=== PATIENT | male | born 1990 | race Caucasian/White ===

== ENCOUNTER 2022-04-20 00:03 | Emergency (ER) | payer OTHER, SELFPAY ==
--- NOTE | ~2022-04-20 | XR_ITS ---
EXAMINATION: XR ankle RT min 3V, XR foot RT min 3V CLINICAL INFORMATION: Reason for Exam pain, trauma COMPARISON: Right ankle radiographs the 05/07/2012 TECHNIQUE: AP and mortise views right ankle; 3 views right foot FINDINGS: Right ankle: No fracture or dislocation. Ankle mortise is congruent and intact. Right foot: No acute fracture or dislocation. Joint spaces throughout the foot are maintained. Lisfranc alignment is preserved on this nonweightbearing exam. No evidence of ankle joint effusion on the lateral view. XR/XR foot RT min 3V IMPRESSION: 1. No acute fracture or dislocation identified at the right foot or ankle.
--- NOTE | ~2022-04-20 | XR_ITS ---
EXAMINATION: XR ankle RT min 3V, XR foot RT min 3V CLINICAL INFORMATION: Reason for Exam pain, trauma COMPARISON: Right ankle radiographs the 05/07/2012 TECHNIQUE: AP and mortise views right ankle; 3 views right foot FINDINGS: Right ankle: No fracture or dislocation. Ankle mortise is congruent and intact. Right foot: No acute fracture or dislocation. Joint spaces throughout the foot are maintained. Lisfranc alignment is preserved on this nonweightbearing exam. No evidence of ankle joint effusion on the lateral view. XR/XR ankle RT min 3V IMPRESSION: 1. No acute fracture or dislocation identified at the right foot or ankle.
[2022-04-20 00:27] VITALS: BP 94/56; PULSE 71; RESP 16; TEMP 36.6; O2SAT 97; BMI 24.3
--- NOTE | 2022-04-20 01:12 | ED.LOWEXIN ---
HPI - Extremity Injury (Lower) General Chief Complaint: Extremity Injury, Lower Stated Complaint: R foot Pain Time Seen by Provider: 04/20/22 00:32 Source: patient Mode of arrival: ambulatory Limitations: no limitations History of Present Illness HPI Narrative: 31-year-old male presents for injury to his right foot and ankle. Patient states that he was running and tripped over a tree. States that he has pain and swelling to the right extremity and has a history of fracture. Does not report any other injury from this fall, did not report any prodromal events prior to the fall. Patient is ambulatory with a limp. complaint: ankle injury and foot injury Onset (ago): hour(s) (Within the hour of arrival) Type of Injury: unknown Place: street/outdoors Severity: moderate Severity scale (1-10): 6 Relieving factors: nothing Exacerbating factors: weight bearing, movement and palpation Context: direct blow Associated symptoms: swelling, able to partially bear weight and ambulatory Other symptoms: none Related Data Allergies Allergy/AdvReac Type Severity Reaction Status Date / Time No Known Allergies Allergy Verified 04/20/22 00:32 Review of Systems Review of Systems: Constitutional: No Fever, No Chills ENT/Mouth: No Ear Pain, No Hoarseness, No sore throat Eyes: No Eye Pain, No Swelling, No Redness, No Foreign Body Cardiovascular: No Chest Pain, No SOB Respiratory: No Cough, No Dyspnea Gastrointestinal: No Nausea, No Vomiting, No Diarrhea, No abdominal Pain Genitourinary: No Dysuria, No Hematuria Musculoskeletal: positive right foot and ankle pain, No Myalgias, No Joint Swelling Skin: No Skin lacerations, No rash Neuro: No Weakness, No Numbness, No Paresthesias, No Loss of Consciousness, No Dizziness, No Headache Psych: No Anxiety/Panic, No Depression Heme/Lymph: no easy bruising, no Lymphadenopathy Endocrine: No Polyuria, No Polydipsia Yes all other systems are reviewed and are negative [facility] Past Medical History Attestation statement: The following information was validated with the patient. Source: old records reviewed Social History Social History Advance Directives: No Physical Exam Vital Signs: Vital Signs: Last Vital Signs Temp 97.8 F 04/20/22 00:27 Pulse 71 04/20/22 00:27 Resp 16 04/20/22 00:27 BP 94/56 L 04/20/22 00:27 Pulse Ox 97 04/20/22 00:27 O2 Del Method 04/20/22 00:27 BMI result Body Mass Index 24.3 Appearance: Alert. Oriented X3. No acute distress. Eyes: Pupils equal, round and reactive to light. ENT: Pharynx normal. Neck: Normal inspection. Neck supple. CVS: Normal heart rate and rhythm. Pulses normal. Respiratory: No respiratory distress. Breath sounds normal. Abdomen: Soft and nontender. Skin: Skin warm and dry. Normal skin color. Normal skin turgor. Extremities: Full range of motion, flexion extension internal and external rotation to the right lower extremity. Brisk capillary refill ankle pulses. Neuro: No motor deficit. No sensory deficit. Cranial nerves 2-12 intact. Course Course Course Narrative: 31-year-old male presents with injury to the right lower extremity after running and tripping into a tree. Patient does not have any appreciable swelling or discoloration consistent with bruising. No open wounds noted. Has full range of motion to lower extremity. Is ambulatory with a limp. Will order x-rays 01:16 x-rays negative for acute findings requiring emergent intervention. Plan of care is to discharge home with supportive measures. Patient verbalized understanding of and agrees plan of care discharge home MDM - Extremity Injury (Lower) Differential Diagnosis Differential diagnosis: Likely ankle sprain and strain and ankle fracture Medical Records Attestation: I reviewed the patient's medical records. Imaging Data Right foot and ankle x-ray: Attestation: I personally reviewed and interpreted this imaging study as follows: Radiologist's impression: EXAMINATION: XR ankle RT min 3V, XR foot RT min 3V CLINICAL INFORMATION: Reason for Exam pain, trauma COMPARISON: Right ankle radiographs the 05/07/2012 TECHNIQUE: AP and mortise views right ankle; 3 views right foot FINDINGS: Right ankle: No fracture or dislocation. Ankle mortise is congruent and intact. Right foot: No acute fracture or dislocation. Joint spaces throughout the foot are maintained. Lisfranc alignment is preserved on this nonweightbearing exam. No evidence of ankle joint effusion on the lateral view. XR/XR foot RT min 3V IMPRESSION: ? 1. No acute fracture or dislocation identified at the right foot or ankle.? Discharge Plan Discharge Clinical Impression: Ankle sprain and strain Patient Disposition: Home, Self-Care Instructions: Ankle Sprain (ED) Additional Instructions: You were evaluated for right lower extremity pain. X-rays are negative for fracture and dislocation. This is most likely a sprain. Use Jun Wrap as needed. Alternate Tylenol 650 mg every 6 hours and Motrin 600 mg every 6 hours for pain management. Write down what time he take these medications to prevent accidental overdose. Follow-up with primary care provider as needed. Thank you for choosing this emergency department for evaluation. Please follow-up with primary care physician as needed. Return to the emergency department for any new, concerning, or worsening symptoms.
== END 2022-04-20 01:40 | disposition home or self-care (01) ==
PROVIDERS: Emergency Provider Emergency Medicine
DX: S93.401A Sprain of unspecified ligament of right ankle, initial encounter (principal); S96.911A Strain of unspecified muscle and tendon at ankle and foot level, right foot, initial encounter; W01.0XXA Fall on same level from slipping, tripping and stumbling without subsequent striking against object, initial encounter; Y93.02 Activity, running; Y92.410 Unspecified street and highway as the place of occurrence of the external cause; Y99.9 Unspecified external cause status
CPT/HCPCS: 73610; 73630; 99283

== ENCOUNTER 2022-05-31 20:35 | Emergency (ER) | payer OTHER, SELFPAY ==
[2022-05-31 20:40] VITALS: BP 118/75; PULSE 94; RESP 14; TEMP 36.6; O2SAT 97; BMI 24.3
--- NOTE | 2022-05-31 21:35 | PC.NURSE ---
I was flagged into the room by female visitor. he's having fits or something . Pt a and ox 4, tearful. Pt was abusive verbally abusive to staff when URVASHI education was provided regarding priority. Pt verbalized undstanding. it shouldn't be so fucking hard to check my joint and see if i'm going to be okay. you can fucking transfer me to another hospital .
--- NOTE | 2022-05-31 21:49 | ED_ITS ---
HPI - Male Genitourinary General Chief complaint: Urogenital-Male Stated complaint: genital issues Time Seen by Provider: 05/31/22 21:35 Source: patient and other ( Girlfriend) Mode of arrival: ambulatory Limitations: no limitations ( patient does give a history however he is angry, aggressive and somewhat uncooperative especially with answering questions) History of Present Illness HPI Narrative: 31-year-old male who presents emergency department for evaluation of multiple lesions on his penis. The patient states that he started out with what he thought was a pimple/ingrown hair on the left lateral ventral aspect of the penis. He then developed other pimples which he states popped. His penis then became inflamed and red. He states that the lesions are not painful. He does have a clear penile discharge. He has no testicular or scrotal pain. When I asked him if he had a history of sexually transmitted diseases he denied this however his girlfriend is dated that he had gonorrhea and chlamydia 2 weeks ago but he did not finish his medications. This made the patient angry and his girlfriend also became angry and left the room and went home which upset the patient further. The patient denied fever, chills, chest pain, shortness of breath, joint pain, fatigue, weakness, throat pain, rectal pain. the patient to be reached at the following phone number Complaint: penile discharge, possible STD exposure and other ( Penile lesions) Onset (ago): day(s) (2) Duration: constant Location: penis Radiation: penis Quality: other ( painless) Relieving factors: none Exacerbating factors: none Associated symptoms: Reports discharge and rash Related Data Sexually active: Yes Previous Rx's Medication Instructions Recorded doxycycline hyclate 100 mg tablet 100 mg PO Q12H 10 days #20 tabs 05/31/22 metronidazole 500 mg tablet 500 mg PO BID 10 days #20 tabs 05/31/22 valacyclovir 1 gram tablet 1,000 mg PO Q12H 10 days #20 tabs 05/31/22 Allergies Allergy/AdvReac Type Severity Reaction Status Date / Time No Known Allergies Allergy Verified 04/20/22 00:32 [facility] Social History Social History Advance Directives: No Advance Directives Information Provided: No Physical Exam Vital Signs: Vital Signs: Last Vital Signs Temp 97.8 F 05/31/22 20:40 Pulse 94 05/31/22 20:40 Resp 14 05/31/22 20:40 BP 118/75 05/31/22 20:40 Pulse Ox 97 05/31/22 20:40 O2 Del Method 05/31/22 20:40 BMI result Body Mass Index 24.3 Const: Other: awake, alert, male patient, agitated, somewhat uncooperative when answering questions HEENT: Head: Yes normal to inspection, Yes normocephalic and Yes atraumatic Ears: external ears normal General nose exam: Normal external nose present Face and sinus: Yes normal facial exam Mouth: Normal oral and palatal mucosa present Throat: Yes posterior oropharynx normal Eyes: General: appearance normal, both eyes and all related structures Pupils: Equal, round and reactive pupils present Neck: Neck: Yes normal visual inspection, Yes no lymphadenopathy, Yes trachea midline and Yes supple Chest: Chest palpation & inspection: normal inspection of the chest and normal palpation of entire chest wall Resp: Effort & Inspection: normal respiratory effort and able to speak in complete sentences Auscultation: clear to auscultation bilaterally Cardio: Rate: regular rate Rhythm: regular rhythm Heart sounds: S1 normal heart sound present, S2 normal heart sound present and no murmurs GI: Inspection: Yes normal to inspection Palpation (GI): Soft to palpation, nontender and no guarding Auscultation: normal bowel sounds : Other: patient has multiple lesions and an ulceration to skin of his penis, I suspect that the patient has herpes with a superinfection. The patient did agree to let me a photograph the lesions in order to follow the progression in the event that he has to return and his symptoms are worse. the patient also has a piercing on the dorsal aspect of the penis which is in the shape of a heart, it is inserted under the skin, it is nontender and not erythematous. The patient is uncircumcised, there are no lesions noted on the bulb of the penis but he does have a clear urethral discharge. He has nontender bilateral inguinal adenopathy General: Yes no CVA tenderness Back/Spine/Pelvis: Back: no CVA tenderness Skin: General skin exam: no rashes or lesions noted Neuro: Cranial nerves: Yes CN's II-XII intact bilaterally and Yes Equal, round and reactive pupils present Cognition (Neuro): normal cognition Extrem: General: Yes normal to inspection Psych: Appearance: grossly normal Speech and movement: Normal speech and movement present Attitude: Belligerent attititude/behavior present Course Course Course Narrative: 31-year-old male who presents emergency department for evaluation penile lesions x2 days as well as penile discharge. The patient's girlfriend reported that he tested positive for gonorrhea and chlamydia but did not complete his course of antibiotics. The patient is sexually active. The patient's description of his lesions are concerning for possible herpetic lesions which I believe are now superinfected. Patient also has a clear penile discharge in most likely has chlamydia but gonorrhea is also possibility. I did discuss testing and treatment for STDs with the patient and he did concur. He also give me permission to take a picture the lesions so that we can follow the lesions in the event that he has return to the emergency department for further management. The patient was tested for HIV, STD, herpes. The patient so far has refused to give us a urine sample for gonorrhea and chlamydia and we do not do urethral testing for these illnesses at this institution. Patient was treated with ceftriaxone/ lidocaine 500 mg IM, doxycycline 100 mg orally in Flagyl 500 mg orally. He was given prescriptions for doxycycline 100 mg q.12 hours for 10 days, Flagyl 500 mg q.12 hours for 10 days and valacyclovir 1000 mg q.12 hours for 10 days. The patient will need to follow-up with [facility] in [place] for re-evaluation and to follow-up on his laboratory testing. The patient did give me the following phone number that he can be reached at: Discharge Plan Discharge Clinical Impression: Concern about STD in male without diagnosis, Lesion of penis, Discharge from penis Patient Disposition: Home, Self-Care Instructions: Sexually Transmitted Diseases (ED) Additional Instructions: you have and infection of your penis. There are multiple different possible causes including sexual transmitted diseases such as HIV, syphilis, gonorrhea, chlamydia, herpes and a bacterial infection. We tested you for HIV, syphilis, gonorrhea, chlamydia, herpes, and a wound culture. You were treated with ceftriaxone 500 mg IM you also received doxycycline 100 mg orally and Flagyl (metronidazole ) 500 mg. Take doxycycline 100 mg every 12 hours for 10 days. Take Flagyl (metronidazole ) 500 mg every 12 hours for 10 days. Take valacyclovir 1000 mg every 12 hours for 10 days. Apply bacitracin twice a day to the rash on your penis for 10 days. Follow-up with [facility] in [place] for re-evaluation in 1 week Prescriptions: New metronidazole 500 mg tablet 500 mg PO BID 10 Days Qty: 20 0RF doxycycline hyclate 100 mg tablet 100 mg PO Q12H 10 Days Qty: 20 0RF valacyclovir 1 gram tablet 1,000 mg PO Q12H 10 Days Qty: 20 0RF
[2022-05-31] MEDS: metroNIDAZOLE 500 MG TABLET PO (22:18)
[2022-05-31] MEDS: cefTRIAXone sodium 500 MG, Lidocaine HCl 1 % MPF 1 ML IM (22:19)
[2022-05-31 23:31] LABS: Appearance Urine HAZY; Color Urine YELLOW; Glucose Urine UA NEG (NEG); Leukocyte Esterase Urine NEG (NEG); Nitrite Urine NEG (NEG); Specific Gravity - Urine >= 1.030 (1.005-1.025); Urine Blood NEG (NEG); Urine Ketones NEG (NEG); Urine Protein 2+ MG/DL (NEG-TRACE)
[2022-05-31 23:44] LABS: Bacteria Urine TRACE /LPF; Calcium Oxalate Crystals Urine TRACE /LPF; Mucus Urine 2+ /LPF; RBC Urine 0 /HPF (0); Squamous Epithelial Cell Urine 1+ /LPF
[2022-05-31 23:45] LABS: Sperm Urine NOTED
[2022-06-01 00:57] LABS: CT PCR NOT DETECTED (Not Detect.); NG PCR NOT DETECTED (Not Detect.)
[2022-06-02 07:14] LABS: Syphilis Screen Nonreactive (Nonreactive)
[2022-06-02 07:37] LABS: HIV AB/AG Nonreactive (Nonreactive); HIV Num 1 0.19 S/CO (0.00-0.99)
[2022-06-02 21:42] LABS: Herpes Simplex Type 1 IgG >58.00 index; Herpes Simplex Type 2 IgG <0.90 index
== END 2022-05-31 22:38 | disposition home or self-care (01) ==
PROVIDERS: Emergency Provider Emergency Medicine Emergency Medical Services
DX: Z20.2 Contact with and (suspected) exposure to infections with a predominantly sexual mode of transmission (principal); N48.9 Disorder of penis, unspecified; R36.9 Urethral discharge, unspecified; R45.1 Restlessness and agitation
CPT/HCPCS: 36415; 81001; 86695; 86696; 86780; 87071; 87077; 87147; 87186; 87205; 87255; 87389; 87491; 87591; 96372; 99282; 99284; J0696

== ENCOUNTER 2022-10-02 16:28 | Emergency (ER) | payer OTHER, SELFPAY ==
[2022-10-02 17:36] VITALS: BP 136/57; PULSE 74; RESP 16; TEMP 36.7; O2SAT 97; BMI 25.8
--- NOTE | 2022-10-02 17:39 | ED.SKABFB ---
HPI - Skin/Abscess/Foreign Bdy General Chief complaint: Extremity Problem Stated complaint: Abscess on elbow/ neck pain Time Seen by Provider: 10/02/22 17:45 Source: patient Mode of arrival: ambulatory Limitations: no limitations History of Present Illness HPI narrative: This is a 32-year-old male who presents to the ER with multiple complaints. Patient reports left elbow swelling and redness with pain for the last 2 days. Patient reports initially he had a small scratch and he believes an hours infected. Patient denies any fevers or chills. Also complaining of some right-sided neck discomfort with no injury or trauma. Patient denies any headache, weakness, numbness, tingling of the upper extremities. Patient also requesting to be treated for gonorrhea and chlamydia. He tells me his partner was positive. He is having some urinary frequency but denies any penile discharge, testicular pain. Patient denies any history of substance use. Related Data Previous Rx's Medication Instructions Recorded doxycycline hyclate 100 mg tablet 100 mg PO Q12H 10 days #20 tabs 05/31/22 metronidazole 500 mg tablet 500 mg PO BID 10 days #20 tabs 05/31/22 valacyclovir 1 gram tablet 1,000 mg PO Q12H 10 days #20 tabs 05/31/22 cyclobenzaprine 10 mg tablet 10 mg PO TID PRN muscle spasm #15 10/02/22 tabs doxycycline monohydrate 100 mg 100 mg PO BID #14 tabs 10/02/22 tablet Allergies Allergy/AdvReac Type Severity Reaction Status Date / Time No Known Allergies Allergy Verified 04/20/22 00:32 Review of Systems Review of Systems: Yes all other systems are reviewed and are negative Constitutional: Constitutional: Reports no additional constitutional complaints, Denies body ache(s), Denies chills, Denies fever(s), Denies headache(s) and Denies weakness Eyes: Eyes: Reports no additional eye complaints and Denies change in vision ENT: Reports system reviewed and no additional complaints, except as documented, Denies dizziness, Denies headache(s), Denies nasal congestion, Denies nasal discharge and Reports neck pain Cardiovascular: Cardiovascular: Reports no additional cardiovascular complaints, Denies chest pain, Denies leg edema and Denies dyspnea Respiratory: Respiratory: Reports no additional respiratory complaints, Denies cough and Denies dyspnea Gastrointestinal: Gastrointestinal: Reports no additional gastrointestinal complaints, Denies abdominal pain, Denies diarrhea, Denies nausea and Denies vomiting Genitourinary: Genitourinary: Denies penile discharge, Denies testicular pain, Reports urinary frequency, Denies urinary hesitancy, Denies urinary incontinence and Denies urinary urgency Musculoskeletal: Musculoskeletal: Reports no additional musculoskeletal complaints, Denies back pain, Reports arthralgias, Denies joint swelling, Reports neck pain, Denies numbness and Denies tingling Integumentary/Breasts: Skin/Breast: Reports system reviewed and no additional complaints, except as docu, Reports swelling, Reports erythema and Denies rash Neurologic: Reports system reviewed and no additional complaints, except as documented, Denies Abnormal speech present, Denies dizziness, Denies headache(s), Denies numbness, Denies tingling and Denies weakness PMFSH Past Medical History Attestation statement: The following information was validated with the patient. Source: old records reviewed and nursing notes reviewed Social History Social History Advance Directives: No Advance Directives Information Provided: No Physical Exam Vital Signs: Vital Signs: Last Vital Signs Temp 98.0 F 10/02/22 17:36 Pulse 74 10/02/22 17:36 Resp 16 10/02/22 17:36 BP 136/57 L 10/02/22 17:36 Pulse Ox 97 10/02/22 17:36 O2 Del Method 10/02/22 17:36 BMI result Body Mass Index 25.8 Const: General: cooperative, healthy appearing, comfortable and no acute distress Orientation/consciousness: patient oriented x3 Limitations: no limitations HEENT: Head: Yes normal to inspection Ears: hearing grossly normal bilaterally General nose exam: Normal external nose present Face and sinus: Yes normal facial exam Mouth: Normal oral and palatal mucosa present Throat: Yes posterior oropharynx normal Eyes: General: appearance normal, both eyes and all related structures Pupils: Equal, round and reactive pupils present Neck: Other: Mild tenderness the right lateral neck with no midline tenderness, step-offs deformities. No swelling, redness. Full range of motion. Neck: Yes normal visual inspection, Yes full ROM, Yes no lymphadenopathy and Yes no meningeal signs Chest: Chest palpation & inspection: normal inspection of the chest Resp: Effort & Inspection: normal respiratory effort Auscultation: clear to auscultation bilaterally Cardio: Rate: regular rate Rhythm: regular rhythm Peripheral pulses: Peripheral pulses 2+ throughout GI: Inspection: Yes normal to inspection Palpation (GI): Soft to palpation and nontender Auscultation: normal bowel sounds : Other: Deferred by patient Back/Spine/Pelvis: Thoracic/Lumbar Spine: thoracic and lumbar spine normal to inspection Skin: General skin exam: no rashes or lesions noted Neuro: General: patient oriented x3, moves all extremities, no meningeal signs, no focal motor deficits and normal sensation to monofilament Cranial nerves: Yes CN's II-XII intact bilaterally, Yes Equal, round and reactive pupils present, Yes Bilaterally intact EOM present, Yes Nystagmus not present, Yes Normal facial strength present and Yes Midline tongue present Cognition (Neuro): normal cognition Speech: No Abnormal speech present Gait exam (Neuro): Normal gait present Motor exam (neuro): 5/5 motor strength present throughout Sensory Exam: Normal double simultaneous stimulation for sensation Extrem: Other: Over the left lateral elbow there is a small abrasion with local redness and swelling. Patient having full range of motion of the elbow with no difficulty. Palpable radial and ulnar pulses distally. General: Yes normal to inspection Course Course Course Narrative: This is a wrap a medical exam. Deferred HPI, ROS, PE to primary provider. 32-year-old male here with left elbow redness/swelling for 2 days with abrasion. No fevers, chills. Also c/o right sided neck pain with no known injury or trauma since yesterday. Also worried his partner had an STI so would like to be tested. +urinary frequency. No penile discharge, testicular pain, abdominal pain, fever, vomiting. Reevaluation(s) Reevaluation #1: Patient treated prophylactically with ceftriaxone 500 mg IM will be sent home with doxycycline. Reviewed worrisome signs and symptoms of when to return to the emergency room. Comfortable plan for discharge home. Medications Administered Discontinued Medications Generic Name Dose Route Start Last Admin Trade Name Freq PRN Reason Stop Dose Admin Ceftriaxone Sodium 500 mg/ 0 mg 10/02/22 17:43 10/02/22 19:45 Lidocaine HCl 1 ml IM 10/02/22 17:44 1 kit ONCE ONE Administration Medical Decision Making Medical Decision Making [facility] Narrative: 32-year-old male here with multiple complaints. Will need testing for gonorrhea chlamydia Local cellulitis the left elbow with no evidence of septic joint. Will need oral antibiotic Also some right-sided neck discomfort with no midline tenderness, step-offs deformities of full range of motion. Likely musculoskeletal Discharge Plan Discharge Clinical Impression: Concern about STD in male without diagnosis, Acute cervical myofascial strain, Cellulitis of left elbow Patient Disposition: Home, Self-Care Instructions: Sexually Transmitted Diseases (ED), Cervical Strain (ED), Cellulitis (ED) Additional Instructions: Heat or ice Gentle stretching No heavy lifting or bending We will call you if your urine test results are positive Prescriptions: New doxycycline monohydrate 100 mg tablet 100 mg PO BID Qty: 14 0RF cyclobenzaprine 10 mg tablet 10 mg PO TID PRN (Reason: muscle spasm) Qty: 15 0RF No Action metronidazole 500 mg tablet 500 mg PO BID 10 Days Qty: 20 0RF doxycycline hyclate 100 mg tablet 100 mg PO Q12H 10 Days Qty: 20 0RF valacyclovir 1 gram tablet 1,000 mg PO Q12H 10 Days Qty: 20 0RF Referrals: Physician,Unknown J [Primary Care Provider] -
--- NOTE | 2022-10-02 19:15 | ED.GENADULT ---
HPI - General Adult General Chief complaint: Extremity Problem Stated complaint: Abscess on elbow/ neck pain Time Seen by Provider: 10/02/22 17:45 Source: patient Mode of arrival: ambulatory Limitations: no limitations History of Present Illness HPI narrative: Patient is a 32-year-old male presented today with significant other with multitude of complaints complaint 1. Is patient has neck pain on the right side worse when he turns his neck. There is no photophobia. There is no nuchal rigidity. No fever no chills. No focal weakness. Second complaint is patient has a skin lesion on his left elbow. He can move his elbow fine. Noticed some redness there. There was a dot there. Third complaint patient worried he is exposed to his significant other. He had sexual contact with significant other that potentially has STD. Patient denies any penile discharge. Related Data Previous Rx's Medication Instructions Recorded doxycycline hyclate 100 mg tablet 100 mg PO Q12H 10 days #20 tabs 05/31/22 metronidazole 500 mg tablet 500 mg PO BID 10 days #20 tabs 05/31/22 valacyclovir 1 gram tablet 1,000 mg PO Q12H 10 days #20 tabs 05/31/22 cyclobenzaprine 10 mg tablet 10 mg PO TID PRN muscle spasm #15 10/02/22 tabs doxycycline monohydrate 100 mg 100 mg PO BID #14 tabs 10/02/22 tablet Allergies Allergy/AdvReac Type Severity Reaction Status Date / Time No Known Allergies Allergy Verified 04/20/22 00:32 Review of Systems Review of Systems: Positive neck pain No photophobia No diaphoresis Positive skin lesion on the left elbow Positive exposure to STD Yes all other systems are reviewed and are negative [facility] Past Medical History Attestation statement: The following information was validated with the patient. Social History Social History Advance Directives: No Advance Directives Information Provided: No Physical Exam ED Vital Signs: Vital Signs - 24 hr 10/02/22 17:36 Temperature 98.0 F Pulse Rate 74 Respiratory Rate 16 Blood Pressure 136/57 L Pulse Oximetry 97 Oxygen Delivery Method Room Air BMI result Body Mass Index 25.8 Appearance: Alert. Oriented X3. No acute distress. Eyes: Pupils equal, round and reactive to light. ENT: Pharynx normal. Examination of the neck showed no spinal tenderness. Range of motion intact. No redness. No nuchal rigidity. Neck: Normal inspection. Neck supple. No lymph nodes noted. No crepitus CVS: Normal heart rate and rhythm. Pulses normal. Normal S1 and S2 Respiratory: No respiratory distress. Breath sounds normal. No Wheezing. No rales Abdomen: Soft and nontender. No rigidity. No distention. good BS x4 Skin: Skin warm and dry. Normal skin color. Normal skin turgor. Examination of the left elbow showed good range of motion at the elbow. There is a small area of redness. In the center there is a white dot. It is not fluctuant. Distal sensation motor intact. The area as proximally 1 cm x 1 cm in size. Extremities: No lower extremity edema. Neurovascular intact to all extremities. No Lacerations. No Rash Neuro: Oriented X 3. No motor deficit. No sensory deficit. Moving all extermities. No slurred speech Medical Decision Making Medical Decision Making MDM Narrative: Will go ahead and treat patients for his possible STD. Rocephin and doxycycline was given. The doxycycline will also help with a possible cellulitis. Will have patient take Motrin for the neck pain likely torticollis. Patient has no nuchal rigidity no neurological deficit no fever no chills. Not consistent with having meningitis. Patient has no fluctuance unlikely to have an abscess. Will discharge patient home. Stable condition. Differential Diagnoses: Differential diagnosis Consideration of admission/observation: Consideration of Admission/Observation Discussion of management with other physician/healthcare provider/other source (e.g., hospitalist, disaster recovery consultant, behavioral health): Discussion w/other physician/healthcare provider My interpretation is Lab Attestation: I reviewed the patient's lab results. Chronic conditions affecting care (e.g., diabetes, HTN): Chronic conditions affecting care (e.g., diabetes, HTN) Care significantly affected by Social Determinants of Health (e.g., housing and economic circumstances, unemployment): Care affected by Social Determinants of Health Discharge Plan Discharge Clinical Impression: Concern about STD in male without diagnosis, Acute cervical myofascial strain, Cellulitis of left elbow Patient Disposition: Home, Self-Care Additional Instructions: Heat or ice Gentle stretching No heavy lifting or bending We will call you if your urine test results are positive Prescriptions: New doxycycline monohydrate 100 mg tablet 100 mg PO BID Qty: 14 0RF cyclobenzaprine 10 mg tablet 10 mg PO TID PRN (Reason: muscle spasm) Qty: 15 0RF No Action metronidazole 500 mg tablet 500 mg PO BID 10 Days Qty: 20 0RF doxycycline hyclate 100 mg tablet 100 mg PO Q12H 10 Days Qty: 20 0RF valacyclovir 1 gram tablet 1,000 mg PO Q12H 10 Days Qty: 20 0RF Referrals: Physician,Unknown J [Primary Care Provider] -
[2022-10-02] MEDS: cefTRIAXone sodium 500 MG, Lidocaine HCl 1 % MPF 1 ML IM (19:45)
--- NOTE | 2022-10-02 20:35 | PC.NURSE ---
approached pt for discharge, requested urine sample for testing, stated that he wasnt able to go. advised that pt can follow up with [facility] for further eval and tx
== END 2022-10-02 20:36 | disposition home or self-care (01) ==
PROVIDERS: Emergency Provider Emergency Medicine Emergency Medical Services
DX: S16.1XXA Strain of muscle, fascia and tendon at neck level, initial encounter (principal); L03.114 Cellulitis of left upper limb; M54.2 Cervicalgia; R51.9 Headache, unspecified; X58.XXXA Exposure to other specified factors, initial encounter; Y93.9 Activity, unspecified; Y92.9 Unspecified place or not applicable; Y99.9 Unspecified external cause status; Z20.2 Contact with and (suspected) exposure to infections with a predominantly sexual mode of transmission; Z79.899 Other long term (current) drug therapy
CPT/HCPCS: 96372; 99283; 99284; J0696

== ENCOUNTER 2023-07-02 21:50 | Emergency (ER) | payer OTHER, SELFPAY ==
[2023-07-02 22:02] VITALS: BP 104/72; PULSE 73; O2SAT 95
[2023-07-02 22:05] VITALS: BP 119/77; PULSE 79; RESP 18; TEMP 37.2; O2SAT 97; BMI 24.3
[2023-07-02] MEDS: Ibuprofen 800 MG TABLET PO (22:16)
--- NOTE | 2023-07-02 22:17 | PC.NURSE ---
pt medicated per request and MAR for 10/10 left lower back and LUQ abdominal pain. He is visibly uncomfortable in triage, gas charger alerted regarding pt and reports of recent CA diagnosis. EDT currently in triage to obtain labs as pt reports increased pain/discomfort with walking.
[2023-07-02 22:28] LABS: MANUAL DIFF FLAG NO
[2023-07-02 22:30] LABS: Basophils Percent Auto 0.4 % (0-2); Eosinophils Absolute Auto 0.1 X10*3/uL (0.0-0.4); Eosinophils Percent Auto 1.3 % (0-4); Hematocrit 41.2 % (42.0-52.0); Hemoglobin 13.3 g/dl (14.0-18.0); Imm Gran Abs Auto 0.01 X10*3/uL (0.00-0.03); Imm Gran Pct Auto 0.1 % (0.0-0.4); Lymphocytes Absolute Auto 1.7 X10*3/uL (1.2-4.9); Lymphocytes Percent Auto 22.3 % (20-40); Mean Corpuscular HGB Conc 32.3 g/dl (31.0-36.0); Mean Corpuscular Volume 83.6 fL (80.0-98.0); Mean Platelet Volume 7.9 fL (9.4-12.4); Monocytes Absolute Auto 0.8 X10*3/uL (0.1-1.2); Monocytes Percent Auto 10.3 % (2-11); Neutrophils Percent Auto 65.6 % (45-73); Platelet Count 247 X10*3/uL (160-400); Red Blood Count 4.93 X10*6/uL (4.60-5.80); Red Cell Distribution Width 11.8 % (11.0-16.0); White Blood Count 7.7 X10*3/uL (4.8-10.8)
[2023-07-02 22:57] LABS: Alanine Aminotransferase 11 U/L (0-40); Albumin Level 3.5 g/dL (3.5-5.0); Alkaline Phosphatase 71 U/L (39-117); Anion Gap 13 (12-20); Aspartate Amino Transferase 13 U/L (5-37); Bilirubin Total 0.3 mg/dL (0.0-1.0); Blood Urea Nitrogen 12 mg/dL (9-16); Calcium 8.9 mg/dL (8.4-10.2); Carbon Dioxide 28 mmol/L (22-29); Chloride 101 mmol/L (96-108); Creatinine Clr Calc Pharmacy 112.9; Estimated Glomerular Filt Rate > 60; Glucose Random 130 mg/dL (60-115); Potassium 3.8 mmol/L (3.3-5.1); Sodium 138 mmol/L (135-145); Total Protein 7.1 g/dL (6.5-8.0)
--- NOTE | 2023-07-03 02:32 | ED.GENADULT ---
HPI - General Adult General Chief complaint: General Medical Stated complaint: back pain x3days Time Seen by Provider: 07/03/23 00:44 Source: patient Mode of arrival: ambulatory Limitations: no limitations History of Present Illness HPI narrative: Patient history of pancreatitis in the past no records in the computer , patient been having pain in the left upper abdomen and mid abdomen for last few days no nausea no vomiting no diarrhea history is not reliable patient with sleeping since she arrived in the ER denies any alcohol use was Related Data Previous Rx's Medication Instructions Recorded doxycycline hyclate 100 mg tablet 100 mg PO Q12H 10 days #20 tabs 05/31/22 metronidazole 500 mg tablet 500 mg PO BID 10 days #20 tabs 05/31/22 valacyclovir 1 gram tablet 1,000 mg PO Q12H 10 days #20 tabs 05/31/22 cyclobenzaprine 10 mg tablet 10 mg PO TID PRN muscle spasm #15 10/02/22 tabs doxycycline monohydrate 100 mg 100 mg PO BID #14 tabs 10/02/22 tablet omeprazole 40 mg capsule,delayed 40 mg PO DAILY #30 caps 07/03/23 release sucralfate 1 gram tablet 1 g PO BID #60 tabs 07/03/23 Allergies Allergy/AdvReac Type Severity Reaction Status Date / Time No Known Allergies Allergy Verified 04/20/22 00:32 Review of Systems Review of Systems: Yes all other systems are reviewed and are negative [facility] Social History Social History Advance Directives: No Advance Directives Information Provided: No Physical Exam ED Vital Signs: Vital Signs - 24 hr 07/02/23 22:05 07/03/23 02:42 Temperature 98.9 F 98.0 F Pulse Rate 79 86 Respiratory Rate 18 18 Blood Pressure 119/77 110/69 Pulse Oximetry 97 95 Oxygen Delivery Method Room Air Room Air BMI result Body Mass Index 24.3 Appearance: Alert. Oriented X3. No acute distress. Sleeping Eyes: PERRLA, No Nystagmus ENT: Pharynx normal. Oral Mucosa moist Neck: Normal inspection. Neck supple. CVS: Normal heart rate and rhythm. Pulses normal. Respiratory: No respiratory distress. Equal air entry bilateral, no wheezing/rales/rhonchi Abdomen: Soft slight discomfort left upper quadrant no guarding or rebound tenderness Bowel sounds are present, no mass palpable, no CVA tenderness Skin: Skin warm and dry. Normal skin color. Normal skin turgor. Extremities: No lower extremity edema. No calf tenderness Neuro: Oriented X 3. Medications Administered Discontinued Medications Generic Name Dose Route Start Last Admin Trade Name Orestes PRN Reason Stop Dose Admin Al Hydroxide/Mg Hydroxide 30 ml 07/03/23 02:47 07/03/23 03:05 Magnesium Hydrox/Alum Hydrox 30 Ml Oral.Susp PO 07/03/23 02:48 30 ml ONCE ONE Administration Cyclobenzaprine HCl 10 mg 07/03/23 02:38 07/03/23 02:45 Cyclobenzaprine Hcl 10 Mg Tablet PO 07/03/23 02:39 10 mg ONCE ONE Administration Ibuprofen 800 mg 07/02/23 22:08 07/02/23 22:16 Ibuprofen 800 Mg Tablet PO 07/02/23 22:09 800 mg ONCE ONE Administration Omeprazole 40 mg 07/03/23 02:46 07/03/23 03:05 Omeprazole 40 Mg Capsule. PO 07/03/23 02:47 40 mg ONCE ONE Administration Medical Decision Making Medical Decision Making MDM Narrative: Patient with doubtful history taking p.o. fluids no signs of pancreatitis discharge patient home patient has been here multiple times for different complaints in past Lab Data MDM Lab Attestation statement: I reviewed the patient's lab results. 07/02/23 22:23 07/02/23 22:23 Labs: Lab Results 07/02/23 Range/Units 22:23 WBC 7.7 (4.8-10.8) X10*3/uL RBC 4.93 (4.60-5.80) X10*6/uL Hgb 13.3 L (14.0-18.0) g/dl Hct 41.2 L (42.0-52.0) % MCV 83.6 (80.0-98.0) fL MCH 27.0 (27.0-33.0) pg MCHC 32.3 (31.0-36.0) g/dl RDW 11.8 (11.0-16.0) % Plt Count 247 (160-400) X10*3/uL MPV 7.9 L (9.4-12.4) fL Immature Gran % (Auto) 0.1 (0.0-0.4) % Neut % (Auto) 65.6 (45-73) % Lymph % (Auto) 22.3 (20-40) % [place] % (Auto) 10.3 (2-11) % Eos % (Auto) 1.3 (0-4) % Baso % (Auto) 0.4 (0-2) % Lymph # (Auto) 1.7 (1.2-4.9) X10*3/uL [place] # (Auto) 0.8 (0.1-1.2) X10*3/uL Eos # (Auto) 0.1 (0.0-0.4) X10*3/uL Baso # (Auto) 0.0 (0.0-0.2) X10*3/uL Abs Immat Gran (auto) 0.01 (0.00-0.03) X10*3/uL Absolute Neuts (auto) 5.0 (2.0-8.3) x10*3/uL Absolute Nucleated RBC 0.000 (0.0-0.012) X10*3/uL Nucleated RBC % (auto) 0.0 (0.0-0.2) /100WBC Sodium 138 (135-145) mmol/L Potassium 3.8 (3.3-5.1) mmol/L Chloride 101 (96-108) mmol/L Carbon Dioxide 28 (22-29) mmol/L Anion Gap 13 (12-20) BUN 12 (9-16) mg/dL Creatinine 0.90 (0.5-1.4) mg/dL Estim Creat Clear Calc 112.9 Estimated GFR > 60 Random Glucose 130 H (60-115) mg/dL Calcium 8.9 (8.4-10.2) mg/dL Total Bilirubin 0.3 (0.0-1.0) mg/dL AST 13 (5-37) U/L ALT 11 (0-40) U/L Alkaline Phosphatase 71 (39-117) U/L Total Protein 7.1 (6.5-8.0) g/dL Albumin 3.5 (3.5-5.0) g/dL Lipase 50 (8-78) U/L Discharge Plan Discharge Clinical Impression: Gastritis Patient Disposition: Home, Self-Care Instructions: Gastritis (ED) Additional Instructions: Take medication as prescribed Your not have pancreatitis today Avoid fried food Prescriptions: New omeprazole 40 mg capsule,delayed release(DR/EC) 40 mg PO DAILY Qty: 30 0RF sucralfate 1 gram tablet 1 g PO BID Qty: 60 0RF No Action metronidazole 500 mg tablet 500 mg PO BID 10 Days Qty: 20 0RF doxycycline hyclate 100 mg tablet 100 mg PO Q12H 10 Days Qty: 20 0RF valacyclovir 1 gram tablet 1,000 mg PO Q12H 10 Days Qty: 20 0RF doxycycline monohydrate 100 mg tablet 100 mg PO BID Qty: 14 0RF cyclobenzaprine 10 mg tablet 10 mg PO TID PRN (Reason: muscle spasm) Qty: 15 0RF Interventions: ED Discharge Assessment Last Done: 07/03/23 04:43 Discharge Date/Time: 07/03/23 04:44
[2023-07-03 02:42] VITALS: BP 110/69; PULSE 86; RESP 18; TEMP 36.7; O2SAT 95
[2023-07-03] MEDS: Cyclobenzaprine HCl 10 MG TABLET PO (02:45)
[2023-07-03 02:58] LABS: Lipase 50 U/L (8-78)
[2023-07-03] MEDS: Magnesium Hydrox/Alum Hydrox 30 ML ORAL.SUSP PO (03:05)
[2023-07-03] MEDS: Omeprazole 40 MG CAPSULE.DR PO (03:05)
== END 2023-07-03 04:44 | disposition home or self-care (01) ==
PROVIDERS: Emergency Provider Internal Medicine
DX: K29.70 Gastritis, unspecified, without bleeding (principal); R10.12 Left upper quadrant pain
CPT/HCPCS: 36415; 80053; 83690; 85025; 99283

== ENCOUNTER 2023-08-08 19:38 | Emergency (ER) | payer OTHER, SELFPAY ==
--- NOTE | ~2023-08-08 | XR_ITS ---
EXAMINATION: XR LUMBOSACRAL SPINE CLINICAL INFORMATION: Back pain COMPARISON: 05/16/2023 TECHNIQUE: Three views of the lumbosacral spine. FINDINGS: There is some possible mild sclerotic change in the iliac aspect of the SI joints. Sacroiliitis cannot be excluded. There is mild anterolisthesis of the inferior most nonrib-bearing vertebrae relative to the vertebrae superior to it. Similar to previous. The inferior most vertebrae is transitional in nature but appears sacralized bilaterally. Spina bifida occulta likely present at this level. The vertebral heights are well-maintained. XR/XR lumbar spine 2-3V IMPRESSION: No acute finding. As described findings in the lower lumbar sacral spine and some possible sclerotic change involving the iliac side of the SI joints could indicate an element of sacroiliitis.
[2023-08-08 19:46] VITALS: BP 94/61; PULSE 85; RESP 16; TEMP 37.1; O2SAT 97; BMI 22.6
--- NOTE | 2023-08-08 19:48 | ED_ITS ---
HPI - Back Pain/Injury General Chief Complaint: Back Pain/Injury Stated Complaint: Back pain traveling to legs Time Seen by Provider: 08/08/23 21:16 Source: patient Mode of arrival: ambulatory Limitations: no limitations History of Present Illness HPI Narrative: Patient is a 32 year old assigned male at with no reported medical history presenting to the emergency department today with low back pain. Patient states that he has been having low back pain for a week and now it is moving down into his legs. Patient states that he was taking tylenol and ibuprofen but has not taken either today. Patient denies any dizziness, lightheadedness, abdominal pain, nausea, vomiting, fever, chills, blurry vision, double vision, loss of vision, chest pain, difficulty breathing, shortness of breath, night sweats, pain with urination, increased urinary frequency, increased urinary urgency, blood in his urine or stool, syncope or a near syncopal episode, recent trauma or falls, bowel incontinence, bladder incontinence, bowel retention, bladder retention, or any other complaints at this time. MD elicited complaint: back pain Onset (ago): week(s) Timing: constant Severity: mild Radiation: left upper leg and right upper leg Relieving factors: none Associated symptoms: denies other symptoms Related Data Previous Rx's Medication Instructions Recorded doxycycline hyclate 100 mg tablet 100 mg PO Q12H 10 days #20 tabs 05/31/22 metronidazole 500 mg tablet 500 mg PO BID 10 days #20 tabs 05/31/22 valacyclovir 1 gram tablet 1,000 mg PO Q12H 10 days #20 tabs 05/31/22 cyclobenzaprine 10 mg tablet 10 mg PO TID PRN muscle spasm #15 10/02/22 tabs doxycycline monohydrate 100 mg 100 mg PO BID #14 tabs 10/02/22 tablet omeprazole 40 mg capsule,delayed 40 mg PO DAILY #30 caps 07/03/23 release sucralfate 1 gram tablet 1 g PO BID #60 tabs 07/03/23 cyclobenzaprine 5 mg tablet 5 mg PO TID PRN muscle spasm 7 08/08/23 days #21 tabs naproxen 500 mg tablet 500 mg PO BID 7 days #14 tabs 08/08/23 prednisone 20 mg tablet 20 mg PO DAILY 7 days #7 tabs 08/08/23 Allergies Allergy/AdvReac Type Severity Reaction Status Date / Time No Known Allergies Allergy Verified 04/20/22 00:32 Review of Systems Constitutional: Constitutional: Reports no additional constitutional complaints, Denies chills, Denies fever(s) and Denies night sweats Eyes: Eyes: Reports no additional eye complaints, Denies blurry vision, Denies change in vision, Denies diplopia, Denies eye discharge, Denies loss of vision and Denies eye pain ENT: Denies dizziness Cardiovascular: Cardiovascular: Reports no additional cardiovascular complaints, Denies chest pain, Denies lightheadedness, Denies Loss of Consciousness and Denies dyspnea Respiratory: Respiratory: Reports no additional respiratory complaints and Denies dyspnea Gastrointestinal: Gastrointestinal: Reports no additional gastrointestinal complaints, Denies abdominal pain, Denies melena, Denies hematochezia, Denies change in bowel habits and Denies change in stool character Genitourinary: Genitourinary: Reports no additional male genitourinary complaints, Denies hematuria, Denies oliguria, Denies difficulty urinating, Denies dysuria, Denies urinary frequency, Denies urinary hesitancy, Denies urinary incontinence and Denies urinary urgency Musculoskeletal: Musculoskeletal: Reports no additional musculoskeletal complaints, Reports back pain, Denies numbness and Denies tingling Neurologic: Denies dizziness, Denies loss of vision, Denies numbness and Denies tingling Psychiatric: Psychiatric: Reports no additional psychiatric complaints Endocrine: Endocrine: Reports no additional endocrine complaints Hematologic/Lymphatic: Hematologic/Lymphatic: Reports no additional hematologic/lymphatic complaints Allergic/Immunologic: Allergic/Immunologic: Reports no additional allergic/immunologic complaints PMFSH Past Medical History Attestation statement: The following information was validated with the patient. Source: old records reviewed and nursing notes reviewed Medical History (Updated 08/09/23 @ 00:02 by FLORIDALMA Oconnor) Discharge from penis Lesion of penis Concern about STD in male without diagnosis Social History Social History Advance Directives: No Advance Directives Information Provided: No Physical Exam Vital Signs: Vital Signs: Last Vital Signs Temp 98.8 F 08/08/23 19:46 Pulse 85 08/08/23 19:46 Resp 16 08/08/23 19:46 BP 94/61 08/08/23 19:46 Pulse Ox 97 08/08/23 19:46 O2 Del Method Room Air 08/08/23 19:46 BMI result Body Mass Index 22.6 Const: General: cooperative, no acute distress, alert and awake Nutritional Appearance: well nourished Orientation/consciousness: patient oriented x3 Limitations: no limitations HEENT: Head: Yes normal to inspection and Yes atraumatic Ears: hearing grossly normal bilaterally and external ears normal General nose exam: Normal external nose present, no nasal discharge noted and no epistaxis Face and sinus: Yes normal facial exam, No abrasion and No laceration Mouth: Normal oral and palatal mucosa present, no drooling and no muffled voice Eyes: General: appearance normal, both eyes and all related structures Periorbital: periorbital findings normal Eyelids: Yes eyelids normal Co njunctivae: conjunctivae normal Pupils: Equal, round and reactive pupils present EOM: EOMs intact bilaterally Neck: Neck: Yes normal visual inspection, Yes full ROM and Yes no lymphadenopathy Chest: Chest palpation & inspection: normal inspection of the chest Resp: Effort & Inspection: normal respiratory effort and able to speak in complete sentences GI: Inspection: Yes normal to inspection : General: Yes no CVA tenderness Back/Spine/Pelvis: Back: no CVA tenderness Cervical Spine: normal cervical lordosis and cervical ROM normal Thoracic/Lumbar Spine: thoracic and lumbar spine normal to inspection and thoraco-lumbar ROM normal Pelvis: no pain with anterior-posterior compression Neuro: General: patient oriented x3 and moves all extremities Cranial nerves: Yes Equal, round and reactive pupils present Cognition (Neuro): normal cognition Motor exam (neuro): 5/5 motor strength present throughout Sensory Exam: Normal double simultaneous stimulation for sensation Coordination: [id number] test normal Extrem: General: Yes normal to inspection, Yes full ROM and Yes capillary refill normal Psych: Appearance: grossly normal Mental Status: mental status grossly normal Affect: normal affect Attitude: cooperative Thought process: Normal thought process present Thought content: Normal thought content present Insight: Good insight present (Psych) Course Course Course Narrative: This is a rapid medical exam. Deferred additional HPI, ROS, PE to primary provider. 32 yo male here with back pain with radiation to both legs x 1 week. No injury or fall. Trying motrin/tylenol/medicated patches with continued symptoms. Will check x-ray VSS Medications Administered Discontinued Medications Generic Name Dose Route Start Last Admin Trade Name Freq PRN Reason Stop Dose Admin Cyclobenzaprine HCl 5 mg 08/08/23 21:36 08/08/23 22:11 Cyclobenzaprine Hcl 5 Mg Tablet PO 08/08/23 21:37 5 mg ONCE ONE Administration Ketorolac Tromethamine 15 mg 08/08/23 21:36 08/08/23 22:11 Ketorolac Tromethamine 15 Mg/Ml Vial IM 08/08/23 21:37 15 mg ONCE ONE Administration Prednisone 20 mg 08/08/23 21:36 08/08/23 22:11 Prednisone 20 Mg Tablet PO 08/08/23 21:37 20 mg ONCE ONE Administration Medical Decision Making Medical Decision Making MDM Narrative: Patient is a 32 year old assigned male at with no reported medical history presenting to the emergency department today with low back pain. Patient's physical exam was unremarkable. Patient's lumbar x-ray showed no acute process. I explained my physical exam findings as well as all test results to the patient. I answered all questions asked by the patient. Patient received PO Flexeirl, PO Prednisone, and IM Toradol which he stated helped his symptoms significantly. I stressed the importance of the patient taking his medication as prescribed. I stressed the importance of the patient following up with his primary care provider. I stressed the importance of the patient returning to the emergency department immediately if his symptoms were to worsen or if he were to develop any dizziness, shortness of breath, difficulty breathing, chest pain, blurry vision, loss of vision, nausea, vomiting, abdominal pain, fever, chills, back pain, or any other complaints. Patient verbalized agreement and understanding with this treatment plan and discharge. Differential Diagnosis Differential Diagnoses: The differential diagnosis associated with the presentation includes Sciatica Lumbar radiculopathy Low back pain Independent Interpretation I performed an independent interpretation of an: Plain X-Ray Interpretation: My interpretation is in agreement with the radiologist's impression of this imaging study. EXAMINATION: XR LUMBOSACRAL SPINE CLINICAL INFORMATION: Back pain COMPARISON: 05/16/2023 TECHNIQUE: Three views of the lumbosacral spine. FINDINGS: There is some possible mild sclerotic change in the iliac aspect of the SI joints. Sacroiliitis cannot be excluded. There is mild anterolisthesis of the inferior most nonrib-bearing vertebrae relative to the vertebrae superior to it. Similar to previous. The inferior most vertebrae is transitional in nature but appears sacralized bilaterally. Spina bifida occulta likely present at this level. The vertebral heights are well-maintained. XR/XR lumbar spine 2-3V IMPRESSION: No acute finding. As described findings in the lower lumbar sacral spine and some possible sclerotic change involving the iliac side of the SI joints could indicate an element of sacroiliitis. Dictated By: Chay Marsh MD Signed By: Electronically signed by Chay Marsh MD 08/08/232019 Radiology Impression Discussion of test interpretation with radiology: I have reviewed the radiologist's reading. Prescription Management I considered prescription management with: Pain Medication (patient prescribed pain medication.) Discharge Plan Discharge Clinical Impression: Back pain Patient Disposition: Home, Self-Care Instructions: Back Pain (ED) Additional Instructions: Follow up with your primary care provider. Return to the emergency department immediately if your symptoms worsen or if you develop any dizziness, shortness of breath, difficulty breathing, chest pain, blurry vision, loss of vision, nausea, vomiting, abdominal pain, fever, chills, back pain, or any other complaints. Prescriptions: New cyclobenzaprine 5 mg tablet 5 mg PO TID PRN (Reason: muscle spasm) 7 Days Qty: 21 0RF prednisone 20 mg tablet 20 mg PO DAILY 7 Days Qty: 7 0RF naproxen 500 mg tablet 500 mg PO BID 7 Days Qty: 14 0RF No Action metronidazole 500 mg tablet 500 mg PO BID 10 Days Qty: 20 0RF doxycycline hyclate 100 mg tablet 100 mg PO Q12H 10 Days Qty: 20 0RF valacyclovir 1 gram tablet 1,000 mg PO Q12H 10 Days Qty: 20 0RF doxycycline monohydrate 100 mg tablet 100 mg PO BID Qty: 14 0RF cyclobenzaprine 10 mg tablet 10 mg PO TID PRN (Reason: muscle spasm) Qty: 15 0RF omeprazole 40 mg capsule,delayed release(DR/EC) 40 mg PO DAILY Qty: 30 0RF sucralfate 1 gram tablet 1 g PO BID Qty: 60 0RF Referrals: [facility] Family Medicine [Provider Group] (Call to establish and follow up with a primary care provider. If you already have a primary care provider, please follow up with them.) [facility] Primary Care, Ale [Provider Group] (Call to establish and follow up with a primary care provider. If you already have a primary care provider, pl ease follow up with them.) [facility] Primary Care,Nataly [Provider Group] (Call to establish and follow up with a primary care provider. If you already have a primary care provider, please follow up with them.) Stand Alone Forms: Work/School Release Interventions: ED Discharge Assessment Last Done: 08/08/23 22:14 Discharge Date/Time: 08/08/23 22:14 Print Language: Yoruba
[2023-08-08] MEDS: Cyclobenzaprine HCl 5 MG TABLET PO (22:11)
[2023-08-08] MEDS: predniSONE 20 MG TABLET PO (22:11)
[2023-08-08] MEDS: Ketorolac Tromethamine 15 MG/ML VIAL IM (22:11)
== END 2023-08-08 22:14 | disposition home or self-care (01) ==
PROVIDERS: Emergency Provider Emergency Medicine
DX: M54.50 Low back pain, unspecified (principal)
CPT/HCPCS: 72100; 96372; 99284; J1885

== ENCOUNTER 2023-08-14 00:13 | Emergency (ER) | payer SELFPAY ==
[2023-08-14 00:27] VITALS: BP 103/56; PULSE 78; RESP 18; TEMP 37.2; O2SAT 97; BMI 22.9
--- NOTE | 2023-08-14 01:00 | ED.HA ---
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 no head no nausea no vomiting patient has slight light sensitivity history of occasional migraine in the past Related Data Previous Rx's Medication Instructions Recorded doxycycline hyclate 100 mg tablet 100 mg PO Q12H 10 days #20 tabs 05/31/22 metronidazole 500 mg tablet 500 mg PO BID 10 days #20 tabs 05/31/22 valacyclovir 1 gram tablet 1,000 mg PO Q12H 10 days #20 tabs 05/31/22 cyclobenzaprine 10 mg tablet 10 mg PO TID PRN muscle spasm #15 10/02/22 tabs doxycycline monohydrate 100 mg 100 mg PO BID #14 tabs 10/02/22 tablet omeprazole 40 mg capsule,delayed 40 mg PO DAILY #30 caps 07/03/23 release sucralfate 1 gram tablet 1 g PO BID #60 tabs 07/03/23 cyclobenzaprine 5 mg tablet 5 mg PO TID PRN muscle spasm 7 08/08/23 days #21 tabs naproxen 500 mg tablet 500 mg PO BID 7 days #14 tabs 08/08/23 prednisone 20 mg tablet 20 mg PO DAILY 7 days #7 tabs 08/08/23 sxnrdidtne-mlneisswkqzll-vmnoqijx 1 tab PO Q6H PRN haeadace #20 tabs 08/14/23 50 mg-325 mg-40 mg tablet cyclobenzaprine 10 mg tablet 10 mg PO Q8H #20 tabs 08/14/23 Allergies Allergy/AdvReac Type Severity Reaction Status Date / Time No Known Allergies Allergy Verified 08/14/23 23:56 Review of Systems Review of Systems: Yes all other systems are reviewed and are negative PMFSH Past Medical History Medical History Discharge from penis Lesion of penis Concern about STD in male without diagnosis Social History Social History Alcohol intake: never Smoked in Last 30 Days: Yes Substance Use Type: Marijuana Substance Use Frequency: Daily Last Used Substance: Hours (ago) Advance Directives: No Advance Directives Information Provided: Yes Physical Exam Vital Signs: Vital Signs: Last Vital Signs Temp 98.9 F 08/14/23 00:27 Pulse 78 08/14/23 00:27 Resp 18 08/14/23 00:27 BP 103/56 L 08/14/23 00:27 Pulse Ox 97 08/14/23 00:27 O2 Del Method Room Air 08/14/23 00:27 BMI result Body Mass Index 22.9 Appearance: Alert. Oriented X3. No acute distress. Anxious Eyes: PERRLA, No Nystagmus ENT: Pharynx normal. Oral Mucosa moist right scalp tenderness Neck: Normal inspection. Neck supple. CVS: Normal heart rate and rhythm. Pulses normal. Respiratory: No respiratory distress. Equal air entry bilateral, no wheezing/rales/rhonchi Abdomen: Soft and nontender. Bowel sounds are present, no mass palpable, no CVA tenderness Skin: Skin warm and dry. Normal skin color. Normal skin turgor. Extremities: No lower extremity edema. No calf tenderness Neuro: Oriented X 3. No motor deficit. No sensory deficit.No cerebellar signs , cranial nerves II-XII intact Medications Administered Discontinued Medications Generic Name Dose Route Start Last Admin Trade Name Freq PRN Reason Stop Dose Admin Acetaminophen/Butalbital/Caffeine 1 tab 08/14/23 01:04 08/14/23 01:17 Butalb/Acetamin/Caff 50/325/40 Tablet PO 08/14/23 01:05 1 tab ONCE ONE Administration Cyclobenzaprine HCl 10 mg 08/14/23 01:04 08/14/23 01:17 Cyclobenzaprine Hcl 10 Mg Tablet PO 08/14/23 01:05 10 mg ONCE ONE Administration Medical Decision Making Medical Decision Making MDM Narrative: Patient with likely complex migraine was seen at [facility] yesterday workup was negative. Will give him Fioricet advised to follow with PCP Differential Diagnosis Differential Diagnoses: The differential diagnosis associated with the presentation includes Complex migraine/tension headache Discharge Plan Discharge Clinical Impression: Headache Patient Disposition: Home, Self-Care Instructions: General Headache (ED) Additional Instructions: Take pain medication and muscle relaxant as prescribed and follow-up with PCP Prescriptions: New cyclobenzaprine 10 mg tablet 10 mg PO Q8H Qty: 20 0RF sxbaeqjjse-ugeozvslzitil-euid 50-325-40 mg tablet 1 tab PO Q6H PRN (Reason: haeadace) Qty: 20 0RF No Action metronidazole 500 mg tablet 500 mg PO BID 10 Days Qty: 20 0RF doxycycline hyclate 100 mg tablet 100 mg PO Q12H 10 Days Qty: 20 0RF valacyclovir 1 gram tablet 1,000 mg PO Q12H 10 Days Qty: 20 0RF doxycycline monohydrate 100 mg tablet 100 mg PO BID Qty: 14 0RF cyclobenzaprine 10 mg tablet 10 mg PO TID PRN (Reason: muscle spasm) Qty: 15 0RF omeprazole 40 mg capsule,delayed release(DR/EC) 40 mg PO DAILY Qty: 30 0RF sucralfate 1 gram tablet 1 g PO BID Qty: 60 0RF cyclobenzaprine 5 mg tablet 5 mg PO TID PRN (Reason: muscle spasm) 7 Days Qty: 21 0RF prednisone 20 mg tablet 20 mg PO DAILY 7 Days Qty: 7 0RF naproxen 500 mg tablet 500 mg PO BID 7 Days Qty: 14 0RF Interventions: ED Discharge Assessment Last Done: 08/14/23 01:30 Discharge Date/Time: 08/14/23 01:30
[2023-08-14] MEDS: Butalb/Acetamin/Caff 50/325/40 TABLET 1 TAB PO (01:17)
[2023-08-14] MEDS: Cyclobenzaprine HCl 10 MG TABLET PO (01:17)
== END 2023-08-14 01:30 | disposition home or self-care (01) ==
PROVIDERS: Emergency Provider Internal Medicine
DX: R51.9 Headache, unspecified (principal); Z79.899 Other long term (current) drug therapy
CPT/HCPCS: 99283; 99284

== ENCOUNTER 2023-08-14 22:57 | Emergency (ER) | payer SELFPAY ==
[2023-08-14 23:52] VITALS: BP 93/58; PULSE 83; RESP 16; TEMP 36.7; O2SAT 98; BMI 22.8
[2023-08-15] VITALS (7 sets, daily range): BP systolic 94–122; BP diastolic 55–62; PULSE 56–73; RESP 16–18; TEMP 36.3–37.1; O2SAT 97–100
--- NOTE | 2023-08-15 04:59 | ED_ITS ---
HPI - Headache General Chief Complaint: Headache Stated Complaint: headache Time Seen by Provider: 08/15/23 04:43 Source: patient Mode of arrival: ambulatory Limitations: no limitations History of Present Illness HPI Narrative: 32-year-old male who presents emergency department for evaluation of right- sided headache. Patient states that the headache started 5 days prior while he was working on his motorcycle. States that the headache was sudden onset, sharp pain which was severe in onset and has been constant since onset. Patient states that he has also had pain in his neck and waning moves his neck is headache pain gets worse. States he was seen at [facility] and had injections in the back his head which did not relieve his pain. he was also seen in the emergency department yesterday and treated with Fioricet and this is not helped his pain. Patient is currently complaining of sharp pain in the right side of his head and his neck which is 10/10. He denied fever, chills, rhinorrhea, sore throat. He has had occasional cough. Denied chest pain, shortness of breath. He had nausea but no vomiting or diarrhea. Related Data Previous Rx's Medication Instructions Recorded doxycycline hyclate 100 mg tablet 100 mg PO Q12H 10 days #20 tabs 05/31/22 metronidazole 500 mg tablet 500 mg PO BID 10 days #20 tabs 05/31/22 valacyclovir 1 gram tablet 1,000 mg PO Q12H 10 days #20 tabs 05/31/22 cyclobenzaprine 10 mg tablet 10 mg PO TID PRN muscle spasm #15 10/02/22 tabs doxycycline monohydrate 100 mg 100 mg PO BID #14 tabs 10/02/22 tablet omeprazole 40 mg capsule,delayed 40 mg PO DAILY #30 caps 07/03/23 release sucralfate 1 gram tablet 1 g PO BID #60 tabs 07/03/23 cyclobenzaprine 5 mg tablet 5 mg PO TID PRN muscle spasm 7 08/08/23 days #21 tabs naproxen 500 mg tablet 500 mg PO BID 7 days #14 tabs 08/08/23 prednisone 20 mg tablet 20 mg PO DAILY 7 days #7 tabs 08/08/23 zuxntazflc-etvujwohjtsve-sjqakpnk 1 tab PO Q6H PRN haeadace #20 tabs 08/14/23 50 mg-325 mg-40 mg tablet cyclobenzaprine 10 mg tablet 10 mg PO Q8H #20 tabs 08/14/23 zkhnztt-aofdqrxcztsdv-dccbneeb 250 2 tab PO Q6H PRN headache #20 tabs 08/15/23 mg-250 mg-65 mg tablet (Excedrin Migraine) diphenhydramine HCl 25 mg capsule 50 mg (2 x 25 mg) PO Q6H PRN 08/15/23 headache, nausea, vomiting #30 caps metoclopramide HCl 10 mg tablet 10 mg PO Q6H PRN nausea and 08/15/23 (Reglan) vomiting #14 tabs Allergies Allergy/AdvReac Type Severity Reaction Status Date / Time No Known Allergies Allergy Verified 08/14/23 23:56 Review of Systems 2 Review of Systems: Yes all other systems are reviewed and are negative [facility] Past Medical History [facility] Narrative: Social history: He does smoke cigarettes. Denies tobacco use. He smokes marijuana. Medical History Discharge from penis Lesion of penis Concern about STD in male without diagnosis Social History Social History Alcohol intake: never Smoked in Last 30 Days: Yes Substance Use Type: Marijuana Substance Use Frequency: Daily Last Used Substance: Hours (ago) Advance Directives: No Advance Directives Information Provided: Yes Physical Exam 2 Vital Signs: Vital Signs: Last Vital Signs Temp 98.7 F 08/15/23 06:26 Pulse 65 08/15/23 06:26 Resp 17 08/15/23 06:26 BP 94/60 08/15/23 06:26 Pulse Ox 100 08/15/23 06:26 O2 Del Method Room Air 08/15/23 06:26 BMI result Body Mass Index 22.8 Medications Administered Discontinued Medications Generic Name Dose Route Start Last Admin Trade Name Freq PRN Reason Stop Dose Admin Diphenhydramine HCl 50 mg 08/15/23 04:56 08/15/23 06:20 Diphenhydramine Hcl 50 Mg/Ml Vial IVPUSH 08/15/23 04:57 50 mg ONCE STA Administration Ketorolac Tromethamine 15 mg 08/15/23 04:56 08/15/23 06:19 Ketorolac Tromethamine 15 Mg/Ml Vial IVPUSH 08/15/23 04:57 15 mg ONCE STA Administration Metoclopramide HCl 10 mg 08/15/23 04:56 08/15/23 06:20 Metoclopramide Hcl 10 Mg/2 Ml Vial IVPUSH 08/15/23 04:57 10 mg ONCE STA Administration Medical Decision Making Medical Decision Making [facility] Narrative: 32-year-old male who presents emergency department for evaluation of 5 days of right-sided headache with neck pain. patient was seen at [facility] and here yesterday. He states that his pain has not gotten better so came to the emergency department. he did have tenderness with palpation of the right side of his head with pain with movement of his neck with nuchal rigidity. Concerned that the patient may have a viral meningitis therefore I ordered CBC, CMP, ESR, CRP, blood culture x2. CSF cell count, CSF Gram stain, CSF glucose and protein and CSF meningitis panel. Patient will be treated with normal saline x1 L, Toradol 15 mg IV, Reglan 10 mg IV and Benadryl 50 mg IV 06:17 spinal tap was performed, patient tolerated the procedure well. Fluid was clear with no blood and no xanthochromia. CSF fluid analysis pending. 07:00 CSF fluid was clear and colorless with no xanthochromia noted by the lab. CSF fluid cell count revealed 1 WBC, 4 RBCs . Patient's CSF glucose and protein were pending. At the end of my shift, patient's care was signed out to my colleague, Dr. Linden Ayala, if negative the patient will be treated with migraine medications. Differential Diagnosis Differential Diagnoses: The differential diagnosis associated with the presentation includes differential diagnosis includes was not limited to meningitis, migraine headache, neck strain, intracranial hemorrhage Admission/Observation Consideration of admission/observation: Escalation of care including admission/observation considered Lab Data [facility] Lab Attestation statement: I reviewed the patient's lab results. my interpretation patient's laboratory evaluation as follows: WBC was normal 7000. Patient's anemic with an H&H of 10.7 and 34.7. Platelet count was normal. Coags were normal. CMP was normal. CRP is elevated 1.67. ESR is pending. 08/15/23 06:03 08/15/23 06:03 Labs: Lab Results 08/15/23 08/15/23 Range/Units 06:03 06:21 WBC 7.0 (4.8-10.8) X10*3/uL RBC 3.99 L (4.60-5.80) X10*6/uL Hgb 10.7 L (14.0-18.0) g/dl Hct 34.7 L (42.0-52.0) % MCV 87.0 (80.0-98.0) fL MCH 26.8 L (27.0-33.0) pg MCHC 30.8 L (31.0-36.0) g/dl RDW 11.9 (11.0-16.0) % Plt Count 234 (160-400) X10*3/uL MPV 8.2 L (9.4-12.4) fL Immature Gran % (Auto) 0.3 (0.0-0.4) % Neut % (Auto) 55.9 (45-73) % Lymph % (Auto) 33.7 (20-40) % Whiteside % (Auto) 8.1 (2-11) % Eos % (Auto) 1.7 (0-4) % Baso % (Auto) 0.3 (0-2) % Lymph # (Auto) 2.4 (1.2-4.9) X10*3/uL Whiteside # (Auto) 0.6 (0.1-1.2) X10*3/uL Eos # (Auto) 0.1 (0.0-0.4) X10*3/uL Baso # (Auto) 0.0 (0.0-0.2) X10*3/uL Abs Immat Gran (auto) 0.02 (0.00-0.03) X10*3/uL Absolute Neuts (auto) 3.9 (2.0-8.3) x10*3/uL Absolute Nucleated RBC 0.000 (0.0-0.012) X10*3/uL Nucleated RBC % (auto) 0.0 (0.0-0.2) /100WBC ESR 18 H (0-15) MM/HR PT 12.9 (11.1-13.3) SEC INR 1.1 (0.9-1.1) APTT 32.5 (26.0-36.4) SEC Sodium 139 (135-145) mmol/L Potassium 3.5 (3.3-5.1) mmol/L Chloride 104 (96-108) mmol/L Carbon Dioxide 29 (22-29) mmol/L Anion Gap 10 L (12-20) BUN 11 (9-16) mg/dL Creatinine 0.87 (0.5-1.4) mg/dL Estim Creat Clear Calc 116.2 Estimated GFR > 60 Random Glucose 101 (60-115) mg/dL Lactic Acid 0.8 (0.5-2.0) mmol/L Calcium 9.1 (8.4-10.2) mg/dL Total Bilirubin 0.2 (0.0-1.0) mg/dL AST 14 (5-37) U/L ALT 9 (0-40) U/L Alkaline Phosphatase 63 (39-117) U/L C-Reactive Protein 1.67 H (< or = 0.50) mg/dL Total Protein 6.7 (6.5-8.0) g/dL Albumin 3.5 (3.5-5.0) g/dL CSF Tube Number 4 CSF Volume 1.0 ML CSF Appearance CLEAR CSF Color COLORLESS CSF WBC 1 MM*3 CSF RBC 4 MM*3 Social Determinants Patient?s care significantly limited by Social Determinants of Health including: Inadequate housing Procedures Lumbar Puncture Time Out Performed: No Patient Position: upright Skin Prep: Povidone-Iodine 1% Local Anesthetic: lidocaine 1% Amount of anesthesia used (mL): 3 Spinal Needle Gauge: 22G Interspace Used: L4-L5 Fluid Initially Obtained: clear Complications: none Discharge Plan Discharge Clinical Impression: Acute neck pain, Migraine Patient Disposition: Still a Patient Instructions: Migraine Headache (ED) Additional Instructions: Your spinal fluid results were unremarkable, this is very reassuring and suggests that you do not have viral or bacterial meningitis. Your symptoms are consistent with a migraine. I want you to take the following 3 medications together every 6 hours as needed for headache, nausea or vomiting. Reglan (metoclopramide) in 10 mg, 1 pill Benadryl 25 mg, 2 pills Excedrin migraine, 2 pills. After you take these medications, lie down in a dark quiet room and try to fall asleep. These medications will make you sleepy, do not drive or work after taking these medications. Follow-up with your doctor in 2 days. Please return to the emergency department if your symptoms get worse or if you develop any symptoms that are concerning to you. Prescriptions: New diphenhydramine HCl 25 mg capsule 50 mg PO Q6H PRN (Reason: headache, nausea, vomiting) Qty: 30 0RF Excedrin Migraine 250-250-65 mg tablet 2 tab PO Q6H PRN (Reason: headache) Qty: 20 0RF metoclopramide HCl [Reglan] 10 mg tablet 10 mg PO Q6H PRN (Reason: nausea and vomiting) Qty: 14 0RF No Action metronidazole 500 mg tablet 500 mg PO BID 10 Days Qty: 20 0RF doxycycline hyclate 100 mg tablet 100 mg PO Q12H 10 Days Qty: 20 0RF valacyclovir 1 gram tablet 1,000 mg PO Q12H 10 Days Qty: 20 0RF doxycycline monohydrate 100 mg tablet 100 mg PO BID Qty: 14 0RF cyclobenzaprine 10 mg tablet 10 mg PO TID PRN (Reason: muscle spasm) Qty: 15 0RF omeprazole 40 mg capsule,delayed release(DR/EC) 40 mg PO DAILY Qty: 30 0RF sucralfate 1 gram tablet 1 g PO BID Qty: 60 0RF cyclobenzaprine 5 mg tablet 5 mg PO TID PRN (Reason: muscle spasm) 7 Days Qty: 21 0RF prednisone 20 mg tablet 20 mg PO DAILY 7 Days Qty: 7 0RF naproxen 500 mg tablet 500 mg PO BID 7 Days Qty: 14 0RF cyclobenzaprine 10 mg tablet 10 mg PO Q8H Qty: 20 0RF hylubwssja-itvckxwthshfk-lhnn 50-325-40 mg tablet 1 tab PO Q6H PRN (Reason: haeadace) Qty: 20 0RF
[2023-08-15 06:12] LABS: MANUAL DIFF FLAG NO
[2023-08-15 06:16] LABS: Basophils Percent Auto 0.3 % (0-2); Eosinophils Absolute Auto 0.1 X10*3/uL (0.0-0.4); Eosinophils Percent Auto 1.7 % (0-4); Hematocrit 34.7 % (42.0-52.0); Hemoglobin 10.7 g/dl (14.0-18.0); Imm Gran Abs Auto 0.02 X10*3/uL (0.00-0.03); Imm Gran Pct Auto 0.3 % (0.0-0.4); Lymphocytes Absolute Auto 2.4 X10*3/uL (1.2-4.9); Lymphocytes Percent Auto 33.7 % (20-40); Mean Corpuscular HGB Conc 30.8 g/dl (31.0-36.0); Mean Corpuscular Hemoglobin 26.8 pg (27.0-33.0); Mean Platelet Volume 8.2 fL (9.4-12.4); Monocytes Absolute Auto 0.6 X10*3/uL (0.1-1.2); Monocytes Percent Auto 8.1 % (2-11); Neutrophils Absolute Auto 3.9 x10*3/uL (2.0-8.3); Neutrophils Percent Auto 55.9 % (45-73); Platelet Count 234 X10*3/uL (160-400); Red Blood Count 3.99 X10*6/uL (4.60-5.80); Red Cell Distribution Width 11.9 % (11.0-16.0)
[2023-08-15 06:19] LABS: INTERNATIONAL NORM RATIO 1.1 (0.9-1.1); Prothrombin Time 12.9 SEC (11.1-13.3)
[2023-08-15] MEDS: Ketorolac Tromethamine 15 MG/ML VIAL IVPUSH (06:19)
[2023-08-15] MEDS: Metoclopramide HCl 10 MG/2 ML VIAL IVPUSH (06:20)
[2023-08-15] MEDS: diphenhydrAMINE HCL 50 MG/ML VIAL IVPUSH (06:20)
[2023-08-15 06:22] LABS: Partial Thromboplastin Time 32.5 SEC (26.0-36.4)
[2023-08-15 06:25] LABS: Lactic Acid 0.8 mmol/L (0.5-2.0)
[2023-08-15 06:30] LABS: Alanine Aminotransferase 9 U/L (0-40); Albumin Level 3.5 g/dL (3.5-5.0); Alkaline Phosphatase 63 U/L (39-117); Anion Gap 10 (12-20); Aspartate Amino Transferase 14 U/L (5-37); Bilirubin Total 0.2 mg/dL (0.0-1.0); Blood Urea Nitrogen 11 mg/dL (9-16); C Reactive Protein 1.67 mg/dL (< or = 0.50); Calcium 9.1 mg/dL (8.4-10.2); Carbon Dioxide 29 mmol/L (22-29); Chloride 104 mmol/L (96-108); Creatinine Clr Calc Pharmacy 116.2; Estimated Glomerular Filt Rate > 60; Glucose Random 101 mg/dL (60-115); Potassium 3.5 mmol/L (3.3-5.1); Sodium 139 mmol/L (135-145); Total Protein 6.7 g/dL (6.5-8.0)
[2023-08-15 06:37] LABS: Appearance CSF CLEAR; CSF Tube # 4; Color CSF COLORLESS; Red Blood Cell CSF 4 MM*3; White Blood Cell CSF 1 MM*3
[2023-08-15 06:46] LABS: Erythrocyte Sedimentation Rate 18 MM/HR (0-15)
[2023-08-15 07:21] LABS: Lymphocytes CSF 100 %
[2023-08-15 07:28] LABS: CSF Appearance Clear, Colorless
[2023-08-15 07:29] LABS: CSF Tube # 2
[2023-08-15 07:39] LABS: Glucose CSF 66 mg/dL; Total Protein CSF 27.5 mg/dL (15-45)
--- NOTE | 2023-08-15 08:05 | PC.NURSE ---
pt is alert and oriented, skin appropriate for ethnicity, respirations even and unlabored, pt states not feeling well enough to go home-pt is ready for d/c, reports still having a headache 6/10 and feeling very dizzy-spinning in circles.leigh bellamy
[2023-08-15] MEDS: Meclizine HCl 25 MG TABLET 50 MG PO (08:20)
[2023-08-15] MEDS: 0.9 % Sodium Chloride 1,000 ML 999 ML IVCONT (08:20)
--- NOTE | 2023-08-15 10:20 | PC.NURSE ---
fluids infused. pt reporting 7/10 headache. pt reports dizziness when lying down and standing and has difficulty walking. pt resting with lights off.
--- NOTE | 2023-08-15 12:08 | PC.NURSE ---
pt walked with steady gait, did not report dizziness, no signs of unsteadyness. IV removed.
== END 2023-08-15 12:10 | disposition home or self-care (01) ==
PROVIDERS: Emergency Provider Emergency Medicine Emergency Medical Services
DX: G43.909 Migraine, unspecified, not intractable, without status migrainosus (principal); M54.2 Cervicalgia; R42 Dizziness and giddiness; D64.9 Anemia, unspecified; F12.90 Cannabis use, unspecified, uncomplicated; Z79.899 Other long term (current) drug therapy
CPT/HCPCS: 36415; 62272; 80053; 82945; 83605; 84157; 85025; 85610; 85652; 85730; 86140; 87015; 87070; 87205; 89051; 96361; 96374; 96375; 99285; J1200; J1885; J2765

== ENCOUNTER 2023-08-15 16:39 | Emergency (ER) | payer SELFPAY ==
[2023-08-15 16:50] VITALS: BP 115/58; PULSE 61; RESP 18; TEMP 36.8; O2SAT 100; BMI 22.8
--- NOTE | 2023-08-15 16:52 | ED_ITS ---
HPI - General Adult General Chief complaint: Back Pain/Injury Stated complaint: Back pain, had spinal tap done earlier today Time Seen by Provider: 08/15/23 21:05 Source: patient Mode of arrival: ambulatory Limitations: no limitations History of Present Illness HPI narrative: 32-year-old male presenting to the ED with 10/10 mid back pain after lumbar puncture earlier this am. He was seen in this ED for neck pain and headache. He denies current headache, nausea, or vision changes. Denies any new weakness, numbness or tingling. Patient was seen by me yesterday for 5 days of right- sided headache associated with this neck pain. Patient been seen previously in our emergency department on and at [facility] your head and neck pain. Patient's workup by me yesterday revealed a normal WBC but the minimally elevated ESR of 18 and normal CMP with a minimally elevated CRP of 1.67. Patient's spinal fluid was negative for viral meningitis. Patient had a three- view lumbar sacral spine during his visit consistent with sacroiliitis and possible spina bifida occulta but no acute findings. The patient states that since getting his spinal tap yesterday he is having significant back pain he states that he feels like his entire back is inflated . He states that has pain radiating up and down his entire back which she describes as a constant, stiff pain which is worse with movement. He denies any numbness or weakness in his lower extremities, denies loss of bowel or bladder control. The patient states that his headache is completely resolved. I did prescribe a migraine regimen for him foreign which include Reglan, Benadryl and Excedrin migraine but he did not get these medications filled He denied fever, chills, chest pain, shortness of breath, nausea, vomiting or diarrhea Related Data Previous Rx's Medication Instructions Recorded doxycycline hyclate 100 mg tablet 100 mg PO Q12H 10 days #20 tabs 05/31/22 metronidazole 500 mg tablet 500 mg PO BID 10 days #20 tabs 05/31/22 valacyclovir 1 gram tablet 1,000 mg PO Q12H 10 days #20 tabs 05/31/22 cyclobenzaprine 10 mg tablet 10 mg PO TID PRN muscle spasm #15 10/02/22 tabs doxycycline monohydrate 100 mg 100 mg PO BID #14 tabs 10/02/22 tablet omeprazole 40 mg capsule,delayed 40 mg PO DAILY #30 caps 07/03/23 release sucralfate 1 gram tablet 1 g PO BID #60 tabs 07/03/23 cyclobenzaprine 5 mg tablet 5 mg PO TID PRN muscle spasm 7 08/08/23 days #21 tabs naproxen 500 mg tablet 500 mg PO BID 7 days #14 tabs 08/08/23 prednisone 20 mg tablet 20 mg PO DAILY 7 days #7 tabs 08/08/23 nxcxwdhntc-tcxfzjikhypxv-jdlfmvdr 1 tab PO Q6H PRN haeadace #20 tabs 08/14/23 50 mg-325 mg-40 mg tablet cyclobenzaprine 10 mg tablet 10 mg PO Q8H #20 tabs 08/14/23 yexntib-dkqflxaqacrzb-pvtwiich 250 2 tab PO Q6H PRN headache #20 tabs 08/15/23 mg-250 mg-65 mg tablet (Excedrin Migraine) diphenhydramine HCl 25 mg capsule 50 mg (2 x 25 mg) PO Q6H PRN 08/15/23 headache, nausea, vomiting #30 caps metoclopramide HCl 10 mg tablet 10 mg PO Q6H PRN nausea and 08/15/23 (Reglan) vomiting #14 tabs oxycodone 5 mg tablet 5 mg PO Q6H PRN pain #10 tabs 08/15/23 prednisone 20 mg tablet 60 mg (3 x 20 mg) PO DAILY 5 days 08/15/23 #15 tabs Allergies Allergy/AdvReac Type Severity Reaction Status Date / Time No Known Allergies Allergy Verified 08/15/23 16:54 Review of Systems Review of Systems: Yes all other systems are reviewed and are negative [facility] Past Medical History [facility] Narrative: Social history: He states that he is living with his sister. He smokes cigarettes. He denies alcohol use. He does smoke marijuana. He denies injection drug use. Medical History Discharge from penis Lesion of penis Concern about STD in male without diagnosis Social History Social History Alcohol intake: never Smoked in Last 30 Days: Yes Use of substances other than those prescribed or required for medical reasons: Yes Substance Use Type: Marijuana Advance Directives: No Advance Directives Information Provided: Yes Physical Exam ED Vital Signs: Vital Signs - 24 hr 08/15/23 16:50 08/15/23 20:19 Temperature 98.2 F 98.1 F Pulse Rate 61 79 Respiratory Rate 18 18 Blood Pressure 115/58 L Pulse Oximetry 100 99 Oxygen Delivery Method Room Air Room Air BMI result Body Mass Index 22.8 Vital signs were normal, he was afebrile Exam General: Awake, alert in no distress Head: Normocephalic, atraumatic EENT: PERRL, Lids normal, sclera normal, conjunctiva normal, nose normal , ears normal, throat without erythema or exudates Neck: Supple, no adenopathy, no trachea midline or C-spine tenderness Lung: breath sounds symmetric, no wheezing, rales or rhonchi Chest: symmetric movement, nontender Heart: regular rate and rhythm, normal S1, S2 no murmurs or rubs Abdomen: soft, non-tender, nondistended, normal bowel sounds Back: Patient's lumbar puncture site is normal, there is no increased warmth or erythema, there is no hematoma or swelling around the area. Patient has diffuse tenderness with palpation of his paraspinal muscles in the thoracic, lumbar sacral regions. He does not have any point vertebral tenderness Extremities: no deformities, moves all extremities symmetrically Skin: no rashes, no lesion, normal color and warmth Neuro: Awake, alert, oriented, normal speech, cranial nerves intact, moves all extremities symmetrically Psych: Pleasant, cooperative Course Course Course Narrative: This is a rapid medical exam: Additional HPI, ROS, PE not included below will be deferred to primary provider. Patient is a 32-year-old male presenting to the ED with 10/10 mid back pain after lumbar puncture earlier this am. He was seen in this ED for neck pain and headache. He denies current headache, nausea, or vision changes. Denies any new weakness, numbness or tingling. Medical Decision Making Medical Decision Making MDM Narrative: 32-year-old male presenting to the ED with 10/10 mid back pain after lumbar puncture earlier this am. Patient had a previous visit for back pain on 08/08/2023 with lumbar sacral x-rays which did not reveal any acute findings, patient's blood work from yesterday did reveal slight elevation is ESR and CRP was unremarkable. Spinal fluid from yesterday was negative for viral meningitis. Spinal fluid culture was reported as no growth. Patient's back exam did reveal diffuse muscular tenderness otherwise was unremarkable with no evidence for hematoma, cellular S or any other significant abnormality in the area of the lumbar puncture site. Patient's back pain is most likely musculoskeletal and he may have an inflammatory component. I did advise the patient to get the prescribed medication Started on prednisone 60 mg once a day for 5 days, he was also given prescription for oxycodone 5 mg pills, 1 pill every 6 hours as needed for pain dispense 10. Here was given his 1st dose of these medications here in the emergency department. He was given printed and verbal instructions and discharged home Differential Diagnosis Differential Diagnoses: The differential diagnosis associated with the presentation includes Differential diagnosis includes was not limited to infectious process, inflammatory process, musculoskeletal pain Discharge Plan Discharge Clinical Impression: Back pain without radiation Patient Disposition: Home, Self-Care Instructions: Back Pain (ED) Additional Instructions: Yesterday and prescribed 3 medications for your headaches and back these include Reglan, Benadryl and Excedrin migraine pills Take prednisone 20 mg pills, 3 pills once a day for 5 days. While you are taking prednisone, do not take any NSAIDs (Motrin, Advil, ibuprofen, Aleve, naproxen). This is a strong anti-inflammatory pain medicine For pain not relieved by prednisone or Tylenol take oxycodone 5 mg pills, 1 pill every 4 hours as needed for pain. Do not drive or work while taking this medication since they can cause sleepiness. Oxycodone is a narcotic medication that can be addicting. If you are concerned about addiction you can ask the pharmacist for less pills or do not get this prescription filled. Follow-up with your doctor in 2 days. Please return to the emergency department if your symptoms get worse or if you develop any symptoms that are concerning to you. Prescriptions: New oxycodone 5 mg tablet 5 mg PO Q6H PRN (Reason: pain) Qty: 10 0RF Rx Instructions: Patient may request partial refill; Partial Fill upon patient request. prednisone 20 mg tablet 60 mg PO DAILY 5 Days Qty: 15 0RF No Action metronidazole 500 mg tablet 500 mg PO BID 10 Days Qty: 20 0RF doxycycline hyclate 100 mg tablet 100 mg PO Q12H 10 Days Qty: 20 0RF valacyclovir 1 gram tablet 1,000 mg PO Q12H 10 Days Qty: 20 0RF doxycycline monohydrate 100 mg tablet 100 mg PO BID Qty: 14 0RF cyclobenzaprine 10 mg tablet 10 mg PO TID PRN (Reason: muscle spasm) Qty: 15 0RF diphenhydramine HCl 25 mg capsule 50 mg PO Q6H PRN (Reason: headache, nausea, vomiting) Qty: 30 0RF Excedrin Migraine 250-250-65 mg tablet 2 tab PO Q6H PRN (Reason: headache) Qty: 20 0RF metoclopramide HCl [Reglan] 10 mg tablet 10 mg PO Q6H PRN (Reason: nausea and vomiting) Qty: 14 0RF omeprazole 40 mg capsule,delayed release(DR/EC) 40 mg PO DAILY Qty: 30 0RF sucralfate 1 gram tablet 1 g PO BID Qty: 60 0RF cyclobenzaprine 5 mg tablet 5 mg PO TID PRN (Reason: muscle spasm) 7 Days Qty: 21 0RF prednisone 20 mg tablet 20 mg PO DAILY 7 Days Qty: 7 0RF naproxen 500 mg tablet 500 mg PO BID 7 Days Qty: 14 0RF cyclobenzaprine 10 mg tablet 10 mg PO Q8H Qty: 20 0RF ljtncnpwto-akvxytjmeeert-odsb 50-325-40 mg tablet 1 tab PO Q6H PRN (Reason: haeadace) Qty: 20 0RF
[2023-08-15 20:19] VITALS: PULSE 79; RESP 18; TEMP 36.7; O2SAT 99
--- NOTE | 2023-08-15 20:35 | PC.NURSE ---
Pt decline to reattempt blood pressure. aox4. restless. no respiratory distress. +CMS. no bleeding/swelling noted to site of pain stated by patient.
--- NOTE | 2023-08-15 20:40 | PC.NURSE ---
given warm blanket per request for back pain. pt resting
[2023-08-15] MEDS: oxyCODONE HCl Immed Release 5 MG TABLET PO (21:52)
[2023-08-15] MEDS: predniSONE 20 MG TABLET 60 MG PO (21:53)
--- NOTE | 2023-08-15 22:02 | PC.NURSE ---
pt medicated per MAR
== END 2023-08-15 22:12 | disposition home or self-care (01) ==
PROVIDERS: Emergency Provider Emergency Medicine Emergency Medical Services
DX: M54.89 Other dorsalgia (principal); F17.210 Nicotine dependence, cigarettes, uncomplicated; F12.90 Cannabis use, unspecified, uncomplicated
CPT/HCPCS: 99283; 99284

== ENCOUNTER 2023-08-16 09:47 | Emergency (ER) | payer SELFPAY ==
[2023-08-16 09:55] VITALS: BP 92/62; PULSE 72; RESP 14; TEMP 36.8; O2SAT 100; BMI 22.8
--- NOTE | 2023-08-16 10:50 | ED.BACK ---
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 Patient was evaluated in our ED multiple times recently for similar symptoms, seen twice in our ED yesterday & also evaluated at [facility]. Admits pain is unchanged. Denies known injury/trauma or fall, numbness, tingling, weakness, incontinence/retention, hematuria/dysuria, weakness. MD elicited complaint: back pain Related Data Previous Rx's Medication Instructions Recorded doxycycline hyclate 100 mg tablet 100 mg PO Q12H 10 days #20 tabs 05/31/22 metronidazole 500 mg tablet 500 mg PO BID 10 days #20 tabs 05/31/22 valacyclovir 1 gram tablet 1,000 mg PO Q12H 10 days #20 tabs 05/31/22 cyclobenzaprine 10 mg tablet 10 mg PO TID PRN muscle spasm #15 10/02/22 tabs doxycycline monohydrate 100 mg 100 mg PO BID #14 tabs 10/02/22 tablet omeprazole 40 mg capsule,delayed 40 mg PO DAILY #30 caps 07/03/23 release sucralfate 1 gram tablet 1 g PO BID #60 tabs 07/03/23 cyclobenzaprine 5 mg tablet 5 mg PO TID PRN muscle spasm 7 08/08/23 days #21 tabs naproxen 500 mg tablet 500 mg PO BID 7 days #14 tabs 08/08/23 prednisone 20 mg tablet 20 mg PO DAILY 7 days #7 tabs 08/08/23 jxkkahmjwz-hocziougemltg-lpvuabbq 1 tab PO Q6H PRN haeadace #20 tabs 08/14/23 50 mg-325 mg-40 mg tablet cyclobenzaprine 10 mg tablet 10 mg PO Q8H #20 tabs 08/14/23 kdvrwik-sffouhperkcce-iakqvyrw 250 2 tab PO Q6H PRN headache #20 tabs 08/15/23 mg-250 mg-65 mg tablet (Excedrin Migraine) diphenhydramine HCl 25 mg capsule 50 mg (2 x 25 mg) PO Q6H PRN 08/15/23 headache, nausea, vomiting #30 caps metoclopramide HCl 10 mg tablet 10 mg PO Q6H PRN nausea and 08/15/23 (Reglan) vomiting #14 tabs oxycodone 5 mg tablet 5 mg PO Q6H PRN pain #10 tabs 08/15/23 prednisone 20 mg tablet 60 mg (3 x 20 mg) PO DAILY 5 days 08/15/23 #15 tabs Allergies Allergy/AdvReac Type Severity Reaction Status Date / Time No Known Allergies Allergy Verified 08/15/23 16:54 Review of Systems Review of Systems: Constitutional: No Fever, No Chills ENT/Mouth: No Ear Pain, No Nasal Congestion, No sore throat, No Rhinorrhea, No Swallowing Difficulty Cardiovascular: No Chest Pain, No SOB Respiratory: No Cough Gastrointestinal: No Nausea, No Vomiting, No Abdominal pain Genitourinary: No Dysuria, No Urinary Frequency, No Hematuria, No Urinary Incontinence/retention, No Flank Pain Musculoskeletal: + joint pain, No Myalgias, No Joint Swelling Skin: No Skin Lesions, No rash Neuro: No Weakness, No Numbness, No Paresthesias Yes all other systems are reviewed and are negative Constitutional: Constitutional: Reports as per HPI Neurologic: Denies Sensory deficit (Neuro) [facility] Past Medical History Attestation statement: The following information was validated with the patient. Source: old records reviewed Medical History Discharge from penis Lesion of penis Concern about STD in male without diagnosis Social History Social History Alcohol intake: never Substance Use Type: Marijuana Advance Directives: No Physical Exam Vital Signs: Vital Signs: Last Vital Signs Temp 98.2 F 08/16/23 09:55 Pulse 72 08/16/23 09:55 Resp 14 08/16/23 09:55 BP 92/62 08/16/23 09:55 Pulse Ox 100 08/16/23 09:55 O2 Del Method Room Air 08/16/23 09:55 BMI result Body Mass Index 22.8 Const: Other: disheveled General: cooperative, no acute distress, alert and poor hygiene Orientation/consciousness: patient oriented x3 Limitations: no limitations HEENT: Head: Yes normal to inspection and Yes atraumatic Ears: hearing grossly normal bilaterally General nose exam: Normal external nose present Face and sinus: Yes normal facial exam Eyes: General: appearance normal, both eyes and all related structures EOM: EOMs intact bilaterally Neck: Neck: Yes normal visual inspection and Yes no meningeal signs Resp: Effort & Inspection: normal respiratory effort and no respiratory distress Cardio: Rate: regular rate GI: Inspection: Yes normal to inspection Palpation (GI): Soft to palpation, nontender, no guarding and not rigid : General: Yes no CVA tenderness Back/Spine/Pelvis: Other: No midline cervical/thoracic/lumbar spinous tenderness/step-off or deformity. +minimal reproducible paraspinal lumbar ttp. No erythema, swelling, crepitus, ecchymosis or streaking. No fluctuance or induration Back: no CVA tenderness Skin: Rashes: no rashes Wounds: no wounds Neuro: Other: Strength intact throughout. No saddle anesthesia. Sensation intact to light touch. Neurovascular intact distally General: patient oriented x3, gait normal, tone normal, moves all extremities, no meningeal signs and no focal motor deficits Cranial nerves: Yes CN's II-XII intact bilaterally Gait exam (Neuro): Normal gait present Motor exam (neuro): 5/5 motor strength present throughout Sensory Exam: No Sensory deficit (Neuro) Extrem: General: Yes normal to inspection Medical Decision Making Medical Decision Making MDM Narrative: 32-year-old male with a past medical history of headache and back pain s/p LP in our ED yesterday presenting to the ED complaining of continued low back pain and 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 On exam vital signs stable, NAD, nontoxic appearing, no midline spinous tenderness throughout or red flag symptoms, ambulating with steady gait. Abdomen soft/nontender, no CVAT. Concern for continued MSK back pain. Low suspicion for hematoma, lumbar puncture complication, epidural abscess, cauda equina, renal stone/pyelo. 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 Patient did not wait for discharge paperwork, ambulated out of the ED with steady gait Results discussed with patient including worrisome signs and symptoms and strict return precautions, and when to return to the emergency department. They verbalized understanding and feel safe for discharge at this time. Differential Diagnosis Differential Diagnoses: The differential diagnosis associated with the presentation includes As above Lab Data MDM Lab Attestation statement: I reviewed the patient's lab results. Radiology Impression Discussion of test interpretation with radiology: I have reviewed the radiologist's reading. External Record Review External record reviewed: Inpatient record, Office record, Outpatient record, Prior outpatient labs, Prior outpatient radiology, Primary care record and Outside ED record Tests considered The following testing was considered but not selected: As above Prescription Management I considered prescription management with: Pain Medication Social Determinants Patient?s care significantly limited by Social Determinants of Health including: Inadequate housing, Low income, Problems related to primary support group and Unemployment Discharge Plan Discharge Clinical Impression: Low back pain Patient Disposition: Home, Self-Care Instructions: Chronic Back Pain (DC) Prescriptions: No Action metronidazole 500 mg tablet 500 mg PO BID 10 Days Qty: 20 0RF doxycycline hyclate 100 mg tablet 100 mg PO Q12H 10 Days Qty: 20 0RF valacyclovir 1 gram tablet 1,000 mg PO Q12H 10 Days Qty: 20 0RF doxycycline monohydrate 100 mg tablet 100 mg PO BID Qty: 14 0RF cyclobenzaprine 10 mg tablet 10 mg PO TID PRN (Reason: muscle spasm) Qty: 15 0RF diphenhydramine HCl 25 mg capsule 50 mg PO Q6H PRN (Reason: headache, nausea, vomiting) Qty: 30 0RF Excedrin Migraine 250-250-65 mg tablet 2 tab PO Q6H PRN (Reason: headache) Qty: 20 0RF metoclopramide HCl [Reglan] 10 mg tablet 10 mg PO Q6H PRN (Reason: nausea and vomiting) Qty: 14 0RF oxycodone 5 mg tablet 5 mg PO Q6H PRN (Reason: pain) Qty: 10 0RF Rx Instructions: Patient may request partial refill; Partial Fill upon patient request. prednisone 20 mg tablet 60 mg PO DAILY 5 Days Qty: 15 0RF omeprazole 40 mg capsule,delayed release(DR/EC) 40 mg PO DAILY Qty: 30 0RF sucralfate 1 gram tablet 1 g PO BID Qty: 60 0RF cyclobenzaprine 5 mg tablet 5 mg PO TID PRN (Reason: muscle spasm) 7 Days Qty: 21 0RF prednisone 20 mg tablet 20 mg PO DAILY 7 Days Qty: 7 0RF naproxen 500 mg tablet 500 mg PO BID 7 Days Qty: 14 0RF cyclobenzaprine 10 mg tablet 10 mg PO Q8H Qty: 20 0RF gajidvwazr-bjvespvtlniyj-mhsi 50-325-40 mg tablet 1 tab PO Q6H PRN (Reason: haeadace) Qty: 20 0RF Referrals: Physician,None [Primary Care Provider] - Interventions: ED Discharge Assessment Last Done: 08/16/23 11:19 Discharge Date/Time: 08/16/23 11:20
== END 2023-08-16 11:20 | disposition home or self-care (01) ==
PROVIDERS: Emergency Provider Emergency Medicine
DX: M54.50 Low back pain, unspecified (principal)
CPT/HCPCS: 99282

== ENCOUNTER 2023-08-17 19:28 | Emergency (ER) | payer SELFPAY ==
--- NOTE | ~2023-08-17 | CT_ITS ---
EXAMINATION: CT HEAD WITHOUT CONTRAST CLINICAL INFORMATION: Intractable headache COMPARISON: 04/08/2023 TECHNIQUE: Contiguous axial imaging was performed from the skull base to vertex without intravenous administration of contrast. This CT examination was performed using dose optimization techniques as appropriate, variously including the following: *Automated exposure control *Adjustment of mA and/or kV according to patient size (this includes techniques or standardized protocols for targeted exams where dose is matched to indication/reason for exam; i.e. extremities or head) *Use of iterative reconstruction technique DLP: 661 mGy-cm FINDINGS: There is no evidence of acute intracranial hemorrhage or territorial infarction. No abnormal mass-effect or midline shift is seen. Strange to white matter differentiation is well preserved. No extra-axial fluid collections are identified. The ventricles are normal in size. There is no abnormal attenuation within the brain parenchyma. The osseous structures and soft tissues are normal. The mastoid air cells and visualized portions of the paranasal sinuses are well-aerated. CT/CT head/brain wo IV con IMPRESSION: No acute intracranial pathology.
[2023-08-17 20:11] VITALS: BP 111/63; PULSE 72; RESP 16; TEMP 36.8; O2SAT 97; BMI 22.8
--- NOTE | 2023-08-17 20:11 | ED_ITS ---
HPI - General Adult General Chief complaint: Headache Stated complaint: headache,hot flashes,nausea Time Seen by Provider: 08/17/23 23:53 Source: patient Mode of arrival: ambulatory Limitations: no limitations History of Present Illness HPI narrative: Patient is a 29-year-old male who presents emergency department for evaluation of headache for the past 10 days, has had multiple ER visits including 1 set [facility] and 5 visits in the past 4 days here. He denies having had a CT scan while at [facility], he underwent the an LP in this emergency department on 08/15/2023. Continues to have right-sided headache, described as sharp pain and severe in nature that is constant. He states after taking combination of oxycodone, cyclobenzaprine, prednisone, Excedrin, and naproxen approximately 30 minutes later he has some relief in his headache but only for 1 hour before it returns and is severe again. He denies fevers, chills, URI symptoms, neck pain, neck stiffness, dizziness, lightheadedness, vision changes, chest pain, shortness of breath, nausea, vomiting, abdominal pain, numbness or tingling of the extremities, weakness. He denies any personal history of prior headaches/migraines. Related Data Previous Rx's Medication Instructions Recorded doxycycline hyclate 100 mg tablet 100 mg PO Q12H 10 days #20 tabs 05/31/22 metronidazole 500 mg tablet 500 mg PO BID 10 days #20 tabs 05/31/22 valacyclovir 1 gram tablet 1,000 mg PO Q12H 10 days #20 tabs 05/31/22 cyclobenzaprine 10 mg tablet 10 mg PO TID PRN muscle spasm #15 10/02/22 tabs doxycycline monohydrate 100 mg 100 mg PO BID #14 tabs 10/02/22 tablet omeprazole 40 mg capsule,delayed 40 mg PO DAILY #30 caps 07/03/23 release sucralfate 1 gram tablet 1 g PO BID #60 tabs 07/03/23 cyclobenzaprine 5 mg tablet 5 mg PO TID PRN muscle spasm 7 08/08/23 days #21 tabs naproxen 500 mg tablet 500 mg PO BID 7 days #14 tabs 08/08/23 prednisone 20 mg tablet 20 mg PO DAILY 7 days #7 tabs 08/08/23 jqxcvafmhh-eyercwytimjlg-tuzjfjun 1 tab PO Q6H PRN haeadace #20 tabs 08/14/23 50 mg-325 mg-40 mg tablet cyclobenzaprine 10 mg tablet 10 mg PO Q8H #20 tabs 08/14/23 xoplqse-axmgrscamqirt-hhlytrey 250 2 tab PO Q6H PRN headache #20 tabs 08/15/23 mg-250 mg-65 mg tablet (Excedrin Migraine) diphenhydramine HCl 25 mg capsule 50 mg (2 x 25 mg) PO Q6H PRN 08/15/23 headache, nausea, vomiting #30 caps metoclopramide HCl 10 mg tablet 10 mg PO Q6H PRN nausea and 08/15/23 (Reglan) vomiting #14 tabs oxycodone 5 mg tablet 5 mg PO Q6H PRN pain #10 tabs 08/15/23 prednisone 20 mg tablet 60 mg (3 x 20 mg) PO DAILY 5 days 08/15/23 #15 tabs Allergies Allergy/AdvReac Type Severity Reaction Status Date / Time No Known Allergies Allergy Verified 08/15/23 16:54 Review of Systems Review of Systems: Yes all other systems are reviewed and are negative [facility] Past Medical History Attestation statement: The following information was validated with the patient. Source: old records reviewed Medical History Discharge from penis Lesion of penis Concern about STD in male without diagnosis Social History Social History Alcohol intake: never Substance Use Type: Marijuana Physical Exam ED Vital Signs: Vital Signs - 24 hr 08/17/23 20:11 08/18/23 02:59 Temperature 98.3 F Pulse Rate 72 63 Respiratory Rate 16 16 Blood Pressure 111/63 108/60 Pulse Oximetry 97 100 Oxygen Delivery Method Room Air Room Air BMI result Body Mass Index 22.8 Appearance: Alert.?Oriented to person, place and time. No acute distress.?Normal affect. Eyes: Pupils equal, round and reactive to light.? EOMI. No nystagmus. ENT: Pharynx normal.??TM normal bilaterally. Neck: Normal inspection.? Neck supple.??No midline cervical spine tenderness, step-offs, deformities. CVS: Heart sounds normal. Normal heart rate and rhythm.? Pulses normal.?? Respiratory: No respiratory distress.? Lung sounds clear to auscultation bilaterally?? Abdomen: Soft and non-tender. Normoactive bowel sounds. Skin: Skin warm and dry.? Normal skin color.? ?? Extremities: No lower extremity edema.? Neuro: Moves all extremities spontaneously. Sensation intact bilaterally. CN II- XII intact. No focal neuro deficits. Ambulates with normal steady gait. Course Course Course Narrative: RME performed by Zuleika Aquino PA-C. Patient is a 32 year old assigned male at presenting to the emergency department with a headache. Patient has been seen 5 times since 08/08/2023 for similar complaints. Patient placed back in the waiting room pending room availability. Reevaluation(s) Reevaluation #1: CT of the head without acute intracranial pathology. Patient is resting comfortably, improvement in headache after medicated. Discharged home, advised to continue current regimen and outpatient follow-up with PCP. Discussed worrisome signs and symptoms that would warrant re-evaluation emergency department. All questions answered. Stable for discharge. Time: 02:24 Medications Administered Discontinued Medications Generic Name Dose Route Start Last Admin Trade Name Freq PRN Reason Stop Dose Admin Droperidol 1.25 mg 08/18/23 00:21 08/18/23 00:44 Droperidol 5 Mg/2 Ml Vial IVPUSH 08/18/23 00:22 1.25 mg ONCE ONE Administration Sodium Chloride 1,000 mls @ 999 mls/hr 08/18/23 00:30 08/18/23 02:58 Ns IV 08/18/23 01:30 Infused .Q1H1M REVA Infusion Magnesium Sulfate 2 gm in 50 mls @ 25 mls/hr 08/18/23 00:21 08/18/23 02:58 Magnesium Sulfate/H2o IV 08/18/23 02:20 Infused ONCE ONE Infusion Morphine Sulfate 4 mg 08/18/23 00:21 08/18/23 00:44 Morphine Sulfate 4 Mg/Ml Cartridge IVPUSH 08/18/23 00:22 4 mg ONCE ONE Administration Protocol Medical Decision Making Medical Decision Making MDM Narrative: Patient is a 32-year-old male presenting to emergency department for evaluation of intractable headaches with multiple visits for similar complaints recently. Upon review; 08/14/2023 presented for evaluation of headache, after having been seen at [facility] 3 days prior where he received injections into the back of his head as he reports, he was discharged home on 08/14 with prescription for cyclobenzaprine and Fioricet, the following day on 08/15/2023 he was evaluated twice; he ultimately underwent an LP, CSF glucose and protein were normal, he had improvement in headache but was experiencing dizziness, he was discharged home with Reglan, Excedrin, and Benadryl in upon his return later that day received prescription for oxycodone an additional course of prednisone. Given his extensive prior workup I did not see physician for repeat labs at this time, will obtain CT of the head to exclude intracranial pathology such as intracranial mass, doubt ICH/SDH. Will trial migraine regimen with magnesium 2 g IV, droperidol 1.25 mg IV, morphine 4 mg IV in addition to 1 L normal saline IV fluid. Differential Diagnosis Differential Diagnoses: The differential diagnosis associated with the presentation includes (As noted above) Admission/Observation Consideration of admission/observation: Escalation of care including admissi on/observation considered (Concern admission for headache, see course narrative for further detail) Radiology Impression Discussion of test interpretation with radiology: I have reviewed the radiologist's reading. Radiologist Impression: CT/CT head/brain wo IV con IMPRESSION: No acute intracranial pathology. Tests considered The following testing was considered but not selected: As per narrative above, labs were deferred. Discharge Plan Discharge Clinical Impression: Headache Patient Disposition: Home, Self-Care Additional Instructions: A CT scan of your head was negative. Please continue taking your medications as prescribed. Contact your primary care provider to arrange for a follow-up visit. Prescriptions: No Action metronidazole 500 mg tablet 500 mg PO BID 10 Days Qty: 20 0RF doxycycline hyclate 100 mg tablet 100 mg PO Q12H 10 Days Qty: 20 0RF valacyclovir 1 gram tablet 1,000 mg PO Q12H 10 Days Qty: 20 0RF doxycycline monohydrate 100 mg tablet 100 mg PO BID Qty: 14 0RF cyclobenzaprine 10 mg tablet 10 mg PO TID PRN (Reason: muscle spasm) Qty: 15 0RF diphenhydramine HCl 25 mg capsule 50 mg PO Q6H PRN (Reason: headache, nausea, vomiting) Qty: 30 0RF Excedrin Migraine 250-250-65 mg tablet 2 tab PO Q6H PRN (Reason: headache) Qty: 20 0RF metoclopramide HCl [Reglan] 10 mg tablet 10 mg PO Q6H PRN (Reason: nausea and vomiting) Qty: 14 0RF oxycodone 5 mg tablet 5 mg PO Q6H PRN (Reason: pain) Qty: 10 0RF Rx Instructions: Patient may request partial refill; Partial Fill upon patient request. prednisone 20 mg tablet 60 mg PO DAILY 5 Days Qty: 15 0RF omeprazole 40 mg capsule,delayed release(DR/EC) 40 mg PO DAILY Qty: 30 0RF sucralfate 1 gram tablet 1 g PO BID Qty: 60 0RF cyclobenzaprine 5 mg tablet 5 mg PO TID PRN (Reason: muscle spasm) 7 Days Qty: 21 0RF prednisone 20 mg tablet 20 mg PO DAILY 7 Days Qty: 7 0RF naproxen 500 mg tablet 500 mg PO BID 7 Days Qty: 14 0RF cyclobenzaprine 10 mg tablet 10 mg PO Q8H Qty: 20 0RF fpmngjxdxh-nzbzhiiaaieks-vkqw 50-325-40 mg tablet 1 tab PO Q6H PRN (Reason: haeadace) Qty: 20 0RF Interventions: ED Discharge Assessment Last Done: 08/18/23 02:59 Discharge Date/Time: 08/18/23 03:00
[2023-08-18] MEDS: droPERidol 5 MG/2 ML VIAL 1.25 MG IVPUSH (00:44)
[2023-08-18] MEDS: Morphine Sulfate 4 MG/ML CARTRIDGE IVPUSH (00:44)
[2023-08-18] MEDS: Magnesium Sulfate/H2O 2 GM/50 ML PIGGYBACK IV (00:50)
[2023-08-18] MEDS: 0.9 % Sodium Chloride 1,000 ML 999 ML IV (00:54)
[2023-08-18 02:59] VITALS: BP 108/60; PULSE 63; RESP 16; O2SAT 100
== END 2023-08-18 03:00 | disposition home or self-care (01) ==
PROVIDERS: Emergency Provider Emergency Medicine
DX: R51.9 Headache, unspecified (principal); R11.2 Nausea with vomiting, unspecified; Z79.899 Other long term (current) drug therapy
CPT/HCPCS: 70450; 96365; 96366; 96375; 99284; J1790; J2270; J3475

== ENCOUNTER 2023-08-18 17:45 | Emergency (ER) | payer OTHER, SELFPAY ==
[2023-08-18 17:54] VITALS: BP 108/65; PULSE 59; RESP 20; TEMP 36.3; O2SAT 97; BMI 22.8
--- NOTE | 2023-08-18 17:54 | ED_ITS ---
HPI - Headache General Chief Complaint: Headache Stated Complaint: headache Time Seen by Provider: 08/19/23 02:03 Source: patient Mode of arrival: ambulatory History of Present Illness HPI Narrative: 32M presents with chronic headache and reports associated nauseousness but no visual changes no gait instability. Related Data Previous Rx's Medication Instructions Recorded doxycycline hyclate 100 mg tablet 100 mg PO Q12H 10 days #20 tabs 05/31/22 metronidazole 500 mg tablet 500 mg PO BID 10 days #20 tabs 05/31/22 valacyclovir 1 gram tablet 1,000 mg PO Q12H 10 days #20 tabs 05/31/22 cyclobenzaprine 10 mg tablet 10 mg PO TID PRN muscle spasm #15 10/02/22 tabs doxycycline monohydrate 100 mg 100 mg PO BID #14 tabs 10/02/22 tablet omeprazole 40 mg capsule,delayed 40 mg PO DAILY #30 caps 07/03/23 release sucralfate 1 gram tablet 1 g PO BID #60 tabs 07/03/23 cyclobenzaprine 5 mg tablet 5 mg PO TID PRN muscle spasm 7 08/08/23 days #21 tabs naproxen 500 mg tablet 500 mg PO BID 7 days #14 tabs 08/08/23 prednisone 20 mg tablet 20 mg PO DAILY 7 days #7 tabs 08/08/23 mzwsxtisyh-lggxczwijueaz-vxmtomzg 1 tab PO Q6H PRN haeadace #20 tabs 08/14/23 50 mg-325 mg-40 mg tablet cyclobenzaprine 10 mg tablet 10 mg PO Q8H #20 tabs 08/14/23 wakydia-qbkuxwwztrxez-erbueplg 250 2 tab PO Q6H PRN headache #20 tabs 08/15/23 mg-250 mg-65 mg tablet (Excedrin Migraine) diphenhydramine HCl 25 mg capsule 50 mg (2 x 25 mg) PO Q6H PRN 08/15/23 headache, nausea, vomiting #30 caps metoclopramide HCl 10 mg tablet 10 mg PO Q6H PRN nausea and 08/15/23 (Reglan) vomiting #14 tabs oxycodone 5 mg tablet 5 mg PO Q6H PRN pain #10 tabs 08/15/23 prednisone 20 mg tablet 60 mg (3 x 20 mg) PO DAILY 5 days 10/21/23 #15 tabs cyclobenzaprine 10 mg tablet 10 mg PO TID PRN muscle spasm #10 08/21/23 tabs ketorolac 10 mg tablet 10 mg PO TID PRN pain #10 tabs 08/21/23 Allergies Allergy/AdvReac Type Severity Reaction Status Date / Time No Known Allergies Allergy Verified 08/15/23 16:54 Review of Systems Review of Systems: Pertinent positives and negatives as stated in [facility] Past Medical History Source: nursing notes reviewed Medical History Discharge from penis Lesion of penis Concern about STD in male without diagnosis Social History Social History Alcohol intake: former Smoked in Last 30 Days: Yes Use of substances other than those prescribed or required for medical reasons: Yes Substance Use Type: Marijuana Substance Use Frequency: Daily Last Used Substance: Hours (ago) Advance Directives: No Advance Directives Information Provided: Yes Physical Exam Vital Signs: Vital Signs: Last Vital Signs Temp 98.7 F 08/18/23 22:47 Pulse 63 08/19/23 04:27 Resp 16 08/19/23 04:27 BP 103/43 L 08/19/23 04:27 Pulse Ox 97 08/19/23 04:27 O2 Del Method Room Air 08/19/23 04:27 BMI result Body Mass Index 22.8 VITAL SIGNS: Reviewed. GENERAL: Well developed, well nourished, in no acute distress. HEAD: Normocephalic/atraumatic EYES: PERRLA, EOMI EARS: Ext canals without abnormality NOSE: Nares patent bilateral OROPHARYNX: no oral lesions noted, posterior pharynx clear NECK: Supple, no adenopathy LUNGS: Normal breath sounds. No adventitious sounds or accessory muscle use. SpO2<97> CARDIOVASCULAR: Regular rate and rhythm without noted murmurs ABDOMEN: Soft, non-tender, non-distended with bowel sounds. MUSCULOSKELETAL: No tenderness, deformities, or effusions noted on gross inspection. EXTREMITIES: No cyanosis, clubbing or edema. SKIN: Inspection of the skin reveals no rashes NEUROLOGIC: Alert and oriented x 4. Strength and sensation to light touch were grossly intact x 4, no facial asymmetry, no pronator drift, cranial nerves 2-12 grossly intact. Course Course Course Narrative: This is a rapid medical exam. defer additional HPI, ROS, PE to primary provider. 32-year-old male here with complaints of headache, nausea. Seen here last night for same VSS Medications Administered Discontinued Medications Generic Name Dose Route Start Last Admin Trade Name Orestes PRN Reason Stop Dose Admin Acetaminophen/Butalbital/Caffeine 1 tab 08/19/23 04:21 08/19/23 04:26 Butalb/Acetamin/Caff 50/325/40 Tablet PO 08/19/23 04:22 1 tab ONCE ONE Administration Ketorolac Tromethamine 15 mg 08/19/23 03:18 08/19/23 03:28 Ketorolac Tromethamine 15 Mg/Ml Vial IM 08/19/23 03:19 15 mg ONCE ONE Administration Medical Decision Making Medical Decision Making [facility] Narrative: 32-year-old male with history and clinical presentation consistent with chronic headache and on review extensive past medical workups there is a possibility this is migrainous in nature although at times presentation is for strictly paraspinal and musculoskeletal type of pain. He has had an LP, head CT, neck CT without acute findings. UDS is positive although unclear whether this is secondary to combination of medications that patient has previously used. Patient was provided with medications and discharged, there are no focal deficits and no clinical suspicion for meningitis. He was given a referral to follow-up with neurology. Differential Diagnosis Differential Diagnoses: The differential diagnosis associated with the presentation includes Please see the discussion above Admission/Observation Consideration of admission/observation: Escalation of care including admission/observation considered Please see the discussion above Lab Data [facility] Lab Attestation statement: I reviewed the patient's lab results. Please see the discussion above Labs: Lab Results 08/19/23 Range/Units 02:08 Urine Color Yellow Urine Appearance Cloudy Urine pH 5.5 (5.0-9.0) Ur Specific [place] 1.020 (1.005-1.025) Urine Protein Negative (Neg-Trace) mg/dL Urine Glucose (UA) Negative (Negative) mg/dL Urine Ketones Negative (Negative) mg/dL Urine Blood Negative (Negative) Urine Nitrite Negative (Negative) Ur Leukocyte Esterase Small (1+) H (Negative) Urine RBC 3-5 H (0-2) /HPF Urine WBC 11-20 (0-5) /HPF Ur Squamous Epith Cells 3-5 (0-2) /HPF Calcium Oxalate Crystal Present Urine Bacteria None Seen (None Seen) Hyaline Casts 0-2 (0-2) /LPF Urine Opiates Screen POSITIVE H (Not Detect) Urine Fentanyl Screen POSITIVE H (Not Detect) Ur Barbiturates Screen POSITIVE H (Not Detect) Ur Phencyclidine Scrn Not Detected (Not Detect) Ur Amphetamines Screen Not Detected (Not Detect) U Benzodiazepines Scrn Not Detected (Not Detect) Urine Cocaine Screen POSITIVE H (Not Detect) U Marijuana (THC) Screen POSITIVE H (Not Detect) Radiology Impression Discussion of test interpretation with radiology: I have reviewed the radiologist's reading. Radiologist Impression: Please see the discussion above External Record Review External record reviewed: Outpatient record, Prior outpatient labs and Prior outpatient radiology Discharge Plan Discharge Clinical Impression: Chronic headache Patient Disposition: Home, Self-Care Instructions: General Headache (ED) Additional Instructions: 1. You have been prescribed a number of medications that it is I completely agree with and a recommend that you continue using. 2. I also recommend that you follow-up with Neurology, a referral has been provided to you below and should be called this morning to set up an appointment for outpatient re-evaluation. Prescriptions: No Action metronidazole 500 mg tablet 500 mg PO BID 10 Days Qty: 20 0RF doxycycline hyclate 100 mg tablet 100 mg PO Q12H 10 Days Qty: 20 0RF valacyclovir 1 gram tablet 1,000 mg PO Q12H 10 Days Qty: 20 0RF doxycycline monohydrate 100 mg tablet 100 mg PO BID Qty: 14 0RF cyclobenzaprine 10 mg tablet 10 mg PO TID PRN (Reason: muscle spasm) Qty: 15 0RF diphenhydramine HCl 25 mg capsule 50 mg PO Q6H PRN (Reason: headache, nausea, vomiting) Qty: 30 0RF Excedrin Migraine 250-250-65 mg tablet 2 tab PO Q6H PRN (Reason: headache) Qty: 20 0RF metoclopramide HCl [Reglan] 10 mg tablet 10 mg PO Q6H PRN (Reason: nausea and vomiting) Qty: 14 0RF oxycodone 5 mg tablet 5 mg PO Q6H PRN (Reason: pain) Qty: 10 0RF Rx Instructions: Patient may request partial refill; Partial Fill upon patient request. prednisone 20 mg tablet 60 mg PO DAILY 5 Days Qty: 15 0RF omeprazole 40 mg capsule,delayed release(DR/EC) 40 mg PO DAILY Qty: 30 0RF sucralfate 1 gram tablet 1 g PO BID Qty: 60 0RF cyclobenzaprine 5 mg tablet 5 mg PO TID PRN (Reason: muscle spasm) 7 Days Qty: 21 0RF prednisone 20 mg tablet 20 mg PO DAILY 7 Days Qty: 7 0RF naproxen 500 mg tablet 500 mg PO BID 7 Days Qty: 14 0RF cyclobenzaprine 10 mg tablet 10 mg PO Q8H Qty: 20 0RF qthqmykgkn-kekuglsonioaf-exgj 50-325-40 mg tablet 1 tab PO Q6H PRN (Reason: haeadace) Qty: 20 0RF ketorolac 10 mg tablet 10 mg PO TID PRN (Reason: pain) Qty: 10 0RF Rx Instructions: Do not use this medication with naproxen, ibuprofen, only Tylenol if needed cyclobenzaprine 10 mg tablet 10 mg PO TID PRN (Reason: muscle spasm) Qty: 10 0RF Rx Instructions: Do not use this medication before going to work or driving Referrals: Evelyn Self MD [Physician] - Interventions: ED Discharge Assessment Last Done: 08/19/23 05:32 Discharge Date/Time: 08/19/23 05:33
[2023-08-18 22:47] VITALS: BP 94/50; PULSE 54; RESP 18; TEMP 37.1; O2SAT 98
--- NOTE | 2023-08-19 01:10 | PC.NURSE ---
pt resting with eyes closed, breathing even and unlabored. no apparent distress noted. RN attempted to take vitals. pt refused. stated his head hurt too much to have his vitals taken
[2023-08-19 02:10] VITALS: BP 82/41; PULSE 50; RESP 16; O2SAT 98
[2023-08-19 02:17] LABS: Appearance Urine Cloudy; Color Urine Yellow; Glucose Urine UA Negative (Negative); Leukocyte Esterase Urine Small (1+) (Negative); Nitrite Urine Negative (Negative); PH 5.5 (5.0-9.0); UMIC TRIGGER UACC YES; Urine Blood Negative (Negative); Urine Ketones Negative (Negative); Urine Protein Negative (Neg-Trace)
[2023-08-19 02:26] LABS: Amphetamine Screen Urine Not Detected (Not Detect); Barbiturates, Urine POSITIVE (Not Detect); Benzodiazepines Screen Urine Not Detected (Not Detect); Cannabinoid Screen Urine POSITIVE (Not Detect); Cocaine Screen Urine POSITIVE (Not Detect); Fentanyl, urine POSITIVE (Not Detect); Opiate Screen Urine POSITIVE (Not Detect); Phencyclidine Screen Urine Not Detected (Not Detect)
[2023-08-19 02:34] VITALS: BP 101/66; PULSE 50
[2023-08-19] MEDS: Ketorolac Tromethamine 15 MG/ML VIAL IM (03:28)
[2023-08-19 03:35] LABS: Bacteria Urine None Seen (None Seen); Calcium Oxalate Crystals Urine Present; Hyaline Casts Urine 0-2 /LPF (0-2); UACC Culture Trigger YES
--- NOTE | 2023-08-19 04:23 | PC.NURSE ---
pt reports IM toradol was not effective for headache. MD aware. will medicate with new order per DEC
[2023-08-19] MEDS: Butalb/Acetamin/Caff 50/325/40 TABLET 1 TAB PO (04:26)
[2023-08-19 04:27] VITALS: BP 103/43; PULSE 63; RESP 16; O2SAT 97
--- NOTE | 2023-08-19 05:31 | PC.NURSE ---
pt very unhappy that he is being discharged and his pain is not managed. pt did not take his discharge packet, stormed out of room and after signing paperwork. pt advised to f/u with neuro, pt refused
== END 2023-08-19 05:33 | disposition home or self-care (01) ==
PROVIDERS: Emergency Provider Student in an Organized Health Care Education/Training Program
DX: R51.9 Headache, unspecified (principal); Z79.899 Other long term (current) drug therapy
CPT/HCPCS: 80307; 81001; 87086; 96372; 99284; J1885

== ENCOUNTER 2023-08-19 17:08 | Emergency (ER) | payer SELFPAY ==
--- NOTE | ~2023-08-19 | CT_ITS ---
EXAMINATION: CT CERVICAL SPINE WITHOUT CONTRAST CLINICAL INFORMATION: Posterior neck pain COMPARISON: None available. TECHNIQUE: 3 mm thin axial and reformatted 2 mm thin sagittal coronal images of cervical spine were obtained without contrast. This CT examination was performed using dose optimization techniques as appropriate, variously including the following: *Automated exposure control *Adjustment of mA and/or kV according to patient size (this includes techniques or standardized protocols for targeted exams where dose is matched to indication/reason for exam; i.e. extremities or head) *Use of iterative reconstruction technique DLP: 445 mGy-cm FINDINGS: On sagittal reconstructed images there is normal cervical lordosis. The vertebral heights, alignment and disc heights are normal. The craniovertebral junction and the C1-C2 alignment is normal. No visible acute fracture, dislocation or subluxation seen. The prevertebral and paravertebral soft tissues are normal. CT/CT cervical spine wo IV con IMPRESSION: Unremarkable cervical spine exam. Fleischner guidelines were followed.
[2023-08-19 18:25] VITALS: BP 92/53; PULSE 83; RESP 20; TEMP 37.2; O2SAT 98; BMI 22.8
--- NOTE | 2023-08-19 18:34 | ED_ITS ---
HPI - General Adult General Chief complaint: General Medical Stated complaint: headaches, neck pain Time Seen by Provider: 08/19/23 21:45 Source: patient Mode of arrival: ambulatory History of Present Illness HPI narrative: 32-year-old male who presents with complaints of neck pain now as well as head pain. Patient left angry last night and refused to take his referral for Neurology for further workup for patient's headaches. Related Data Previous Rx's Medication Instructions Recorded doxycycline hyclate 100 mg tablet 100 mg PO Q12H 10 days #20 tabs 05/31/22 metronidazole 500 mg tablet 500 mg PO BID 10 days #20 tabs 05/31/22 valacyclovir 1 gram tablet 1,000 mg PO Q12H 10 days #20 tabs 05/31/22 cyclobenzaprine 10 mg tablet 10 mg PO TID PRN muscle spasm #15 10/02/22 tabs doxycycline monohydrate 100 mg 100 mg PO BID #14 tabs 10/02/22 tablet omeprazole 40 mg capsule,delayed 40 mg PO DAILY #30 caps 07/03/23 release sucralfate 1 gram tablet 1 g PO BID #60 tabs 07/03/23 cyclobenzaprine 5 mg tablet 5 mg PO TID PRN muscle spasm 7 08/08/23 days #21 tabs naproxen 500 mg tablet 500 mg PO BID 7 days #14 tabs 08/08/23 prednisone 20 mg tablet 20 mg PO DAILY 7 days #7 tabs 08/08/23 makucjgatb-wwflyrtupjiud-wbkwfpqa 1 tab PO Q6H PRN haeadace #20 tabs 08/14/23 50 mg-325 mg-40 mg tablet cyclobenzaprine 10 mg tablet 10 mg PO Q8H #20 tabs 08/14/23 bnocnlp-dqdgnpnzbiyuj-nzikcvap 250 2 tab PO Q6H PRN headache #20 tabs 08/15/23 mg-250 mg-65 mg tablet (Excedrin Migraine) diphenhydramine HCl 25 mg capsule 50 mg (2 x 25 mg) PO Q6H PRN 08/15/23 headache, nausea, vomiting #30 caps metoclopramide HCl 10 mg tablet 10 mg PO Q6H PRN nausea and 08/15/23 (Reglan) vomiting #14 tabs oxycodone 5 mg tablet 5 mg PO Q6H PRN pain #10 tabs 08/15/23 prednisone 20 mg tablet 60 mg (3 x 20 mg) PO DAILY 5 days 08/15/23 #15 tabs cyclobenzaprine 10 mg tablet 10 mg PO TID PRN muscle spasm #10 08/21/23 tabs ketorolac 10 mg tablet 10 mg PO TID PRN pain #10 tabs 08/21/23 Allergies Allergy/AdvReac Type Severity Reaction Status Date / Time No Known Allergies Allergy Verified 08/15/23 16:54 Review of Systems Review of Systems: Pertinent positives and negatives as stated in [facility] Past Medical History Source: nursing notes reviewed Medical History Discharge from penis Lesion of penis Concern about STD in male without diagnosis Social History Social History Unable to assess alcohol history related to: Refusing to respond Alcohol intake: former Substance Use Type: Marijuana Physical Exam ED Vital Signs: Vital Signs - 24 hr 08/19/23 18:25 08/19/23 20:09 08/19/23 23:30 Temperature 98.9 F Pulse Rate 83 86 Respiratory Rate 20 18 16 Blood Pressure 92/53 L 91/54 L 98/56 L Pulse Oximetry 98 99 Oxygen Delivery Method Room Air Room Air BMI result Body Mass Index 22.8 VITAL SIGNS: Reviewed. GENERAL: Well developed, well nourished, in no acute distress. HEAD: Normocephalic/atraumatic EYES: PERRLA, EOMI EARS: Ext canals without abnormality, TMs non-bulging and non-erythematous NOSE: Nares patent bilateral OROPHARYNX: no oral lesions noted, posterior pharynx clear and non-erythematous without noted tonsillar enlargement/erythema/exudates NECK: Supple, no adenopathy, there is no midline cervical spine tenderness to palpation or step-offs. LUNGS: Normal breath sounds. No adventitious sounds or accessory muscle use. SpO2<99> CARDIOVASCULAR: Regular rate and rhythm without noted murmurs ABDOMEN: Soft, non-tender, non-distended with bowel sounds. MUSCULOSKELETAL: No tenderness, deformities, or effusions noted on gross inspection. EXTREMITIES: No cyanosis, clubbing or edema. SKIN: Inspection of the skin reveals no rashes NEUROLOGIC: Alert and oriented x 4. Strength and sensation to light touch were grossly intact x 4, cranial nerves 2-12 are grossly intact. Course Course Course Narrative: RME: 32 yold male presents to the ED for posterior neck pain and frontal headache. patient seen yesterday and had normal head CT scan, but did not have imaging of posteior neck. patient states no recent head/neck trauma or fever, chills, or photophobia. covid, infelunza, and cerivcal spine ct scan. patinet had normal CT scan of head yestday Medications Administered Discontinued Medications Generic Name Dose Route Start Last Admin Trade Name Freq PRN Reason Stop Dose Admin Dexamethasone 8 mg 08/19/23 21:45 08/19/23 22:02 Dexamethasone 6 Mg Tablet PO 08/19/23 21:46 8 mg ONCE ONE Administration Magnesium Oxide 800 mg 08/19/23 21:45 08/19/23 22:01 Magnesium Oxide 400 Mg Tablet PO 08/19/23 21:46 800 mg ONCE ONE Administration Medical Decision Making Medical Decision Making MDM Narrative: 32-year-old male with history and clinical presentation most consistent with suspected housing concerns and chronic headache for which he is undergone significant workup and evaluation. He was evaluated here in this emergency room last night and although the urine toxicology may have contained some false positives given the medications that he has been provided over the past couple of weeks I do suspect that there is the consumption of illicit substances contributing to patient's symptoms. He is afebrile, not tachypneic nor is he tachycardic. Patient is noted to be resting comfortably in the gurney and was provided with 100 mg of magnesium oxide orally as well as 8 mg of Decadron. On waking the patient and re-evaluating he still complains of headache. He is otherwise discharged and will be provided once again with a referral to follow-up with neurology and encouraged to call the office in the morning to set up an appointment for further evaluation. Differential Diagnosis Differential Diagnoses: The differential diagnosis associated with the presentation includes Please see the discussion above Admission/Observation Consideration of admission/observation: Escalation of care including admission/observation considered Please see the discussion above Lab Data Labs: Lab Results 08/19/23 Range/Units 19:48 COVID-19 (NAVYA) Negative (Negative) COVID-19 Clin Com See Note Influenza Type A (ALDAIR) Negative (Negative) Influenza Type B (ALDAIR) Negative (Negative) Influenza A & B Note See Note External Record Review External record reviewed: Outpatient record, Prior outpatient labs and Prior outpatient radiology Discharge Plan Discharge Clinical Impression: Chronic headache Patient Disposition: Home, Self-Care Instructions: General Headache (ED) Additional Instructions: You have been provided with a referral to follow-up with neurology in should call the office in the morning. You should also obtain an appointment with your primary care doctor. Prescriptions: No Action metronidazole 500 mg tablet 500 mg PO BID 10 Days Qty: 20 0RF doxycycline hyclate 100 mg tablet 100 mg PO Q12H 10 Days Qty: 20 0RF valacyclovir 1 gram tablet 1,000 mg PO Q12H 10 Days Qty: 20 0RF doxycycline monohydrate 100 mg tablet 100 mg PO BID Qty: 14 0RF cyclobenzaprine 10 mg tablet 10 mg PO TID PRN (Reason: muscle spasm) Qty: 15 0RF diphenhydramine HCl 25 mg capsule 50 mg PO Q6H PRN (Reason: headache, nausea, vomiting) Qty: 30 0RF Excedrin Migraine 250-250-65 mg tablet 2 tab PO Q6H PRN (Reason: headache) Qty: 20 0RF metoclopramide HCl [Reglan] 10 mg tablet 10 mg PO Q6H PRN (Reason: nausea and vomiting) Qty: 14 0RF oxycodone 5 mg tablet 5 mg PO Q6H PRN (Reason: pain) Qty: 10 0RF Rx Instructions: Patient may request partial refill; Partial Fill upon patient request. prednisone 20 mg tablet 60 mg PO DAILY 5 Days Qty: 15 0RF omeprazole 40 mg capsule,delayed release(DR/EC) 40 mg PO DAILY Qty: 30 0RF sucralfate 1 gram tablet 1 g PO BID Qty: 60 0RF cyclobenzaprine 5 mg tablet 5 mg PO TID PRN (Reason: muscle spasm) 7 Days Qty: 21 0RF prednisone 20 mg tablet 20 mg PO DAILY 7 Days Qty: 7 0RF naproxen 500 mg tablet 500 mg PO BID 7 Days Qty: 14 0RF cyclobenzaprine 10 mg tablet 10 mg PO Q8H Qty: 20 0RF fakbjruioc-jwtmhbvgxsgyf-fntt 50-325-40 mg tablet 1 tab PO Q6H PRN (Reason: haeadace) Qty: 20 0RF ketorolac 10 mg tablet 10 mg PO TID PRN (Reason: pain) Qty: 10 0RF Rx Instructions: Do not use this medication with naproxen, ibuprofen, only Tylenol if needed cyclobenzaprine 10 mg tablet 10 mg PO TID PRN (Reason: muscle spasm) Qty: 10 0RF Rx Instructions: Do not use this medication before going to work or driving Referrals: Evelyn Self MD [Physician] - Interventions: ED Discharge Assessment Last Done: 08/20/23 00:00 Discharge Date/Time: 08/20/23 00:00
[2023-08-19 20:09] VITALS: BP 91/54; PULSE 86; RESP 18; O2SAT 99
[2023-08-19 20:19] LABS: COVID-19 Test Negative (Negative); IDNOW Serial# BCCEAD1C
[2023-08-19 20:20] LABS: IDNOW Serial# 08D9AD1C; Influenza A Negative (Negative); Influenza B2 Negative (Negative)
[2023-08-19] MEDS: Magnesium Oxide 400 MG TABLET 800 MG PO (22:01)
[2023-08-19] MEDS: dexAMETHasone 6 MG TABLET 8 MG PO (22:02)
[2023-08-19 23:30] VITALS: BP 98/56; RESP 16
== END 2023-08-20 | disposition home or self-care (01) ==
PROVIDERS: Physician Assistant; Emergency Provider Student in an Organized Health Care Education/Training Program
DX: R51.9 Headache, unspecified (principal); Z11.52 Encounter for screening for COVID-19; Z79.899 Other long term (current) drug therapy
CPT/HCPCS: 72125; 87502; 87635; 99284; J8540

== ENCOUNTER 2023-08-21 01:09 | Emergency (ER) | payer SELFPAY ==
[2023-08-21 01:15] VITALS: BP 100/69; PULSE 88; RESP 16; TEMP 36.3; O2SAT 98; BMI 22.8
[2023-08-21 01:23] VITALS: BP 105/64; PULSE 79; RESP 16; TEMP 36.9; O2SAT 97
--- NOTE | 2023-08-21 01:36 | ED.GENADULT ---
HPI - General Adult General Chief complaint: Back Pain/Injury Stated complaint: neck and back pain Time Seen by Provider: 08/21/23 01:28 Source: patient Mode of arrival: ambulatory Limitations: no limitations History of Present Illness HPI narrative: Patient comes to the emergency room complaining of bilateral neck pain radiating towards bilateral sides of the upper back. Patient states it has been present for about 2 weeks. Patient denies any fever or chills. Denies neck stiffness, only pain with movement. Patient states that he has been evaluated multiple times in various hospitals including [facility] and here. Two days ago, patient was seen here, CT scan of the neck was normal. Patient states that all the medications that have been given to him is not working I would like something stronger. Related Data Previous Rx's Medication Instructions Recorded doxycycline hyclate 100 mg tablet 100 mg PO Q12H 10 days #20 tabs 05/31/22 metronidazole 500 mg tablet 500 mg PO BID 10 days #20 tabs 05/31/22 valacyclovir 1 gram tablet 1,000 mg PO Q12H 10 days #20 tabs 05/31/22 cyclobenzaprine 10 mg tablet 10 mg PO TID PRN muscle spasm #15 10/02/22 tabs doxycycline monohydrate 100 mg 100 mg PO BID #14 tabs 10/02/22 tablet omeprazole 40 mg capsule,delayed 40 mg PO DAILY #30 caps 07/03/23 release sucralfate 1 gram tablet 1 g PO BID #60 tabs 07/03/23 cyclobenzaprine 5 mg tablet 5 mg PO TID PRN muscle spasm 7 08/08/23 days #21 tabs naproxen 500 mg tablet 500 mg PO BID 7 days #14 tabs 08/08/23 prednisone 20 mg tablet 20 mg PO DAILY 7 days #7 tabs 08/08/23 qkrjdaopxe-relpthbqdgacp-bbgerahv 1 tab PO Q6H PRN haeadace #20 tabs 08/14/23 50 mg-325 mg-40 mg tablet cyclobenzaprine 10 mg tablet 10 mg PO Q8H #20 tabs 08/14/23 lithkms-ptfppkyywgqgm-prmmxcqx 250 2 tab PO Q6H PRN headache #20 tabs 08/15/23 mg-250 mg-65 mg tablet (Excedrin Migraine) diphenhydramine HCl 25 mg capsule 50 mg (2 x 25 mg) PO Q6H PRN 08/15/23 headache, nausea, vomiting #30 caps metoclopramide HCl 10 mg tablet 10 mg PO Q6H PRN nausea and 08/15/23 (Reglan) vomiting #14 tabs oxycodone 5 mg tablet 5 mg PO Q6H PRN pain #10 tabs 08/15/23 prednisone 20 mg tablet 60 mg (3 x 20 mg) PO DAILY 5 days 08/15/23 #15 tabs cyclobenzaprine 10 mg tablet 10 mg PO TID PRN muscle spasm #10 08/21/23 tabs ketorolac 10 mg tablet 10 mg PO TID PRN pain #10 tabs 08/21/23 Allergies Allergy/AdvReac Type Severity Reaction Status Date / Time No Known Allergies Allergy Verified 08/15/23 16:54 Review of Systems Review of Systems: Constitutional : No Weight loss, No Fever, No Chills, No Night Sweats, No Fatigue, No Malaise ENT/Mouth : No Hearing loss, No Ear Pain, No Nasal Congestion, No Sinus Pain, No Hoarseness, No sore throat, No Rhinorrhea, No Swallowing Difficulty Eyes: No Eye Pain, No Swelling, No Redness, No Foreign Body, No Discharge, No Vision Changes Cardiovascular : No Chest Pain, No SOB, No Dyspnea on Exertion, No Orthopnea, No Edema, No Palpitations Respiratory : No Cough, No Sputum, No Wheezing, No Smoke Exposure, No Dyspnea Gastrointestinal : No Nausea, No Vomiting, No Diarrhea, No Constipation, No abdominal Pain, No Hematochezia, No Melena Genitourinary : no irregular bleeding, No Dysuria, No Urinary Frequency, No Hematuria, No Urinary Incontinence, No Urgency, No Flank Pain, No Urinary Flow Changes, No Hesitancy Musculoskeletal : Complaining of neck pain and bilateral upper back pain for 2 weeks, No joint pain, No Myalgias, No Joint Swelling Skin : No Skin Lesions, No rash Neuro : No Weakness, No Numbness, No Paresthesias, No Loss of Consciousness, No Dizziness, No Headache Psych : No Anxiety/Panic, No Depression, No SI/HI/AH/VH, No Social Issues, Heme/Lymph: No Bruising, No Bleeding,No Lymphadenopathy Endocrine : No Polyuria, No Polydipsia, No Temperature Intolerance [facility] Past Medical History Medical History Discharge from penis Lesion of penis Concern about STD in male without diagnosis Social History Social History Alcohol intake: former Smoked in Last 30 Days: No Use of substances other than those prescribed or required for medical reasons: Yes Substance Use Type: Marijuana Advance Directives: No Advance Directives Information Provided: No Physical Exam ED Vital Signs: Vital Signs - 24 hr 08/21/23 01:15 08/21/23 01:23 Temperature 97.3 F 98.4 F Pulse Rate 88 79 Respiratory Rate 16 16 Blood Pressure 100/69 105/64 Pulse Oximetry 98 97 Oxygen Delivery Method Room Air Room Air BMI result Body Mass Index 22.8 Const Other: Appearance: Alert. Oriented X3. No acute distress. Eyes: Pupils equal, round and reactive to light. ENT: Pharynx normal. Neck: Normal inspection. Neck supple. No lymph nodes noted. No crepitus, no neck stiffness, normal range of motion with flexion extension, no C-spine tenderness, no thoracic spine tenderness. Pain to palpation on the lateral aspects of posterior neck and upper back bilaterally CVS: Normal heart rate and rhythm. Pulses normal. Normal S1 and S2 Respiratory: No respiratory distress. Breath sounds normal. No Wheezing. No rales Abdomen: Soft and nontender. No rigidity. No distention. Skin: Skin warm and dry. Normal skin color. Normal skin turgor. Extremities: No lower extremity edema. No Lacerations. No Rash Neuro: Oriented X 3. No motor deficit. No sensory deficit. Moving all extremities. No slurred speech. CN 2 through 12 grossly intact Psych: calm, cooperative, normal affect Medical Decision Making Medical Decision Making MDM Narrative: -I reviewed patient's previous CT scan, CT scan from 2 days ago of the cervical spine was unremarkable. Also, head CT was done, no acute intracranial pathology. -two days ago, patient was given magnesium and Decadron -today, patient was offered IM Toradol and cyclobenzaprine. Patient states that he will take it, but states that he will not do anything for him and might need something stronger. -discussed with the patient that was sent to his pharmacy p.o. Toradol and muscle relaxants, narcotics not indicated at this time. -patient had labs done this and a week ago, white blood cell count normal, physical exam, patient has normal range of motion with no neck stiffness, meningitis is not suspected. -discussed with the patient he will likely need physical therapy since this neck pain/back pain is chronic now. Differential Diagnosis Differential Diagnoses: The differential diagnosis associated with the presentation includes (Musculoskeletal pain, trapezius pain) External Record Review External record reviewed: Prior outpatient radiology Discharge Plan Discharge Clinical Impression: Chronic neck and back pain Patient Disposition: Home, Self-Care Instructions: Musculoskeletal Pain (ED), Neck Pain (ED) Additional Instructions: Please follow-up with your primary care physician tomorrow. If you have any worsening or new symptoms, please return to the emergency room or call 911 Prescriptions: New ketorolac 10 mg tablet 10 mg PO TID PRN (Reason: pain) Qty: 10 0RF Rx Instructions: Do not use this medication with naproxen, ibuprofen, only Tylenol if needed cyclobenzaprine 10 mg tablet 10 mg PO TID PRN (Reason: muscle spasm) Qty: 10 0RF Rx Instructions: Do not use this medication before going to work or driving No Action metronidazole 500 mg tablet 500 mg PO BID 10 Days Qty: 20 0RF doxycycline hyclate 100 mg tablet 100 mg PO Q12H 10 Days Qty: 20 0RF valacyclovir 1 gram tablet 1,000 mg PO Q12H 10 Days Qty: 20 0RF doxycycline monohydrate 100 mg tablet 100 mg PO BID Qty: 14 0RF cyclobenzaprine 10 mg tablet 10 mg PO TID PRN (Reason: muscle spasm) Qty: 15 0RF diphenhydramine HCl 25 mg capsule 50 mg PO Q6H PRN (Reason: headache, nausea, vomiting) Qty: 30 0RF Excedrin Migraine 250-250-65 mg tablet 2 tab PO Q6H PRN (Reason: headache) Qty: 20 0RF metoclopramide HCl [Reglan] 10 mg tablet 10 mg PO Q6H PRN (Reason: nausea and vomiting) Qty: 14 0RF oxycodone 5 mg tablet 5 mg PO Q6H PRN (Reason: pain) Qty: 10 0RF Rx Instructions: Patient may request partial refill; Partial Fill upon patient request. prednisone 20 mg tablet 60 mg PO DAILY 5 Days Qty: 15 0RF omeprazole 40 mg capsule,delayed release(DR/EC) 40 mg PO DAILY Qty: 30 0RF sucralfate 1 gram tablet 1 g PO BID Qty: 60 0RF cyclobenzaprine 5 mg tablet 5 mg PO TID PRN (Reason: muscle spasm) 7 Days Qty: 21 0RF prednisone 20 mg tablet 20 mg PO DAILY 7 Days Qty: 7 0RF naproxen 500 mg tablet 500 mg PO BID 7 Days Qty: 14 0RF cyclobenzaprine 10 mg tablet 10 mg PO Q8H Qty: 20 0RF aycdwkmsnb-dlapzlrrmfdqj-vkxq 50-325-40 mg tablet 1 tab PO Q6H PRN (Reason: haeadace) Qty: 20 0RF
[2023-08-21] MEDS: Ketorolac Tromethamine 60 MG/2 ML VIAL IM (01:49)
[2023-08-21] MEDS: Cyclobenzaprine HCl 10 MG TABLET PO (01:49)
== END 2023-08-21 02:05 | disposition home or self-care (01) ==
PROVIDERS: Emergency Provider Emergency Medicine
DX: G89.29 Other chronic pain (principal); M54.2 Cervicalgia; M54.6 Pain in thoracic spine; F12.90 Cannabis use, unspecified, uncomplicated; Z79.899 Other long term (current) drug therapy; Z79.82 Long term (current) use of aspirin
CPT/HCPCS: 96372; 99284; J1885

== ENCOUNTER 2023-08-21 21:29 | Emergency (ER) | payer SELFPAY ==
[2023-08-21 21:37] VITALS: BP 99/48; PULSE 60; RESP 16; TEMP 36.8; O2SAT 98; BMI 22.8
[2023-08-21 22:01] LABS: MANUAL DIFF FLAG NO
[2023-08-21 22:03] LABS: Basophils Percent Auto 0.2 % (0-2); Eosinophils Absolute Auto 0.1 X10*3/uL (0.0-0.4); Eosinophils Percent Auto 0.7 % (0-4); Hematocrit 34.8 % (42.0-52.0); Imm Gran Abs Auto 0.02 X10*3/uL (0.00-0.03); Imm Gran Pct Auto 0.2 % (0.0-0.4); Lymphocytes Absolute Auto 2.1 X10*3/uL (1.2-4.9); Lymphocytes Percent Auto 23.9 % (20-40); Mean Corpuscular HGB Conc 31.6 g/dl (31.0-36.0); Mean Corpuscular Volume 85.3 fL (80.0-98.0); Mean Platelet Volume 8.4 fL (9.4-12.4); Monocytes Absolute Auto 0.5 X10*3/uL (0.1-1.2); Platelet Count 252 X10*3/uL (160-400); Red Blood Count 4.08 X10*6/uL (4.60-5.80); Red Cell Distribution Width 12.2 % (11.0-16.0); White Blood Count 8.7 X10*3/uL (4.8-10.8)
[2023-08-21 22:16] LABS: Alanine Aminotransferase 7 U/L (0-40); Albumin Level 3.7 g/dL (3.5-5.0); Alkaline Phosphatase 66 U/L (39-117); Anion Gap 15 (12-20); Aspartate Amino Transferase 8 U/L (5-37); Bilirubin Total 0.2 mg/dL (0.0-1.0); Blood Urea Nitrogen 27 mg/dL (9-16); Calcium 8.8 mg/dL (8.4-10.2); Carbon Dioxide 27 mmol/L (22-29); Chloride 105 mmol/L (96-108); Creatinine Clr Calc Pharmacy 93.6; Estimated Glomerular Filt Rate > 60; Glucose Random 120 mg/dL (60-115); Potassium 3.8 mmol/L (3.3-5.1); Sodium 143 mmol/L (135-145); Total Protein 6.7 g/dL (6.5-8.0)
[2023-08-21 22:19] VITALS: BP 93/52; PULSE 62; RESP 16; TEMP 36.6; O2SAT 98
--- NOTE | 2023-08-21 22:26 | ED.GENADULT ---
HPI - General Adult General Chief complaint: General Medical Stated complaint: Head and neck pain Time Seen by Provider: 08/21/23 22:26 Source: patient Mode of arrival: ambulatory Limitations: no limitations History of Present Illness HPI narrative: 32-year-old male who presents emergency department for evaluation of headache and neck pain which is been going on for at least 10-14 days. The patient has been seen here in the emergency department times this month for similar complaint. Patient has had extensive workups including CT scan, blood work and lumbar puncture without determine a clear etiology for his pain. He has been treated with multiple different medication regimens with no relief his pain. Patient was seen earlier this morning at 01:36 hours for similar complaints Patient states that he has a constant headache which is located in the frontal area of his head. He states that the pain usually starts in his neck and then radiates to the front of his head. He states that he gets intermittent blurred vision associated with the headache. States he has also had nausea and vomiting. He denied numbness or weakness he denied fever, chills, chest pain, shortness of breath. Related Data Previous Rx's Medication Instructions Recorded doxycycline hyclate 100 mg tablet 100 mg PO Q12H 10 days #20 tabs 05/31/22 metronidazole 500 mg tablet 500 mg PO BID 10 days #20 tabs 05/31/22 valacyclovir 1 gram tablet 1,000 mg PO Q12H 10 days #20 tabs 05/31/22 cyclobenzaprine 10 mg tablet 10 mg PO TID PRN muscle spasm #15 10/02/22 tabs doxycycline monohydrate 100 mg 100 mg PO BID #14 tabs 10/02/22 tablet omeprazole 40 mg capsule,delayed 40 mg PO DAILY #30 caps 07/03/23 release sucralfate 1 gram tablet 1 g PO BID #60 tabs 07/03/23 cyclobenzaprine 5 mg tablet 5 mg PO TID PRN muscle spasm 7 08/08/23 days #21 tabs naproxen 500 mg tablet 500 mg PO BID 7 days #14 tabs 08/08/23 prednisone 20 mg tablet 20 mg PO DAILY 7 days #7 tabs 08/08/23 kujoglnqfa-iiflmoatxatvk-hecbltaa 1 tab PO Q6H PRN haeadace #20 tabs 08/14/23 50 mg-325 mg-40 mg tablet cyclobenzaprine 10 mg tablet 10 mg PO Q8H #20 tabs 08/14/23 hhjmrnb-anjbwrvqucvtz-sdcvinki 250 2 tab PO Q6H PRN headache #20 tabs 08/15/23 mg-250 mg-65 mg tablet (Excedrin Migraine) diphenhydramine HCl 25 mg capsule 50 mg (2 x 25 mg) PO Q6H PRN 08/15/23 headache, nausea, vomiting #30 caps metoclopramide HCl 10 mg tablet 10 mg PO Q6H PRN nausea and 08/15/23 (Reglan) vomiting #14 tabs oxycodone 5 mg tablet 5 mg PO Q6H PRN pain #10 tabs 08/15/23 prednisone 20 mg tablet 60 mg (3 x 20 mg) PO DAILY 5 days 08/15/23 #15 tabs cyclobenzaprine 10 mg tablet 10 mg PO TID PRN muscle spasm #10 08/21/23 tabs ketorolac 10 mg tablet 10 mg PO TID PRN pain #10 tabs 08/21/23 Allergies Allergy/AdvReac Type Severity Reaction Status Date / Time No Known Allergies Allergy Verified 08/15/23 16:54 Review of Systems Review of Systems: Yes all other systems are reviewed and are negative PMFSH Past Medical History Medical History Discharge from penis Lesion of penis Concern about STD in male without diagnosis Social History Social History Alcohol intake: former Smoked in Last 30 Days: Yes Use of substances other than those prescribed or required for medical reasons: Yes Substance Use Type: Marijuana Substance Use Frequency: Daily Last Used Substance: Hours (ago) Advance Directives: No Advance Directives Information Provided: Yes Physical Exam ED Vital Signs: Vital Signs - 24 hr 08/21/23 21:37 08/21/23 22:19 Temperature 98.3 F 97.8 F Pulse Rate 60 62 Respiratory Rate 16 16 Blood Pressure 99/48 L 93/52 L Pulse Oximetry 98 98 Oxygen Delivery Method Room Air Room Air BMI result Body Mass Index 22.8 Vital signs were normal Exam General: Awake, alert in no distress Head: Normocephalic, atraumatic EENT: PERRL, Lids normal, sclera normal, conjunctiva normal, nose normal , ears normal, throat without erythema or exudates Neck: Supple, no adenopathy, no trachea midline or C-spine tenderness Lung: breath sounds symmetric, no wheezing, rales or rhonchi Chest: symmetric movement, nontender Heart: regular rate and rhythm, normal S1, S2 no murmurs or rubs Abdomen: soft, non-tender, nondistended, normal bowel sounds Back: no vertebral tenderness, no CVAT Extremities: no deformities, moves all extremities symmetrically Skin: no rashes, no lesion, normal color and warmth Neuro: Awake, alert, oriented, normal speech, cranial nerves intact, moves all extremities symmetrically Psych: Pleasant, cooperative Medical Decision Making Medical Decision Making [facility] Narrative: 32-year-old male who presents emergency department for evaluation of 10-14 days of headache and neck pain, he has had 10 visits the emergency department this month for similar complaints. Patient has had multiple workups without finding a clear etiology. Patient has been treated with multiple medication regimens without any relief his discomfort. Patient's vital signs were normal his physical examination was unremarkable. In reviewing his workup he did have a urine tox screen on 08/19/2023 which was positive for opiates, fentanyl, barbiturates, cocaine and marijuana. At this time, I do not think that the patient has an acute infectious process causing his acute headache and neck pain. Patient's pain seems to be chronic and there may be secondary gain in the patient coming back to the emergency department multiple times. At this time, I told the patient that I do not think that there is any further workup that we can do in the emergency department and that he should follow-up with his PCP your neurologist. I did offer to treat the patient with Tylenol and ibuprofen but he states these medications want help he does not want them. My interpretation patient's laboratory evaluation as follows: WBC was normal 8700. Patient has chronic anemia with an H&H of 11 and 34.8. Glucose was elevated 120, otherwise CMP was unremarkable. Urine toxicology from 08/19/2023 was positive for opiates, fentanyl, barbiturates, cocaine and marijuana. Differential Diagnosis Differential Diagnoses: The differential diagnosis associated with the presentation includes Differential diagnosis includes but is not limited to chronic headache, chronic neck pain, infectious process, polysubstance use disorder Lab Data [facility] Lab Attestation statement: I reviewed the patient's lab results. See MDM above her my interpretation 08/21/23 21:57 08/21/23 21:57 Labs: Lab Results 08/21/23 Range/Units 21:57 WBC 8.7 (4.8-10.8) X10*3/uL RBC 4.08 L (4.60-5.80) X10*6/uL Hgb 11.0 L (14.0-18.0) g/dl Hct 34.8 L (42.0-52.0) % MCV 85.3 (80.0-98.0) fL MCH 27.0 (27.0-33.0) pg MCHC 31.6 (31.0-36.0) g/dl RDW 12.2 (11.0-16.0) % Plt Count 252 (160-400) X10*3/uL MPV 8.4 L (9.4-12.4) fL Immature Gran % (Auto) 0.2 (0.0-0.4) % Neut % (Auto) 69.0 (45-73) % Lymph % (Auto) 23.9 (20-40) % [place] % (Auto) 6.0 (2-11) % Eos % (Auto) 0.7 (0-4) % Baso % (Auto) 0.2 (0-2) % Lymph # (Auto) 2.1 (1.2-4.9) X10*3/uL [place] # (Auto) 0.5 (0.1-1.2) X10*3/uL Eos # (Auto) 0.1 (0.0-0.4) X10*3/uL Baso # (Auto) 0.0 (0.0-0.2) X10*3/uL Abs Immat Gran (auto) 0.02 (0.00-0.03) X10*3/uL Absolute Neuts (auto) 6.0 (2.0-8.3) x10*3/uL Absolute Nucleated RBC 0.000 (0.0-0.012) X10*3/uL Nucleated RBC % (auto) 0.0 (0.0-0.2) /100WBC Sodium 143 (135-145) mmol/L Potassium 3.8 (3.3-5.1) mmol/L Chloride 105 (96-108) mmol/L Carbon Dioxide 27 (22-29) mmol/L Anion Gap 15 (12-20) BUN 27 H (9-16) mg/dL Creatinine 1.08 (0.5-1.4) mg/dL Estim Creat Clear Calc 93.6 Estimated GFR > 60 Random Glucose 120 H (60-115) mg/dL Calcium 8.8 (8.4-10.2) mg/dL Total Bilirubin 0.2 (0.0-1.0) mg/dL AST 8 (5-37) U/L ALT 7 (0-40) U/L Alkaline Phosphatase 66 (39-117) U/L Total Protein 6.7 (6.5-8.0) g/dL Albumin 3.7 (3.5-5.0) g/dL Discharge Plan Discharge Clinical Impression: Chronic neck and back pain, Chronic headache, Cocaine use disorder, Opiate use Patient Disposition: Home, Self-Care Additional Instructions: This is your 10th visit to the emergency department this month. We have done multiple tests done you and at this time we have not been able to find a clear cause for your headache and neck pain. You should follow-up with either your primary care doctor or neurologist for further treatment Take ibuprofen 200 mg pills, 2 pills every 6 hours as needed for pain or fever. Take Tylenol (acetaminophen) 500 mg pills, 2 pills every 6 hours as needed for pain or fever. Follow-up with your doctor in 2 days. Please return to the emergency department if your symptoms get worse or if you develop any symptoms that are concerning to you. Prescriptions: No Action metronidazole 500 mg tablet 500 mg PO BID 10 Days Qty: 20 0RF doxycycline hyclate 100 mg tablet 100 mg PO Q12H 10 Days Qty: 20 0RF valacyclovir 1 gram tablet 1,000 mg PO Q12H 10 Days Qty: 20 0RF doxycycline monohydrate 100 mg tablet 100 mg PO BID Qty: 14 0RF cyclobenzaprine 10 mg tablet 10 mg PO TID PRN (Reason: muscle spasm) Qty: 15 0RF diphenhydramine HCl 25 mg capsule 50 mg PO Q6H PRN (Reason: headache, nausea, vomiting) Qty: 30 0RF Excedrin Migraine 250-250-65 mg tablet 2 tab PO Q6H PRN (Reason: headache) Qty: 20 0RF metoclopramide HCl [Reglan] 10 mg tablet 10 mg PO Q6H PRN (Reason: nausea and vomiting) Qty: 14 0RF oxycodone 5 mg tablet 5 mg PO Q6H PRN (Reason: pain) Qty: 10 0RF Rx Instructions: Patient may request partial refill; Partial Fill upon patient request. prednisone 20 mg tablet 60 mg PO DAILY 5 Days Qty: 15 0RF omeprazole 40 mg capsule,delayed release(DR/EC) 40 mg PO DAILY Qty: 30 0RF sucralfate 1 gram tablet 1 g PO BID Qty: 60 0RF cyclobenzaprine 5 mg tablet 5 mg PO TID PRN (Reason: muscle spasm) 7 Days Qty: 21 0RF prednisone 20 mg tablet 20 mg PO DAILY 7 Days Qty: 7 0RF naproxen 500 mg tablet 500 mg PO BID 7 Days Qty: 14 0RF cyclobenzaprine 10 mg tablet 10 mg PO Q8H Qty: 20 0RF wbxjdvwqaj-ngiibcdhgqwmh-kdxe 50-325-40 mg tablet 1 tab PO Q6H PRN (Reason: haeadace) Qty: 20 0RF ketorolac 10 mg tablet 10 mg PO TID PRN (Reason: pain) Qty: 10 0RF Rx Instructions: Do not use this medication with naproxen, ibuprofen, only Tylenol if needed cyclobenzaprine 10 mg tablet 10 mg PO TID PRN (Reason: muscle spasm) Qty: 10 0RF Rx Instructions: Do not use this medication before going to work or driving Interventions: ED Discharge Assessment Last Done: 08/21/23 23:46 Discharge Date/Time: 08/21/23 23:46
--- NOTE | 2023-08-21 22:49 | PC.NURSE ---
pt refused to post exchange manager at this time
== END 2023-08-21 23:46 | disposition home or self-care (01) ==
PROVIDERS: Emergency Provider Emergency Medicine Emergency Medical Services
DX: R51.9 Headache, unspecified (principal); G89.29 Other chronic pain; M54.2 Cervicalgia; F14.90 Cocaine use, unspecified, uncomplicated; F11.90 Opioid use, unspecified, uncomplicated; Z79.899 Other long term (current) drug therapy
CPT/HCPCS: 36415; 80053; 85025; 99283; 99284

== ENCOUNTER 2023-08-22 11:06 | Emergency (ER) | payer SELFPAY ==
[2023-08-22 11:23] VITALS: BP 91/52; PULSE 70; RESP 18; TEMP 36.9; O2SAT 98; BMI 22.6
--- NOTE | 2023-08-22 11:27 | ED_ITS ---
HPI - Headache General Chief Complaint: Headache Stated Complaint: headache dizzy neck pain running nose Time Seen by Provider: 08/22/23 12:06 Source: patient Mode of arrival: ambulatory Limitations: no limitations History of Present Illness HPI Narrative: 32-year-old male who presents emergency department for evaluation of headache which radiates to posterior head from behind his eyes for 2 weeks. The patient has been seen here in the emergency department many this month for similar complaint. Patient has had extensive workups including CT scan, blood work and lumbar puncture without determine a clear etiology for his pain. He has been treated with multiple different medication regimens with no relief his pain. Patient denies any associated vision changes, nausea, vomiting, dizziness. No fevers or chills. Patient does report some intermittent photophobia. Has been recommended to follow up with Neurology and healthy he has an appointment with a neurologist in September but does not know which neurologists, the neurologist location, the date or time because his mom made the appointment for him. Related Data Previous Rx's Medication Instructions Recorded doxycycline hyclate 100 mg tablet 100 mg PO Q12H 10 days #20 tabs 05/31/22 metronidazole 500 mg tablet 500 mg PO BID 10 days #20 tabs 05/31/22 valacyclovir 1 gram tablet 1,000 mg PO Q12H 10 days #20 tabs 05/31/22 cyclobenzaprine 10 mg tablet 10 mg PO TID PRN muscle spasm #15 10/02/22 tabs doxycycline monohydrate 100 mg 100 mg PO BID #14 tabs 10/02/22 tablet omeprazole 40 mg capsule,delayed 40 mg PO DAILY #30 caps 07/03/23 release sucralfate 1 gram tablet 1 g PO BID #60 tabs 07/03/23 cyclobenzaprine 5 mg tablet 5 mg PO TID PRN muscle spasm 7 08/08/23 days #21 tabs naproxen 500 mg tablet 500 mg PO BID 7 days #14 tabs 08/08/23 prednisone 20 mg tablet 20 mg PO DAILY 7 days #7 tabs 08/08/23 rjyoiioslh-pxwqfayfnouqo-ncuuoxzy 1 tab PO Q6H PRN haeadace #20 tabs 08/14/23 50 mg-325 mg-40 mg tablet cyclobenzaprine 10 mg tablet 10 mg PO Q8H #20 tabs 08/14/23 miiqqmr-ngegowdbtzewv-munjnykm 250 2 tab PO Q6H PRN headache #20 tabs 08/15/23 mg-250 mg-65 mg tablet (Excedrin Migraine) diphenhydramine HCl 25 mg capsule 50 mg (2 x 25 mg) PO Q6H PRN 08/15/23 headache, nausea, vomiting #30 caps metoclopramide HCl 10 mg tablet 10 mg PO Q6H PRN nausea and 08/15/23 (Reglan) vomiting #14 tabs oxycodone 5 mg tablet 5 mg PO Q6H PRN pain #10 tabs 08/15/23 prednisone 20 mg tablet 60 mg (3 x 20 mg) PO DAILY 5 days 08/15/23 #15 tabs cyclobenzaprine 10 mg tablet 10 mg PO TID PRN muscle spasm #10 08/21/23 tabs ketorolac 10 mg tablet 10 mg PO TID PRN pain #10 tabs 08/21/23 Allergies Allergy/AdvReac Type Severity Reaction Status Date / Time No Known Allergies Allergy Verified 08/15/23 16:54 Review of Systems Review of Systems: Yes all other systems are reviewed and are negative Constitutional: Constitutional: Reports no additional constitutional complaints, Denies body ache(s), Denies chills, Denies fever(s), Reports headache(s) and Denies weakness Eyes: Eyes: Reports no additional eye complaints, Denies change in vision and Reports photophobia ENT: Reports system reviewed and no additional complaints, except as documented, Denies dizziness, Reports headache(s), Denies nasal congestion, Denies nasal discharge and Denies neck pain Cardiovascular: Cardiovascular: Reports no additional cardiovascular c omplaints, Denies chest pain, Denies leg edema and Denies dyspnea Respiratory: Respiratory: Reports no additional respiratory complaints, Denies cough and Denies dyspnea Gastrointestinal: Gastrointestinal: Reports no additional gastrointestinal complaints, Denies abdominal pain, Denies diarrhea, Denies nausea and Denies vomiting Genitourinary: Genitourinary: Denies urinary incontinence Musculoskeletal: Musculoskeletal: Reports no additional musculoskeletal complaints, Denies back pain, Denies arthralgias, Denies joint swelling, Denies neck pain, Denies numbness and Denies tingling Integumentary/Breasts: Skin/Breast: Reports system reviewed and no additional complaints, except as docu and Denies rash Neurologic: Reports system reviewed and no additional complaints, except as documented, Denies Abnormal speech present, Denies dizziness, Reports headache(s), Denies numbness, Denies tingling and Denies weakness PMFSH Past Medical History Attestation statement: The following information was validated with the patient. Source: old records reviewed and nursing notes reviewed Medical History Discharge from penis Lesion of penis Concern about STD in male without diagnosis Social History Social History Unable to assess alcohol history related to: Refusing to respond Alcohol intake: former Smoked in Last 30 Days: No Use of substances other than those prescribed or required for medical reasons: Unknown Substance Use Type: Marijuana Advance Directives: No Advance Directives Information Provided: No Physical Exam Vital Signs: Vital Signs: Last Vital Signs Temp 98.3 F 08/22/23 14:02 Pulse 62 08/22/23 14:49 Resp 16 08/22/23 14:02 BP 104/54 L 08/22/23 14:49 Pulse Ox 99 08/22/23 14:49 O2 Del Method Room Air 08/22/23 14:49 BMI result Body Mass Index 22.6 Const: General: cooperative, healthy appearing, comfortable and no acute distress Orientation/consciousness: patient oriented x3 Limitations: no limitations HEENT: Head: Yes normal to inspection Ears: hearing grossly normal bilaterally and TM's normal bilaterally General nose exam: Normal external nose present Face and sinus: Yes normal facial exam Mouth: Normal oral and palatal mucosa present Throat: Yes posterior oropharynx normal Eyes: General: appearance normal, both eyes and all related structures Pupils: Equal, round and reactive pupils present Direct Ophthalmoscopy: photophobia Neck: Neck: Yes normal visual inspection, Yes full ROM, Yes no lymphadenopathy and Yes no meningeal signs Chest: Chest palpation & inspection: normal inspection of the chest Resp: Effort & Inspection: normal respiratory effort Auscultation: clear to auscultation bilaterally Cardio: Rate: regular rate Rhythm: regular rhythm Peripheral pulses: Peripheral pulses 2+ throughout GI: Inspection: Yes normal to inspection Palpation (GI): Soft to palpation and nontender Auscultation: normal bowel sounds Back/Spine/Pelvis: Thoracic/Lumbar Spine: thoracic and lumbar spine normal to inspection Skin: General skin exam: no rashes or lesions noted Neuro: General: patient oriented x3, moves all extremities, no meningeal signs, no focal motor deficits and normal sensation to monofilament Cranial nerves: Yes CN's II-XII intact bilaterally, Yes Equal, round and reactive pupils present, Yes Bilaterally intact EOM present, Yes Nystagmus not present, Yes Normal facial strength present and Yes Midline tongue present Cognition (Neuro): normal cognition Speech: No Abnormal speech present Gait exam (Neuro): Normal gait present Motor exam (neuro): 5/5 motor strength present throughout Sensory Exam: Normal double simultaneous stimulation for sensation Extrem: General: Yes normal to inspection, Yes no pedal edema and Yes no calf tenderness Course Course Course Narrative: This is an RME: Additional HPI, ROS, PE not included below will be deferred to primary provider. Patient is a 32-year-old male presents emergency department for evaluation of headache, neck pain, dizziness for the past 2 weeks. He has had 10+ ED visits during this time for similar complaints with unremarkable workup, and multiple different attempted medication regimens which he reports have been not beneficial. Most recently was discharged yesterday with prescription for ketorolac in cyclobenzaprine to the pharmacy, he states he did not these up. Plan: Placed in waiting room pending bed availability for pain management. Reevaluation(s) Reevaluation #1: Headache is improving. Patient is tolerating p.o.. I strongly reinforced that he continue with plan to follow-up with Neurology. Reviewed worrisome signs and symptoms of when to return to the emergency room. Comfortable plan for discharge home. Medications Administered Discontinued Medications Generic Name Dose Route Start Last Admin Trade Name Orestes PRN Reason Stop Dose Admin Dexamethasone 10 mg 08/22/23 12:27 08/22/23 13:13 Dexamethasone 2 Mg Tablet PO 08/22/23 12:28 10 mg ONCE ONE Administration Diphenhydramine HCl 25 mg 08/22/23 12:27 08/22/23 13:13 Diphenhydramine Hcl 50 Mg/Ml Vial IVPUSH 08/22/23 12:28 25 mg ONCE ONE Administration Sodium Chloride 2,000 mls @ 999 mls/hr 08/22/23 12:27 08/22/23 13:12 Ns IV 08/22/23 14:27 999 mls/hr .Q2H1M STA Administration Ketorolac Tromethamine 30 mg 08/22/23 12:27 08/22/23 13:12 Ketorolac Tromethamine 30 Mg/Ml Vial IVPUSH 08/22/23 12:28 30 mg ONCE ONE Administration Metoclopramide HCl 10 mg 08/22/23 12:27 08/22/23 13:13 Metoclopramide Hcl 10 Mg/2 Ml Vial IVPUSH 08/22/23 12:28 10 mg ONCE ONE Administration Medical Decision Making Medical Decision Making MDM Narrative: 32-year-old male who presents emergency department for evaluation of headache which radiates to posterior head from behind his eyes for 2 weeks. The patient has been seen here in the emergency department many this month for similar complaint.? Patient has had extensive workups including CT scan, blood work and lumbar puncture without determine a clear etiology for his pain.? He has been treated with multiple different medication regimens with no relief his pain.? Patient denies any associated vision changes, nausea, vomiting, dizziness.? No fevers or chills.? Patient does report some intermittent photophobia.? Has been recommended to follow up with Neurology and healthy he has an appointment with a neurologist in September but does not know which neurologists, the neurologist location, the date or time because his mom made the appointment for him. Normal neuro exam with no focal deficit. No meningeal signs or lymphadenopathy. Patient's blood pressure is 90 systolic. This may also be contributing to his blood pressure although I do believe he may also have underlying migraine disorder. He would benefit from seeing Neurology if he requires additional workup. I do not feel that he needs any emergent imaging or additional workup today as his exam is nonfocal. I will have the nurse place an IV and give IV fluids, Reglan, Benadryl, Toradol, Decadron and will reassess him Differential Diagnosis Differential Diagnoses: The differential diagnosis associated with the presentation includes Migraine disorder Low concern for ICH, meningitis, encephalitis, pseudotumor cerebri, space occupying lesion Admission/Observation Consideration of admission/observation: Escalation of care including admission/observation considered No fever, meningeal signs to suggest meningitis requiring LP and or admission Headache is improving with no need for continued IV medication External Record Review External record reviewed: Outpatient record and Outside ED record Tests considered The following testing was considered but not selected: No fever, meningeal signs to suggest meningitis and need for LP or labs No trauma, concern for ICH to suggest need for CT head Prescription Management I considered prescription management with: Pain Medication Discharge Plan Discharge Clinical Impression: Headache Patient Disposition: Home, Self-Care Instructions: General Headache (ED) Additional Instructions: It is essential that you follow-up with Neurology. Take the previous medications which have been prescribed T Stay well hydrated Get plenty of rest Avoid stress Prescriptions: No Action metronidazole 500 mg tablet 500 mg PO BID 10 Days Qty: 20 0RF doxycycline hyclate 100 mg tablet 100 mg PO Q12H 10 Days Qty: 20 0RF valacyclovir 1 gram tablet 1,000 mg PO Q12H 10 Days Qty: 20 0RF doxycycline monohydrate 100 mg tablet 100 mg PO BID Qty: 14 0RF cyclobenzaprine 10 mg tablet 10 mg PO TID PRN (Reason: muscle spasm) Qty: 15 0RF diphenhydramine HCl 25 mg capsule 50 mg PO Q6H PRN (Reason: headache, nausea, vomiting) Qty: 30 0RF Excedrin Migraine 250-250-65 mg tablet 2 tab PO Q6H PRN (Reason: headache) Qty: 20 0RF metoclopramide HCl [Reglan] 10 mg tablet 10 mg PO Q6H PRN (Reason: nausea and vomiting) Qty: 14 0RF oxycodone 5 mg tablet 5 mg PO Q6H PRN (Reason: pain) Qty: 10 0RF Rx Instructions: Patient may request partial refill; Partial Fill upon patient request. prednisone 20 mg tablet 60 mg PO DAILY 5 Days Qty: 15 0RF omeprazole 40 mg capsule,delayed release(DR/EC) 40 mg PO DAILY Qty: 30 0RF sucralfate 1 gram tablet 1 g PO BID Qty: 60 0RF cyclobenzaprine 5 mg tablet 5 mg PO TID PRN (Reason: muscle spasm) 7 Days Qty: 21 0RF prednisone 20 mg tablet 20 mg PO DAILY 7 Days Qty: 7 0RF naproxen 500 mg tablet 500 mg PO BID 7 Days Qty: 14 0RF cyclobenzaprine 10 mg tablet 10 mg PO Q8H Qty: 20 0RF nkkufloejn-ubxlrcbcwrstj-ymcf 50-325-40 mg tablet 1 tab PO Q6H PRN (Reason: haeadace) Qty: 20 0RF ketorolac 10 mg tablet 10 mg PO TID PRN (Reason: pain) Qty: 10 0RF Rx Instructions: Do not use this medication with naproxen, ibuprofen, only Tylenol if needed cyclobenzaprine 10 mg tablet 10 mg PO TID PRN (Reason: muscle spasm) Qty: 10 0RF Rx Instructions: Do not use this medication before going to work or driving Referrals: Physician,None [Primary Care Provider] - 1 week Interventions: ED Discharge Assessment Last Done: 08/22/23 15:08
[2023-08-22] MEDS: Ketorolac Tromethamine 30 MG/ML VIAL IVPUSH (13:12)
[2023-08-22] MEDS: 0.9 % Sodium Chloride 2,000 ML 999 ML IV (13:12)
[2023-08-22] MEDS: Metoclopramide HCl 10 MG/2 ML VIAL IVPUSH (13:13)
[2023-08-22] MEDS: diphenhydrAMINE HCL 50 MG/ML VIAL 25 MG IVPUSH (13:13)
[2023-08-22] MEDS: dexAMETHasone 2 MG TABLET 10 MG PO (13:13)
[2023-08-22 14:02] VITALS: BP 85/45; PULSE 54; RESP 16; TEMP 36.8; O2SAT 98
[2023-08-22 14:49] VITALS: BP 104/54; PULSE 62; O2SAT 99
== END 2023-08-22 15:16 | disposition home or self-care (01) ==
PROVIDERS: Emergency Provider Student in an Organized Health Care Education/Training Program
DX: R51.9 Headache, unspecified (principal)
CPT/HCPCS: 96374; 96375; 99284; J1200; J1885; J2765; J8540

== ENCOUNTER 2023-08-22 19:30 | Emergency (ER) | payer SELFPAY ==
[2023-08-22 19:35] VITALS: BP 103/61; PULSE 74; RESP 16; TEMP 36.6; O2SAT 97; BMI 22.3
--- NOTE | 2023-08-22 19:36 | ED_ITS ---
HPI - Dental/Oral General Chief complaint: Dental/Oral Stated complaint: tooth pain Time Seen by Provider: 08/22/23 19:51 Source: patient Mode of arrival: ambulatory Limitations: no limitations History of Present Illness HPI Narrative: 32 year old male prsents w/ L lower molar pain s/p eating beef jerkey thinks he broke his tooth. Repots some pain. Able to eat and drink w/o difficulty. Denies fevers, chills, changes in voice, drooling, [place], vomiting. Doesnt have a dentist. Related Data Previous Rx's Medication Instructions Recorded doxycycline hyclate 100 mg tablet 100 mg PO Q12H 10 days #20 tabs 05/31/22 metronidazole 500 mg tablet 500 mg PO BID 10 days #20 tabs 05/31/22 valacyclovir 1 gram tablet 1,000 mg PO Q12H 10 days #20 tabs 05/31/22 cyclobenzaprine 10 mg tablet 10 mg PO TID PRN muscle spasm #15 10/02/22 tabs doxycycline monohydrate 100 mg 100 mg PO BID #14 tabs 10/02/22 tablet omeprazole 40 mg capsule,delayed 40 mg PO DAILY #30 caps 07/03/23 release sucralfate 1 gram tablet 1 g PO BID #60 tabs 07/03/23 cyclobenzaprine 5 mg tablet 5 mg PO TID PRN muscle spasm 7 08/08/23 days #21 tabs naproxen 500 mg tablet 500 mg PO BID 7 days #14 tabs 08/08/23 prednisone 20 mg tablet 20 mg PO DAILY 7 days #7 tabs 08/08/23 vrwnphymbu-ostvmjbaoiwgi-lfdxvoro 1 tab PO Q6H PRN haeadace #20 tabs 08/14/23 50 mg-325 mg-40 mg tablet cyclobenzaprine 10 mg tablet 10 mg PO Q8H #20 tabs 08/14/23 oxvfitl-wwzzwwikvojiv-gblxtgmz 250 2 tab PO Q6H PRN headache #20 tabs 08/15/23 mg-250 mg-65 mg tablet (Excedrin Migraine) diphenhydramine HCl 25 mg capsule 50 mg (2 x 25 mg) PO Q6H PRN 08/15/23 headache, nausea, vomiting #30 caps metoclopramide HCl 10 mg tablet 10 mg PO Q6H PRN nausea and 08/15/23 (Reglan) vomiting #14 tabs oxycodone 5 mg tablet 5 mg PO Q6H PRN pain #10 tabs 08/15/23 prednisone 20 mg tablet 60 mg (3 x 20 mg) PO DAILY 5 days 08/15/23 #15 tabs cyclobenzaprine 10 mg tablet 10 mg PO TID PRN muscle spasm #10 08/21/23 tabs ketorolac 10 mg tablet 10 mg PO TID PRN pain #10 tabs 08/21/23 amoxicillin 875 mg-potassium 1 tab PO BID 7 days #14 tabs 08/22/23 clavulanate 125 mg tablet Allergies Allergy/AdvReac Type Severity Reaction Status Date / Time No Known Allergies Allergy Verified 08/15/23 16:54 Review of Systems Review of Systems: Constitutional : No Weight loss, No Fever, No Chills, No Fatigue, No Malaise ENT/Mouth : No sore throat, No Rhinorrhea, + dental pain Eyes: No Eye Pain, No Swelling, No Redness Cardiovascular : No Chest Pain, No SOB, No Dyspnea on Exertion, No Orthopnea, No Edema, No Palpitations Respiratory : No Cough, No Sputum, No Wheezing Gastrointestinal : No Nausea, No Vomiting, No Diarrhea, No Constipation, No abdominal Pain, No Hematochezia, No Melena Genitourinary : No Dysuria, No Urinary Frequency, No Hematuria, Musculoskeletal : No joint pain, No Myalgias, No Joint Swelling Skin : No Skin Lesions, No rash Neuro : No Weakness, No Numbness, No Dizziness, No Headache Psych : No Anxiety/Panic, No Depression All other systems reviewed and are negative Yes all other systems are reviewed and are negative [facility] [place] Past Medical History Attestation statement: The following information was validated with the patient. Source: old records reviewed and nursing notes reviewed Medical History Discharge from penis Lesion of penis Concern about STD in male without diagnosis Social History Social History Unable to assess alcohol history related to: Refusing to respond Alcohol intake: former Substance Use Type: Marijuana Advance Directives: No Advance Directives Information Provided: No Physical Exam Vital Signs: Vital Signs: Last Vital Signs Temp 97.8 F 08/22/23 19:35 Pulse 74 08/22/23 19:35 Resp 16 08/22/23 19:35 BP 103/61 08/22/23 19:35 Pulse Ox 97 08/22/23 19:35 O2 Del Method Room Air 08/22/23 19:35 BMI result Body Mass Index 22.3 vss Appearance: Alert.? Oriented X3.? No acute distress.? Head: Normocephalic, atraumatic, no step-offs or deformities Eyes: Pupils equal, round and reactive to light.? ENT: Pharynx normal.?+ fx to left lower tooth # 5. Speaking in full sentences controlling secretions well. CVS: Normal heart rate and rhythm.? Pulses normal.? Respiratory: No respiratory distress.? Breath sounds normal.? Abdomen: Soft and nontender.? Skin: Skin warm and dry.? Normal skin color.? Normal skin turgor.? Extremities: No lower extremity edema.? No calf ttp. 5/5 strength to bilateral upper and lower extremities Back: No midline tenderness, no C-spine tenderness, full range of motion, no CVA tenderness bilaterally Neuro: Oriented X 3.? No motor deficit.? No sensory deficit. CN 2-12 intact Course Course Course Narrative: This is an RME: Additional HPI, ROS, PE not included below will be deferred to primary provider. Patient is a 32-year-old male presents emergency department reporting dental pain to the left lower molar after eating beef jerky. Reports pain to be severe, unable to eat or drink due to pain since this happened. Declines visualization of this in the triage room Reevaluation(s) Reevaluation #1: Improvement with Toradol. Patient eating and drinking Educated patient on diagnosis and treatment plan, answered all question, patient verbalizes u nderstanding. At this time patient will be discharged home, advised to return with new or worsening symptoms. Educated on worrisome signs and symptoms and when to return. At this time I feel comfortable discharge home. Time: 21:06 Medications Administered Discontinued Medications Generic Name Dose Route Start Last Admin Trade Name Freq PRN Reason Stop Dose Admin Ketorolac Tromethamine 30 mg 08/22/23 20:19 08/22/23 20:31 Ketorolac Tromethamine 15 Mg/Ml Vial IM 08/22/23 20:20 30 mg ONCE ONE Administration Medical Decision Making Medical Decision Making MDM Narrative: 2100 32 yo m presents w/ acute tooth fx X few hours Pharynx normal.?+ fx to left lower tooth # 5. Speaking in full sentences controlling secretions well. Concerns for dental fx. No sings of abscess or necrosis Plan- toradol and dc w/ dental follow up info. Differential Diagnosis Differential Diagnoses: The differential diagnosis associated with the presentation includes Concerns for dental fx. No sings of abscess or necrosis Admission/Observation Consideration of admission/observation: Escalation of care including admission/observation considered No indication Prescription Management I considered prescription management with: Antibiotic Critical Care Time Critical Care Time Critical Care Time: No Discharge Plan Discharge Clinical Impression: Fracture of tooth Patient Disposition: Home, Self-Care Instructions: Acute Dental Trauma (ED), Toothache (ED), Tooth Extraction (DC) Additional Instructions: Take your medications as prescribed. If you were prescribed antibiotics today, it is important that you take your medication to their entirety, do not skip any doses, do not finish them early. Follow-up with your primary care provider this week. Return to the emergency department with new or worsening symptoms. Such as f alina, chills, chest pain, shortness of breath, nausea, vomiting, dizziness, headache, vision changes, lethargy, difficulty swallowing, changes in voice In case of emergency call 911 [facility] has a dental department [phone] call thursday and make an apt Toradol has been sent to your pharmacy, you tolerated this well in the department. Please take this as prescribed do not take this with ibuprofen, or other NSAIDs, do not mix this with alcohol. Side effects of this medication including increased risk for bleeding and possible kidney injury. Prescriptions: New amoxicillin-pot clavulanate 875-125 mg tablet 1 tab PO BID 7 Days Qty: 14 0RF No Action metronidazole 500 mg tablet 500 mg PO BID 10 Days Qty: 20 0RF doxycycline hyclate 100 mg tablet 100 mg PO Q12H 10 Days Qty: 20 0RF valacyclovir 1 gram tablet 1,000 mg PO Q12H 10 Days Qty: 20 0RF doxycycline monohydrate 100 mg tablet 100 mg PO BID Qty: 14 0RF cyclobenzaprine 10 mg tablet 10 mg PO TID PRN (Reason: muscle spasm) Qty: 15 0RF diphenhydramine HCl 25 mg capsule 50 mg PO Q6H PRN (Reason: headache, nausea, vomiting) Qty: 30 0RF Excedrin Migraine 250-250-65 mg tablet 2 tab PO Q6H PRN (Reason: headache) Qty: 20 0RF metoclopramide HCl [Reglan] 10 mg tablet 10 mg PO Q6H PRN (Reason: nausea and vomiting) Qty: 14 0RF oxycodone 5 mg tablet 5 mg PO Q6H PRN (Reason: pain) Qty: 10 0RF Rx Instructions: Patient may request partial refill; Partial Fill upon patient request. prednisone 20 mg tablet 60 mg PO DAILY 5 Days Qty: 15 0RF omeprazole 40 mg capsule,delayed release(DR/EC) 40 mg PO DAILY Qty: 30 0RF sucralfate 1 gram tablet 1 g PO BID Qty: 60 0RF cyclobenzaprine 5 mg tablet 5 mg PO TID PRN (Reason: muscle spasm) 7 Days Qty: 21 0RF prednisone 20 mg tablet 20 mg PO DAILY 7 Days Qty: 7 0RF naproxen 500 mg tablet 500 mg PO BID 7 Days Qty: 14 0RF cyclobenzaprine 10 mg tablet 10 mg PO Q8H Qty: 20 0RF uvzsdvycol-srwbdvjzsantf-fwpb 50-325-40 mg tablet 1 tab PO Q6H PRN (Reason: haeadace) Qty: 20 0RF ketorolac 10 mg tablet 10 mg PO TID PRN (Reason: pain) Qty: 10 0RF Rx Instructions: Do not use this medication with naproxen, ibuprofen, only Tylenol if needed cyclobenzaprine 10 mg tablet 10 mg PO TID PRN (Reason: muscle spasm) Qty: 10 0RF Rx Instructions: Do not use this medication before going to work or driving Referrals: Physician,None [Primary Care Provider] - Stand Alone Forms: Work/School Release Interventions: ED Discharge Assessment Last Done: 08/22/23 20:54 Discharge Date/Time: 08/22/23 20:55
[2023-08-22] MEDS: Ketorolac Tromethamine 15 MG/ML VIAL 30 MG IM (20:31)
== END 2023-08-22 20:55 | disposition home or self-care (01) ==
PROVIDERS: Emergency Provider Emergency Medicine
DX: K08.539 Fractured dental restorative material, unspecified (principal); K08.89 Other specified disorders of teeth and supporting structures; Z79.82 Long term (current) use of aspirin; Z79.899 Other long term (current) drug therapy; F12.90 Cannabis use, unspecified, uncomplicated
CPT/HCPCS: 96372; 99283; 99284; J1885

== ENCOUNTER 2023-09-02 01:52 | Emergency (ER) | payer SELFPAY ==
[2023-09-02 01:57] VITALS: BP 105/66; PULSE 113; RESP 18; TEMP 36.9; O2SAT 97; BMI 23.1
--- NOTE | 2023-09-02 05:06 | PC.NURSE ---
Pt ambulated into room with a steady gait, AOx3, pt reporting that he has an abscess above left buttocks, warm to touch, size of a yessica with a black head in the center. Pt aware of plan of care.
--- NOTE | 2023-09-02 05:19 | ED.SKABFB ---
HPI - Skin/Abscess/Foreign Bdy General Chief complaint: Skin/Abscess/Foreign Body Stated complaint: ?Cyst Time Seen by Provider: 09/02/23 05:16 Source: patient Mode of arrival: ambulatory Limitations: no limitations History of Present Illness HPI narrative: 33 yo male who denies PMH here with c/o L buttock boil but no systemic symptoms no drainage though there is a scab to the area, denies prior hx of MRSA. No fevers, vomiting or any other symptoms. MD complaint: abscess/boil Onset (ago): day(s) (2) Tetanus up to date: yes Location: buttocks Severity: moderate Quality: aching Pain Consistency: constant Relieving factors: rest Exacerbating factors: palpation and movement Context: none Associated symptoms: denies other symptoms Treatments prior to arrival: none Related Data Previous Rx's Medication Instructions Recorded doxycycline hyclate 100 mg tablet 100 mg PO Q12H 10 days #20 tabs 05/31/22 metronidazole 500 mg tablet 500 mg PO BID 10 days #20 tabs 05/31/22 valacyclovir 1 gram tablet 1,000 mg PO Q12H 10 days #20 tabs 05/31/22 cyclobenzaprine 10 mg tablet 10 mg PO TID PRN muscle spasm #15 10/02/22 tabs doxycycline monohydrate 100 mg 100 mg PO BID #14 tabs 10/02/22 tablet omeprazole 40 mg capsule,delayed 40 mg PO DAILY #30 caps 07/03/23 release sucralfate 1 gram tablet 1 g PO BID #60 tabs 07/03/23 cyclobenzaprine 5 mg tablet 5 mg PO TID PRN muscle spasm 7 08/08/23 days #21 tabs naproxen 500 mg tablet 500 mg PO BID 7 days #14 tabs 08/08/23 prednisone 20 mg tablet 20 mg PO DAILY 7 days #7 tabs 08/08/23 aimpvsweas-ndbfhqictqfuw-rrtnurgq 1 tab PO Q6H PRN haeadace #20 tabs 08/14/23 50 mg-325 mg-40 mg tablet cyclobenzaprine 10 mg tablet 10 mg PO Q8H #20 tabs 08/14/23 dlkrrmk-uispjdbokjohw-ayjqqrly 250 2 tab PO Q6H PRN headache #20 tabs 08/15/23 mg-250 mg-65 mg tablet (Excedrin Migraine) diphenhydramine HCl 25 mg capsule 50 mg (2 x 25 mg) PO Q6H PRN 08/15/23 headache, nausea, vomiting #30 caps metoclopramide HCl 10 mg tablet 10 mg PO Q6H PRN nausea and 08/15/23 (Reglan) vomiting #14 tabs oxycodone 5 mg tablet 5 mg PO Q6H PRN pain #10 tabs 08/15/23 prednisone 20 mg tablet 60 mg (3 x 20 mg) PO DAILY 5 days 08/15/23 #15 tabs cyclobenzaprine 10 mg tablet 10 mg PO TID PRN muscle spasm #10 08/21/23 tabs ketorolac 10 mg tablet 10 mg PO TID PRN pain #10 tabs 08/21/23 amoxicillin 875 mg-potassium 1 tab PO BID 7 days #14 tabs 08/22/23 clavulanate 125 mg tablet cephalexin 500 mg capsule 500 mg PO QID 7 days #28 caps 09/02/23 doxycycline hyclate 100 mg capsule 100 mg PO BID 7 days #14 caps 09/02/23 Allergies Allergy/AdvReac Type Severity Reaction Status Date / Time No Known Allergies Allergy Verified 08/15/23 16:54 Review of Systems Review of Systems: Constitutional : No Fever, No Chills ENT/Mouth : No sore throat, No Rhinorrhea Eyes: No Eye Pain, No Swelling, No Redness Cardiovascular : No Chest Pain, No SOB Respiratory : No Cough, No Sputum Gastrointestinal : No Nausea, No Vomiting, No Diarrhea, No abdominal Pain Genitourinary : No Dysuria, No Hematuria Musculoskeletal : No joint pain, No Myalgias, No Joint Swelling Skin : pos Skin Lesions, no skin rash Neuro : No Weakness, No Numbness, No Headache Psych : No Anxiety, No Depression All other systems reviewed and are negative PMFSH Past Medical History Attestation statement: The following information was validated with the patient. Source: old records reviewed Medical History Discharge from penis Lesion of penis Concern about STD in male without diagnosis Social History Social History Unable to assess alcohol history related to: Refusing to respond Alcohol intake: never Smoked in Last 30 Days: Yes Use of substances other than those prescribed or required for medical reasons: Yes Substance Use Type: Marijuana Advance Directives: No Advance Directives Information Provided: No Physical Exam Vital Signs: Vital Signs: Last Vital Signs Temp 98.4 F 09/02/23 01:57 Pulse 113 H 09/02/23 01:57 Resp 18 09/02/23 01:57 BP 105/66 09/02/23 01:57 Pulse Ox 97 09/02/23 01:57 O2 Del Method Room Air 09/02/23 01:57 BMI result Body Mass Index 23.1 Appearance: Alert. Oriented X3. No acute distress. Eyes: Pupils equal, round and reactive to light. ENT: Pharynx normal. Neck: Normal inspection. Neck supple. CVS: Pulses normal. Respiratory: No respiratory distress. Abdomen: Soft and nontender. Buttock: L buttock 2x2 boil but no fluctual no surrounding edema or erythema mildly warm to touch no necrosis it is ttp, no crepitus Skin: Skin warm and dry. Normal skin color. Normal skin turgor. Extremities: No lower extremity edema. Neuro: Oriented X 3. No motor deficit. No sensory deficit. Medical Decision Making Medical Decision Making [facility] Narrative: 33 yo male with no sig PMH here with tender boil on buttock that is firm not fluctuant doubt drainage from I+D - at this time no systemic symptoms will start on oral antibiotics and warm compresses and DC home Differential Diagnosis Differential Diagnoses: The differential diagnosis associated with the presentation includes cellulitis, boil, abscess External Record Review External record reviewed: Inpatient record Prescription Management I considered prescription management with: Antibiotic Discharge Plan Discharge Clinical Impression: Boil of buttock Patient Disposition: Home, Self-Care Instructions: Furunculosis and Carbunculosis (ED) Additional Instructions: apply warm compress three times a day for the next three days. return for worsening symptoms, fevers, vomiting, increased pain, no improvement or any other concerns. On a cephalosporin?antibiotic, softer bowel movements are to be expected. Call your provider if you move your bowels more than 4 times a day, your bowel movements are almost all liquid, or you get a rash.?? On doxycycline, do not take pills immediately before going to bed and swallow pills with plenty of water. Avoid direct sunlight, iron, antacids, and Pepto Bismol. Call your provider if you develop new ringing in your ears, new problems hearing, dizziness, difficulty swallowing, rash, abdominal discomfort, nausea, or diarrhea.? Prescriptions: New doxycycline hyclate 100 mg capsule 100 mg PO BID 7 Days Qty: 14 0RF cephalexin 500 mg capsule 500 mg PO QID 7 Days Qty: 28 0RF No Action metronidazole 500 mg tablet 500 mg PO BID 10 Days Qty: 20 0RF doxycycline hyclate 100 mg tablet 100 mg PO Q12H 10 Days Qty: 20 0RF valacyclovir 1 gram tablet 1,000 mg PO Q12H 10 Days Qty: 20 0RF doxycycline monohydrate 100 mg tablet 100 mg PO BID Qty: 14 0RF cyclobenzaprine 10 mg tablet 10 mg PO TID PRN (Reason: muscle spasm) Qty: 15 0RF diphenhydramine HCl 25 mg capsule 50 mg PO Q6H PRN (Reason: headache, nausea, vomiting) Qty: 30 0RF Excedrin Migraine 250-250-65 mg tablet 2 tab PO Q6H PRN (Reason: headache) Qty: 20 0RF metoclopramide HCl [Reglan] 10 mg tablet 10 mg PO Q6H PRN (Reason: nausea and vomiting) Qty: 14 0RF oxycodone 5 mg tablet 5 mg PO Q6H PRN (Reason: pain) Qty: 10 0RF Rx Instructions: Patient may request partial refill; Partial Fill upon patient request. prednisone 20 mg tablet 60 mg PO DAILY 5 Days Qty: 15 0RF omeprazole 40 mg capsule,delayed release(DR/EC) 40 mg PO DAILY Qty: 30 0RF sucralfate 1 gram tablet 1 g PO BID Qty: 60 0RF cyclobenzaprine 5 mg tablet 5 mg PO TID PRN (Reason: muscle spasm) 7 Days Qty: 21 0RF prednisone 20 mg tablet 20 mg PO DAILY 7 Days Qty: 7 0RF naproxen 500 mg tablet 500 mg PO BID 7 Days Qty: 14 0RF cyclobenzaprine 10 mg tablet 10 mg PO Q8H Qty: 20 0RF nyibylyojh-uypimawdtydhk-qxck 50-325-40 mg tablet 1 tab PO Q6H PRN (Reason: haeadace) Qty: 20 0RF ketorolac 10 mg tablet 10 mg PO TID PRN (Reason: pain) Qty: 10 0RF Rx Instructions: Do not use this medication with naproxen, ibuprofen, only Tylenol if needed cyclobenzaprine 10 mg tablet 10 mg PO TID PRN (Reason: muscle spasm) Qty: 10 0RF Rx Instructions: Do not use this medication before going to work or driving amoxicillin-pot clavulanate 875-125 mg tablet 1 tab PO BID 7 Days Qty: 14 0RF
[2023-09-02] MEDS: Doxycycline Monohydrate 100 MG CAPSULE PO (05:42)
[2023-09-02] MEDS: cephALEXin 500 MG CAPSULE PO (05:42)
== END 2023-09-02 05:47 | disposition home or self-care (01) ==
PROVIDERS: Emergency Provider Emergency Medicine
DX: L02.32 Furuncle of buttock (principal); Z79.899 Other long term (current) drug therapy
CPT/HCPCS: 99283; 99284

== ENCOUNTER 2023-09-06 05:53 | Emergency (ER) | payer SELFPAY ==
[2023-09-06 05:54] VITALS: BP 103/64; PULSE 101; RESP 14; TEMP 36.7; O2SAT 97; BMI 23.1
--- NOTE | 2023-09-06 07:03 | ED.SKABFB ---
HPI - Skin/Abscess/Foreign Bdy General Chief complaint: Skin/Abscess/Foreign Body Stated complaint: Cyst Time Seen by Provider: 09/06/23 06:35 Source: patient Mode of arrival: ambulatory Limitations: no limitations History of Present Illness HPI narrative: This is a 33-year-old male who reports a history of pancreatitis who presents to the ER with complaints of painful/swollen area to the left buttocks. Patient reports he was seen at [facility] 3 days ago and had an incision and drainage of the area. He tells me that he was not prescribed any antibiotics from them. He did have a leftover antibiotic which he does not recall the name of which she has been taking intermittently. He reports some increased pain to the area prompting him to come into the emergency room today. No fevers, chills, drainage. Related Data Previous Rx's Medication Instructions Recorded doxycycline hyclate 100 mg tablet 100 mg PO Q12H 10 days #20 tabs 05/31/22 metronidazole 500 mg tablet 500 mg PO BID 10 days #20 tabs 05/31/22 valacyclovir 1 gram tablet 1,000 mg PO Q12H 10 days #20 tabs 05/31/22 cyclobenzaprine 10 mg tablet 10 mg PO TID PRN muscle spasm #15 10/02/22 tabs doxycycline monohydrate 100 mg 100 mg PO BID #14 tabs 10/02/22 tablet omeprazole 40 mg capsule,delayed 40 mg PO DAILY #30 caps 07/03/23 release sucralfate 1 gram tablet 1 g PO BID #60 tabs 07/03/23 cyclobenzaprine 5 mg tablet 5 mg PO TID PRN muscle spasm 7 08/08/23 days #21 tabs naproxen 500 mg tablet 500 mg PO BID 7 days #14 tabs 08/08/23 prednisone 20 mg tablet 20 mg PO DAILY 7 days #7 tabs 08/08/23 ybcrvvfdax-yvnpqqktrxhoa-przsqpeg 1 tab PO Q6H PRN haeadace #20 tabs 08/14/23 50 mg-325 mg-40 mg tablet cyclobenzaprine 10 mg tablet 10 mg PO Q8H #20 tabs 08/14/23 skblpqc-udlmhafivscth-qmfuweoa 250 2 tab PO Q6H PRN headache #20 tabs 08/15/23 mg-250 mg-65 mg tablet (Excedrin Migraine) diphenhydramine HCl 25 mg capsule 50 mg (2 x 25 mg) PO Q6H PRN 08/15/23 headache, nausea, vomiting #30 caps metoclopramide HCl 10 mg tablet 10 mg PO Q6H PRN nausea and 08/15/23 (Reglan) vomiting #14 tabs oxycodone 5 mg tablet 5 mg PO Q6H PRN pain #10 tabs 08/15/23 prednisone 20 mg tablet 60 mg (3 x 20 mg) PO DAILY 5 days 08/15/23 #15 tabs cyclobenzaprine 10 mg tablet 10 mg PO TID PRN muscle spasm #10 08/21/23 tabs ketorolac 10 mg tablet 10 mg PO TID PRN pain #10 tabs 08/21/23 amoxicillin 875 mg-potassium 1 tab PO BID 7 days #14 tabs 08/22/23 clavulanate 125 mg tablet cephalexin 500 mg capsule 500 mg PO QID 7 days #28 caps 09/02/23 doxycycline hyclate 100 mg capsule 100 mg PO BID 7 days #14 caps 09/02/23 Allergies Allergy/AdvReac Type Severity Reaction Status Date / Time No Known Allergies Allergy Verified 08/15/23 16:54 Review of Systems Review of Systems: Yes all other systems are reviewed and are negative Constitutional: Constitutional: Reports no additional constitutional complaints, Denies body ache(s), Denies chills, Denies fever(s), Denies headache(s) and Denies weakness Eyes: Eyes: Reports no additional eye complaints and Denies change in vision ENT: Reports system reviewed and no additional complaints, except as documented, Denies dizziness, Denies headache(s), Denies nasal congestion, Denies nasal discharge and Denies neck pain Cardiovascular: Cardiovascular: Reports no additional cardiovascular complaints, Denies chest pain, Denies leg edema and Denies dyspnea Respiratory: Respiratory: Reports no additional respiratory complaints, Denies cough and Denies dyspnea Gastrointestinal: Gastrointestinal: Reports no additional gastrointestinal complaints, Denies abdominal pain, Denies diarrhea, Denies nausea and Denies vomiting Genitourinary: Genitourinary: Denies urinary incontinence Musculoskeletal: Musculoskeletal: Reports no additional musculoskeletal complaints, Denies back pain, Denies arthralgias, Denies joint swelling, Denies neck pain, Denies numbness and Denies tingling Integumentary/Breasts: Skin/Breast: Reports system reviewed and no additional complaints, except as docu, Reports furuncle and Denies rash Neurologic: Reports system reviewed and no additional complaints, except as documented, Denies Abnormal speech present, Denies dizziness, Denies headache(s), Denies numbness, Denies tingling and Denies weakness PMFSH Past Medical History Medical History Discharge from penis Lesion of penis Concern about STD in male without diagnosis Social History Social History Unable to assess alcohol history related to: Refusing to respond Alcohol intake: never Smoked in Last 30 Days: Yes Use of substances other than those prescribed or required for medical reasons: No Substance Use Type: Marijuana Advance Directives: No Advance Directives Information Provided: Yes Physical Exam Vital Signs: Vital Signs: Last Vital Signs Temp 98.1 F 09/06/23 05:54 Pulse 101 H 09/06/23 05:54 Resp 14 09/06/23 05:54 BP 103/64 09/06/23 05:54 Pulse Ox 97 09/06/23 05:54 O2 Del Method Room Air 09/06/23 05:54 BMI result Body Mass Index 23.1 Const: General: cooperative, healthy appearing, comfortable and no acute distress Orientation/consciousness: patient oriented x3 Limitations: no limitations HEENT: Head: Yes normal to inspection Ears: hearing grossly normal bilaterally General nose exam: Normal external nose present Face and sinus: Yes normal facial exam Mouth: Normal oral and palatal mucosa present Throat: Yes posterior oropharynx normal Eyes: General: appearance normal, both eyes and all related structures Pupils: Equal, round and reactive pupils present Neck: Neck: Yes normal visual inspection Chest: Chest palpation & inspection: normal inspection of the chest Resp: Effort & Inspection: normal respiratory effort Auscultation: clear to auscultation bilaterally Cardio: Rate: regular rate Rhythm: regular rhythm Peripheral pulses: Peripheral pulses 2+ throughout GI: Inspection: Yes normal to inspection Palpation (GI): Soft to palpation and nontender Auscultation: normal bowel sounds Back/Spine/Pelvis: Other: To the left upper buttocks there is an circular area approximately 3 cm ears which is firm, not fluctuant, mildly tender, no drainage noted. Mild redness. Thoracic/Lumbar Spine: thoracic and lumbar spine normal to inspection Skin: General skin exam: no rashes or lesions noted Neuro: General: patient oriented x3, no focal motor deficits and normal sensation to monofilament Cranial nerves: Yes Equal, round and reactive pupils present Cognition (Neuro): normal cognition Speech: No Abnormal speech present Gait exam (Neuro): Normal gait present Motor exam (neuro): 5/5 motor strength present throughout Extrem: General: Yes normal to inspection Medical Decision Making Medical Decision Making MDM Narrative: This is a 33-year-old male who reports a history of pancreatitis who presents to the ER with complaints of painful/swollen area to the left buttocks.? Patient reports he was seen at [facility] 3 days ago and had an incision and drainage of the area.? He tells me that he was not prescribed any antibiotics from them.? He did have a leftover antibiotic which he does not recall the name of which she has been taking intermittently.? He reports some increased pain to the area prompting him to come into the emergency room today.? No fevers, chills, drainage. To the left upper buttocks there is an circular area approximately 3 cm ears which is firm, not fluctuant, mildly tender, no drainage noted.? Mild redness. This appears to be a healing abscess. There is no indication for further incision and drainage. I do not feel the patient needs oral antibiotics as it appears to be healing well. Differential Diagnosis Differential Diagnoses: The differential diagnosis associated with the presentation includes Abscess, cellulitis Admission/Observation Consideration of admission/observation: Escalation of care including admission/observation considered Healing abscess-no need for antibiotics/admission Tests considered The following testing was considered but not selected: Healing abscess. No progressive abscess or cellulitis or extension into the perineum with concern for necrotizing fasciitis or Abbi gangrene requiring advanced imaging Prescription Management I considered prescription management with: Antibiotic Discharge Plan Discharge Clinical Impression: Abscess of skin or subcutaneous tissue Patient Disposition: Home, Self-Care Instructions: Abscess (ED) Additional Instructions: Warm compresses to the area Motrin or Tylenol for pain as needed Prescriptions: No Action metronidazole 500 mg tablet 500 mg PO BID 10 Days Qty: 20 0RF doxycycline hyclate 100 mg tablet 100 mg PO Q12H 10 Days Qty: 20 0RF valacyclovir 1 gram tablet 1,000 mg PO Q12H 10 Days Qty: 20 0RF doxycycline monohydrate 100 mg tablet 100 mg PO BID Qty: 14 0RF cyclobenzaprine 10 mg tablet 10 mg PO TID PRN (Reason: muscle spasm) Qty: 15 0RF diphenhydramine HCl 25 mg capsule 50 mg PO Q6H PRN (Reason: headache, nausea, vomiting) Qty: 30 0RF Excedrin Migraine 250-250-65 mg tablet 2 tab PO Q6H PRN (Reason: headache) Qty: 20 0RF metoclopramide HCl [Reglan] 10 mg tablet 10 mg PO Q6H PRN (Reason: nausea and vomiting) Qty: 14 0RF oxycodone 5 mg tablet 5 mg PO Q6H PRN (Reason: pain) Qty: 10 0RF Rx Instructions: Patient may request partial refill; Partial Fill upon patient request. prednisone 20 mg tablet 60 mg PO DAILY 5 Days Qty: 15 0RF doxycycline hyclate 100 mg capsule 100 mg PO BID 7 Days Qty: 14 0RF cephalexin 500 mg capsule 500 mg PO QID 7 Days Qty: 28 0RF omeprazole 40 mg capsule,delayed release(DR/EC) 40 mg PO DAILY Qty: 30 0RF sucralfate 1 gram tablet 1 g PO BID Qty: 60 0RF cyclobenzaprine 5 mg tablet 5 mg PO TID PRN (Reason: muscle spasm) 7 Days Qty: 21 0RF prednisone 20 mg tablet 20 mg PO DAILY 7 Days Qty: 7 0RF naproxen 500 mg tablet 500 mg PO BID 7 Days Qty: 14 0RF cyclobenzaprine 10 mg tablet 10 mg PO Q8H Qty: 20 0RF lzudwqvkeq-hscwavodpsbog-zqrx 50-325-40 mg tablet 1 tab PO Q6H PRN (Reason: haeadace) Qty: 20 0RF ketorolac 10 mg tablet 10 mg PO TID PRN (Reason: pain) Qty: 10 0RF Rx Instructions: Do not use this medication with naproxen, ibuprofen, only Tylenol if needed cyclobenzaprine 10 mg tablet 10 mg PO TID PRN (Reason: muscle spasm) Qty: 10 0RF Rx Instructions: Do not use this medication before going to work or driving amoxicillin-pot clavulanate 875-125 mg tablet 1 tab PO BID 7 Days Qty: 14 0RF Referrals: Physician,None [Primary Care Provider] - 1 week Interventions: ED Discharge Assessment Last Done: 09/06/23 07:23 Discharge Date/Time: 09/06/23 07:24
== END 2023-09-06 07:24 | disposition home or self-care (01) ==
PROVIDERS: Emergency Provider Emergency Medicine Emergency Medical Services
DX: L02.31 Cutaneous abscess of buttock (principal)
CPT/HCPCS: 99283

== ENCOUNTER 2023-11-03 04:43 | Emergency (ER) | payer SELFPAY ==
--- NOTE | ~2023-11-03 | XR_ITS ---
EXAMINATION: XR CERVICAL SPINE CLINICAL INFORMATION: fall, neck pain COMPARISON: CT dated 08/19/2023 TECHNIQUE: 3 views of the cervical spine were obtained. FINDINGS: Vertebral alignment is normal without spondylolisthesis. Vertebral body heights are normal. No fractures are evident. Intervertebral disc heights are well-preserved. Facet joints are unremarkable. Prevertebral soft tissues are normal. XR/XR cervical spine 2V IMPRESSION: Unremarkable examination.
--- NOTE | ~2023-11-03 | XR_ITS ---
EXAMINATION: XR CLAVICLE, RIGHT CLINICAL INFORMATION: Fall, pain COMPARISON: None available. TECHNIQUE: Two views of the right clavicle. FINDINGS: The clavicle is intact. The bones and soft tissues are normal. No fracture. Acromioclavicular joint alignment is anatomic. XR/XR clavicle RT IMPRESSION: Unremarkable right clavicle.
[2023-11-03 05:26] VITALS: BP 97/56; PULSE 84; RESP 16; TEMP 37.1; O2SAT 96; BMI 24.9
[2023-11-03 20:41] VITALS: BP 102/76; PULSE 62; RESP 16; TEMP 37.1; O2SAT 99
--- NOTE | 2023-11-03 20:42 | PC.NURSE ---
this RN checked in with patient, pt still experiencing 8/10 pain in R clavicle. Otherwise, pt is resting comfortably on stretcher, respirations even and unlabored, skin pwd, no apparent distress
--- NOTE | 2023-11-03 21:04 | ED_ITS ---
HPI - Fall General Chief Complaint: Fall Stated Complaint: Fall Time Seen by Provider: 11/03/23 19:40 Source: patient Mode of arrival: ambulatory Limitations: no limitations History of Present Illness HPI Narrative: Patient comes to the emergency room complaining of right clavicle pain. Patient states that yesterday patient slipped on ice and fell on his back and landed on both of his elbows. Patient reports no elbow pain.. Patient states that from the fall the only thing that hurts is his right clavicle. Related Data Previous Rx's Medication Instructions Recorded doxycycline hyclate 100 mg tablet 100 mg PO Q12H 10 days #20 tabs 05/31/22 metronidazole 500 mg tablet 500 mg PO BID 10 days #20 tabs 05/31/22 valacyclovir 1 gram tablet 1,000 mg PO Q12H 10 days #20 tabs 05/31/22 cyclobenzaprine 10 mg tablet 10 mg PO TID PRN muscle spasm #15 10/02/22 tabs doxycycline monohydrate 100 mg 100 mg PO BID #14 tabs 10/02/22 tablet omeprazole 40 mg capsule,delayed 40 mg PO DAILY #30 caps 07/03/23 release sucralfate 1 gram tablet 1 g PO BID #60 tabs 07/03/23 cyclobenzaprine 5 mg tablet 5 mg PO TID PRN muscle spasm 7 08/08/23 days #21 tabs naproxen 500 mg tablet 500 mg PO BID 7 days #14 tabs 08/08/23 prednisone 20 mg tablet 20 mg PO DAILY 7 days #7 tabs 08/08/23 nrdtoyibin-xluwhdkjvkodi-bpcsymor 1 tab PO Q6H PRN haeadace #20 tabs 08/14/23 50 mg-325 mg-40 mg tablet cyclobenzaprine 10 mg tablet 10 mg PO Q8H #20 tabs 08/14/23 gqxylbi-yswtulwncstsb-razbnfqq 250 2 tab PO Q6H PRN headache #20 tabs 08/15/23 mg-250 mg-65 mg tablet (Excedrin Migraine) diphenhydramine HCl 25 mg capsule 50 mg (2 x 25 mg) PO Q6H PRN 08/15/23 headache, nausea, vomiting #30 caps metoclopramide HCl 10 mg tablet 10 mg PO Q6H PRN nausea and 08/15/23 (Reglan) vomiting #14 tabs oxycodone 5 mg tablet 5 mg PO Q6H PRN pain #10 tabs 08/15/23 prednisone 20 mg tablet 60 mg (3 x 20 mg) PO DAILY 5 days 08/15/23 #15 tabs cyclobenzaprine 10 mg tablet 10 mg PO TID PRN muscle spasm #10 08/21/23 tabs ketorolac 10 mg tablet 10 mg PO TID PRN pain #10 tabs 08/21/23 amoxicillin 875 mg-potassium 1 tab PO BID 7 days #14 tabs 08/22/23 clavulanate 125 mg tablet cephalexin 500 mg capsule 500 mg PO QID 7 days #28 caps 09/02/23 doxycycline hyclate 100 mg capsule 100 mg PO BID 7 days #14 caps 09/02/23 ibuprofen 600 mg tablet 600 mg PO Q6H PRN pain #14 tabs 11/03/23 Allergies Allergy/AdvReac Type Severity Reaction Status Date / Time No Known Allergies Allergy Verified 11/03/23 05:26 Review of Systems Review of Systems: Constitutional : No Weight loss, No Fever, No Chills, No Night Sweats, No Fatigue, No Malaise ENT/Mouth : No Hearing loss, No Ear Pain, No Nasal Congestion, No Sinus Pain, No Hoarseness, No sore throat, No Rhinorrhea, No Swallowing Difficulty Eyes: No Eye Pain, No Swelling, No Redness, No Foreign Body, No Discharge, No Vision Changes Cardiovascular : No Chest Pain, No SOB, No Dyspnea on Exertion, No Orthopnea, No Edema, No Palpitations Respiratory : No Cough, No Sputum, No Wheezing, No Smoke Exposure, No Dyspnea Gastrointestinal : No Nausea, No Vomiting, No Diarrhea, No Constipation, No abdominal Pain, No Hematochezia, No Melena Genitourinary : no irregular bleeding, No Dysuria, No Urinary Frequency, No Hematuria, No Urinary Incontinence, No Urgency, No Flank Pain, No Urinary Flow Changes, No Hesitancy Musculoskeletal : Complaining of right clavicle pain No joint pain, No Myalgias, No Joint Swelling Skin : No Skin Lesions, No rash Neuro : No Weakness, No Numbness, No Paresthesias, No Loss of Consciousness, No Dizziness, No Headache Psych : No Anxiety/Panic, No Depression, No SI/HI/AH/VH, No Social Issues, Heme/Lymph: No Bruising, No Bleeding,No Lymphadenopathy Endocrine : No Polyuria, No Polydipsia, No Temperature Intolerance [facility] Past Medical History Onset Date is defined in the Problem List Problems that require an onset date and time if occurred within 24 hrs of arrival to the ED Aortic Dissection and Rupture; Neurologic impairment; Cardiopulmonary Arrest; Endotracheal Intubation; Insertion or Replacement of Mechanical Circulatory Assist Device Medical History Discharge from penis Lesion of penis Concern about STD in male without diagnosis Social History Social History Unable to assess alcohol history related to: Refusing to respond Alcohol intake: never Substance Use Type: Marijuana Advance Directives: No Advance Directives Information Provided: No Physical Exam Vital Signs: Vital Signs: Last Vital Signs Temp 98.8 F 11/03/23 20:41 Pulse 62 11/03/23 20:41 Resp 16 11/03/23 20:41 BP 102/76 11/03/23 20:41 Pulse Ox 99 11/03/23 20:41 O2 Del Method Room Air 11/03/23 20:41 BMI result Body Mass Index 24.9 Const: Other: Appearance: Alert. Oriented X3. No acute distress. Well appearing Eyes: Pupils equal, round and reactive to light. ENT: Pharynx normal. Neck: Normal inspection. Neck supple. No lymph nodes noted. No crepitus, normal range of motion with flexion and extension, no cervical spine pain, no palpable step-offs CVS: Normal heart rate and rhythm. Pulses normal. Normal S1 and S2 Respiratory: No respiratory distress. Breath sounds normal. No Wheezing. No rales Abdomen: Soft and nontender. No rigidity. No distention. Musculoskeletal: Pain to palpation in right clavicle, patient is able to flex and extend both arms, no pain to palpation on elbows. Skin: Skin warm and dry. Normal skin color. Normal skin turgor. Extremities: No lower extremity edema. No Lacerations. No Rash Neuro: Oriented X 3. No motor deficit. No sensory deficit. Moving all extremities. No slurred speech. CN 2 through 12 grossly intact Psych: calm, cooperative, normal affect Course Course Course Narrative: -x-ray of cervical spine ordered by triage nurse Medical Decision Making Medical Decision Making MDM Narrative: -my interpretation of x-rays of the cervical spine and clavicle: No fracture. Differential Diagnosis Differential Diagnoses: The differential diagnosis associated with the presentation includes (Clavicular fracture) Discharge Plan Discharge Clinical Impression: Fall, Contusion Patient Disposition: Home, Self-Care Instructions: Contusion in Adults (ED) Additional Instructions: Please follow-up with your primary care physician tomorrow. If you have any worsening or new symptoms, please return to the emergency room or call 911 Prescriptions: New ibuprofen 600 mg tablet 600 mg PO Q6H PRN (Reason: pain) Qty: 14 0RF No Action metronidazole 500 mg tablet 500 mg PO BID 10 Days Qty: 20 0RF doxycycline hyclate 100 mg tablet 100 mg PO Q12H 10 Days Qty: 20 0RF valacyclovir 1 gram tablet 1,000 mg PO Q12H 10 Days Qty: 20 0RF doxycycline monohydrate 100 mg tablet 100 mg PO BID Qty: 14 0RF cyclobenzaprine 10 mg tablet 10 mg PO TID PRN (Reason: muscle spasm) Qty: 15 0RF diphenhydramine HCl 25 mg capsule 50 mg PO Q6H PRN (Reason: headache, nausea, vomiting) Qty: 30 0RF Excedrin Migraine 250-250-65 mg tablet 2 tab PO Q6H PRN (Reason: headache) Qty: 20 0RF metoclopramide HCl [Reglan] 10 mg tablet 10 mg PO Q6H PRN (Reason: nausea and vomiting) Qty: 14 0RF oxycodone 5 mg tablet 5 mg PO Q6H PRN (Reason: pain) Qty: 10 0RF Rx Instructions: Patient may request partial refill; Partial Fill upon patient request. prednisone 20 mg tablet 60 mg PO DAILY 5 Days Qty: 15 0RF doxycycline hyclate 100 mg capsule 100 mg PO BID 7 Days Qty: 14 0RF cephalexin 500 mg capsule 500 mg PO QID 7 Days Qty: 28 0RF omeprazole 40 mg capsule,delayed release(DR/EC) 40 mg PO DAILY Qty: 30 0RF sucralfate 1 gram tablet 1 g PO BID Qty: 60 0RF cyclobenzaprine 5 mg tablet 5 mg PO TID PRN (Reason: muscle spasm) 7 Days Qty: 21 0RF prednisone 20 mg tablet 20 mg PO DAILY 7 Days Qty: 7 0RF naproxen 500 mg tablet 500 mg PO BID 7 Days Qty: 14 0RF cyclobenzaprine 10 mg tablet 10 mg PO Q8H Qty: 20 0RF ezebgvbejj-tfneacohequde-mzsr 50-325-40 mg tablet 1 tab PO Q6H PRN (Reason: haeadace) Qty: 20 0RF ketorolac 10 mg tablet 10 mg PO TID PRN (Reason: pain) Qty: 10 0RF Rx Instructions: Do not use this medication with naproxen, ibuprofen, only Tylenol if needed cyclobenzaprine 10 mg tablet 10 mg PO TID PRN (Reason: muscle spasm) Qty: 10 0RF Rx Instructions: Do not use this medication before going to work or driving amoxicillin-pot clavulanate 875-125 mg tablet 1 tab PO BID 7 Days Qty: 14 0RF
[2023-11-03] MEDS: Ibuprofen 600 MG TABLET PO (21:32)
== END 2023-11-03 21:36 | disposition home or self-care (01) ==
PROVIDERS: Emergency Provider Emergency Medicine
DX: S50.01XA Contusion of right elbow, initial encounter (principal); S50.02XA Contusion of left elbow, initial encounter; M54.2 Cervicalgia; M25.511 Pain in right shoulder; W00.0XXA Fall on same level due to ice and snow, initial encounter; Y93.9 Activity, unspecified; Y92.9 Unspecified place or not applicable; Y99.9 Unspecified external cause status
CPT/HCPCS: 72040; 73000; 99283; 99284

== ENCOUNTER 2023-11-14 22:57 | Emergency (ER) | payer SELFPAY ==
--- NOTE | ~2023-11-14 | XR_ITS ---
EXAMINATION: XR FOOT, RIGHT CLINICAL INFORMATION: Foot injury COMPARISON: Right foot 04/20/2022 TECHNIQUE: AP, lateral, and oblique views of the right foot. FINDINGS: The bones and soft tissues are normal. No fracture. Alignment is anatomic. Joint spaces are maintained. XR/XR foot RT min 3V IMPRESSION: No evidence of acute osseous injury.
[2023-11-14 23:04] VITALS: BP 108/41; PULSE 87; RESP 18; TEMP 36.4; O2SAT 96; BMI 24.8
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
[2023-11-15 00:21] VITALS: BP 112/58; PULSE 84; RESP 14; O2SAT 97
== END 2023-11-15 00:22 | disposition home or self-care (01) ==
PROVIDERS: Emergency Provider Emergency Medicine Emergency Medical Services
DX: S93.491A Sprain of other ligament of right ankle, initial encounter (principal); S96.811A Strain of other specified muscles and tendons at ankle and foot level, right foot, initial encounter; W20.8XXA Other cause of strike by thrown, projected or falling object, initial encounter; Y93.89 Activity, other specified; Y92.9 Unspecified place or not applicable; Y99.9 Unspecified external cause status
CPT/HCPCS: 73630; 99283; 99284

== ENCOUNTER 2023-12-11 20:25 | Emergency (ER) | payer SELFPAY ==
--- NOTE | ~2023-12-11 | CT_ITS ---
EXAMINATION: CT abdomen pelvis w IV con CLINICAL INFORMATION: Reason for Exam left sided abd pain COMPARISON: No prior CT available for comparison. TECHNIQUE: Multidetector volumetric imaging was performed from the superior aspect of the liver through the pubic symphysis 85 mL of Omnipaque 350 injected Sagittal and coronal reformatted images were obtained on the technologist's workstation. This CT examination was performed using dose optimization techniques as appropriate, variously including the following: *Automated exposure control *Adjustment of mA and/or kV according to patient size (this includes techniques or standardized protocols for targeted exams where dose is matched to indication/reason for exam; i.e. extremities or head) *Use of iterative reconstruction technique DLP: 339 mGy-cm FINDINGS: LOWER THORAX: Included lung bases are clear. HEPATOBILIARY: No focal hepatic lesions. No biliary ductal dilatation. GALLBLADDER: Gallbladder unremarkable. SPLEEN: Spleen is normal in size. PANCREAS: No focal mass or ductal dilatation. STOMACH AND GASTROINTESTINAL TRACT: Stomach is grossly unremarkable. There is no bowel distention or thickening. No CT evidence of appendicitis. ADRENALS: No adrenal nodules. KIDNEYS/URETERS: No hydronephrosis, stones or solid mass lesions. URINARY BLADDER: Partially decompressed. PELVIC VISCERA: Unremarkable PERITONEUM: No free air or fluid. LYMPH NODES: No lymphadenopathy. VASCULAR:Abdominal aorta normal in size, no aneurysm found. BONES, ABDOMINAL WALL AND SOFT TISSUES: Bilateral sacroiliac periarticular sclerotic changes suggesting sacroiliitis. No evidence of ankylosis.. CT/CT abdomen pelvis w IV con IMPRESSION: 1. No CT evidence of acute intra-abdominal process to explain patient's pain symptoms. 2. Bilateral sacroiliac periarticular sclerotic changes suggesting sacroiliitis. No evidence of ankylosis.
[2023-12-11 20:36] VITALS: BP 104/62; PULSE 90; RESP 14; TEMP 37.1; O2SAT 97; BMI 24.4
[2023-12-11 21:14] LABS: MANUAL DIFF FLAG NO
[2023-12-11 21:16] LABS: Basophils Percent Auto 0.1 % (0-2); Eosinophils Absolute Auto 0.1 X10*3/uL (0.0-0.4); Eosinophils Percent Auto 1.6 % (0-4); Hematocrit 42.8 % (42.0-52.0); Hemoglobin 13.4 g/dl (14.0-18.0); Imm Gran Abs Auto 0.01 X10*3/uL (0.00-0.03); Imm Gran Pct Auto 0.1 % (0.0-0.4); Lymphocytes Absolute Auto 1.8 X10*3/uL (1.2-4.9); Lymphocytes Percent Auto 21.6 % (20-40); Mean Corpuscular HGB Conc 31.3 g/dl (31.0-36.0); Mean Corpuscular Hemoglobin 26.3 pg (27.0-33.0); Mean Corpuscular Volume 84.1 fL (80.0-98.0); Mean Platelet Volume 8.2 fL (9.4-12.4); Monocytes Absolute Auto 0.7 X10*3/uL (0.1-1.2); Monocytes Percent Auto 8.6 % (2-11); Neutrophils Absolute Auto 5.8 x10*3/uL (2.0-8.3); Platelet Count 322 X10*3/uL (160-400); Red Blood Count 5.09 X10*6/uL (4.60-5.80); Red Cell Distribution Width 13.1 % (11.0-16.0); White Blood Count 8.5 X10*3/uL (4.8-10.8)
[2023-12-11 21:29] LABS: Alanine Aminotransferase 12 U/L (0-40); Albumin Level 4.2 g/dL (3.5-5.0); Alkaline Phosphatase 90 U/L (39-117); Anion Gap 12 (12-20); Aspartate Amino Transferase 10 U/L (5-37); Bilirubin Direct 0.1 mg/dL (0.0-0.5); Bilirubin Total 0.3 mg/dL (0.0-1.0); Blood Urea Nitrogen 15 mg/dL (9-16); Calcium 9.4 mg/dL (8.4-10.2); Carbon Dioxide 23 mmol/L (22-29); Chloride 107 mmol/L (96-108); Creatinine Clr Calc Pharmacy 90.7; Estimated Glomerular Filt Rate > 60; Glucose Random 123 mg/dL (60-115); Lipase 26 U/L (8-78); Potassium 3.7 mmol/L (3.3-5.1); Sodium 138 mmol/L (135-145)
[2023-12-11 21:31] LABS: COVID-19 Test Negative (Negative); IDNOW Serial# 16C4AD1C; IDNOW Serial# 55D5AD1C; Influenza A Negative (Negative); Influenza B2 Negative (Negative)
[2023-12-12 06:33] VITALS: BP 116/65; PULSE 73; RESP 16; TEMP 36.5; O2SAT 98
--- NOTE | 2023-12-12 06:35 | PC.NURSE ---
pt was called at 2319 and was not in waiting room or answering to Scarlett BALL calling pt. Pt was found in the waiting room sleeping by the fish tank laying down with hoodie over his head. pt was not visable to staff. At 0635 pt was sleeping by fish tank again not answering to his name called just after he was woken up by this discharge rn. pt was not answering again to be called in.
--- NOTE | 2023-12-12 07:10 | ED.ABDPAIN ---
HPI - Abdominal Pain General Chief Complaint: Abdominal Pain Stated Complaint: Stomach pain, vomit with blood Time Seen by Provider: 12/12/23 06:38 Source: patient and RN notes reviewed Mode of arrival: ambulatory Limitations: no limitations History of Present Illness HPI narrative: This is a 33-year-old male, with a history of pancreatitis, presenting to the emergency department for evaluation of left-sided abdominal pain for the last 2 days. He endorses nausea, vomiting, and diarrhea. He states that he has been unable to hold food down secondary to nausea. He also endorses dark stool. He has not on blood thinners. He does not drink alcohol. He smokes marijuana, denies any other drug use. No sick contacts. Denies any recent consumption of undercooked food. Denies fevers, endorses chills. No chest pain, shortness of breath. No abdominal surgeries. No other complaints or concerns at this time. MD elicited complaint: abdominal pain Pertinent past history: none Onset (ago): day(s) Pain Consistency: constant Location: LUQ and LLQ Severity: moderate Quality: cramping Radiation: none Migration to: no migration Exacerbating factors: eating, bowel movement and vomiting Relieving factors: nothing Associated symptoms: chills Related Data Previous Rx's Medication Instructions Recorded doxycycline hyclate 100 mg tablet 100 mg PO Q12H 10 days #20 tabs 05/31/22 metronidazole 500 mg tablet 500 mg PO BID 10 days #20 tabs 05/31/22 valacyclovir 1 gram tablet 1,000 mg PO Q12H 10 days #20 tabs 05/31/22 cyclobenzaprine 10 mg tablet 10 mg PO TID PRN muscle spasm #15 10/02/22 tabs doxycycline monohydrate 100 mg 100 mg PO BID #14 tabs 10/02/22 tablet omeprazole 40 mg capsule,delayed 40 mg PO DAILY #30 caps 07/03/23 release sucralfate 1 gram tablet 1 g PO BID #60 tabs 07/03/23 cyclobenzaprine 5 mg tablet 5 mg PO TID PRN muscle spasm 7 08/08/23 days #21 tabs naproxen 500 mg tablet 500 mg PO BID 7 days #14 tabs 08/08/23 prednisone 20 mg tablet 20 mg PO DAILY 7 days #7 tabs 08/08/23 wbgiymubea-mcyfpsoxfvrpy-fmerhjiz 1 tab PO Q6H PRN haeadace #20 tabs 08/14/23 50 mg-325 mg-40 mg tablet cyclobenzaprine 10 mg tablet 10 mg PO Q8H #20 tabs 08/14/23 nuwirwl-htgonttrzsoyh-oxjoyyuj 250 2 tab PO Q6H PRN headache #20 tabs 08/15/23 mg-250 mg-65 mg tablet (Excedrin Migraine) diphenhydramine HCl 25 mg capsule 50 mg (2 x 25 mg) PO Q6H PRN 08/15/23 headache, nausea, vomiting #30 caps metoclopramide HCl 10 mg tablet 10 mg PO Q6H PRN nausea and 08/15/23 (Reglan) vomiting #14 tabs oxycodone 5 mg tablet 5 mg PO Q6H PRN pain #10 tabs 08/15/23 prednisone 20 mg tablet 60 mg (3 x 20 mg) PO DAILY 5 days 08/15/23 #15 tabs cyclobenzaprine 10 mg tablet 10 mg PO TID PRN muscle spasm #10 08/21/23 tabs ketorolac 10 mg tablet 10 mg PO TID PRN pain #10 tabs 08/21/23 amoxicillin 875 mg-potassium 1 tab PO BID 7 days #14 tabs 08/22/23 clavulanate 125 mg tablet cephalexin 500 mg capsule 500 mg PO QID 7 days #28 caps 09/02/23 doxycycline hyclate 100 mg capsule 100 mg PO BID 7 days #14 caps 09/02/23 ibuprofen 600 mg tablet 600 mg PO Q6H PRN pain #14 tabs 11/03/23 acetaminophen 650 mg 650 mg PO Q8H PRN pain #30 tabs 12/12/23 tablet,extended release (Tylenol 8 Hour) ondansetron 4 mg disintegrating 4 mg PO Q6-8H PRN nausea and 12/12/23 tablet vomiting #14 tabs Allergies Allergy/AdvReac Type Severity Reaction Status Date / Time No Known Allergies Allergy Verified 12/11/23 20:47 Review of Systems Review of Systems Yes all other systems are reviewed and are negative Constitutional: Reports as per [facility] Past Medical History Medical History Discharge from penis Lesion of penis Concern about STD in male without diagnosis Social History Social History Unable to assess alcohol history related to: Refusing to respond Alcohol intake: never Smoked in Last 30 Days: No Use of substances other than those prescribed or required for medical reasons: Yes Substance Use Type: Marijuana Substance Use Frequency: Daily Last Used Substance: Days (ago) Advance Directives: No Advance Directives Information Provided: No Physical Exam ED Vital Signs: Vital Signs - 24 hr 12/11/23 20:36 12/12/23 06:33 12/12/23 08:45 Temperature 98.7 F 97.7 F Pulse Rate 90 73 56 Respiratory Rate 14 16 14 Blood Pressure 104/62 116/65 99/64 Pulse Oximetry 97 98 99 Oxygen Delivery Method Room Air Room Air 12/12/23 09:21 12/12/23 10:16 Temperature Pulse Rate 64 Respiratory Rate 14 18 Blood Pressure 108/63 Pulse Oximetry Oxygen Delivery Method BMI result Body Mass Index 24.4 Const General: cooperative, comfortable and no acute distress Orientation/consciousness: patient oriented x3 Limitations: no limitations HENMT Other: Moist mucous membranes Head: Yes normal to inspection, Yes normocephalic and Yes atraumatic Ears: hearing grossly normal bilaterally General nose exam: Normal external nose present Face and sinus: Yes normal facial exam Mouth: Normal oral and palatal mucosa present, oropharynx normal and moist mucous membranes Throat: Yes posterior oropharynx normal Eyes General: appearance normal, both eyes and all related structures Eyelids: Yes eyelids normal Conjunctivae: conjunctivae normal Sclerae: sclerae normal Pupils: Equal, round and reactive pupils present EOM: EOMs intact bilaterally Neck Neck: Yes normal visual inspection, Yes full ROM and Yes no lymphadenopathy Lymphatic: no lymphadenopathy noted Chest Chest palpation & inspection: normal inspection of the chest Resp Effort & Inspection: normal respiratory effort and able to speak in complete sentences Auscultation: clear to auscultation bilaterally, no crackles, no rales, no rhonchi and no wheezes Cardio Rate: regular rate Rhythm: regular rhythm Heart sounds: S1 normal heart sound present and S2 normal heart sound present GI Other: Abdomen is soft, with tenderness palpation in the left upper and left lower quadrant with guarding. No rebound Inspection: Yes normal to inspection Skin General skin exam: no rashes or lesions noted Trauma: no lacerations or abrasions Wounds: no wounds Neuro General: patient oriented x3 and moves all extremities Cranial nerves: Yes Equal, round and reactive pupils present Extrem General: Yes normal to inspection Right upper extremity: normal to inspection Left upper extremity: normal to inspection Right lower extremity: normal to inspection Left lower extremity: normal to inspection Course Reevaluation(s) Reevaluation #1: CT returns, no abdominal process to explain patient's symptoms. Symptoms likely due to gastroenteritis. Will p.o. trial to ensure that he is able to tolerate p.o.. He is still receiving IV fluids. We will continue to closely monitor Time: 08:39 Reevaluation #2: Patient is still complaining of pain and nausea, will medicate with Reglan, Benadryl, and morphine 4 mg IV. Will continue to closely monitor Time: 10:30 Reevaluation #3: Patient has been asleep in the emergency room, he is still complaining of a headache and abdominal pain despite receiving morphine, Reglan and Benadryl. He likely has gastroenteritis, will provide patient with Tylenol in food and continue to monitor. Time: 11:23 Additional Reevaluation(s): 12/12/2023 - patient tolerating food and drink without difficulty. He is feeling better, resting comfortably, asleep in bed. Will discharge patient on Zofran and Tylenol. Given return precautions. He understands agrees with plan. Patient stable for discharge Medical Decision Making Medical Decision Making MDM Narrative: This is a 33-year-old male, with a history of pancreatitis, presenting to the ER for evaluation of abdominal pain, nausea, vomiting diarrhea. 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 He misses name being called on multiple occasions and was thought to have left the emergency room. Repeat vitals revealing normal vital signs. Patient is alert, oriented, with tenderness palpation in the left quadrant with guarding. He also endorses dark stool, however patient is refusing stool occult at this time. He understands the risks of not knowing whether or not he is bleeding rectally. Labs were obtained, patient has no leukocytosis, with slightly low hemoglobin at 13.4, hematocrit within normal limits. This is improved from his baseline. Chemistry within normal limits, COVID and flu negative. Given patient has tenderness palpation in the left quadrant, will obtain CT scan of the abdomen, IV fluids and Zofran. Differential Diagnosis Differential Diagnoses: The differential diagnosis associated with the presentation includes Pancreatitis, gastritis, gastroenteritis, colitis, diverticulitis, diverticulosis Admission/Observation Consideration of admission/observation: Escalation of care including admission/observation considered Lab Data [facility] Lab Attestation statement: I reviewed the patient's lab results. See [facility] 12/11/23 21:10 12/11/23 21:10 Labs: Lab Results 12/11/23 12/12/23 Range/Units 21:10 10:29 WBC 8.5 (4.8-10.8) X10*3/uL RBC 5.09 D (4.60-5.80) X10*6/uL Hgb 13.4 L D (14.0-18.0) g/dl Hct 42.8 D (42.0-52.0) % MCV 84.1 (80.0-98.0) fL MCH 26.3 L (27.0-33.0) pg MCHC 31.3 (31.0-36.0) g/dl RDW 13.1 (11.0-16.0) % Plt Count 322 D (160-400) X10*3/uL MPV 8.2 L (9.4-12.4) fL Immature Gran % (Auto) 0.1 (0.0-0.4) % Neut % (Auto) 68.0 (45-73) % Lymph % (Auto) 21.6 (20-40) % [place] % (Auto) 8.6 (2-11) % Eos % (Auto) 1.6 (0-4) % Baso % (Auto) 0.1 (0-2) % Lymph # (Auto) 1.8 (1.2-4.9) X10*3/uL [place] # (Auto) 0.7 (0.1-1.2) X10*3/uL Eos # (Auto) 0.1 (0.0-0.4) X10*3/uL Baso # (Auto) 0.0 (0.0-0.2) X10*3/uL Abs Immat Gran (auto) 0.01 (0.00-0.03) X10*3/uL Absolute Neuts (auto) 5.8 (2.0-8.3) x10*3/uL Absolute Nucleated RBC 0.000 (0.0-0.012) X10*3/uL Nucleated RBC % (auto) 0.0 (0.0-0.2) /100WBC Sodium 138 (135-145) mmol/L Potassium 3.7 (3.3-5.1) mmol/L Chloride 107 (96-108) mmol/L Carbon Dioxide 23 (22-29) mmol/L Anion Gap 12 (12-20) BUN 15 (9-16) mg/dL Creatinine 1.11 (0.5-1.4) mg/dL Estim Creat Clear Calc 90.7 Estimated GFR > 60 Random Glucose 123 H (60-115) mg/dL Calcium 9.4 D (8.4-10.2) mg/dL Total Bilirubin 0.3 (0.0-1.0) mg/dL Direct Bilirubin 0.1 (0.0-0.5) mg/dL AST 10 (5-37) U/L ALT 12 (0-40) U/L Alkaline Phosphatase 90 (39-117) U/L Total Protein 8.0 (6.5-8.0) g/dL Albumin 4.2 (3.5-5.0) g/dL Lipase 26 (8-78) U/L Urine Color Yellow Urine Appearance Clear Urine pH 5.5 (5.0-9.0) Ur Specific [place] >= 1.030 H (1.005-1.025) Urine Protein 30 (1+) H (Neg-Trace) mg/dL Urine Glucose (UA) Negative (Negative) mg/dL Urine Ketones Negative (Negative) mg/dL Urine Blood Trace H (Negative) Urine Nitrite Negative (Negative) Ur Leukocyte Esterase Negative (Negative) Urine RBC 0-2 (0-2) /HPF Urine WBC 0-5 (0-5) /HPF Ur Squamous Epith Cells 3-5 (0-2) /HPF Calcium Oxalate Crystal Present Urine Bacteria None Seen (None Seen) Hyaline Casts 0-2 (0-2) /LPF COVID-19 (NAVYA) Negative (Negative) COVID-19 Clin Com See Note Influenza Type A (ALDAIR) Negative (Negative) Influenza Type B (ALDAIR) Negative (Negative) Influenza A & B Note See Note Radiology Impression Discussion of test interpretation with radiology: I have reviewed the radiologist's reading. Radiologist Impression: EXAMINATION: CT abdomen pelvis w IV con CLINICAL INFORMATION: Reason for Exam left sided abd pain COMPARISON: No prior CT available for comparison. TECHNIQUE: Multidetector volumetric imaging was performed from the superior aspect of the liver through the pubic symphysis 85 mL of Omnipaque 350 injected Sagittal and coronal reformatted images were obtained on the technologist's workstation. This CT examination was performed using dose optimization techniques as appropriate, variously including the following: *Automated exposure control *Adjustment of mA and/or kV according to patient size (this includes techniques or standardized protocols for targeted exams where dose is matched to indication/reason for exam; i.e. extremities or head) *Use of iterative reconstruction technique DLP: 339 mGy-cm FINDINGS: LOWER THORAX: Included lung bases are clear. HEPATOBILIARY: No focal hepatic lesions. No biliary ductal dilatation. GALLBLADDER: Gallbladder unremarkable. SPLEEN: Spleen is normal in size. PANCREAS: No focal mass or ductal dilatation. STOMACH AND GASTROINTESTINAL TRACT: Stomach is grossly unremarkable. There is no bowel distention or thickening. No CT evidence of appendicitis. ADRENALS: No adrenal nodules. KIDNEYS/URETERS: No hydronephrosis, stones or solid mass lesions. URINARY BLADDER: Partially decompressed. PELVIC VISCERA: Unremarkable PERITONEUM: No free air or fluid. LYMPH NODES: No lymphadenopathy. VASCULAR:Abdominal aorta normal in size, no aneurysm found. BONES, ABDOMINAL WALL AND SOFT TISSUES: Bilateral sacroiliac periarticular sclerotic changes suggesting sacroiliitis. No evidence of ankylosis.. CT/CT abdomen pelvis w IV con IMPRESSION: 1. No CT evidence of acute intra-abdominal process to explain patient's pain symptoms. 2. Bilateral sacroiliac periarticular sclerotic changes suggesting sacroiliitis. No evidence of ankylosis. Dictated By: Mario Peng MD Medications Administered Discontinued Medications Generic Name Dose Route Start Last Admin Trade Name Freq PRN Reason Stop Dose Admin Acetaminophen 975 mg 12/12/23 11:22 12/12/23 11:33 Acetaminophen 325 Mg Tablet PO 12/12/23 11:23 975 mg ONCE ONE Administration Diphenhydramine HCl 25 mg 12/12/23 09:12 12/12/23 09:22 Diphenhydramine Hcl 50 Mg/Ml Vial IVPUSH 02/17/24 09:13 25 mg ONCE ONE Administration Sodium Chloride 1,000 mls @ 999 mls/hr 12/12/23 07:09 12/12/23 09:09 Ns IV 12/12/23 08:09 Infused .Q1H1M ONE Infusion Sodium Chloride 1,000 mls @ 999 mls/hr 12/12/23 09:13 12/12/23 11:34 Ns IV 12/12/23 10:13 Infused .Q1H1M ONE Infusion Iohexol 100 ml 12/12/23 07:42 12/12/23 07:43 Iohexol 350 Mg/Ml 100 Ml Infus..Btl IV 12/12/23 07:43 85 ml ONCE ONE Administration Metoclopramide HCl 10 mg 12/12/23 09:12 12/12/23 09:22 Metoclopramide Hcl 10 Mg/2 Ml Vial IVPUSH 12/12/23 09:13 10 mg ONCE ONE Administration Morphine Sulfate 4 mg 12/12/23 09:12 12/12/23 09:21 Morphine Sulfate 4 Mg/Ml Cartridge IVPUSH 12/12/23 09:13 4 mg ONCE ONE Administration Protocol Ondansetron HCl 4 mg 12/12/23 07:09 12/12/23 07:33 Ondansetron Hcl 4 Mg/2 Ml Vial IVPUSH 12/12/23 07:10 4 mg ONCE ONE Administration Discharge Plan Discharge Clinical Impression: Nausea & vomiting Patient Disposition: Home, Self-Care Instructions: Acute Nausea and Vomiting (ED) Additional Instructions: You were seen in the emergency department due to abdominal pain, nausea and vomiting. Your given IV fluids, nausea medication, and pain medication. Your CT scan does not show any reason for your abdominal pain. You likely have a virus. This will get better on its own. Please eat a bland diet over the next couple of days, bananas, rice, applesauce, toast can help. Avoid spicy or fried foods. Drink plenty fluids and get plenty of rest. You may take Tylenol as needed for pain and Zofran as needed for nausea. If any new or worsening symptoms occur including but not limited to worsening pain, chest pain, shortness of breath, inability to hold food or drink down, please return for re-evaluation. Follow-up with your primary care physician. Prescriptions: New ondansetron 4 mg tablet,disintegrating 4 mg PO Q6-8H PRN (Reason: nausea and vomiting) Qty: 14 0RF acetaminophen [Tylenol 8 Hour] 650 mg tablet extended release 650 mg PO Q8H PRN (Reason: pain) Qty: 30 0RF No Action metronidazole 500 mg tablet 500 mg PO BID 10 Days Qty: 20 0RF doxycycline hyclate 100 mg tablet 100 mg PO Q12H 10 Days Qty: 20 0RF valacyclovir 1 gram tablet 1,000 mg PO Q12H 10 Days Qty: 20 0RF doxycycline monohydrate 100 mg tablet 100 mg PO BID Qty: 14 0RF cyclobenzaprine 10 mg tablet 10 mg PO TID PRN (Reason: muscle spasm) Qty: 15 0RF diphenhydramine HCl 25 mg capsule 50 mg PO Q6H PRN (Reason: headache, nausea, vomiting) Qty: 30 0RF Excedrin Migraine 250-250-65 mg tablet 2 tab PO Q6H PRN (Reason: headache) Qty: 20 0RF metoclopramide HCl [Reglan] 10 mg tablet 10 mg PO Q6H PRN (Reason: nausea and vomiting) Qty: 14 0RF oxycodone 5 mg tablet 5 mg PO Q6H PRN (Reason: pain) Qty: 10 0RF Rx Instructions: Patient may request partial refill; Partial Fill upon patient request. prednisone 20 mg tablet 60 mg PO DAILY 5 Days Qty: 15 0RF doxycycline hyclate 100 mg capsule 100 mg PO BID 7 Days Qty: 14 0RF cephalexin 500 mg capsule 500 mg PO QID 7 Days Qty: 28 0RF omeprazole 40 mg capsule,delayed release(DR/EC) 40 mg PO DAILY Qty: 30 0RF sucralfate 1 gram tablet 1 g PO BID Qty: 60 0RF cyclobenzaprine 5 mg tablet 5 mg PO TID PRN (Reason: muscle spasm) 7 Days Qty: 21 0RF prednisone 20 mg tablet 20 mg PO DAILY 7 Days Qty: 7 0RF naproxen 500 mg tablet 500 mg PO BID 7 Days Qty: 14 0RF cyclobenzaprine 10 mg tablet 10 mg PO Q8H Qty: 20 0RF whzgfjucfv-mscajbcaahfan-vlhp 50-325-40 mg tablet 1 tab PO Q6H PRN (Reason: haeadace) Qty: 20 0RF ketorolac 10 mg tablet 10 mg PO TID PRN (Reason: pain) Qty: 10 0RF Rx Instructions: Do not use this medication with naproxen, ibuprofen, only Tylenol if needed cyclobenzaprine 10 mg tablet 10 mg PO TID PRN (Reason: muscle spasm) Qty: 10 0RF Rx Instructions: Do not use this medication before going to work or driving amoxicillin-pot clavulanate 875-125 mg tablet 1 tab PO BID 7 Days Qty: 14 0RF ibuprofen 600 mg tablet 600 mg PO Q6H PRN (Reason: pain) Qty: 14 0RF Interventions: KIRILL Worksheet Last Done: 12/11/23 23:19
--- NOTE | 2023-12-12 07:23 | PC.NURSE ---
Patient refusing bedside OBS at this time. PA aware
[2023-12-12] MEDS: 0.9 % Sodium Chloride 1,000 ML 999 ML IV ×2 (07:29→09:22)
[2023-12-12] MEDS: ondansetron HCL 4 MG/2 ML VIAL IVPUSH (07:33)
[2023-12-12] MEDS: iohexoL 350 MG/ML 100 ML INFUS..BTL IV (07:43)
--- NOTE | 2023-12-12 07:43 | PC.NURSE ---
Patient C/O N/V/ unable to eat. Recently tried to cut back on marijuana use, has been a daily user until 4 days ago. Zofran x 1 given . Patient presently at CT
[2023-12-12 08:45] VITALS: BP 99/64; PULSE 56; RESP 14; O2SAT 99
--- NOTE | 2023-12-12 09:07 | PC.NURSE ---
PT REPORTING ONGOING LLQ PAIN, NAUSEA. SLEEPING IN STRETCHER WHEN UNDISTURBED. TOLERATING PO TRIAL
[2023-12-12 09:21] VITALS: RESP 14
[2023-12-12] MEDS: Morphine Sulfate 4 MG/ML CARTRIDGE IVPUSH (09:21)
[2023-12-12] MEDS: Metoclopramide HCl 10 MG/2 ML VIAL IVPUSH (09:22)
[2023-12-12] MEDS: diphenhydrAMINE HCL 50 MG/ML VIAL 25 MG IVPUSH (09:22)
--- NOTE | 2023-12-12 09:36 | PC.NURSE ---
Patient continues to complain of cramping abdominal pain, resting quietly in bed. Medicated with morphine, reglan, benadryl, another L of fluids.
[2023-12-12 10:16] VITALS: BP 108/63; PULSE 64; RESP 18
[2023-12-12 10:38] LABS: Appearance Urine Clear; Color Urine Yellow; Glucose Urine UA Negative (Negative); Leukocyte Esterase Urine Negative (Negative); Nitrite Urine Negative (Negative); PH 5.5 (5.0-9.0); Specific Gravity - Urine >= 1.030 (1.005-1.025); UMIC TRIGGER UACC YES; Urine Blood Trace (Negative); Urine Ketones Negative (Negative); Urine Protein 30 (1+) mg/dL (Neg-Trace)
[2023-12-12 11:01] LABS: Bacteria Urine None Seen (None Seen); Calcium Oxalate Crystals Urine Present; Hyaline Casts Urine 0-2 /LPF (0-2); RBC Urine 0-2 /HPF (0-2); WBC Urine 0-5 /HPF (0-5)
[2023-12-12] MEDS: Acetaminophen 325 MG TABLET 975 MG PO (11:33)
[2023-12-12 12:12] VITALS: BP 104/63; PULSE 55; RESP 15; O2SAT 97
--- NOTE | 2023-12-12 12:19 | PC.NURSE ---
Reviewed D/C paper with patient, patient verbalized understanding. IV in L hand removed. Patient walked to waiting room door.
== END 2023-12-12 12:20 | disposition home or self-care (01) ==
PROVIDERS: Emergency Medicine; Physician Assistant Medical; Emergency Provider Internal Medicine
DX: R11.2 Nausea with vomiting, unspecified (principal); R10.9 Unspecified abdominal pain; Z11.52 Encounter for screening for COVID-19
CPT/HCPCS: 74177; 80053; 81001; 82248; 83690; 85025; 87502; 87635; 96361; 96374; 96375; 99284; 99285; J1200; J2270; J2405; J2765; Q9967

== ENCOUNTER 2024-01-01 09:31 | Observation (INO) | payer MEDICAID, SELFPAY ==
[2024-01-01] VITALS (11 sets, daily range): BP systolic 91–127; BP diastolic 59–78; PULSE 45–85; RESP 15–18; TEMP 36.3–36.7; O2SAT 96–100; BMI 25.1; BMI 24.6
--- NOTE | 2024-01-01 | ECG_ITS ---
Test Reason : LOW HEART RATE Blood Pressure : / mmHG Vent. Rate : 041 BPM Atrial Rate : 041 BPM P-R Int : 148 ms QRS Dur : 096 ms QT Int : 496 ms P-R-T Axes : 052 058 071 degrees QTc Int : 409 ms Marked sinus bradycardia Artifact in tracing Abnormal ECG When compared with ECG of 08-AUG-2006 03:02, No significant changes seen Referred By: Tacos Berry Electronically Signed By:Willie Arteaga
--- NOTE | ~2024-01-01 | CT_ITS ---
EXAMINATION: CT HEAD WITHOUT CONTRAST CLINICAL INFORMATION: Headache and dizziness COMPARISON: Previous head CT July 2023 TECHNIQUE: Contiguous axial imaging was performed from the skull base to vertex without intravenous administration of contrast. This CT examination was performed using dose optimization techniques as appropriate, variously including the following: *Automated exposure control *Adjustment of mA and/or kV according to patient size (this includes techniques or standardized protocols for targeted exams where dose is matched to indication/reason for exam; i.e. extremities or head) *Use of iterative reconstruction technique DLP: 711 mGy-cm FINDINGS: There is no evidence for an extra-axial collection. There is no evidence for intra-or extra-axial hemorrhage. The ventricles and extra-axial CSF spaces are appropriate. Strange-white matter differentiation is normal. No mass, mass effect or infarct is seen. Review of bone windows is normal. No skull fracture. Sinuses mastoid air cells and middle ears are clear. CT/CT head/brain wo IV con IMPRESSION: No acute intracranial pathology.
--- NOTE | ~2024-01-01 | MR_ITS ---
EXAMINATION: MR BRAIN WITHOUT CONTRAST CLINICAL INFORMATION: Vertigo COMPARISON: CT head without contrast 01/01/2024 TECHNIQUE: Multiplanar multisequence MR imaging of the brain was obtained without intravenous contrast. FINDINGS: There is no acute infarct on diffusion-weighted imaging. There is no intracranial hemorrhage on iron-sensitive imaging. No extra-axial collection or mass effect/herniation. Normal parenchymal signal characteristics. No hydrocephalus. The ventricles are normal in morphology and size. The major flow voids at the skull base are preserved. The midline structures are normal. The cerebellar tonsils are normally positioned. The craniocervical junction is normal. Marrow signal is within normal limits. The visualized soft tissues are without significant abnormality. Trace ethmoid sinus mucosal thickening. MR/MR head/brain wo con IMPRESSION: No acute intracranial abnormality.
--- NOTE | ~2024-01-01 | US_ITS ---
STUDY: Right lower quadrant ultrasound INDICATION: Right lower quadrant pain COMPARISON: None TECHNIQUE: Real-time ultrasound was used to scan the right lower quadrant. Permanent documented images obtained and cine loops provided. FINDINGS: No blind ending tubular noncompressible structure identified in the right lower quadrant. No free fluid or fluid collection seen. No lymphadenopathy. Peristalsis bowel loops identified. US/US appendix IMPRESSION: No sonographic evidence of acute appendicitis. Absence of sonographic findings does not exclude that entity. If there is persistent clinical concern, consider other imaging modality such as CT.
[2024-01-01 10:49] LABS: MANUAL DIFF FLAG NO
[2024-01-01 10:50] LABS: Basophils Percent Auto 0.5 % (0-2); Eosinophils Absolute Auto 0.3 X10*3/uL (0.0-0.4); Hematocrit 39.5 % (42.0-52.0); Hemoglobin 12.2 g/dl (14.0-18.0); Imm Gran Abs Auto 0.01 X10*3/uL (0.00-0.03); Imm Gran Pct Auto 0.2 % (0.0-0.4); Lymphocytes Percent Auto 31.6 % (20-40); Mean Corpuscular HGB Conc 30.9 g/dl (31.0-36.0); Mean Corpuscular Hemoglobin 26.2 pg (27.0-33.0); Mean Corpuscular Volume 84.8 fL (80.0-98.0); Mean Platelet Volume 8.3 fL (9.4-12.4); Monocytes Absolute Auto 0.5 X10*3/uL (0.1-1.2); Monocytes Percent Auto 8.4 % (2-11); Neutrophils Absolute Auto 3.4 x10*3/uL (2.0-8.3); Neutrophils Percent Auto 55.3 % (45-73); Platelet Count 240 X10*3/uL (160-400); Red Blood Count 4.66 X10*6/uL (4.60-5.80); Red Cell Distribution Width 13.2 % (11.0-16.0); White Blood Count 6.2 X10*3/uL (4.8-10.8)
--- NOTE | 2024-01-01 10:59 | ED.GENADULT ---
[facility] - General Adult General Chief complaint: Nausea/Vomiting/Diarrhea Stated complaint: Weak, dizzy, nauseas Time Seen by Provider: 01/01/24 09:53 Source: patient and RN notes reviewed Mode of arrival: ambulatory Limitations: no limitations History of Present Illness [facility] narrative: This is a 33-year-old male, with a history of pancreatitis, presenting to the emergency department for evaluation of body aches, headache and fatigue since yesterday. Denies any dizziness during initial encounter. He states that the headache that he currently has is not the worst headache of his life. Denies thunderclap onset of headache. Denies any head strike or LOC. He has not on blood thinners. Patient states that he feels very tired and occasionally nauseous. He denies any fevers, chills, chest pain, cough, congestion, shortness of breath, abdominal pain, vomiting or diarrhea. No constipation. He denies any sick contacts. Denies alcohol use. Denies drug use. He states that he occasionally uses marijuana, no other drug use. No other complaints or concerns at this time. MD complaint: Headache, body aches, fatigue Onset (ago): day(s) Radiation: non-radiation Severity: mild Exacerbating factors: none Associated symptoms: denies other symptoms Treatments prior to arrival: none Related Data Home Medications Medication Instructions Recorded Confirmed No Known Home Meds 01/01/24 01/01/24 Allergies Allergy/AdvReac Type Severity Reaction Status Date / Time No Known Allergies Allergy Verified 12/11/23 20:47 Review of Systems Review of Systems: Yes all other systems are reviewed and are negative Constitutional: Constitutional: Reports as per [facility] Past Medical History Attestation statement: The following information was validated with the patient. Medical History Discharge from penis Lesion of penis Concern about STD in male without diagnosis Social History Social History Household Members: Family Housing: House Do you presently have visiting nurse or other home services: No Unable to assess alcohol history related to: Refusing to respond Alcohol intake: never Patient Tobacco Use Status: Current everyday Tobacco user Tobacco use type: Cigarette Cigarette Packs Per Day: 1 Cigarettes Per Day: 20.0 Substance Use Type: Marijuana service: No Physical Exam ED Vital Signs: Vital Signs - 24 hr 01/01/24 11:27 01/01/24 13:06 01/01/24 13:06 Temperature 98 F 97.8 F Pulse Rate 54 55 55 Respiratory Rate 15 15 Blood Pressure 112/61 118/64 118/64 Pulse Oximetry 98 99 Oxygen Delivery Method Room Air Room Air 01/01/24 13:09 01/01/24 13:11 01/01/24 15:43 Temperature 97.5 F Pulse Rate 56 70 69 Respiratory Rate 18 Blood Pressure 107/78 116/61 125/75 Pulse Oximetry 98 Oxygen Delivery Method Room Air 01/01/24 17:00 01/01/24 19:21 Temperature 97.8 F 97.8 F Pulse Rate 67 52 Respiratory Rate 16 18 Blood Pressure 121/77 112/74 Pulse Oximetry 98 98 Oxygen Delivery Method Room Air Room Air BMI result Body Mass Index 25.1 Const General: cooperative, comfortable and no acute distress Orientation/consciousness: patient oriented x3 Limitations: no limitations HENMT Other: Mild tenderness palpation along the maxillary sinus. Head: Yes normal to inspection, Yes normocephalic and Yes atraumatic Ears: hearing grossly normal bilaterally and TM's normal bilaterally General nose exam: Normal external nose present Face and sinus: Yes normal facial exam Mouth: Normal oral and palatal mucosa present, oropharynx normal and moist mucous membranes Throat: Yes posterior oropharynx normal, Yes tonsils normal and Yes uvula midline Eyes General: appearance normal, both eyes and all related structures Eyelids: Yes eyelids normal Conjunctivae: conjunctivae normal Sclerae: sclerae normal Pupils: Equal, round and reactive pupils present EOM: EOMs intact bilaterally Neck Neck: Yes normal visual inspection, Yes full ROM and Yes no lymphadenopathy Lymphatic: no lymphadenopathy noted Chest Chest palpation & inspection: normal inspection of the chest Resp Effort & Inspection: normal respiratory effort and able to speak in complete sentences Auscultation: clear to auscultation bilaterally, no crackles, no rales, no rhonchi and no wheezes Cardio Rate: regular rate Rhythm: regular rhythm Heart sounds: S1 normal heart sound present and S2 normal heart sound present GI Other: Abdomen is soft, with tenderness palpation in the right lower quadrant, no rebound or guarding. Normoactive bowel sounds present in all 4 quadrants Inspection: Yes normal to inspection Skin General skin exam: no rashes or lesions noted Trauma: no lacerations or abrasions Wounds: no wounds Neuro General: patient oriented x3 and moves all extremities Cranial nerves: Yes CN's II-XII intact bilaterally and Yes Equal, round and reactive pupils present Cognition (Neuro): normal cognition Gait exam (Neuro): Normal gait present Motor exam (neuro): 5/5 motor strength present throughout and Pronator motor function not present Coordination: [id number] test normal Romberg Test: Negative Extrem General: Yes normal to inspection Right upper extremity: normal to inspection Left upper extremity: normal to inspection Right lower extremity: normal to inspection Left lower extremity: normal to inspection Course Reevaluation(s) Time: 13:00 Reevaluation #2: Patient re-evaluated. Abdominal pain has resolved not indicative of appendicitis. He is now complaining of worsening headache, as well as dizziness. He describes the dizziness as the room spinning. He is neurologically intact. Negative Romberg. He states that he does not open his eyes as this worsens the dizziness. States photophobia secondary to head pain as well as dizziness. Will trial IV fluids, meclizine, Zofran, ibuprofen and Tylenol. Time: 15:00 Reevaluation #3: Patient re-evaluated, reports that headache is feeling better however continues to have persistent dizziness, despite receiving IV fluids, meclizine, and Zofran. Patient will be given dose of Valium as well as CT head given persistent dizziness without any resolution. Time: 17:07 Additional Reevaluation(s): 1855 - Valium was not administered as patient has been asleep and do not want to make pt any more tired. patient still complaining of dizziness, patient had a normal CT scan. He has not orthostatic. I discussed this case with my attending physician, Dr. Smith, as patient continues to be persistently dizzy, refusing to walk secondary to worsening dizziness. Given dizziness has not improved despite medication management and he has been hours, he will need to be admitted for further workup as well as management of dizziness. Discussed possibility of administering benzodiazepines however patient has been keeping his eyes closed, resting, sleeping. I believe that Ativan would cause worsening somnolence. Medications Administered Generic Name Dose Route Start Last Admin Trade Name Freq PRN Reason Stop Dose Admin Acetaminophen 975 mg 01/01/24 19:42 01/02/24 11:08 Acetaminophen 325 Mg Tablet PO 975 mg Q6H PRN Administration Headache Enoxaparin Sodium 40 mg 01/02/24 09:45 01/03/24 10:44 Enoxaparin Sodium 40 Mg/0.4 Ml Syringe SUBCUT 40 mg Q24H REVA Administration Sodium Chloride 1,000 mls @ 125 mls/hr 01/01/24 19:45 01/03/24 03:46 Ns IVCONT 125 mls/hr .Q8H REVA Administration Sodium Chloride 3 ml 01/02/24 00:00 01/03/24 08:31 0.9 % Sodium Chloride Flush 3 Ml Syringe IVFLUSH Not Given QSHIFT REVA Discontinued Medications Generic Name Dose Route Start Last Admin Trade Name Freq PRN Reason Stop Dose Admin Acetaminophen 650 mg 01/01/24 11:05 01/01/24 11:24 Acetaminophen 325 Mg Tablet PO 01/01/24 11:06 650 mg ONCE ONE Administration Diazepam 2.5 mg 01/01/24 17:14 01/01/24 18:58 Diazepam 10 Mg/2 Ml Cartridge IVPUSH 01/01/24 17:15 Not Given STAT STA Sodium Chloride 1,000 mls @ 999 mls/hr 01/01/24 12:52 01/01/24 14:28 Ns IV 01/01/24 13:52 Infused .Q1H1M ONE Infusion Sodium Chloride 1,000 mls @ 999 mls/hr 01/01/24 19:35 01/01/24 19:48 Ns IV 01/01/24 20:35 Not Given .Q1H1M ONE Sodium Chloride 500 mls @ 999 mls/hr 01/01/24 19:45 01/01/24 20:13 Ns IV 01/01/24 20:15 Infused .Q31M REVA Infusion Ibuprofen 600 mg 01/01/24 14:59 01/01/24 15:40 Ibuprofen 600 Mg Tablet PO 01/01/24 15:00 600 mg ONCE ONE Administration Ketorolac Tromethamine 30 mg 01/01/24 19:41 01/01/24 19:46 Ketorolac Tromethamine 30 Mg/Ml Vial IVPUSH 01/01/24 19:42 30 mg ONCE STA Administration Meclizine HCl 12.5 mg 01/01/24 14:59 01/01/24 16:02 Meclizine Hcl 12.5 Mg Tablet PO 01/01/24 15:00 12.5 mg ONCE ONE Administration Meclizine HCl 25 mg 01/02/24 05:00 01/02/24 05:01 Meclizine Hcl 25 Mg Tablet PO 01/02/24 05:01 25 mg ONCE ONE Administration Ondansetron HCl 4 mg 01/01/24 10:59 01/01/24 11:24 Ondansetron Odt 4 Mg Tab.Rapdis TRANSLINGU 01/01/24 11:00 4 mg ONCE ONE Administration Medical Decision Making Medical Decision Making [facility] Narrative: This is a 33-year-old male, with a history of acute pancreatitis, presenting to the emergency department complaints of nausea, fatigue, headache and body aches since yesterday. On arrival, patient nontoxic appearing, vital signs within normal limits. Patient does have mild tenderness palpation in the right lower quadrant, with no rebound or guarding. He had a normal CT abdomen and pelvis performed last month. Differential diagnoses include viral URI, electrolyte disturbance, anemia. Less likely acute pancreatitis, or appendicitis given afebrile, and nontoxic appearing. Plan: Labs, viral swabs, ultrasound of the appendix ordered Differential Diagnosis Differential Diagnoses: The differential diagnosis associated with the presentation includes See above Admission/Observation Consideration of admission/observation: Escalation of care including admission/observation considered Escalation of care including admission/observation considered however given workup today not warranted at this time. Lab Data [facility] Lab Attestation statement: I reviewed the patient's lab results. No leukocytosis, normocytic anemia noted with a hemoglobin and hematocrit at 12.2/39.5 - around his baseline. Chemistry with a BUN of 19, creatinine 0.91, no indications of acute kidney injury. Liver transaminases within normal limits. Normal lipase therefore acute pancreatitis less likely. Negative COVID, flu, RSV 01/02/24 05:57 01/02/24 05:57 Labs: Lab Results 01/01/24 01/01/24 Range/Units 10:43 17:33 WBC 6.2 (4.8-10.8) X10*3/uL RBC 4.66 (4.60-5.80) X10*6/uL Hgb 12.2 L (14.0-18.0) g/dl Hct 39.5 L (42.0-52.0) % MCV 84.8 (80.0-98.0) fL MCH 26.2 L (27.0-33.0) pg MCHC 30.9 L (31.0-36.0) g/dl RDW 13.2 (11.0-16.0) % Plt Count 240 D (160-400) X10*3/uL MPV 8.3 L (9.4-12.4) fL Immature Gran % (Auto) 0.2 (0.0-0.4) % Neut % (Auto) 55.3 (45-73) % Lymph % (Auto) 31.6 (20-40) % [place] % (Auto) 8.4 (2-11) % Eos % (Auto) 4.0 (0-4) % Baso % (Auto) 0.5 (0-2) % Lymph # (Auto) 2.0 (1.2-4.9) X10*3/uL [place] # (Auto) 0.5 (0.1-1.2) X10*3/uL Eos # (Auto) 0.3 (0.0-0.4) X10*3/uL Baso # (Auto) 0.0 (0.0-0.2) X10*3/uL Abs Immat Gran (auto) 0.01 (0.00-0.03) X10*3/uL Absolute Neuts (auto) 3.4 (2.0-8.3) x10*3/uL Absolute Nucleated RBC 0.000 (0.0-0.012) X10*3/uL Nucleated RBC % (auto) 0.0 (0.0-0.2) /100WBC Sodium 141 (135-145) mmol/L Potassium 4.0 (3.3-5.1) mmol/L Chloride 107 (96-108) mmol/L Carbon Dioxide 30 H (22-29) mmol/L Anion Gap 8 L (12-20) BUN 19 H (9-16) mg/dL Creatinine 0.91 (0.5-1.4) mg/dL Estim Creat Clear Calc 110.6 Estimated GFR > 60 Random Glucose 110 (60-115) mg/dL Calcium 8.9 (8.4-10.2) mg/dL Magnesium 2.2 (1.6-2.6) mg/dL Total Bilirubin 0.2 (0.0-1.0) mg/dL Direct Bilirubin < 0.2 (0.0-0.5) mg/dL AST 15 (5-37) U/L ALT 13 (0-40) U/L Alkaline Phosphatase 70 (39-117) U/L Total Creatine Kinase 160 (38-174) U/L C-Reactive Protein Cancelled 0.27 Total Protein 6.6 (6.5-8.0) g/dL Albumin 3.7 (3.5-5.0) g/dL Lipase 27 (8-78) U/L Ethyl Alcohol < 10 mg/dL Influenza Type A (PCR) NEGATIVE (Negative) Influenza Type B (PCR) NEGATIVE (Negative) RSV RNA Qual (PCR) NEGATIVE (Negative) SARS-CoV-2 RNA (RT-PCR) NEGATIVE (Negative) Radiology Impression Discussion of test interpretation with radiology: I have reviewed the radiologist's reading. Radiologist Impression: EXAMINATION: CT HEAD WITHOUT CONTRAST CLINICAL INFORMATION: Headache and dizziness COMPARISON: Previous head CT July 2023 TECHNIQUE: Contiguous axial imaging was performed from the skull base to vertex without intravenous administration of contrast. This CT examination was performed using dose optimization techniques as appropriate, variously including the following: *Automated exposure control *Adjustment of mA and/or kV according to patient size (this includes techniques or standardized protocols for targeted exams where dose is matched to indication/reason for exam; i.e. extremities or head) *Use of iterative reconstruction technique DLP: 711 mGy-cm FINDINGS: There is no evidence for an extra-axial collection. There is no evidence for intra-or extra-axial hemorrhage. The ventricles and extra-axial CSF spaces are appropriate. Strange-white matter differentiation is normal. No mass, mass effect or infarct is seen. Review of bone windows is normal. No skull fracture. Sinuses mastoid air cells and middle ears are clear. CT/CT head/brain wo IV con IMPRESSION: No acute intracranial pathology. Dictated By: Cheri Arce MD STUDY: Right lower quadrant ultrasound INDICATION: Right lower quadrant pain COMPARISON: None TECHNIQUE: Real-time ultrasound was used to scan the right lower quadrant. Permanent documented images obtained and cine loops provided. FINDINGS: No blind ending tubular noncompressible structure identified in the right lower quadrant. No free fluid or fluid collection seen. No lymphadenopathy. Peristalsis bowel loops identified. US/US appendix IMPRESSION: No sonographic evidence of acute appendicitis. Absence of sonographic findings does not exclude that entity. If there is persistent clinical concern, consider other imaging modality such as CT. Dictated By: Tatum Liu MD Critical Care Time Critical Care Time Critical Care Time: Yes Total Critical Care Time: 40 Attestation: I have personally provided critical care time exclusive of time spent on separately billable procedures. Time includes review of lab data, radiology results, discussion with consultants, and monitoring for potential decompensation. Intervention performed as documented. Discharge Plan Discharge Clinical Impression: Dizziness Patient Disposition: Admitted As Inpatient Interventions: Admission Worksheet (ED) Last Done: 01/01/24 21:47 Discharge Date/Time: 01/01/24 22:52
[2024-01-01 11:04] LABS: Alanine Aminotransferase 13 U/L (0-40); Albumin Level 3.7 g/dL (3.5-5.0); Alkaline Phosphatase 70 U/L (39-117); Anion Gap 8 (12-20); Aspartate Amino Transferase 15 U/L (5-37); Bilirubin Direct < 0.2 mg/dL (0.0-0.5); Bilirubin Total 0.2 mg/dL (0.0-1.0); Blood Urea Nitrogen 19 mg/dL (9-16); Calcium 8.9 mg/dL (8.4-10.2); Carbon Dioxide 30 mmol/L (22-29); Chloride 107 mmol/L (96-108); Creatinine Clr Calc Pharmacy 110.6; Estimated Glomerular Filt Rate > 60; Glucose Random 110 mg/dL (60-115); Lipase 27 U/L (8-78); Magnesium 2.2 mg/dL (1.6-2.6); Sodium 141 mmol/L (135-145); Total Protein 6.6 g/dL (6.5-8.0)
[2024-01-01] MEDS: Acetaminophen 325 MG TABLET 650 MG PO (11:24)
[2024-01-01] MEDS: Ondansetron ODT 4 MG TAB.RAPDIS TRANSLINGU (11:24)
[2024-01-01 11:38] LABS: Influenza A PCR NEGATIVE (Negative); Influenza B PCR NEGATIVE (Negative); Resp Syncy Virus RNA Qual PCR NEGATIVE (Negative); SARS COV2 PCR INHOUSE NEGATIVE (Negative)
--- NOTE | 2024-01-01 12:00 | PC.NURSE ---
jose alfredo sierra aware pt dozing off at times in middle of nurse talking to pt for assessment q's. no resp distress. VSS.
[2024-01-01] MEDS: 0.9 % Sodium Chloride 1,000 ML 999 ML IV (13:23)
--- NOTE | 2024-01-01 15:17 | PC.NURSE ---
no meclizine in prabha- [facility] bringing down
[2024-01-01] MEDS: Ibuprofen 600 MG TABLET PO (15:40)
--- NOTE | 2024-01-01 15:53 | PC.NURSE ---
spoke w [facility] pharmacist about rx- still on its way
[2024-01-01] MEDS: Meclizine HCl 12.5 MG TABLET PO (16:02)
--- NOTE | 2024-01-01 16:54 | PC.NURSE ---
at bedside w jose alfredo, reports when he stood up he felt dizzy. pa at bedside evaling. reports headache. pt too dizzy to stand up for standing orthostatic bp. sitting 121/77, pulse 67. jose alfredo sierra made aware. pt resting in bed at this time
[2024-01-01 18:00] LABS: Ethanol < 10 mg/dL
--- NOTE | 2024-01-01 18:58 | PC.NURSE ---
per jose alfredo sierra hold valium, not administer.
--- NOTE | 2024-01-01 19:00 | PC.NURSE ---
jose alfredo sierra/md ferrara at bedside: pt pupils pin point, drowsy. held valium per jose alfredo sierra. pt hr currently in 40s on vs check rounding, placed on tele now. per jose alfredo sierra pt's clothes taken by security at bedside to decon-able to maintain phone at bedside at this time.
--- NOTE | 2024-01-01 19:01 | PC.NURSE ---
when at bedside jose alfredo sierra/md ferrara aware pt has not voided since has been in [facility] and states feels cannot give urine sample. pt attempted to void in urinal for rn but unable.
--- NOTE | 2024-01-01 19:40 | PC.NURSE ---
md ferrara aware pt's hr in 40s- md ferrara was at bedside. no resp distress. breathing well.
[2024-01-01] MEDS: 0.9 % Sodium Chloride 500 ML 999 ML IV (19:45)
[2024-01-01] MEDS: Ketorolac Tromethamine 30 MG/ML VIAL IVPUSH (19:46)
--- NOTE | 2024-01-01 19:46 | P.HPHOSP_ITS ---
History of Present Illness Date of Service: 01/01/24 Attending physician on admission: Tacos Berry Chief Complaint: Headache Ham Sy 33 years old man with no significant past medical history presented to the emergency department complaining of frontal headache since yesterday associated with nausea and dizziness. Dizziness described as spinning sensation and increases with movement. He denied any event of vomiting or diarrhea. He also been abdominal pain. He denied any chest pain or shortness on breath. He has been in the emergency department for about 9 hours and has not urinate. According to nursing patient had event of bradycardia. Patient denied alcohol abuse and denied illicit drug use. He does smoke tobacco. Chart review: Urine drug screen (July 2023): Positive for opiates, fentanyl, cocaine and marijuana. There is reported history of chronic headache. In the ED, he was found to have normal vital signs. Blood workup including CBC and CMP are remarkable for elevated pCO2. Abdominal ultrasound showed no findings of appendicitis. ED tx: Zofran 4 mg IV sibling, acetaminophen 650 mg p.o., Motrin 600 mg p.o., anterior 12.5 mg p.o. (Valium ordered but not given due to event of bradycardia) Despite the above treatment patient versus with symptoms. Review of Systems 2 Review of Systems: All 12 systems were reviewed and normal except as noted in HPI. [facility] Medical History Discharge from penis Lesion of penis Concern about STD in male without diagnosis Social History Unable to assess alcohol history related to: Refusing to respond Alcohol intake: never Patient Tobacco Use Status: Current everyday Tobacco user Substance Use Type: Marijuana Meds Allergies Allergy/AdvReac Type Severity Reaction Status Date / Time No Known Allergies Allergy Verified 12/11/23 20:47 Active Medications: Current Medications Acetaminophen (Acetaminophen 325 Mg Tablet) 975 mg PO Q6H PRN PRN Reason: Headache Sodium Chloride (Ns) 1,000 mls @ 999 mls/hr IV .Q1H1M ONE Stop: 01/01/24 20:35 Last Admin: 01/01/24 19:42 Dose: 999 mls/hr Sodium Chloride (Ns) 500 mls @ 999 mls/hr IV .Q31M REVA Stop: 01/01/24 20:15 Sodium Chloride (Ns) 1,000 mls @ 125 mls/hr IVCONT .Q8H REVA Sodium Chloride (0.9 % Sodium Chloride Flush 3 Ml Syringe) 3 ml IVFLUSH QSHIFT REVA Home Medications Medication Instructions Recorded Confirmed Last Taken Type No Known Home Meds 01/01/24 01/01/24 Unknown History Physical Exam 2 Vital Signs and Narrative: Vital Signs: Last Vital Signs Temp 97.8 F 01/01/24 19:21 Pulse 52 01/01/24 19:21 Resp 18 01/01/24 19:21 BP 112/74 01/01/24 19:21 Pulse Ox 98 01/01/24 19:21 O2 Del Method Room Air 01/01/24 19:21 BMI result Body Mass Index 25.1 Constitutional - Awake and Alert. Looks uncomfortable due to headache and dizziness. Cooperative. HEENT- Pupils equally rounds. Normal sclerae. Dry oral mucosa. Heart - RRR. No murmur. Lungs - Normal lung expansion, Normal respiratory effort, No respiratory distress, CTA bilaterally Abdomen - NT / ND; +BS; No rebound or guarding Extremities - no calf tenderness bilaterally, no swelling Musculoskeletal - Normal inspection, normal ROM Skin - Warm/Dry Neurological - Alert & oriented x3. No gross focal weakness noted. Normal speech. Psychological - Appropriate affect Results Labs 01/01/24 10:43 01/01/24 10:43 Labs: Laboratory Results - last 24 hr 01/01/24 01/01/24 10:43 17:33 MCV 84.8 MCH 26.2 L MCHC 30.9 L RDW 13.2 Plt Count 240 D MPV 8.3 L Immature Gran % (Auto) 0.2 Neut % (Auto) 55.3 Lymph % (Auto) 31.6 [place] % (Auto) 8.4 Eos % (Auto) 4.0 Baso % (Auto) 0.5 Lymph # (Auto) 2.0 [place] # (Auto) 0.5 Eos # (Auto) 0.3 Baso # (Auto) 0.0 Abs Immat Gran (auto) 0.01 Absolute Neuts (auto) 3.4 Absolute Nucleated RBC 0.000 Nucleated RBC % (auto) 0.0 Anion Gap 8 L Estim Creat Clear Calc 110.6 Estimated GFR > 60 Random Glucose 110 Calcium 8.9 Magnesium 2.2 Total Bilirubin 0.2 Direct Bilirubin < 0.2 AST 15 ALT 13 Alkaline Phosphatase 70 Total Creatine Kinase 160 Total Protein 6.6 Albumin 3.7 Lipase 27 Ethyl Alcohol < 10 Influenza Type A (PCR) NEGATIVE Influenza Type B (PCR) NEGATIVE RSV RNA Qual (PCR) NEGATIVE SARS-CoV-2 RNA (RT-PCR) NEGATIVE Imaging Radiologist's Impressions: Impressions Appendix Ultrasound 01/01/24 10:30 IMPRESSION: No sonographic evidence of acute appendicitis. Absence of sonographic findings does not exclude that entity. If there is persistent clinical concern, consider other imaging modality such as CT. Head CT 01/01/24 18:17 IMPRESSION: No acute intracranial pathology. Assessment and Plan (1) Dizziness: Status: Acute (2) Headache: Qualifiers: Headache type: unspecified Headache chronicity pattern: acute headache Intractability: intractable Qualified Code(s): R51.9 - Headache, unspecified Status: Acute (3) Elevated CO2 level: Status: Acute Plan Hma Sy 33 years old man with PMHx significant for chronic headache presents with: * Headache and dizziness; elevated CO2: Possible contraction alkalosis. Likely secondary to dehydration. Keeping observation. We will give additional 1 L of NS then maintenance. Symptomatic therapy with Toradol, Antivert and Reglan. Recheck bicarb at 10 PM. Check urine drug test and CRP. If patient persists with dizziness and headache we will consider PT evaluation and Brain MRI. * Event of bradycardia. Telemetry. Unclear of the cause. Check urine drug test. DVT prophylaxis: Low risk. Patient ambulating. Code status: Full Quality Stroke Does the patient have a stroke diagnosis?: No VTE Prior VTE?: No VTE Risk Level:: Medical - low VTE Device Contraindication: Treatment Not Indicated VTE Drug Contraindication: Treatment Not Indicated
--- NOTE | 2024-01-01 19:52 | PHA.MEDREC ---
Pharmacy Consult ? Medication Reconciliation Pharmacy has completed the medication reconciliation. Patient reported no medications at home prescription or OTC. Andres BaileyD
--- NOTE | 2024-01-01 19:53 | PC.NURSE ---
SECURITY AT BEDSIDE, BELONGINGS PLACED IN DECON
[2024-01-01] MEDS: 0.9 % Sodium Chloride 1,000 ML 125 ML IVCONT (19:58)
[2024-01-01 20:19] LABS: C Reactive Protein 0.27 mg/dL (< or = 0.50)
--- NOTE | 2024-01-01 20:40 | PC.NURSE ---
notified md ferrara bladder scan 188- pt still states cannot void- md ferrara aware pt has not voided yet since being at hospital.
[2024-01-01 22:14] LABS: Anion Gap 9 (12-20); Blood Urea Nitrogen 17 mg/dL (9-16); Carbon Dioxide 25 mmol/L (22-29); Chloride 112 mmol/L (96-108); Creatinine Clr Calc Pharmacy 143.8; Estimated Glomerular Filt Rate > 60; Glucose Random 93 mg/dL (60-115); Potassium 4.3 mmol/L (3.3-5.1); Sodium 142 mmol/L (135-145)
[2024-01-02] MEDS: 0.9 % Sodium Chloride 1,000 ML 125 ML IVCONT ×2 (03:03→15:41)
[2024-01-02 04:00] VITALS: BP 94/64; PULSE 51; RESP 16; TEMP 36.7; O2SAT 98
[2024-01-02] MEDS: Meclizine HCl 25 MG TABLET PO (05:01)
[2024-01-02] MEDS: Acetaminophen 325 MG TABLET 975 MG PO ×2 (05:01→11:08)
[2024-01-02 05:18] LABS: Appearance Urine Clear; Color Urine Yellow; Glucose Urine UA Negative (Negative); Leukocyte Esterase Urine Negative (Negative); Nitrite Urine Negative (Negative); Urine Blood Negative (Negative); Urine Ketones Negative (Negative); Urine Protein Negative (Neg-Trace)
[2024-01-02 05:27] LABS: Amphetamine Screen Urine Not Detected (Not Detect); Barbiturates, Urine Not Detected (Not Detect); Benzodiazepines Screen Urine Not Detected (Not Detect); Cannabinoid Screen Urine POSITIVE (Not Detect); Cocaine Screen Urine POSITIVE (Not Detect); Fentanyl, urine Not Detected (Not Detect); Opiate Screen Urine Not Detected (Not Detect); Phencyclidine Screen Urine Not Detected (Not Detect)
[2024-01-02 06:21] LABS: MANUAL DIFF FLAG NO
[2024-01-02 06:43] LABS: Alanine Aminotransferase 12 U/L (0-40); Albumin Level 3.2 g/dL (3.5-5.0); Alkaline Phosphatase 62 U/L (39-117); Anion Gap 8 (12-20); Aspartate Amino Transferase 15 U/L (5-37); Bilirubin Total 0.3 mg/dL (0.0-1.0); Blood Urea Nitrogen 12 mg/dL (9-16); Calcium 8.1 mg/dL (8.4-10.2); Carbon Dioxide 25 mmol/L (22-29); Chloride 111 mmol/L (96-108); Estimated Glomerular Filt Rate > 60; Glucose Random 86 mg/dL (60-115); Potassium 4.2 mmol/L (3.3-5.1); Sodium 140 mmol/L (135-145); Total Protein 5.8 g/dL (6.5-8.0)
[2024-01-02 06:47] LABS: Basophils Percent Auto 0.5 % (0-2); Eosinophils Absolute Auto 0.3 X10*3/uL (0.0-0.4); Eosinophils Percent Auto 5.2 % (0-4); Imm Gran Abs Auto 0.01 X10*3/uL (0.00-0.03); Imm Gran Pct Auto 0.2 % (0.0-0.4); Lymphocytes Absolute Auto 2.3 X10*3/uL (1.2-4.9); Mean Corpuscular HGB Conc 30.8 g/dl (31.0-36.0); Mean Corpuscular Hemoglobin 26.6 pg (27.0-33.0); Mean Corpuscular Volume 86.5 fL (80.0-98.0); Mean Platelet Volume 8.6 fL (9.4-12.4); Monocytes Absolute Auto 0.4 X10*3/uL (0.1-1.2); Monocytes Percent Auto 7.1 % (2-11); Neutrophils Absolute Auto 2.8 x10*3/uL (2.0-8.3); Platelet Count 212 X10*3/uL (160-400); Red Blood Count 4.51 X10*6/uL (4.60-5.80); Red Cell Distribution Width 13.2 % (11.0-16.0); White Blood Count 5.8 X10*3/uL (4.8-10.8)
[2024-01-02 07:50] VITALS: BP 100/59; PULSE 56; RESP 16; TEMP 36.8; O2SAT 99
--- NOTE | 2024-01-02 09:39 | HO.PM.IMPN ---
Subjective Subjective Date of Service: 01/02/24 Interval History: Patient continues have dizziness and sensitivity to light. Also states has a sensation of room spinning. Review of Systems Review of Systems: Yes all other systems are reviewed and are negative ENT Ears, Nose, Mouth, and Throat: Reports vertigo and Reports dizziness Cardiovascular Cardiovascular: Reports no additional cardiovascular complaints Respiratory Respiratory: Reports no additional respiratory complaints Gastrointestinal Gastrointestinal: Reports no additional gastrointestinal complaints Genitourinary Genitourinary: Reports no additional male genitourinary complaints Neurologic Neurologic: Reports vertigo and Reports dizziness Physical Exam Vital Signs: Vital Signs: Last Vital Signs Temp 98.2 F 01/02/24 07:50 Pulse 56 01/02/24 07:50 Resp 16 01/02/24 07:50 BP 100/59 L 01/02/24 07:50 Pulse Ox 99 01/02/24 07:50 O2 Del Method Room Air 01/02/24 07:50 BMI result Body Mass Index 24.6 Middle-aged male covered in blanket lying in bed due to light sensitivity complaining of headache and dizziness Neck supple, no JVD Regular rate and rhythm, S1-S2 heard Regular breath sounds bilaterally, no wheezing or crackles appreciated Abdomen soft nontender, no guarding, no rigidity Patient is awake, alert and oriented to self, place, time and person ; no focal motor deficit Psych: Normal mood No pedal edema Objective Data Active Medications Acetaminophen (Acetaminophen 325 Mg Tablet) 975 mg PO Q6H PRN PRN Reason: Headache Last Admin: 01/02/24 05:01 Dose: 975 mg Documented By: LLOYD Sodium Chloride (Ns) 1,000 mls @ 125 mls/hr IVCONT .Q8H [facility] Last Admin: 01/02/24 03:03 Dose: 125 mls/hr Documented By: LLOYD Metoclopramide HCl (Metoclopramide Hcl 10 Mg/2 Ml Vial) 10 mg IVPUSH ONCE PRN PRN Reason: Nausea and Vomiting Sodium Chloride (0.9 % Sodium Chloride Flush 3 Ml Syringe) 3 ml IVFLUSH QSHIFT [facility] Last Admin: 01/02/24 08:24 Dose: Not Given Documented By: ISAC Non-Admin Reason: IV Running Labs 01/02/24 05:57 01/02/24 05:57 Labs: Laboratory Results - last 24 hr 01/01/24 01/01/24 01/01/24 10:43 17:33 21:51 MCV 84.8 MCH 26.2 L MCHC 30.9 L RDW 13.2 Plt Count 240 D MPV 8.3 L Immature Gran % (Auto) 0.2 Neut % (Auto) 55.3 Lymph % (Auto) 31.6 [place] % (Auto) 8.4 Eos % (Auto) 4.0 Baso % (Auto) 0.5 Lymph # (Auto) 2.0 [place] # (Auto) 0.5 Eos # (Auto) 0.3 Baso # (Auto) 0.0 Abs Immat Gran (auto) 0.01 Absolute Neuts (auto) 3.4 Absolute Nucleated RBC 0.000 Nucleated RBC % (auto) 0.0 Anion Gap 8 L 9 L Estim Creat Clear Calc 110.6 143.8 Estimated GFR > 60 > 60 Random Glucose 110 93 Calcium 8.9 8.0 L D Magnesium 2.2 Total Bilirubin 0.2 Direct Bilirubin < 0.2 AST 15 ALT 13 Alkaline Phosphatase 70 Total Creatine Kinase 160 C-Reactive Protein Cancelled 0.27 Total Protein 6.6 Albumin 3.7 Lipase 27 Urine Color Urine Appearance Urine pH Ur Specific [place] Urine Protein Urine Glucose (UA) Urine Ketones Urine Blood Urine Nitrite Ur Leukocyte Esterase Urine Opiates Screen Urine Fentanyl Screen Ur Barbiturates Screen Ur Phencyclidine Scrn Ur Amphetamines Screen U Benzodiazepines Scrn Urine Cocaine Screen U Marijuana (THC) Screen Ethyl Alcohol < 10 Influenza Type A (PCR) NEGATIVE Influenza Type B (PCR) NEGATIVE RSV RNA Qual (PCR) NEGATIVE SARS-CoV-2 RNA (RT-PCR) NEGATIVE 01/02/24 01/02/24 05:05 05:57 MCV 86.5 MCH 26.6 L MCHC 30.8 L RDW 13.2 Plt Count 212 MPV 8.6 L Immature Gran % (Auto) 0.2 Neut % (Auto) 48.0 Lymph % (Auto) 39.0 [place] % (Auto) 7.1 Eos % (Auto) 5.2 H Baso % (Auto) 0.5 Lymph # (Auto) 2.3 [place] # (Auto) 0.4 Eos # (Auto) 0.3 Baso # (Auto) 0.0 Abs Immat Gran (auto) 0.01 Absolute Neuts (auto) 2.8 Absolute Nucleated RBC 0.000 Nucleated RBC % (auto) 0.0 Anion Gap 8 L Estim Creat Clear Calc 136.0 Estimated GFR > 60 Random Glucose 86 Calcium 8.1 L Magnesium Total Bilirubin 0.3 Direct Bilirubin AST 15 ALT 12 Alkaline Phosphatase 62 Total Creatine Kinase C-Reactive Protein Total Protein 5.8 L Albumin 3.2 L Lipase Urine Color Yellow Urine Appearance Clear Urine pH 7.0 Ur Specific [place] 1.020 Urine Protein Negative Urine Glucose (UA) Negative Urine Ketones Negative Urine Blood Negative Urine Nitrite Negative Ur Leukocyte Esterase Negative Urine Opiates Screen Not Detected Urine Fentanyl Screen Not Detected Ur Barbiturates Screen Not Detected Ur Phencyclidine Scrn Not Detected Ur Amphetamines Screen Not Detected U Benzodiazepines Scrn Not Detected Urine Cocaine Screen POSITIVE H U Marijuana (THC) Screen POSITIVE H Ethyl Alcohol Influenza Type A (PCR) Influenza Type B (PCR) RSV RNA Qual (PCR) SARS-CoV-2 RNA (RT-PCR) Assessment and Plan (1) Vertigo: Status: Acute Plan Ham Maderago 33 years old man with PMHx significant for chronic headache presents with: #. Vertigo: Continues to have dizziness with nausea. States also is having sensitivity to light. Will obtain MRI. #. Bradycardia: Patient found to be sinus [place] on the monitor and dropped to 40s overnight. No sinus pause or AV block. ?symptomatic contributing to dizziness but will rule out central etiology with MRI first #. Polysubstance use disorder: UDS positive for cocaine and marijuana. Monitor for withdrawal. Consulting Addiction Team Reason for continued hospitalization: Evaluation of persistent vertigo and rule out CVA with MRI. Close cardiac monitoring for patient with bradycardia. Unable to discharge as patient has continued symptoms Quality Stroke Does the patient have a stroke diagnosis?: No VTE Prior VTE?: No VTE Risk Level:: Medical - moderate - high VTE Device Contraindication: Treatment Not Indicated VTE Drug Contraindication: N/A - Med Ordered
[2024-01-02 11:04] VITALS: BP 106/69; PULSE 48; RESP 16; TEMP 36.6; O2SAT 98
[2024-01-02] MEDS: Enoxaparin Sodium 40 MG/0.4 ML SYRINGE SUBCUT (11:08)
[2024-01-02 11:20] LABS: Glucose, Whole Blood 86 mg/dL (60-115)
--- NOTE | 2024-01-02 12:09 | MHC.CM.PN ---
T/W MADE TWO SEPARATE ATTEMPTS TO SPEAK WITH PATIENT, WHO IS NOT RESPONDING. SUMMERS EXPLAINED AND LEFT BEDSIDE, ALONG WITH CONTACT CARD FOR THIS MICA PATCHER. PER REVIEW OF CHART, NO PCP OR HCP LISTED. KRISTOPHER 01/01 PLACED IN CHART
--- NOTE | 2024-01-02 14:14 | MHC.RECOVRN ---
T/W attempted to meet with pt for ACS consult/assessment due to referral being received. Pt would not wake to voice. Will attempt tomorrow.
[2024-01-02 15:58] VITALS: BP 100/62; PULSE 48; RESP 15; TEMP 37.2; O2SAT 98
[2024-01-02 20:00] VITALS: BP 107/58; PULSE 48; RESP 18; TEMP 36.3; O2SAT 98
[2024-01-02 23:42] VITALS: BP 107/64; PULSE 55; RESP 18; TEMP 36.7; O2SAT 98
[2024-01-03] MEDS: 0.9 % Sodium Chloride 1,000 ML 125 ML IVCONT ×2 (03:46→14:37)
[2024-01-03 04:00] VITALS: BP 103/67; PULSE 50; RESP 18; TEMP 36.7; O2SAT 98
[2024-01-03 08:00] VITALS: BP 100/56; PULSE 55; RESP 15; TEMP 37.1; O2SAT 98
[2024-01-03] MEDS: Enoxaparin Sodium 40 MG/0.4 ML SYRINGE SUBCUT (10:44)
--- NOTE | 2024-01-03 11:34 | P.CONCA_ITS ---
History of Present Illness History of Present Illness Date of Service: 01/03/24 Requesting physician: Clair Blackmon Chief complaint: Dizziness, bradycardia Narrative: [age] year gentleman presenting for vertigo and headache. He has been noticed to be bradycardic. Most of bradycardia is noticed when he is sleeping and his heart rate is in 40s. He is 33 years old and has been using marijuana daily for long time. He also is positive for cocaine was denying cocaine use. Denies chest pain or shortness of breath. We have been asked to assess him for his bradycardia. When he is awake his heart rate are in 60s at rest. Dizziness that he is describing is actually vertigo. [facility] Past Medical History Medical History Discharge from penis Lesion of penis Concern about STD in male without diagnosis Social History Social History Household Members: Family Housing: House Do you presently have visiting nurse or other home services: No Unable to assess alcohol history related to: Refusing to respond Alcohol intake: never Patient Tobacco Use Status: Current everyday Tobacco user Tobacco use type: Cigarette Cigarette Packs Per Day: 1 Cigarettes Per Day: 20.0 Substance Use Type: Marijuana service: No Meds Allergies Allergy/AdvReac Type Severity Reaction Status Date / Time No Known Allergies Allergy Verified 12/11/23 20:47 Active Medications: Current Medications Acetaminophen (Acetaminophen 325 Mg Tablet) 975 mg PO Q6H PRN PRN Reason: Headache Last Admin: 01/02/24 11:08 Dose: 975 mg Enoxaparin Sodium (Enoxaparin Sodium 40 Mg/0.4 Ml Syringe) 40 mg SUBCUT Q24H [facility] Last Admin: 01/03/24 10:44 Dose: 40 mg Sodium Chloride (Ns) 1,000 mls @ 125 mls/hr IVCONT .Q8H [facility] Last Admin: 01/03/24 03:46 Dose: 125 mls/hr Metoclopramide HCl (Metoclopramide Hcl 10 Mg/2 Ml Vial) 10 mg IVPUSH ONCE PRN PRN Reason: Nausea and Vomiting Sodium Chloride (0.9 % Sodium Chloride Flush 3 Ml Syringe) 3 ml IVFLUSH QSHIFT [facility] Last Admin: 01/03/24 08:31 Dose: Not Given Home Medications Medication Instructions Recorded Confirmed Last Taken Type No Known Home Meds 01/01/24 01/01/24 Unknown History Physical Exam 2 Vital Signs: Vital Signs: Last Vital Signs Temp 98.8 F 01/03/24 08:00 Pulse 55 01/03/24 08:00 Resp 15 01/03/24 08:00 BP 100/56 L 01/03/24 08:00 Pulse Ox 98 01/03/24 08:00 O2 Del Method Room Air 01/03/24 08:00 BMI result Body Mass Index 24.6 GENERAL APPEARANCE: in no acute distress, pleasant. NECK: no carotid bruit, no jugular venous distention. SKIN: no suspicious lesions, warm and dry. HEART: no murmurs, regular rate and rhythm. LUNGS: clear to auscultation bilaterally. ABDOMEN: soft, nontender. EXTREMITIES: no edema. PERIPHERAL PULSES: equal. NEUROLOGIC: No gross deficits, AAO X 3 Objective Labs and Meds 01/02/24 05:57 01/02/24 05:57 Lab results: Laboratory Results - last 24 hr 01/02/24 11:13 POC Glucose 86 Imaging Radiologist's impression: Impressions Brain MRI 01/02/24 15:25 IMPRESSION: No acute intracranial abnormality. Assessment and Plan (1) Bradycardia: Status: Acute Plan 33 gentleman presenting for headache and dizziness in the setting of cocaine and marijuana use. He is noticed to be bradycardic when he sleeping which is normal. When he is awake his heart rate is in 60s. No heart block is noticed. Continue to monitor closely. Bradycardia in sleep is normal due to high vagal tone. Abstinence from drugs. Signing off. Thank you for allowing me to participate in the care of your patient. Please feel free to contact me if you have any questions. Procedures Date of Service Date of Service: 01/03/24
[2024-01-03 11:56] VITALS: BP 103/58; PULSE 54; RESP 15; TEMP 36.5; O2SAT 97
--- NOTE | 2024-01-03 12:26 | MHC.RECOVRN ---
T/W attempted to meet with pt. following referral received for consult r/t cocaine use disorder. Pt is sleeping. He woke to voice but shook his head no when I introduced myself and said he was to tired. He agreed to a visit for tomorrow. Report to floor nurse Bozena and ACS team
[2024-01-03] MEDS: Ketorolac Tromethamine 30 MG/ML VIAL IVPUSH (13:08)
[2024-01-03] MEDS: diphenhydrAMINE HCL 50 MG/ML VIAL 25 MG IVPUSH (13:08)
[2024-01-03] MEDS: 0.9 % Sodium Chloride Flush 3 ML SYRINGE IVFLUSH (14:37)
--- NOTE | 2024-01-03 15:31 | P.PNIM_ITS ---
Subjective Subjective Date of Service: 01/03/24 Interval History: Patient continues to have dizziness with sensation of room spinning and sensitivity to light. States it is worse when he tries to move. No nausea Review of Systems All 12 systems were reviewed and normal except as noted in HPI. Constitutional Constitutional: Reports headache(s) ENT Ears, Nose, Mouth, and Throat: Reports vertigo, Reports dizziness and Reports headache(s) Cardiovascular Cardiovascular: Reports no additional cardiovascular complaints Respiratory Respiratory: Reports no additional respiratory complaints Gastrointestinal Gastrointestinal: Reports no additional gastrointestinal complaints Genitourinary Genitourinary: Reports no additional male genitourinary complaints Neurologic Neurologic: Reports vertigo, Reports dizziness and Reports headache(s) Physical Exam 2 Vital Signs: Vital Signs: Last Vital Signs Temp 97.7 F 01/03/24 11:56 Pulse 54 01/03/24 11:56 Resp 15 01/03/24 11:56 BP 103/58 L 01/03/24 11:56 Pulse Ox 97 01/03/24 11:56 O2 Del Method Room Air 01/03/24 11:56 BMI result Body Mass Index 24.6 Middle-aged male covered in blanket lying in bed Neck supple, no JVD Regular rate and rhythm, S1-S2 heard Regular breath sounds bilaterally, no wheezing or crackles appreciated Abdomen soft nontender, no guarding, no rigidity Patient is awake, alert and oriented to self, place, time and person ; no focal motor deficit Psych: Normal mood No pedal edema Objective Data Active Medications Acetaminophen (Acetaminophen 325 Mg Tablet) 975 mg PO Q6H PRN PRN Reason: Headache Last Admin: 01/02/24 11:08 Dose: 975 mg Documented By: ISAC Enoxaparin Sodium (Enoxaparin Sodium 40 Mg/0.4 Ml Syringe) 40 mg SUBCUT Q24H [facility] Last Admin: 01/03/24 10:44 Dose: 40 mg Documented By: ISAC Sodium Chloride (Ns) 1,000 mls @ 125 mls/hr IVCONT .Q8H [facility] Last Admin: 01/03/24 14:37 Dose: 125 mls/hr Documented By: ISAC Metoclopramide HCl (Metoclopramide Hcl 10 Mg/2 Ml Vial) 10 mg IVPUSH ONCE PRN PRN Reason: Nausea and Vomiting Sodium Chloride (0.9 % Sodium Chloride Flush 3 Ml Syringe) 3 ml IVFLUSH QSHIFT [facility] Last Admin: 01/03/24 14:37 Dose: 3 ml Documented By: ISAC Harrison 01/02/24 05:57 01/02/24 05:57 Assessment and Plan (1) Vertigo: Status: Acute Plan Ham Sy 33 years old man with PMHx significant for chronic headache presents with: #. Vertigo: MRI within normal limits. Continues to have symptoms with headache. States also is having sensitivity to light. Etilogy of vertigo: ?vestibular migraine vs BPPV vs other. Trial of meclizine, benadryl and NSAIDs. Consider neurology if symptoms continue. PT eval pending #. Bradycardia: Patient found to be sinus [place] on the monitor and dropped to 40s overnight. Consulted cardiology > no intervention needed. #. Polysubstance use disorder: UDS positive for cocaine and marijuana. Monitor for withdrawal. Consulted Addiction Team Reason for continued hospitalization: Evaluation and managment of persistent vertigo as above. Unable to discharge as patient has continued severe symptoms Quality Stroke Does the patient have a stroke diagnosis?: No VTE Prior VTE?: No VTE Risk Level:: Medical - moderate - high VTE Device Contraindication: Treatment Not Indicated VTE Drug Contraindication: N/A - Med Ordered
[2024-01-03 16:00] VITALS: BP 108/73; PULSE 51; RESP 16; TEMP 36.6; O2SAT 99
[2024-01-03] MEDS: Ibuprofen 600 MG TABLET PO (16:38)
[2024-01-03 19:44] VITALS: BP 105/60; PULSE 50; RESP 20; TEMP 36.6; O2SAT 98
[2024-01-03 23:52] VITALS: BP 109/64; PULSE 51; RESP 20; TEMP 36.4; O2SAT 97
[2024-01-04] VITALS (7 sets, daily range): BP systolic 101–111; BP diastolic 55–67; PULSE 56–73; RESP 16–20; TEMP 36.3–37.2; O2SAT 97–98
[2024-01-04 06:25] LABS: MANUAL DIFF FLAG NO
[2024-01-04 06:44] LABS: Basophils Percent Auto 0.3 % (0-2); Eosinophils Absolute Auto 0.2 X10*3/uL (0.0-0.4); Eosinophils Percent Auto 3.1 % (0-4); Hematocrit 41.2 % (42.0-52.0); Hemoglobin 12.9 g/dl (14.0-18.0); Imm Gran Abs Auto 0.01 X10*3/uL (0.00-0.03); Imm Gran Pct Auto 0.1 % (0.0-0.4); Lymphocytes Absolute Auto 1.2 X10*3/uL (1.2-4.9); Lymphocytes Percent Auto 16.3 % (20-40); Mean Corpuscular HGB Conc 31.3 g/dl (31.0-36.0); Mean Corpuscular Hemoglobin 26.3 pg (27.0-33.0); Mean Corpuscular Volume 83.9 fL (80.0-98.0); Mean Platelet Volume 8.6 fL (9.4-12.4); Monocytes Absolute Auto 0.5 X10*3/uL (0.1-1.2); Neutrophils Absolute Auto 5.2 x10*3/uL (2.0-8.3); Neutrophils Percent Auto 73.2 % (45-73); Platelet Count 229 X10*3/uL (160-400); Red Blood Count 4.91 X10*6/uL (4.60-5.80); Red Cell Distribution Width 12.8 % (11.0-16.0); White Blood Count 7.1 X10*3/uL (4.8-10.8)
[2024-01-04 07:10] LABS: Anion Gap 10 (12-20); Blood Urea Nitrogen 13 mg/dL (9-16); Calcium 8.7 mg/dL (8.4-10.2); Carbon Dioxide 27 mmol/L (22-29); Chloride 106 mmol/L (96-108); Creatinine Clr Calc Pharmacy 122.8; Estimated Glomerular Filt Rate > 60; Glucose Random 151 mg/dL (60-115); Potassium 3.7 mmol/L (3.3-5.1); Sodium 139 mmol/L (135-145)
--- NOTE | 2024-01-04 08:59 | HO.PM.IMPN ---
Subjective Subjective Date of Service: 01/04/24 Interval History: Patient continues to have dizziness with sensation of room spinning and sensitivity to light. States it is worse when he tries to move. No nausea Review of Systems All 12 systems were reviewed and normal except as noted in HPI. Constitutional Constitutional: Reports headache(s) ENT Ears, Nose, Mouth, and Throat: Reports vertigo, Reports dizziness and Reports headache(s) Cardiovascular Cardiovascular: Reports no additional cardiovascular complaints Respiratory Respiratory: Reports no additional respiratory complaints Gastrointestinal Gastrointestinal: Reports no additional gastrointestinal complaints Genitourinary Genitourinary: Reports no additional male genitourinary complaints Neurologic Neurologic: Reports vertigo, Reports dizziness and Reports headache(s) Physical Exam Vital Signs: Vital Signs: Last Vital Signs Temp 98.5 F 01/04/24 08:00 Pulse 65 01/04/24 08:00 Resp 20 01/04/24 08:00 BP 109/63 01/04/24 08:00 Pulse Ox 98 01/04/24 08:00 O2 Del Method Room Air 01/04/24 08:00 BMI result Body Mass Index 24.6 Appearing in no acute distress lung sounds are clear to auscultation heart regular rate rhythm, clear S1, S2 positive bowel sounds, abdomen is soft, nontender neuro patient is alert x3, no focal deficits Objective Data Active Medications Acetaminophen (Acetaminophen 325 Mg Tablet) 975 mg PO Q6H PRN PRN Reason: Headache Last Admin: 01/02/24 11:08 Dose: 975 mg Documented By: ISAC Diphenhydramine HCl (Diphenhydramine Hcl 25 Mg Capsule) 25 mg PO Q6H PRN PRN Reason: Vertigo Enoxaparin Sodium (Enoxaparin Sodium 40 Mg/0.4 Ml Syringe) 40 mg SUBCUT Q24H [facility] Last Admin: 01/03/24 10:44 Dose: 40 mg Documented By: ISAC Meclizine HCl (Meclizine Hcl 25 Mg Tablet) 25 mg PO Q6H PRN PRN Reason: Vertigo Metoclopramide HCl (Metoclopramide Hcl 10 Mg/2 Ml Vial) 10 mg IVPUSH ONCE PRN PRN Reason: Nausea and Vomiting Sodium Chloride (0.9 % Sodium Chloride Flush 3 Ml Syringe) 3 ml IVFLUSH QSHIFT [facility] Last Admin: 01/04/24 02:46 Dose: Not Given Documented By: NUHA Non-Admin Reason: Previously Administered Labs 01/04/24 05:51 01/04/24 05:51 Labs: Laboratory Results - last 24 hr 01/04/24 05:51 MCV 83.9 MCH 26.3 L MCHC 31.3 RDW 12.8 Plt Count 229 MPV 8.6 L Immature Gran % (Auto) 0.1 Neut % (Auto) 73.2 H Lymph % (Auto) 16.3 L [place] % (Auto) 7.0 Eos % (Auto) 3.1 Baso % (Auto) 0.3 Lymph # (Auto) 1.2 [place] # (Auto) 0.5 Eos # (Auto) 0.2 Baso # (Auto) 0.0 Abs Immat Gran (auto) 0.01 Absolute Neuts (auto) 5.2 Absolute Nucleated RBC 0.000 Nucleated RBC % (auto) 0.0 Anion Gap 10 L Estim Creat Clear Calc 122.8 Estimated GFR > 60 Random Glucose 151 H Calcium 8.7 D Assessment and Plan (1) Vertigo: Status: Acute [facility] 33 [facility] with PMHx significant for chronic headache and complaining Vertigo with headache MRI within normal limits. Continues to have symptoms with headache. States also is having sensitivity to light. Etilogy of vertigo> ?vestibular migraine vs BPPV vs other. continue meclizine, benadryl and NSAIDs. pt has been refusing medications and PT, discussed with pt re the importance of treatment to reduce symptoms neurology consult pending PT eval pending Bradycardia Patient found to be sinus [place] on the monitor and dropped to 40s overnight. Consulted cardiology > no intervention needed. Polysubstance use disorder UDS positive for cocaine and marijuana. Monitor for withdrawal. recovery team following DVT prophylaxis with Lovenox Attending Dr. Rodriguez Full code Reason for continued hospitalization Evaluation and management of persistent vertigo as above. Unable to discharge as patient has continued severe symptoms Quality Stroke Does the patient have a stroke diagnosis?: No VTE Prior VTE?: No VTE Risk Level:: Medical - moderate - high VTE Device Contraindication: Treatment Not Indicated VTE Drug Contraindication: N/A - Med Ordered
--- NOTE | 2024-01-04 10:13 | MHC.CM.PN ---
Addendum entered by Preeti Mullins 01/04/24 10:14: DCP TBD, THUS FAR PT HAS DECLINED TO WORK WITH PT OR CM. CM FOLLOWING FOR DC NEEDS Original Note: PER MD ROUNDS, PT WILL HAVE A NEURO CONSULT DUE TO ONGOING C/O DIZZINESS.
[2024-01-04] MEDS: Meclizine HCl 25 MG TABLET PO (10:24)
[2024-01-04] MEDS: Butalb/Acetamin/Caff 50/325/40 TABLET 1 TAB PO (10:24)
[2024-01-04] MEDS: Enoxaparin Sodium 40 MG/0.4 ML SYRINGE SUBCUT (10:25)
[2024-01-04] MEDS: 0.9 % Sodium Chloride Flush 3 ML SYRINGE IVFLUSH (10:26)
[2024-01-04] MEDS: Acetaminophen 325 MG TABLET 975 MG PO ×2 (12:17→21:20)
--- NOTE | 2024-01-04 12:45 | P.CNNE_ITS ---
History of Present Illness Data of Consult Service Date: 01/04/24 Primary Care Provider: None Physician [facility] Reason for consult: Dizziness 33 years old man came to hospital with 3-4 days of headache and dizziness that he described as word ago type of feeling. His initial evaluation included normal head CT but is drug testing was positive for cocaine. There was no obvious infection but he had a lumbar puncture done that revealed normal CSF. He was complaining of feeling cold and chills. Light made his headaches worse Review of Systems 2 Review of Systems: As described [facility] Past Medical History Medical History Discharge from penis Lesion of penis Concern about STD in male without diagnosis Social History Social History Household Members: Family Housing: House Do you presently have visiting nurse or other home services: No Unable to assess alcohol history related to: Refusing to respond Alcohol intake: never Patient Tobacco Use Status: Current everyday Tobacco user Tobacco use type: Cigarette Cigarette Packs Per Day: 1 Cigarettes Per Day: 20.0 Substance Use Type: Marijuana service: No Meds Allergies Allergy/AdvReac Type Severity Reaction Status Date / Time No Known Allergies Allergy Verified 12/11/23 20:47 Active Medications: Current Medications Acetaminophen (Acetaminophen 325 Mg Tablet) 975 mg PO Q6H PRN PRN Reason: Headache Last Admin: 01/04/24 12:17 Dose: 975 mg Acetaminophen/Butalbital/Caffeine (Butalb/Acetamin/Caff 50/325/40 Tablet) 1 tab PO Q4H PRN PRN Reason: Headache Last Admin: 01/04/24 10:24 Dose: 1 tab Diphenhydramine HCl (Diphenhydramine Hcl 25 Mg Capsule) 25 mg PO Q6H PRN PRN Reason: Vertigo Enoxaparin Sodium (Enoxaparin Sodium 40 Mg/0.4 Ml Syringe) 40 mg SUBCUT Q24H [facility] Last Admin: 01/04/24 10:25 Dose: 40 mg Meclizine HCl (Meclizine Hcl 25 Mg Tablet) 25 mg PO Q6H PRN PRN Reason: Vertigo Last Admin: 01/04/24 10:24 Dose: 25 mg Metoclopramide HCl (Metoclopramide Hcl 10 Mg/2 Ml Vial) 10 mg IVPUSH ONCE PRN PRN Reason: Nausea and Vomiting Sodium Chloride (0.9 % Sodium Chloride Flush 3 Ml Syringe) 3 ml IVFLUSH QSHIFT [facility] Last Admin: 01/04/24 10:26 Dose: 3 ml Home Medications Medication Instructions Recorded Confirmed Last Taken Type No Known Home Meds 01/01/24 01/01/24 Unknown History Physical Exam 2 Vital Signs: Vital Signs: Last Vital Signs Temp 98.9 F 01/04/24 11:02 Pulse 59 01/04/24 11:02 Resp 20 01/04/24 11:02 BP 105/64 01/04/24 11:02 Pulse Ox 98 01/04/24 11:02 O2 Del Method Room Air 01/04/24 11:02 BMI result Body Mass Index 24.6 Neuro: Other: Alert and awake with normal spontaneity of speech fluency comprehension and affect. He was very uncomfortable with light and I could not examine his eyes. Face was symmetrical. Visual lovett were okay. There was no nystagmus. Deep tendon reflexes were trace to 1+ with flexor plantars. Speech was normal. Results Labs 01/04/24 05:51 01/04/24 05:51 Labs: Short CBC 01/04/24 Range/Units 05:51 WBC 7.1 (4.8-10.8) X10*3/uL Hgb 12.9 L (14.0-18.0) g/dl Hct 41.2 L (42.0-52.0) % Plt Count 229 (160-400) X10*3/uL BMP 01/04/24 05:51 Sodium 139 Potassium 3.7 Chloride 106 Carbon Dioxide 27 BUN 13 Creatinine 0.82 Calcium 8.[address] and brain MRI did not reveal any significant abnormality. CSF was cleaned Assessment and Plan (1) Dizziness: Status: Acute 33 years old man with 3-4 days of headache with word ago with nonfocal examination, no CSF, and tox screen positive for cocaine. This might be drug related symptomatology but could also be migraine. I would consider treating him for migraine and suggest starting him on topiramate 25 mg daily and as needed sumatriptan. He should stop using drugs especially cocaine type of drugs which could result in strokes. Procedures Date of Service Date of Service: 01/04/24
--- NOTE | 2024-01-04 15:16 | MHC.CM.PN ---
EMR REVIEWED, PER HOSPITALIST PT WILL BE CLEARED FOR DC TOMORROW 01/04, PER MEDICAL RECORD PT DOES NOT HAVE ACTIVE INSURANCE, REFERRAL FAXED TO [facility]. CM WILL CONT TO FOLLOW.
--- NOTE | 2024-01-04 16:23 | MHC.CM.PN ---
Cm met w/pt to let him know a referral was faxed to [facility] as it appears his [employer] is not active and pt is here as self-pay, pt reported he would speak to [facility] when they come up to see pt. Cm also let pt know he will be cleared for dc tomorrow and pt reports he has a place to go and a ride and does not need assistance w/transport. Cm will cont to follow dc needs however w/no insurance/pcp/not home bound pt does not qualify for services.
--- NOTE | 2024-01-04 21:25 | PC.NURSE ---
Assumed care of patient at 19:00. Patient is A&Ox4. Pt accidentally pulled out his IV this evening and asked for it to not be replaced if possible. Plan per nursing handoff report is for patient to tentatively discharge tomorrow. Discussed patient request to defer IV with covering Dr. Blackmon, with MD hope to defer IV replacement at this time. Pt denies acute complaints. VSS. Plan of care continues.
[2024-01-05 03:19] VITALS: BP 112/62; PULSE 65; RESP 20; TEMP 36.4; O2SAT 98
[2024-01-05 07:41] VITALS: BP 111/71; PULSE 56; RESP 20; TEMP 36.3; O2SAT 98
--- NOTE | 2024-01-05 08:52 | MHC.RECOVRN ---
Pt declines to meet with [facility]. T/w available if needed at a later time.
[2024-01-05] MEDS: Topiramate 25 MG TABLET PO (10:18)
[2024-01-05] MEDS: Enoxaparin Sodium 40 MG/0.4 ML SYRINGE SUBCUT (10:19)
[2024-01-05 11:08] VITALS: BP 114/73; PULSE 95; RESP 20; TEMP 36.8; O2SAT 99
--- NOTE | 2024-01-05 12:07 | PM.DS ---
DS: Providers Provider Date of Service: 01/05/24 Date of admission: 01/01/24 19:42 Primary care physician: None Physician Consults: 01/02/24 09:42 Addiction Medicine Routine Consulting Provider: Addiction Covering Reason for consultation: cocaine use disorder 01/03/24 09:14 Consult to Cardiology Routine Consulting Provider: [facility] Reason for consultation: ?symptomatic bradycardia 01/04/24 08:58 Consult to Neurology Routine Consulting Provider: [facility] Reason for consultation: dizziness DS: Diagnosis Discharge Diagnosis (1) Dizziness: Status: Acute DS: Summary Hospital Course Hospital Course: History and physical as per admitting provider. Ham yS 33 years old man with no significant past medical history presented to the emergency department complaining of frontal headache since yesterday associated with nausea and dizziness. Dizziness described as spinning sensation and increases with movement. He denied any event of vomiting or diarrhea. He also been abdominal pain. He denied any chest pain or shortness on breath. He has been in the emergency department for about 9 hours and has not urinate. According to nursing patient had event of bradycardia. Patient denied alcohol abuse and denied illicit drug use. He does smoke tobacco. Chart review: Urine drug screen (July 2023): Positive for opiates, fentanyl, cocaine and marijuana. There is reported history of chronic headache. In the ED, he was found to have normal vital signs. Blood workup including CBC and CMP are remarkable for elevated pCO2. Abdominal ultrasound showed no findings of appendicitis. ED tx: Zofran 4 mg IV sibling, acetaminophen 650 mg p.o., Motrin 600 mg p.o., anterior 12.5 mg p.o. (Valium ordered but not given due to event of bradycardia) Despite the above treatment patient versus with symptoms. 33-year-old man treated for vertigo secondary to migraine headache. MRI was negative for any acute abnormality, seen and evaluated by Physical therapy with recommendation for home. Seen evaluated by Neurology with recommendation to treat migraine headache with Topamax. Educated on the importance of stop being using street drugs just cocaine that could lead to a stroke. He had some episodes of bradycardia overnight, seen and evaluated by Cardiology, to be related to basal tone overnight no further workup needed. Patient seems to be doing better and he should follow-up with his primary care provider. Time Attestation Discharge Coordination Time (in mins): 32 Quality: Safe Use of Opioids Does Pt have an Active Cancer Diagnosis on the Problem List?: No Quality: Stroke Does the patient have a stroke diagnosis?: No Physical Exam Vital Signs: Vital Signs: Last Vital Signs Temp 98.3 F 01/05/24 11:08 Pulse 95 01/05/24 11:08 Resp 20 01/05/24 11:08 BP 114/73 01/05/24 11:08 Pulse Ox 99 01/05/24 11:08 O2 Del Method Room Air 01/05/24 11:08 BMI result Body Mass Index 24.6 Appearing in no acute distress head is normocephalic atraumatic eyes pupils are PERRLA sclera is anicteric mouth throat mucous membranes are intact and moist neck is supple no lymphadenopathy, no JVD noted lung sounds are clear to auscultation heart regular rate rhythm, clear S1, S2 positive bowel sounds, abdomen is soft, nontender neuro patient is alert x3, no focal deficits Discharge Plan Discharge Anticipated Discharge Date/Time: 01/05/24 12:05 Patient Disposition: Home, Self-Care Discharge Diagnosis: migraine headache dizziness Referrals: Physician,None [Primary Care Provider] - 1 Week Discharge Medications: New sumatriptan succinate 25 mg Tablet 25 mg PO DAILY PRN (Reason: Migraine Headache) Qty: 7 0RF topiramate 25 mg Tablet 25 mg PO DAILY Qty: 7 0RF Discharge Orders: Discharge Order (Routine); Ordered 01/05/24 Ordered By: Sandy Macdonald Diet: Advance to usual diet Activity on Discharge: As tolerated Stand Alone Forms: Patient Portal Discharge page Care Plan Goals: Stop using street drugs Health Concerns: migraine headache dizziness Plan of Treatment: Follow-up with primary care provider as needed Take all medications as prescribed Assessment: See discharge summary
--- NOTE | 2024-01-05 12:41 | PC.NURSE ---
Patient pacing in hallway stating that he is anxious and needs to be discharged immediately. Mother here to pick patient up and unable to help calm him down. Behavior started when the mother arrived. Otherwise patient has been sleeping, calm and cooperative all day. No IV access, patient pulled out last night. Discharge instructions given to patient. Patient signed and had no interest in listening to instructions at this time. Brought down to security to get belongings in decom.
--- NOTE | 2024-01-05 13:32 | MHC.CM.PN ---
Pt is medically cleared for D/C home self-care, pt has his own transportation.
== END 2024-01-05 12:38 | disposition home or self-care (01) ==
LOC: HO.ED 19:27 → HO.EDOVER 19:48 → HO.IMC 21:31
PROVIDERS: Physician Assistant Medical; Student in an Organized Health Care Education/Training Program; Admitting Provider Internal Medicine; Emergency Provider Emergency Medicine; Visit Provider Nurse Practitioner Acute Care
DX: R42 Dizziness and giddiness (principal); R51.9 Headache, unspecified; R79.81 Abnormal blood-gas level; R00.1 Bradycardia, unspecified; R10.31 Right lower quadrant pain; R53.83 Other fatigue; F19.90 Other psychoactive substance use, unspecified, uncomplicated; Z87.19 Personal history of other diseases of the digestive system; Z11.52 Encounter for screening for COVID-19; Z20.828 Contact with and (suspected) exposure to other viral communicable diseases
CPT/HCPCS: 0241U; 36415; 70450; 70551; 76705; 80048; 80053; 80076; 80307; 81003; 82550; 82947; 83690; 83735; 85025; 86140; 93005; 96361; 96372; 96374; 96375; 96376; 97161; 99222; 99285; J1200; J1650; J1885

== ENCOUNTER → 2024-01-01 19:42 | Outpatient (BNV) | payer SELFPAY | PROVIDERS: Admitting Provider Internal Medicine; Emergency Provider Emergency Medicine; Visit Provider Psychiatry & Neurology Neurology | DX: R42 Dizziness and giddiness (principal) | CPT/HCPCS: 99222 ==

== ENCOUNTER → 2024-01-01 19:42 | Outpatient (BNV) | payer MEDICAID, SELFPAY | PROVIDERS: Admitting Provider Internal Medicine; Emergency Provider Emergency Medicine; Visit Provider Internal Medicine | DX: R42 Dizziness and giddiness (principal) | CPT/HCPCS: 99223; 99232; 99239 ==

== ENCOUNTER → 2024-01-01 19:42 | Outpatient (BNV) | payer SELFPAY | PROVIDERS: Admitting Provider Internal Medicine; Emergency Provider Emergency Medicine; Visit Provider Internal Medicine Cardiovascular Disease | DX: R00.1 Bradycardia, unspecified (principal) | CPT/HCPCS: 93010; 99222 ==

== ENCOUNTER 2024-10-30 02:43 | Inpatient (IN) | payer OTHER, SELFPAY ==
[2024-10-30] VITALS (7 sets, daily range): BP systolic 105–170; BP diastolic 66–101; PULSE 70–98; RESP 16–18; TEMP 36.9–37.4; O2SAT 95–100; BMI 28.8
--- NOTE | ~2024-10-30 | FL_ITS ---
FLUOROSCOPIC LEFT HIP INTRA-ARTICULAR STEROID INJECTION INDICATIONS: Left hip pain. Inflammatory arthritis. Rheumatology requests intra-articular left hip steroid injection. PROCEDURE: Risks and benefits and possible complications were discussed with the patient and the consent form was signed. The patient was placed hip on the fluoroscopy table. The left hip was prepped and draped in normal sterile fashion. 1% buffered lidocaine was used for anesthesia. A 22-gauge spinal needle was used to access the hip joint. Intra-articular position of the needle within the hip joint was verified using 3 cc of Omnipaque 300. A total of 5 cc 1% lidocaine and 80 mg DepoMedrol was then injected into the hip joint. The needle was then removed and a Band-Aid was applied to the injection site. The patient tolerated the procedure well. There were no immediate complications. FL/FL guided asp or inj major jt IMPRESSION: Successful fluoroscopic left hip intra-articular steroid injection. The procedure was performed by Mark Vargas PA-C, and directly supervised by Dr. Gonzalez. Electronically signed by: Farhad Gonzalez MD 11/07/2024 03:34 PM [facility]
--- NOTE | ~2024-10-30 | FL_ITS ---
FLUOROSCOPIC LEFT HIP ASPIRATION Indications: Left hip pain. Left hip effusion is seen on CT. Orthopedic service requests an aspiration. Procedure: Risks and benefits and possible complications were discussed with the patient and the consent form was signed. The patient was placed hip on the fluoroscopy table. The left hip was prepped and draped in normal sterile fashion. 1% buffered lidocaine was used for anesthesia. A 22-gauge spinal needle was used to access the hip joint. A total of 10 cc of turbid yellow fluid was aspirated and sent for requested analysis. Intra-articular position of the needle within the hip joint was verified using 3 cc of Omnipaque 300. The needle was then removed and a Band-Aid was applied to the injection site. The patient tolerated the procedure well. There were no immediate complications. FL/FL guided asp or inj major jt Impression: Successful fluoroscopic left hip aspiration obtaining 10 cc of turbid yellow fluid. The procedure was performed by Mark Vargas PA-C, and directly supervised by Dr. Acuña. Electronically signed by: Higinio Acuña MD 10/31/2024 03:29 PM [facility] [place]
--- NOTE | ~2024-10-30 | XR_ITS ---
EXAMINATION: XR SACROILIAC JOINT 3 OR MORE VIEWS HISTORY: b/l SI joint COMPARISON: There are no prior studies for comparison. FINDINGS: Four views of the bilateral sacroiliac joints are submitted. There is mild sclerosis about both sacroiliac joints. The joint margins are somewhat ill-defined with possible small erosions noted. The soft tissues are unremarkable. XR/XR sacroiliac joint min 3V IMPRESSION: Findings suggestive of bilateral sacroiliitis as described. Electronically signed by: Woodrow Prabhakar MD 11/02/2024 11:52 AM [facility]
--- NOTE | ~2024-10-30 | XR_ITS ---
CLINICAL HISTORY: Left hip pain AP pelvis, Two views of the left hip. COMPARISON: CT left hip dated 10/30/24 at 09:06 EST FINDINGS: Pelvic ring appears intact. Contrast present within the urinary bladder. Spina bifida occulta present at S1. Visualized portions of the contralateral right hip appear intact. Left hip: Visualized portions of the proximal left femur appears intact. No trabecular disruption or cortical discontinuity. Femoral head is appropriately seated in the acetabulum. IMPRESSION: 1. No radiographic evidence of acute injury to the pelvis and left hip. This document has been electronically signed by: Fernando Hart MD on 10/30/2024 14:09:23
--- NOTE | ~2024-10-30 | CT_ITS ---
CLINICAL HISTORY: History of hip infection and effusion CT of the left hip with contrast Comparison: None Findings: There is a left hip joint effusion. The bones are intact. IMPRESSION: Left hip joint effusion. This document has been electronically signed by: Santiago Rosenbaum MD on 10/30/2024 09:59:38
--- NOTE | ~2024-10-30 | XR_ITS ---
EXAMINATION: XR LUMBAR SPINE 4 OR MORE VIEWS HISTORY: hip pain COMPARISON: Comparison is made with the prior examination dated 08/08/2023. FINDINGS: AP, lateral, bilateral oblique, and coned down views of the lumbar spine are submitted. Osseous mineralization is normal. Five nonrib-bearing lumbar vertebral bodies are identified, maintaining normal height without evidence of fracture or spondylolisthesis. There is mild leftward curvature. There is mild disc space narrowing at the L5-S1 level. There is no spondylolysis. The posterior elements are intact. The visualized paraspinal soft tissues are unremarkable. XR/XR lumbar spine 4V min IMPRESSION: Mild leftward curvature. Mild degenerative disc disease at L5-S1. No evidence of spondylolysis or spondylolisthesis. Electronically signed by: Woodrow Prabhakar MD 11/02/2024 11:42 AM [facility]
--- NOTE | 2024-10-30 02:57 | PC.NURSE ---
pt biba from home, a&ox4, respirations coral and unlabored. pt reporting left sided hip pain 08/04 starting today. pt reports he has had recent infections in the hip in which he has had drained, unsure when last drainage was. pt reports he is unable to move leg. cms in tact at this time. pt denies n/v/d. pt reports his insurance did not cover the medications he was discharged with from the hospital. vss.
[2024-10-30 03:42] LABS: Basophils Percent Auto 0.2 % (0-2); Eosinophils Absolute Auto 0.1 X10*3/uL (0.0-0.4); Eosinophils Percent Auto 0.9 % (0-4); Hematocrit 30.6 % (42.0-52.0); Imm Gran Abs Auto 0.03 X10*3/uL (0.00-0.03); Imm Gran Pct Auto 0.2 % (0.0-0.4); Lymphocytes Absolute Auto 1.7 X10*3/uL (1.2-4.9); Lymphocytes Percent Auto 13.6 % (20-40); MANUAL DIFF FLAG NO; Mean Corpuscular HGB Conc 32.7 g/dl (31.0-36.0); Mean Corpuscular Hemoglobin 25.7 pg (27.0-33.0); Mean Corpuscular Volume 78.7 fL (80.0-98.0); Mean Platelet Volume 7.8 fL (9.4-12.4); Monocytes Absolute Auto 0.8 X10*3/uL (0.1-1.2); Monocytes Percent Auto 6.6 % (2-11); Neutrophils Absolute Auto 9.5 x10*3/uL (2.0-8.3); Neutrophils Percent Auto 78.5 % (45-73); Platelet Count 319 X10*3/uL (160-400); Red Blood Count 3.89 X10*6/uL (4.60-5.80); Red Cell Distribution Width 14.3 % (11.0-16.0); White Blood Count 12.1 X10*3/uL (4.8-10.8)
[2024-10-30 03:57] LABS: Alanine Aminotransferase 25 U/L (0-40); Albumin Level 3.3 g/dL (3.5-5.0); Alkaline Phosphatase 84 U/L (39-117); Anion Gap 15 (12-20); Aspartate Amino Transferase 19 U/L (5-37); Bilirubin Total 0.3 mg/dL (0.0-1.0); Blood Urea Nitrogen 13 mg/dL (9-16); Calcium 8.2 mg/dL (8.4-10.2); Carbon Dioxide 21 mmol/L (22-29); Chloride 106 mmol/L (96-108); Estimated Glomerular Filt Rate > 60; Glucose Random 111 mg/dL (60-115); Potassium 3.9 mmol/L (3.3-5.1); Sodium 138 mmol/L (135-145); Total Protein 7.2 g/dL (6.5-8.0)
--- NOTE | 2024-10-30 06:21 | PC.NURSE ---
pt shouting in pain and for a provider at this time, pt offered tylenol and ibuprofen, pt refused at this time.
--- NOTE | 2024-10-30 07:18 | ED.LOWEXIN ---
HPI - Extremity Injury (Lower) General Chief Complaint: Extremity Injury, Lower Stated Complaint: left hip drained of fluid/ pain Time Seen by Provider: 10/30/24 07:05 Source: patient and EMS Mode of arrival: EMS Limitations: no limitations History of Present Illness ED Provider: DR. Duque HPI Narrative: 34-year-old male came in for evaluation of severe left hip pain radiates to the groin area for 2 days. Positive chills no fever, severe left lower extremity pain unable to move it because severe pain. Patient had a history of left hip effusion required hospitalization on IV antibiotic, no surgical left hip wash out was required, no trauma to the left hip, no fall, patient declined history of IV drug abuse. Related Data Previous Rx's ?Medication ?Instructions ?Recorded sumatriptan succinate 25 mg tablet 25 mg PO DAILY PRN Migraine 01/05/24 Headache #7 tabs topiramate 25 mg tablet 25 mg PO DAILY #7 tabs 01/05/24 Allergies Allergy/AdvReac Type Severity Reaction Status Date / Time No Known Allergies Allergy Verified 10/30/24 02:54 Review of Systems Review of Systems: All other systems are reviewed and are negative Constitutional: Reports as per HPI and Reports no additional constitutional complaints Eyes: Reports as per HPI and Reports no additional eye complaints Reports system reviewed and no additional complaints, except as documented Cardiovascular: Reports as per HPI and Reports no additional cardiovascular complaints Respiratory: Reports as per HPI and Reports no additional respiratory complaints Gastrointestinal: Reports as per HPI and Reports no additional gastrointestinal complaints Genitourinary: Reports no additional female genitourinary complaints Musculoskeletal: Reports no additional musculoskeletal complaints Skin/Breast: Reports system reviewed and no additional complaints, except as docu Psychiatric: Reports no additional psychiatric complaints Endocrine: Reports no additional endocrine complaints Hematologic/Lymphatic: Reports no additional hematologic/lymphatic complaints Allergic/Immunologic: Reports no additional allergic/immunologic complaints Reports system reviewed and no additional complaints, except as documented and Reports Abnormal speech present PMFSH Past Medical History Medical History Discharge from penis Lesion of penis Concern about STD in male without diagnosis Social History Social History Household Members: Family Housing: House Do you presently have visiting nurse or other home services: No Unable to assess alcohol history related to: Refusing to respond Alcohol intake: never Comment: pt here for dizziness; refuses high falls measures. asked to call staff for Patient Tobacco Use Status: Current everyday Tobacco user Tobacco use type: Cigarette Cigarette Packs Per Day: 1 Cigarettes Per Day: 20.0 Smoked in Last 30 Days: No Use of substances other than those prescribed or required for medical reasons: No Substance Use Type: Marijuana Advance Directives: No Do you have a plan to hurt others: No Plan service: No Physical Exam Vital Signs: Vital Signs: Last Vital Signs Temp 98.5 F 10/30/24 09:24 Pulse 70 10/30/24 09:24 Resp 18 10/30/24 09:24 BP 111/71 10/30/24 09:24 Pulse Ox 95 10/30/24 09:24 O2 Del Method Room Air 10/30/24 09:24 BMI result Body Mass Index 28.8 Vital signs have been reviewed and appear to be correct. Blood pressure elevated. Heart rate normal. Respiratory rate normal. Temperature normal. Oxygen saturation normal. Appearance: Alert. Oriented X3. No acute distress. Head: Normal external exam. Normocephalic. Atraumatic. No Warren signs noted. No raccoon eyes noted Eyes: PERRLA. EOMI. Conjunctiva and sclera normal. Eyelids normal. ENT: TM's Normal. Pharynx normal. Uvula midline. Moist mucous membranes. No trismus noted. No drooling noted. No muffled voice noted. Neck: Normal inspection. Neck supple. FROM. No adenopathy. Thyroid Normal. No meningeal signs. No neck mass noted. CVS: Normal heart rate and rhythm. Heart sound normal. No murmurs noted. Pulses normal throughout. Respiratory: No respiratory distress. Painless inspiration. Breath sounds normal. No wheezes/rales/rhonchi noted. Chest nontender. No accessory muscle usage noted or decreased air movement noted. Abdomen: Soft and nontender. Bowel sounds normal in all 4 quadrants. No distention noted. No organomegaly noted. No visible injury noted. Back: No CVA tenderness. Full range of motion noted. Skin: Skin warm and dry. Normal skin color. Normal skin turgor. No rashes/lesions/lacerations noted. Extremities: Left hip exam: Diffuse tenderness to touch, limited range of motion due to pain, no redness, no hotness, no deformity, intact left femoral artery pulsation. : No testicular swelling or tenderness, cremasteric reflex is intact. Neuro: Oriented X 3. Cranial nerve exam: II-XII are grossly intact No motor deficit. No sensory deficit. Reflexes normal. Course Reevaluation(s) Reevaluation #1: Left hip severe pain due to left hip effusion. Elevated all inflammatory marker including WBCs, sed rate, CRP, no redness or cellulitic change of the left hip. Empiric coverage with Zosyn. Pain control. Check for STD/Lyme disease. Ortho consult, case discussed with Jeremy HEDRICK. Admit to medical service. Time: 10:31 Medications Administered Discontinued Medications Generic Name Dose Route Start Last Admin Trade Name Vladimirq PRN Reason Stop Dose Admin Hydromorphone HCl 1 mg 10/30/24 07:14 10/30/24 08:04 Hydromorphone Hcl 1 Mg/Ml Syringe IVPUSH 10/30/24 07:15 1 mg ONCE ONE Administration Protocol Piperacillin Sod/Tazobactam 50 mls @ 100 mls/hr 10/30/24 07:14 10/30/24 08:37 Sod 3.375 gm/ Sodium Chloride IV 10/30/24 07:43 Infused ONCE ONE Infusion Sodium Chloride 1,000 mls @ 999 mls/hr 10/30/24 07:17 10/30/24 09:05 Ns IV 10/30/24 08:17 Infused .Q1H1M ONE Infusion Iohexol 85 ml 10/30/24 09:29 10/30/24 09:29 Iohexol 350 Mg/Ml 75 Ml Infus..Btl IV 10/30/24 09:30 85 ml ONCE ONE Administration Medical Decision Making Differential Diagnosis Differential Diagnoses: The differential diagnosis associated with the presentation includes (Left hip fracture, left hip effusion, septic joint, Lyme disease, STD.) Admission/Observation Consideration of admission/observation: Escalation of care including admission/observation considered Consult Healthcare Provider Management of the patient was discussed with: Hospitalist (Dr. Sanchez) and Metal Furniture Polisher (FLORIDALMA [place].) Lab Data MDM Lab Attestation statement: I reviewed the patient's lab results. 10/30/24 03:37 10/30/24 03:37 Labs: Lab Results 10/30/24 10/30/2425 Range/Units 03:37 08:03 08:04 WBC 12.1 H (4.8-10.8) X10*3/uL RBC 3.89 L D (4.60-5.80) X10*6/uL Hgb 10.0 L D (14.0-18.0) g/dl Hct 30.6 L D (42.0-52.0) % MCV 78.7 L (80.0-98.0) fL MCH 25.7 L (27.0-33.0) pg MCHC 32.7 (31.0-36.0) g/dl RDW 14.3 (11.0-16.0) % Plt Count 319 D (160-400) X10*3/uL MPV 7.8 L (9.4-12.4) fL Immature Gran % (Auto) 0.2 (0.0-0.4) % Neut % (Auto) 78.5 H (45-73) % Lymph % (Auto) 13.6 L (20-40) % [place] % (Auto) 6.6 (2-11) % Eos % (Auto) 0.9 (0-4) % Baso % (Auto) 0.2 (0-2) % Lymph # (Auto) 1.7 (1.2-4.9) X10*3/uL [place] # (Auto) 0.8 (0.1-1.2) X10*3/uL Eos # (Auto) 0.1 (0.0-0.4) X10*3/uL Baso # (Auto) 0.0 (0.0-0.2) X10*3/uL Abs Immat Gran (auto) 0.03 (0.00-0.03) X10*3/uL Absolute Neuts (auto) 9.5 H (2.0-8.3) x10*3/uL Absolute Nucleated RBC 0.000 (0.0-0.012) X10*3/uL Nucleated RBC % (auto) 0.0 (0.0-0.2) /100WBC ESR 77 H (0-15) MM/HR Sodium 138 (135-145) mmol/L Potassium 3.9 (3.3-5.1) mmol/L Chloride 106 (96-108) mmol/L Carbon Dioxide 21 L (22-29) mmol/L Anion Gap 15 (12-20) BUN 13 (9-16) mg/dL Creatinine 0.79 (0.5-1.4) mg/dL Estim Creat Clear Calc 126.0 Estimated GFR > 60 Random Glucose 111 (60-115) mg/dL Lactic Acid 0.9 (0.5-2.0) mmol/L Calcium 8.2 L (8.4-10.2) mg/dL Total Bilirubin 0.3 (0.0-1.0) mg/dL AST 19 (5-37) U/L ALT 25 (0-40) U/L Alkaline Phosphatase 84 (39-117) U/L C-Reactive Protein 5.54 H (< or = 0.50) mg/dL Total Protein 7.2 (6.5-8.0) g/dL Albumin 3.3 L (3.5-5.0) g/dL Independent Interpretation I performed an independent interpretation of an: CT Scan (Left hip: Left hip joint effusion.) Radiology Impression Discussion of test interpretation with radiology: I have reviewed the radiologist's reading. Discharge Plan Discharge Clinical Impression: Effusion of hip joint, left, Arthralgia of left hip Patient Disposition: Admitted As Inpatient Prescriptions: No Action sumatriptan succinate 25 mg Tablet 25 mg PO DAILY PRN (Reason: Migraine Headache) Qty: 7 0RF topiramate 25 mg Tablet 25 mg PO DAILY Qty: 7 0RF Print Language: Maldivian
[2024-10-30] MEDS: 0.9 % Sodium Chloride 1,000 ML 999 ML IV (08:04)
[2024-10-30] MEDS: HYDROmorphone HCl 1 MG/ML SYRINGE IVPUSH ×2 (08:04→10:47)
[2024-10-30] MEDS: Piperacillin Sodium/Tazobactam 3.375 GM in 0.9 % Sodium Chloride 50 ML IV (08:07)
--- NOTE | 2024-10-30 08:15 | PC.NURSE ---
this RN resumed care of pt at 0645. a&ox4. vss and up to date. pt presents to the ED c/o worsening left hip pain that radiates to toes as well as left groin. pt denies any numbness/tingling/trauma. pt states he went to [facility] as well as a hospital in [place] where he was noted to have effusion/had hip drained. pt unaware of how much fluid was drained and when procedure occurred. pt currently c/o 10/10 pain but talking on the phone, laughing, seemingly in no apparent distress. 18gIV placed in the left forearm - labs obtained/sent to lab. IVF/medication administered per provider order. effectiveness pending. pt waiting for CT to be completed at this time. on RA w/o difficulty - no sob/wob noted. respirations even/unlabored. plan of care ongoing. call boateng placed within reach.
[2024-10-30 08:28] LABS: C Reactive Protein 5.54 mg/dL (< or = 0.50)
[2024-10-30 08:30] LABS: Lactic Acid 0.9 mmol/L (0.5-2.0)
--- NOTE | 2024-10-30 09:03 | PC.NURSE ---
pt to CT at this time. plan of care ongoing.
[2024-10-30 09:24] LABS: Erythrocyte Sedimentation Rate 77 MM/HR (0-15)
[2024-10-30] MEDS: iohexoL 350 MG/ML 75 ML INFUS..BTL 85 ML IV (09:29)
--- NOTE | 2024-10-30 10:55 | PC.NURSE ---
pt still verbalizing 10/10 pain despite previous interventions. pt notified/aware of CT results and plan to be admitted. pt agreeable to plan. pt remedicated per provider order. effectiveness pending. labs/urine obtained/sent to lab by tech. respirations remain even/unlabored. plan of care ongoing. call boateng placed within reach.
--- NOTE | 2024-10-30 11:21 | PM.IMHP ---
History of Present Illness Date of Service: 10/30/24 Attending physician on admission: Jamie [facility] Chief Complaint: Left hip pain Pt is a 34-year-old male with a PMH significant for?chronic hip pain possibly secondary to iInflammatory arthritis, iron deficiency anemia, and cocaine use disorder in remission x1 year who presents to the ED with?severe left hip and leg pain and weakness x2-3 days. Pt reports symptoms began as left pain that eventually radiated down his whole left leg and into his testicles. Pt has had difficulty ambulating secondary to weakness. Reports his leg feels ?floppy? and ?essentially ?. No history of fall or trauma to the area. Denies numbness or tingling in extremities. No loss of bladder or bowel function. Also complains of slight headache but no other symptoms. Pt reports this is his 3rd episode since July of similar symptoms. Review of records indicates pt was admitted to [facility] on 08/19-08/22/2024 where he had an arthrocentesis of left hip effusion that was negative for infectious arthritis. Additional workup including Gram stain culture, blood cultures, chlamydia, and gonorrhea negative. Rheumatoid factor negative, though NIELS and Lyme screen were still pending at time of discharge. Pt was initially treated with empiric antibiotics. [facility] fell patient's symptoms likely secondary to inflammatory arthritis or other autoimmune etiology, and suggested follow-up with PCP and/or Rheumatology. Pt reports has not yet established care with a PCP though is currently looking to do so. Pt had an additional episode in his right hip around [place] while visiting his daughter in [place], and was admitted to [facility] where he had a right hip arthrocentesis. Records of that admission have not yet been obtained or reviewed. Pt reports a history of previously smoking crack cocaine, sober for the past year. Denies history of IVDU. Has history of family history of arthritis on his mother's side. Denies chest pain/pressure, palpitations. No fever, chills, nausea, vomiting, abdominal pain. Denies shortness or breath or difficulty breathing. In the ED pt's vitals stable and WNL. Labs were significant for leukocytosis of 12.1, stable microcytic anemia of 10.0/30.6, elevated ESR of 77, and CRP 5.54. No significant electrolyte abnormalities. Renal function baseline. Hepatic function baseline. CT?of left hip showed left hip joint effusion.Pt was treated with IVF, Zosyn, and Dilaudid. Pt will be admitted to the hospital for treatment and further evaluation of intractable left hip and leg pain likely secondary to inflammatory arthritis flare. Review of Systems Review of Systems: Negative except for that which is stated in the [facility] Medical History Discharge from penis Lesion of penis Concern about STD in male without diagnosis Social History Household Members: Family Housing: Apartment Do you presently have visiting nurse or other home services: No Unable to assess alcohol history related to: Refusing to respond Alcohol intake: never Comment: pt here for dizziness; refuses high falls measures. asked to call staff for Patient Tobacco Use Status: Current everyday Tobacco user Tobacco use type: Cigarette Cigarette Packs Per Day: 1 Cigarettes Per Day: 20.0 e-Cigarette/Vaping Use: Currently Using Second Hand Smoke Exposure: No Substance Use Type: Marijuana service: No Meds Allergies Allergy/AdvReac Type Severity Reaction Status Date / Time ketorolac [From Toradol] AdvReac Itching Verified 10/30/24 12:53 Home Medications ?Medication ?Instructions ?Recorded ?Confirmed ?Last Taken ?Type diphenhydramine 25 2 tab PO BEDTIME PRN sleep/headache 10/30/24 10/30/24 Unknown History mg-acetaminophen 500 mg tablet (Tylenol PM Extra Strength) Physical Exam Vital Signs and Narrative: Vital Signs: Last Vital Signs Temp 98.5 F 10/30/24 09:24 Pulse 70 10/30/24 09:24 Resp 18 10/30/24 09:24 BP 111/71 10/30/24 09:24 Pulse Ox 95 10/30/24 09:24 O2 Del Method Room Air 10/30/24 09:24 BMI result Body Mass Index 28.8 General: AOx3, no acute distress Resp: CTA bilaterally CVS: S1, S2, RRR GI: +BS, NT, no distention Skin: Warm, dry Neuro: Cranial nerves II-XII grossly intact bilaterally. Motor grossly intact bilaterally. Reduced sensation to light touch in left lower extremity. Strength 2/5 of left lower extremity, preserved 5/5 in right. Extremities: No edema. Diffuse left hip tenderness to palpation. ROM of left hip reduced secondary to pain. Psych: Appropriate affect Results Labs 10/31/24 06:25 10/31/24 06:25 Labs: Laboratory Results - last 24 hr 10/30/24 10/30/24 10/30/24 03:37 08:03 08:04 MCV 78.7 L MCH 25.7 L MCHC 32.7 RDW 14.3 Plt Count 319 D MPV 7.8 L Immature Gran % (Auto) 0.2 Neut % (Auto) 78.5 H Lymph % (Auto) 13.6 L [place] % (Auto) 6.6 Eos % (Auto) 0.9 Baso % (Auto) 0.2 Lymph # (Auto) 1.7 [place] # (Auto) 0.8 Eos # (Auto) 0.1 Baso # (Auto) 0.0 Abs Immat Gran (auto) 0.03 Absolute Neuts (auto) 9.5 H Absolute Nucleated RBC 0.000 Nucleated RBC % (auto) 0.0 ESR 77 H Anion Gap 15 Estim Creat Clear Calc 126.0 Estimated GFR > 60 Random Glucose 111 Lactic Acid 0.9 Calcium 8.2 L Total Bilirubin 0.3 AST 19 ALT 25 Alkaline Phosphatase 84 C-Reactive Protein 5.54 H Total Protein 7.2 Albumin 3.3 L Assessment and Plan (1) Arthralgia of left hip: Status: Acute (2) Effusion of hip joint, left: Status: Acute Plan Pt is a 34-year-old male with a PMH significant for?chronic hip pain possibly secondary to iInflammatory arthritis, iron deficiency anemia, and cocaine use disorder in remission x1 year who presents to the ED with?severe left hip and leg pain and weakness x2-3 days. Pt will be admitted to the hospital for treatment and further evaluation of intractable left hip and leg pain likely secondary to inflammatory arthritis flare. Left hip pain Pt with left hip pain radiating to testicles and lower extremity, left lower leg weakness and difficulty ambulating CT showing left hip effusion Pt with two similar episodes with arthrocentesis: [facility] in 07/2024 for left hip and at [facility] in 09/2024 for right hip At [facility] workup negative for infection though suggestive of inflammatory arthritis Pt does not yet have a PCP to follow with for additional workup Does not meet sepsis criteria Pt started on empiric antibiotics in the ED, though will hold on additional abx given no clear infectious etiology Will treat with analgesics Orthopedics consult IR consult for arthrocentesis PT evaluation Follow arthrocentesis labs Migraines Continue sumatriptan, topiramate Full Code Attending:?Dr. Gonzalez DVT Prophylaxis: Lovenox Pt will require a hospitalization of at least two nights for treatment of?intractable left hip and leg pain with left hip effusion likely secondary to inflammatory arthritis flare. Pt will require IV analgesics, specialist consultation with Orthopedics, and likely IR intervention for arthrocentesis in the morning. Quality Stroke Does the patient have a stroke diagnosis?: No VTE Prior VTE?: No VTE Risk Level:: Medical - moderate - high VTE Device Contraindication: Treatment Not Indicated VTE Drug Contraindication: N/A - Med Ordered
--- NOTE | 2024-10-30 12:20 | PC.NURSE ---
pt having orthopedic consult completed at this time.
[2024-10-30 12:31] LABS: CT PCR NOT DETECTED (Not Detect.); NG PCR NOT DETECTED (Not Detect.)
--- NOTE | 2024-10-30 13:03 | P.CONOP_ITS ---
History of Present Illness [facility] Consult date: 10/30/24 Chief complaint: Intractable L Hip Pain Effusion Narrative: Patient is a 34-year-old male who presents for intractable left hip and groin pain, ongoing for 2 days. The patient reports that this pain is so severe that that he feels that he can not move his leg at times, and then it makes it very difficult for him to walk. Patient reports that this pain does feel that it was radiating into his testicles. While in the emergency department, CT scan of the left hip was taken revealing a joint effusion around the left hip, however there is no evidence of osteomyelitis, lytic lesions, fracture, or other pathologies of the left hip. Of note, the patient has been evaluated in multiple hospitals previously for similar issues. Patient was evaluated at [facility] in July for this same pain in his left hip, and was evaluated in [facility] for this issue in his right hip. Patient reports that aspirations were performed both times, and on both occasions he was told he did not have an infection and that he had an ?inflammatory condition? in his hips. The patient states that the pain feeling like it was radiating into his groin is different from the previous 2 times he has been admitted to the hospital. Patient states that he has not followed up with outpatient care on either occasion, stating that he does not have a primary care provider and insurance has made it difficult for him to be able to follow-up outpatient or take the medications that were prescribed to him at these visits. Patient denies any numbness or tingling in the left lower extremity. No other acute complaints or concerns at this time. Review of Systems 2 Review of Systems: Yes all other systems are reviewed and are negative PMFSH Past Medical History Medical History Discharge from penis Lesion of penis Concern about STD in male without diagnosis Social History Social History Household Members: Family Housing: House Do you presently have visiting nurse or other home services: No Unable to assess alcohol history related to: Refusing to respond Alcohol intake: never Comment: pt here for dizziness; refuses high falls measures. asked to call staff for Patient Tobacco Use Status: Never used Tobacco Tobacco use type: Cigarette Cigarette Packs Per Day: 1 Cigarettes Per Day: 20.0 Smoked in Last 30 Days: No Use of substances other than those prescribed or required for medical reasons: No Substance Use Type: Marijuana Advance Directives: No Do you have a plan to hurt others: No Plan Nutrition Risks: No Nutritional Risk service: No Meds Allergies Allergy/AdvReac Type Severity Reaction Status Date / Time ketorolac [From Toradol] AdvReac Itching Verified 10/30/24 12:53 Active Medications: Current Medications Acetaminophen (Acetaminophen 325 Mg Tablet) 650 mg PO Q6H PRN PRN Reason: Pain, Mild 1-3,fever,headache Calcium Carbonate (Calcium Carbonate 750 Mg Tab.Chew) 750 mg PO Q4H PRN PRN Reason: Heartburn Enoxaparin Sodium (Enoxaparin Sodium 40 Mg/0.4 Ml Syringe) 40 mg SUBCUT Q24H [facility] Hydromorphone HCl (Hydromorphone Hcl 0.5 Mg/0.5 Ml Syringe) 0.5 mg IVPUSH Q4H PRN; Protocol PRN Reason: Pain, Severe (Pain Scale 7-10) Ibuprofen (Ibuprofen 400 Mg Tablet) 400 mg PO Q6H PRN PRN Reason: Pain, Mild (Pain Scale 1-3) Ketorolac Tromethamine (Ketorolac Tromethamine 30 Mg/Ml Vial) 30 mg IVPUSH Q6H PRN PRN Reason: Pain, Moderate(Pain Scale 4-6) Stop: 11/04/24 11:52 Magnesium Hydroxide (Milk Of Magnesia 30 Ml Oral.Susp) 30 ml PO DAILY PRN PRN Reason: Constipation Melatonin (Melatonin 3 Mg Tablet) 6 mg PO BEDTIME PRN PRN Reason: Insomnia Ondansetron HCl (Ondansetron Hcl 4 Mg/2 Ml Vial) 4 mg IVPUSH Q8H PRN PRN Reason: Nausea and Vomiting Sodium Chloride (0.9 % Sodium Chloride Flush 3 Ml Syringe) 3 ml IVFLUSH QSHIFT [facility] Physical Exam 2 Vital Signs: Vital Signs: Last Vital Signs Temp 98.5 F 10/30/24 09:24 Pulse 70 10/30/24 09:24 Resp 18 10/30/24 09:24 BP 111/71 10/30/24 09:24 Pulse Ox 95 10/30/24 09:24 O2 Del Method Room Air 10/30/24 09:24 BMI result Body Mass Index 28.8 Extrem: Other: Patient's left hip normal to inspection at this time No evidence of surrounding erythema, ecchymosis No evidence of infection Patient is able to actively forward flex the left hip, but does experience significant pain when doing so Patient reports significant pain with all passive range of motion, including forward flexion, internal rotation, and external rotation of the left hip Patient is able to flex and extend the digits of the left foot without difficulty Compartments soft, nontender Distal sensation intact Capillary refill brisk Results Labs 10/30/24 03:37 10/30/24 03:37 Labs: Abnormal lab results 10/30/24 10/30/24 Range/Units 03:37 08:03 WBC 12.1 H (4.8-10.8) X10*3/uL RBC 3.89 L D (4.60-5.80) X10*6/uL Hgb 10.0 L D (14.0-18.0) g/dl Hct 30.6 L D (42.0-52.0) % MCV 78.7 L (80.0-98.0) fL MCH 25.7 L (27.0-33.0) pg MPV 7.8 L (9.4-12.4) fL Neut % (Auto) 78.5 H (45-73) % Lymph % (Auto) 13.6 L (20-40) % Absolute Neuts (auto) 9.5 H (2.0-8.3) x10*3/uL ESR 77 H (0-15) MM/HR Carbon Dioxide 21 L (22-29) mmol/L Calcium 8.2 L (8.4-10.2) mg/dL C-Reactive Protein 5.54 H (< or = 0.50) mg/dL Albumin 3.3 L (3.5-5.0) g/dL H & H 10/30/24 Range/Units 03:37 Hgb 10.0 L D (14.0-18.0) g/dl Hct 30.6 L D (42.0-52.0) % All other labs normal. Diagnostic results Hip CT: report reviewed and image reviewed Assessment and Plan (1) Effusion of hip joint, left: Status: Acute (2) Arthralgia of left hip: Status: Acute Plan 1. Left hip pain Patient previously told he had an ?inflammatory condition? that caused similar pain, it was unable to recall what his exact diagnosis was This case was discussed with Dr. Reeder, and a collaborative treatment plan was formed: White blood cell count slightly elevated at 12.1, inflammatory markers elevated Patient will be admitted to the hospitalist service for aspiration of the left hip and pain management Plan for aspiration with IR tomorrow We will obtain a plain x-ray of the left hip with an AP pelvis view as well If aspiration reveals infectious process, we will plan for acute surgical intervention Index of suspicion for infectious process at this time, however, is low Orthopedics will continue to follow Procedures Date of Service Date of Service: 10/30/24
[2024-10-30] MEDS: Enoxaparin Sodium 40 MG/0.4 ML SYRINGE SUBCUT (13:06)
[2024-10-30] MEDS: HYDROmorphone HCl 0.5 MG/0.5 ML SYRINGE IVPUSH ×3 (13:06→21:47)
--- NOTE | 2024-10-30 14:06 | PHA.MEDREC ---
Addendum entered by Darrin Gonzalez RP 10/30/24 16:44: MED REC CHECKED BY [facility] Original Note: Pharmacy Consult ? Medication Reconciliation Pharmacy has completed the medication reconciliation. Spoke with patient to confirm.
[2024-10-30] MEDS: 0.9 % Sodium Chloride Flush 3 ML SYRINGE IVFLUSH (15:44)
--- NOTE | 2024-10-30 17:27 | PC.NURSE ---
pt verbalizing increase in left hip pain - prn medication utilized. effectiveness pending.
--- NOTE | 2024-10-30 19:14 | PC.NURSE ---
this rn assumed care of pt, pt reporting 10/10 left hip pain at this time, provider aware.
--- NOTE | 2024-10-30 22:27 | PC.NURSE ---
pt medicated per dec for 10/10 left hip pain at this time.
--- NOTE | 2024-10-31 00:01 | PC.NURSE ---
pt reporting 10 pain and requesting diaudid, educated his prn was given at 2146 and currently not due for it but will notify MD. made aware. entered prn toradol however pt states has allergy to med. MD aware and will change order. call boateng within reach.
[2024-10-31 01:00] VITALS: BP 125/71; PULSE 71; RESP 18; TEMP 36.3; O2SAT 100
[2024-10-31] MEDS: HYDROmorphone HCl 0.5 MG/0.5 ML SYRINGE 1 MG IVPUSH ×7 (01:10→22:38)
[2024-10-31 01:15] VITALS: BMI 28.8
[2024-10-31 06:51] LABS: Hematocrit 35.6 % (42.0-52.0); Hemoglobin 11.2 g/dl (14.0-18.0); Mean Corpuscular HGB Conc 31.5 g/dl (31.0-36.0); Mean Corpuscular Hemoglobin 25.5 pg (27.0-33.0); Mean Corpuscular Volume 81.1 fL (80.0-98.0); Platelet Count 326 X10*3/uL (160-400); Red Blood Count 4.39 X10*6/uL (4.60-5.80); White Blood Count 8.2 X10*3/uL (4.8-10.8)
[2024-10-31 07:09] LABS: Anion Gap 16 (12-20); Blood Urea Nitrogen 11 mg/dL (9-16); Carbon Dioxide 23 mmol/L (22-29); Chloride 102 mmol/L (96-108); Creatinine Clr Calc Pharmacy 114.4; Estimated Glomerular Filt Rate > 60; Glucose Random 84 mg/dL (60-115); Sodium 137 mmol/L (135-145)
[2024-10-31] MEDS: 0.9 % Sodium Chloride Flush 3 ML SYRINGE IVFLUSH ×3 (07:35→19:45)
[2024-10-31 08:02] VITALS: BP 111/67; PULSE 72; RESP 12; TEMP 36.2; O2SAT 98
--- NOTE | 2024-10-31 08:19 | PM.PNORT ---
Subjective Subjective Date of Service: 10/31/24 Interval history: 34-year-old male admitted to the hospital for acute on chronic onset left hip pain Patient reports he is in significant pain, and then his pain meds are working but not for the full duration of the dose Plan for aspiration today No acute events overnight No other acute complaints or concerns at this time Physical Exam Vital Signs: Vital Signs: Last Vital Signs Temp 97.1 F 10/31/24 08:02 Pulse 72 10/31/24 08:02 Resp 12 10/31/24 08:02 BP 111/67 10/31/24 08:02 Pulse Ox 98 10/31/24 08:02 O2 Del Method Room Air 10/31/24 08:02 BMI result Body Mass Index 28.8 Extrem: Other: Patient's left hip normal to inspection at this time No evidence of surrounding erythema, ecchymosis No evidence of infection Patient is able to actively forward flex the left hip, but does experience significant pain when doing so Patient reports significant pain with all passive range of motion, including forward flexion, internal rotation, and external rotation of the left hip Patient is able to flex and extend the digits of the left foot without difficulty Compartments soft, nontender Distal sensation intact Capillary refill brisk Procedures Date of Service Date of Service: 10/31/24 Progress Note: A&P Assessment and plan (1) Effusion of hip joint, left: Status: Acute (2) Arthralgia of left hip: Status: Acute Plan 1. Acute on chronic left hip pain Proceed with aspiration today No antibiotics until results from aspiration are obtained Will review results with Dr. Reeder and decide if any acute orthopedic intervention is indicated at that time Continue pain management Continue with all other recommendations per Medicine Orthopedics will continue to follow at this time Time Spent With Patient Time: Total time managing care of this patient today ____ minutes. Quality Stroke Does the patient have a stroke diagnosis?: No VTE Prior VTE?: No VTE Risk Level:: Medical - moderate - high VTE Device Contraindication: Treatment Not Indicated VTE Drug Contraindication: N/A - Med Ordered
--- NOTE | 2024-10-31 09:09 | PM.PROC ---
Brief Operative Note Date of procedure: 10/31/24 Pre-op diagnosis: Left hip pain, left hip effusion on CT Post-op diagnosis: same Procedure: FL left hip aspiration 10 cc turbid yellow fluid aspirated from left hip and sent for requested analysis. No immediate complications. Anesthesia: local
--- NOTE | 2024-10-31 09:48 | HO.PM.IMPN ---
Subjective Subjective Date of Service: 10/31/24 Interval History: F/u on on Hip pain, inflamed join Physical Exam Vital Signs: Vital Signs: Last Vital Signs Temp 97.1 F 10/31/24 08:02 Pulse 72 10/31/24 08:02 Resp 12 10/31/24 08:02 BP 111/67 10/31/24 08:02 Pulse Ox 98 10/31/24 08:02 O2 Del Method Room Air 10/31/24 08:02 BMI result Body Mass Index 28.8 stil c/o severe hip pain, no fever previous infectious work up at [facility] negative Objective Data Active Medications Acetaminophen (Acetaminophen 325 Mg Tablet) 650 mg PO Q6H PRN PRN Reason: Pain, Mild 1-3,fever,headache Calcium Carbonate (Calcium Carbonate 750 Mg Tab.Chew) 750 mg PO Q4H PRN PRN Reason: Heartburn Enoxaparin Sodium (Enoxaparin Sodium 40 Mg/0.4 Ml Syringe) 40 mg SUBCUT Q24H [facility] Last Admin: 10/30/24 13:06 Dose: 40 mg Documented By: JACINTO Hydromorphone HCl (Hydromorphone Hcl 0.5 Mg/0.5 Ml Syringe) 1 mg IVPUSH Q4H PRN; Protocol PRN Reason: Pain, Severe (Pain Scale 7-10) Last Admin: 10/31/24 09:14 Dose: 1 mg Documented By: CHRISTINA Ibuprofen (Ibuprofen 400 Mg Tablet) 400 mg PO Q6H PRN PRN Reason: Pain, Mild (Pain Scale 1-3) Ketorolac Tromethamine (Ketorolac Tromethamine 30 Mg/Ml Vial) 30 mg IVPUSH Q6H PRN PRN Reason: Pain, Moderate(Pain Scale 4-6) Stop: 11/04/24 11:52 Magnesium Hydroxide (Milk Of Magnesia 30 Ml Oral.Susp) 30 ml PO DAILY PRN PRN Reason: Constipation Melatonin (Melatonin 3 Mg Tablet) 6 mg PO BEDTIME PRN PRN Reason: Insomnia Ondansetron HCl (Ondansetron Hcl 4 Mg/2 Ml Vial) 4 mg IVPUSH Q8H PRN PRN Reason: Nausea and Vomiting Sodium Chloride (0.9 % Sodium Chloride Flush 3 Ml Syringe) [facility] Last Admin: 10/31/24 07:35 Dose: 3 ml Documented By: CHRISTINA Labs 10/31/24 06:25 10/31/24 06:25 Labs: Laboratory Results - last 24 hr 10/30/24 10/31/24 10/31/24 10:51 06:25 08:45 MCV 81.1 MCH 25.5 L MCHC 31.5 RDW 14.0 Plt Count 326 MPV 8.0 L Absolute Nucleated RBC 0.000 Nucleated RBC % (auto) 0.0 Anion Gap 16 Estim Creat Clear Calc 114.4 Estimated GFR > 60 Random Glucose 84 Calcium 9.0 D Synovial Source Left hip aspirate Chlam trachomat DNA PCR NOT DETECTED N.gonorrhoeae DNA (PCR) NOT DETECTED Assessment and Plan (1) Effusion of hip joint, left: Status: Acute (2) Arthralgia of left hip: Status: Acute Plan Pt is a 34-year-old male with a PMH significant for?chronic hip pain possibly secondary to iInflammatory arthritis, iron deficiency anemia, and cocaine use disorder in remission x1 year who presents to the ED with?severe left hip and leg pain and weakness x2-3 days. Pt is admitted to the hospital for treatment and further evaluation of intractable left hip and leg pain likely secondary to inflammatory arthritis flare. Left hip pain Pt with left hip pain radiating to testicles and lower extremity, left lower leg weakness and difficulty ambulating CT showing left hip effusion Pt with two similar episodes with arthrocentesis: [facility] in 07/2024 for left hip and at [facility] in 09/2024 for right hip At [facility] workup negative for infection though suggestive of inflammatory arthritis Pt does not yet have a PCP to follow with for additional workup Does not meet sepsis criteria Pt started on empiric antibiotics in the ED, though will hold on additional abx given no clear infectious etiology Will treat with analgesics Orthopedics consult IR consult for arthrocentesis PT evaluation Follow arthrocentesis labs Migraines Continue sumatriptan, topiramate Full Code Attending:?Dr. Gonzalez DVT Prophylaxis: Lovenox Pt will require a hospitalization of at least two nights for treatment of?intractable left hip and leg pain with left hip effusion likely secondary to inflammatory arthritis flare. Pt will require IV analgesics, specialist consultation with Orthopedics, and likely IR intervention for arthrocentesis in the morning. Quality Stroke Does the patient have a stroke diagnosis?: No VTE Prior VTE?: No VTE Risk Level:: Medical - moderate - high VTE Device Contraindication: Treatment Not Indicated VTE Drug Contraindication: N/A - Med Ordered
[2024-10-31 10:09] LABS: MN% 14.6 %; PMN% 85.4 %
[2024-10-31 10:10] LABS: RBC Synovial Fluid < 0.002 X10*6/uL
[2024-10-31 11:29] LABS: Neutrophils Synovial Fluid 88 %
[2024-10-31 11:30] LABS: BF Shift QC OK YES; Lymphocytes Synovial Fluid 6 %; Monocytes Synovial Fluid 6 %
--- NOTE | 2024-10-31 13:41 | MHC.CM.PN ---
Addendum entered by Preeti Mullins 10/31/24 15:43: STR BEING RECOMMENDED REFERRALS OUT Original Note: COMPLIANCE ANALYST AND CM MET WITH PT. PT LIVES IN [place]T WITH FAMILY PT DOES NOT RECEIVE SERVICES PT USES [facility] PT'S HCP- SISTER, PETRONA RADFORD [phone] PT'S INSURANCE [employer] PT IS BEING REFERRED TO NEW PCP DCP PENDING PT EVAL PT WILL NEED RIDE HOME AFTER DC
[2024-10-31] MEDS: Enoxaparin Sodium 40 MG/0.4 ML SYRINGE SUBCUT (14:00)
[2024-10-31 16:01] VITALS: BP 110/61; PULSE 78; RESP 18; TEMP 36.6; O2SAT 96
[2024-10-31 19:08] LABS: Lyme Abs Screen <0.90 index
[2024-10-31 19:19] VITALS: BP 109/66; PULSE 86; RESP 16; TEMP 36.6; O2SAT 95
[2024-11-01] MEDS: HYDROmorphone HCl 0.5 MG/0.5 ML SYRINGE 1 MG IVPUSH ×8 (01:29→23:15)
[2024-11-01 03:08] VITALS: BP 112/63; PULSE 77; RESP 17; TEMP 36; O2SAT 93
[2024-11-01] MEDS: 0.9 % Sodium Chloride Flush 3 ML SYRINGE IVFLUSH ×3 (07:33→19:59)
[2024-11-01 08:00] VITALS: BP 121/71; PULSE 82; RESP 16; TEMP 36.9; O2SAT 95
--- NOTE | 2024-11-01 11:24 | PC.NURSE ---
Pt requests and prefers to have all bed rails up to help his mobility in bed. Pt education given.
[2024-11-01] MEDS: Enoxaparin Sodium 40 MG/0.4 ML SYRINGE SUBCUT (13:49)
--- NOTE | 2024-11-01 14:34 | PC.NURSE ---
Pt refuses bed alarms and consistently shuts them off.
[2024-11-01 15:29] VITALS: BP 107/68; PULSE 89; RESP 18; TEMP 36.9; O2SAT 98
--- NOTE | 2024-11-01 15:33 | P.PNIM_ITS ---
Subjective Subjective Date of Service: 11/02/24 Interval History: hip effusion and pain Review of Systems still has left hip pain some radiation to groin no fevers Physical Exam 2 Vital Signs: Vital Signs: Last Vital Signs Temp 98.4 F 11/01/24 15:29 Pulse 89 11/01/24 15:29 Resp 18 11/01/24 15:29 BP 107/68 11/01/24 15:29 Pulse Ox 98 11/01/24 15:29 O2 Del Method Room Air 11/01/24 15:29 BMI result Body Mass Index 28.8 General: AOx3, no acute distress Resp: CTA bilaterally CVS: S1, S2, RRR GI: +BS, NT, no distention Skin: Warm, dry Extremities: No edema. Diffuse left hip tenderness to palpation. ROM of left hip reduced secondary to pain. Psych: Appropriate affect Objective Data Active Medications Acetaminophen (Acetaminophen 325 Mg Tablet) 650 mg PO Q6H PRN PRN Reason: Pain, Mild 1-3,fever,headache Calcium Carbonate (Calcium Carbonate 750 Mg Tab.Chew) 750 mg PO Q4H PRN PRN Reason: Heartburn Diphenhydramine HCl (Diphenhydramine Hcl 25 Mg Capsule) 25 mg PO BEDTIME PRN PRN Reason: sleep/headache Enoxaparin Sodium (Enoxaparin Sodium 40 Mg/0.4 Ml Syringe) 40 mg SUBCUT Q24H REVA Last Admin: 11/01/24 13:49 Dose: 40 mg Documented By: CHRISTINA Hydromorphone HCl (Hydromorphone Hcl 0.5 Mg/0.5 Ml Syringe) 1 mg IVPUSH Q3H PRN; Protocol PRN Reason: Pain, Severe (Pain Scale 7-10) Last Admin: 11/01/24 13:49 Dose: 1 mg Documented By: CHRISTNIA Ibuprofen (Ibuprofen 400 Mg Tablet) 400 mg PO Q6H PRN PRN Reason: Pain, Mild (Pain Scale 1-3) Ketorolac Tromethamine (Ketorolac Tromethamine 30 Mg/Ml Vial) 30 mg IVPUSH Q6H PRN PRN Reason: Pain, Moderate(Pain Scale 4-6) Stop: 11/04/24 11:52 Magnesium Hydroxide (Milk Of Magnesia 30 Ml Oral.Susp) 30 ml PO DAILY PRN PRN Reason: Constipation Melatonin (Melatonin 3 Mg Tablet) 6 mg PO BEDTIME PRN PRN Reason: Insomnia Ondansetron HCl (Ondansetron Hcl 4 Mg/2 Ml Vial) 4 mg IVPUSH Q8H PRN PRN Reason: Nausea and Vomiting Oxycodone HCl (Oxycodone Hcl Immed Release 5 Mg Tablet) 5 mg PO Q6H PRN PRN Reason: Pain, Moderate(Pain Scale 4-6) Sodium Chloride (0.9 % Sodium Chloride Flush 3 Ml Syringe) 3 ml IVFLUSH QSHIFT [facility] Last Admin: 11/01/24 07:33 Dose: 3 ml Documented By: CHRISTINA Labs 10/31/24 06:25 10/31/24 06:25 Labs: Laboratory Results - last 24 hr 10/30/24 10:51 Lyme Screen IgG & IgM <0.90 Lyme Progressive Test TNP Microbiology Microbiology Results: Microbiology 10/30/24 08:04 Blood Culture - Preliminary Blood - Venous No growth after 48 hours. 10/30/24 08:03 Blood Culture - Preliminary Blood - Venous No growth after 48 hours. 10/31/24 08:45 Gram Stain - Final Hip aspirate Anaerobic Culture - Preliminary Culture in progress. Gross Specimen Examination - Final Fluid Crystals - Final Joint Fluid Culture - Preliminary No growth to date. Assessment and Plan (1) Effusion of hip joint, left: Status: Acute Assessment and Plan: 34-year-old male with a PMH significant for?chronic hip pain possibly secondary to iInflammatory arthritis, iron deficiency anemia, and cocaine use disorder in remission x1 year who presents to the ED with?severe left hip and leg pain and weakness x2-3 days. Pt is admitted to the hospital for treatment and further evaluation of intractable left hip and leg pain likely secondary to inflammatory arthritis flare. Left hip pain Pt with left hip pain radiating to testicles and lower extremity, left lower leg weakness and difficulty ambulating CT showing left hip effusion Pt with two similar episodes with arthrocentesis: [facility] [place] for left hip and at [facility] in 09/2024 for right hip left hip aspirate -wbc 24737,88% neutrophils, no fevers lyme screen ,Rf negative ,ccp:8, NIELS -negative in [facility] hip culture prelim-negative, no crystrals chlamydia and n.gonorrhoeae tesing negative. plan: treat with analgesics Orthopedics follow up for above, Id eval also added ? inflamatory arthritis PT evaluation Migraines Continue sumatriptan, topiramate Full Code DVT Prophylaxis: Lovenox ongoing hospitalization oreatment of?intractable left hip and leg pain with left hip effusion likely secondary to inflammatory arthritis flare. Pt will require IV analgesics, specialist consultation with Orthopedics, and ID eval. Quality Stroke Does the patient have a stroke diagnosis?: No VTE Prior VTE?: No VTE Risk Level:: Medical - moderate - high VTE Device Contraindication: Treatment Not Indicated VTE Drug Contraindication: N/A - Med Ordered
--- NOTE | 2024-11-01 15:56 | PM.EVENT ---
Event Note Date of Service: 11/01/24 Event Note: 34-year-old male admitted to the hospital for intractable left hip pain Patient does have a history significant for an ?inflammatory condition? that he has been treated for several times Hip aspiration performed Cultures negative so far WBC count of 49,000 4+ polys noted on Gram stain Discussed with Dr. Reeder, findings more indicative of inflammatory arthritis at this time No acute orthopedic intervention indicated for this inflammatory arthritis If final cultures return with any positive findings, we will plan for any potential acute intervention at that time Time Spent With Patient Time: Total time managing care of this patient today ____ minutes.
[2024-11-01 18:09] LABS: Amphetamine Screen Urine Not Detected (Not Detect); Barbiturates, Urine Not Detected (Not Detect); Benzodiazepines Screen Urine Not Detected (Not Detect); Buprenorphine Scr Not Detected (Not Detect); Cannabinoid Screen Urine POSITIVE (Not Detect); Cocaine Screen Urine Not Detected (Not Detect); Fentanyl, urine Not Detected (Not Detect); Methadone Screen, Urine Not Detected (Not Detect); Opiate Screen Urine POSITIVE (Not Detect); Oxycodone Screen Urine Not Detected (Not Detect); Phencyclidine Screen Urine Not Detected (Not Detect)
[2024-11-01 19:28] VITALS: BP 116/71; PULSE 80; RESP 18; TEMP 37; O2SAT 98
--- NOTE | 2024-11-01 23:07 | W.PM.IDCN ---
History of Present Illness Data of Consult Service Date: 11/01/24 Requesting physician: Lesia Trejo Primary Care Provider: None Physician HPI Reason for consult: left hip discomfort He presents with left hip pain,difficulty standing on it over last three days. He had workup for this at [facility] as well as [facility] July 2024. There was no Lyme,no GC or chlamydia found. He is not a kristine and didnt see any ticks on himself. He had aspiration at prior hospitals,culture and blood culture negative. Review of Systems Review of Systems: Yes all other systems are reviewed and are negative [facility] Past Medical History Medical History Discharge from penis Lesion of penis Concern about STD in male without diagnosis Family History Family history: reviewed and not pertinent Social History Social History Household Members: Family Housing: Apartment Do you presently have visiting nurse or other home services: No Unable to assess alcohol history related to: Refusing to respond Alcohol intake: never Comment: pt here for dizziness; refuses high falls measures. asked to call staff for Patient Tobacco Use Status: Current everyday Tobacco user Tobacco use type: Cigarette Cigarette Packs Per Day: 1 Cigarettes Per Day: 20.0 e-Cigarette/Vaping Use: Currently Using Second Hand Smoke Exposure: No Substance Use Type: Marijuana service: No Meds Allergies Allergy/AdvReac Type Severity Reaction Status Date / Time ketorolac [From Toradol] AdvReac Itching Verified 10/30/24 12:53 Active Medications: Current Medications Acetaminophen (Acetaminophen 325 Mg Tablet) 650 mg PO Q6H PRN PRN Reason: Pain, Mild 1-3,fever,headache Calcium Carbonate (Calcium Carbonate 750 Mg Tab.Chew) 750 mg PO Q4H PRN PRN Reason: Heartburn Diphenhydramine HCl (Diphenhydramine Hcl 25 Mg Capsule) 25 mg PO BEDTIME PRN PRN Reason: sleep/headache Enoxaparin Sodium (Enoxaparin Sodium 40 Mg/0.4 Ml Syringe) 40 mg SUBCUT Q24H REVA Last Admin: 11/01/24 13:49 Dose: 40 mg Hydromorphone HCl (Hydromorphone Hcl 0.5 Mg/0.5 Ml Syringe) 1 mg IVPUSH Q3H PRN; Protocol PRN Reason: Pain, Severe (Pain Scale 7-10) Last Admin: 11/01/24 20:00 Dose: 1 mg Ibuprofen (Ibuprofen 400 Mg Tablet) 400 mg PO Q6H PRN PRN Reason: Pain, Mild (Pain Scale 1-3) Ketorolac Tromethamine (Ketorolac Tromethamine 30 Mg/Ml Vial) 30 mg IVPUSH Q6H PRN PRN Reason: Pain, Moderate(Pain Scale 4-6) Stop: 11/04/24 11:52 Magnesium Hydroxide (Milk Of Magnesia 30 Ml Oral.Susp) 30 ml PO DAILY PRN PRN Reason: Constipation Melatonin (Melatonin 3 Mg Tablet) 6 mg PO BEDTIME PRN PRN Reason: Insomnia Ondansetron HCl (Ondansetron Hcl 4 Mg/2 Ml Vial) 4 mg IVPUSH Q8H PRN PRN Reason: Nausea and Vomiting Oxycodone HCl (Oxycodone Hcl Immed Release 5 Mg Tablet) 5 mg PO Q6H PRN PRN Reason: Pain, Moderate(Pain Scale 4-6) Sodium Chloride (0.9 % Sodium Chloride Flush 3 Ml Syringe) [facility] Last Admin: 11/01/24 19:59 Dose: 3 ml Home Medications ?Medication ?Instructions ?Recorded ?Confirmed ?Last Taken ?Type diphenhydramine 25 2 tab PO BEDTIME PRN sleep/headache 10/30/24 10/30/24 Unknown History mg-acetaminophen 500 mg tablet (Tylenol PM Extra Strength) Physical Exam Vital Signs: Vital Signs: Last Vital Signs Temp 98.6 F 11/01/24 19:28 Pulse 80 11/01/24 19:28 Resp 18 11/01/24 19:28 BP 116/71 11/01/24 19:28 Pulse Ox 98 11/01/24 19:28 O2 Del Method Room Air 11/01/24 19:28 BMI result Body Mass Index 28.8 Extrem: Other: discomfort left hip on extension Results Labs 10/31/24 06:25 10/31/24 06:25 Microbiology Microbiology Results: Microbiology 10/30/24 08:04 Blood - Venous Blood Culture - Preliminary No growth after 48 hours. 10/30/24 08:03 Blood - Venous Blood Culture - Preliminary No growth after 48 hours. 10/31/24 08:45 Hip aspirate Gram Stain - Final 10/31/24 08:45 Hip aspirate Anaerobic Culture - Preliminary Culture in progress. 10/31/24 08:45 Hip aspirate Gross Specimen Examination - Final 10/31/24 08:45 Hip aspirate Fluid Crystals - Final 10/31/24 08:45 Hip aspirate Joint Fluid Culture - Preliminary No growth to date. Assessment and Plan (1) Arthralgia of left hip: Status: Acute (2) Effusion of hip joint, left: Status: Acute Plan There appears to be no bacterial process in hip at this time No antibiotics Check HIV. Followup per Rheumatology/
[2024-11-01 23:12] VITALS: BP 118/61; PULSE 80; RESP 16; O2SAT 95
[2024-11-02] MEDS: HYDROmorphone HCl 0.5 MG/0.5 ML SYRINGE 1 MG IVPUSH ×7 (02:18→21:16)
[2024-11-02 04:00] VITALS: BP 104/72; PULSE 68; RESP 18; TEMP 36.7; O2SAT 100
[2024-11-02 07:52] VITALS: BP 90/52; PULSE 75; RESP 18; TEMP 36.4; O2SAT 95
[2024-11-02] MEDS: 0.9 % Sodium Chloride Flush 3 ML SYRINGE IVFLUSH ×3 (08:24→19:39)
[2024-11-02 09:30] LABS: HIV AB/AG Nonreactive (Nonreactive); HIV Num 1 0.05 S/CO (0.00-0.99)
--- NOTE | 2024-11-02 11:38 | MHC.CM.PN ---
Addendum entered by Melisa Hooks RN 11/03/24 14:07: [facility] has offered a bed. Patient prefers to stay closer to home/family - discussed all referrals (23 sent) and denials. Patient accepts bed and states his sister lives in [place] and would likely be able to visit him. Original Note: Per MD patient not medically cleared for dc, likely 1-2 days. Will require STR. Referrals updated, no bed offers at this time. Will continue to seek STR bed.
[2024-11-02 13:07] LABS: Appearance Urine Clear; Color Urine Yellow; Glucose Urine UA Negative (Negative); Leukocyte Esterase Urine Trace (Negative); Nitrite Urine Negative (Negative); PH 5.5 (5.0-9.0); Specific Gravity - Urine >= 1.030 (1.005-1.025); UMIC TRIGGER UA YES; Urine Blood Negative (Negative); Urine Ketones Negative (Negative); Urine Protein 30 (1+) mg/dL (Neg-Trace)
[2024-11-02 13:14] LABS: Bacteria Urine None Seen (None Seen); Hyaline Casts Urine 0-2 /LPF (0-2); RBC Urine 0-2 /HPF (0-2); Squamous Epithelial Cell Urine 0-2 /HPF (0-2)
[2024-11-02] MEDS: Enoxaparin Sodium 40 MG/0.4 ML SYRINGE SUBCUT (14:09)
--- NOTE | 2024-11-02 14:22 | P.PNIM_ITS ---
Subjective Subjective Date of Service: 11/02/24 Interval History: left hip pain/effusion Review of Systems having pain and difficulty ambulating no fevers Physical Exam 2 Vital Signs: Vital Signs: Last Vital Signs Temp 97.6 F 11/02/24 07:52 Pulse 75 11/02/24 07:52 Resp 18 11/02/24 07:52 BP 90/52 L 11/02/24 07:52 Pulse Ox 95 11/02/24 07:52 O2 Del Method Room Air 11/02/24 07:52 BMI result Body Mass Index 28.8 General: AOx3, no acute distress Resp: CTA bilaterally CVS: S1, S2, RRR GI: +BS, NT, no distention Skin: Warm, dry Extremities: No edema. Diffuse left hip tenderness to palpation. has left sided anterior cervical lymph node palapable. Psych: Appropriate affect Objective Data Active Medications Acetaminophen (Acetaminophen 325 Mg Tablet) 650 mg PO Q6H PRN PRN Reason: Pain, Mild 1-3,fever,headache Calcium Carbonate (Calcium Carbonate 750 Mg Tab.Chew) 750 mg PO Q4H PRN PRN Reason: Heartburn Diphenhydramine HCl (Diphenhydramine Hcl 25 Mg Capsule) 25 mg PO BEDTIME PRN PRN Reason: sleep/headache Enoxaparin Sodium (Enoxaparin Sodium 40 Mg/0.4 Ml Syringe) 40 mg SUBCUT Q24H REVA Last Admin: 11/02/24 14:09 Dose: 40 mg Documented By: CAMMIE Hydromorphone HCl (Hydromorphone Hcl 0.5 Mg/0.5 Ml Syringe) 1 mg IVPUSH Q3H PRN; Protocol PRN Reason: Pain, Severe (Pain Scale 7-10) Last Admin: 11/02/24 11:57 Dose: 1 mg Documented By: CAMMIE Ibuprofen (Ibuprofen 400 Mg Tablet) 400 mg PO Q6H PRN PRN Reason: Pain, Mild (Pain Scale 1-3) Ketorolac Tromethamine (Ketorolac Tromethamine 30 Mg/Ml Vial) 30 mg IVPUSH Q6H PRN PRN Reason: Pain, Moderate(Pain Scale 4-6) Stop: 11/04/24 11:52 Magnesium Hydroxide (Milk Of Magnesia 30 Ml Oral.Susp) 30 ml PO DAILY PRN PRN Reason: Constipation Melatonin (Melatonin 3 Mg Tablet) 6 mg PO BEDTIME PRN PRN Reason: Insomnia Ondansetron HCl (Ondansetron Hcl 4 Mg/2 Ml Vial) 4 mg IVPUSH Q8H PRN PRN Reason: Nausea and Vomiting Oxycodone HCl (Oxycodone Hcl Immed Release 5 Mg Tablet) 5 mg PO Q6H PRN PRN Reason: Pain, Moderate(Pain Scale 4-6) Sodium Chloride (0.9 % Sodium Chloride Flush 3 Ml Syringe) [facility] Last Admin: 11/02/24 08:24 Dose: 3 ml Documented By: CAMMIE Labs 10/31/24 06:25 10/31/24 06:25 Labs: Laboratory Results - last 24 hr 10/30/24 11/01/24 11/01/24 10:51 17:15 23:34 Urine Color Urine Appearance Urine pH Ur Specific [place] Urine Protein Urine Glucose (UA) Urine Ketones Urine Blood Urine Nitrite Ur Leukocyte Esterase Urine RBC Urine WBC Ur Squamous Epith Cells Urine Bacteria Hyaline Casts Urine Opiates Screen POSITIVE H Ur Buprenorphine Scrn Not Detected Ur Oxycodone Screen Not Detected Urine Methadone Screen Not Detected Urine Fentanyl Screen Not Detected Ur Barbiturates Screen Not Detected Ur Phencyclidine Scrn Not Detected Ur Amphetamines Screen Not Detected U Benzodiazepines Scrn Not Detected Urine Cocaine Screen Not Detected U Marijuana (THC) Screen POSITIVE H Lyme Progressive Test TNP HIV 1&2 Ab/P24 Ag 4thGn Nonreactive 11/02/24 Unknown Urine Color Yellow Urine Appearance Clear Urine pH 5.5 Ur Specific [place] >= 1.030 H Urine Protein 30 (1+) H Urine Glucose (UA) Negative Urine Ketones Negative Urine Blood Negative Urine Nitrite Negative Ur Leukocyte Esterase Trace H Urine RBC 0-2 Urine WBC 6-10 H Ur Squamous Epith Cells 0-2 Urine Bacteria None Seen Hyaline Casts 0-2 Urine Opiates Screen Ur Buprenorphine Scrn Ur Oxycodone Screen Urine Methadone Screen Urine Fentanyl Screen Ur Barbiturates Screen Ur Phencyclidine Scrn Ur Amphetamines Screen U Benzodiazepines Scrn Urine Cocaine Screen U Marijuana (THC) Screen Lyme Progressive Test HIV 1&2 Ab/P24 Ag 4thGn Microbiology Microbiology Results: Microbiology 10/31/24 08:45 Gram Stain - Final Hip aspirate Anaerobic Culture - Preliminary No growth to date. Gross Specimen Examination - Final Fluid Crystals - Final Joint Fluid Culture - Final No growth after 2 days 10/30/24 08:04 Blood Culture - Preliminary Blood - Venous No growth after 48 hours. 10/30/24 08:03 Blood Culture - Preliminary Blood - Venous No growth after 48 hours. Assessment and Plan (1) Effusion of hip joint, left: Status: Acute Assessment and Plan: 34-year-old male with a PMH significant for?chronic hip pain possibly secondary to iInflammatory arthritis, iron deficiency anemia, and cocaine use disorder in remission x1 year who presents to the ED with?severe left hip and leg pain and weakness x2-3 days. Pt is admitted to the hospital for treatment and further evaluation of intractable left hip and leg pain likely secondary to inflammatory arthritis flare. Left hip pain Pt with left hip pain radiating to testicles and lower extremity, left lower leg weakness and difficulty ambulating CT showing left hip effusion Pt with two similar episodes with arthrocentesis[place] [facility] [place] and at [facility] in 09/2024 for right hip left hip aspirate -wbc 47134,88% neutrophils, no fevers lyme screen ,Rf negative ,ccp:8, NIELS -negative in [facility] hiv nonreactive hip culture prelim-negative, no crystrals chlamydia and n.gonorrhoeae tesing negative. b/l SI joint xray-has suggestive of bilateral sacroiliitis( which was also present in ct abd/pelvis ). d/w rheumatology Dr Mcdonough-ssa,ssab, [id number],[id number], gonorrhae throat and rectal swab . ua-negative except mild pyuria, no bacteruria ,patient denies any urinary c/o. once gonorrhae throat and rectal swab -negative ,will give trial of steriods. plan: treat with analgesics Orthopedics follow up for above, Id eval also added ? inflamatory arthritis PT evaluation Migraines Continue sumatriptan, topiramate Full Code DVT Prophylaxis: Lovenox ongoing hospitalization oreatment of?intractable left hip and leg pain with left hip effusion likely secondary to inflammatory arthritis flare. Pt will require IV analgesics, specialist consultation with Orthopedics, and ID eval. Quality Stroke Does the patient have a stroke diagnosis?: No VTE Prior VTE?: No VTE Risk Level:: Medical - moderate - high VTE Device Contraindication: Treatment Not Indicated VTE Drug Contraindication: N/A - Med Ordered
[2024-11-02 15:45] VITALS: BP 105/66; PULSE 94; RESP 18; TEMP 36.3; O2SAT 95
[2024-11-02 23:52] VITALS: BP 106/68; PULSE 78; RESP 16; TEMP 36.6; O2SAT 98
[2024-11-03] MEDS: HYDROmorphone HCl 0.5 MG/0.5 ML SYRINGE 1 MG IVPUSH ×4 (00:39→09:51)
--- NOTE | 2024-11-03 07:41 | PM.PNORT ---
Subjective Subjective Date of Service: 11/03/24 Interval history: 34-year-old male admitted to the hospital for effusion and pain of the left hip Aspiration performed, cultures negative This morning, patient is still in pain, but reports this has improved No acute events overnight No other complaints or concerns at this time Physical Exam Vital Signs: Vital Signs: Last Vital Signs Temp 97.9 F 11/02/24 23:52 Pulse 78 11/02/24 23:52 Resp 16 11/02/24 23:52 BP 106/68 11/02/24 23:52 Pulse Ox 98 11/02/24 23:52 O2 Del Method Room Air 11/02/24 15:45 BMI result Body Mass Index 28.8 Extrem: Other: Patient's left hip normal to inspection at this time No evidence of surrounding erythema, ecchymosis No evidence of infection Patient is able to actively forward flex the left hip, but does experience pain when doing so Patient reports some pain with all passive range of motion, including forward flexion, internal rotation, and external rotation of the left hip Patient is able to flex and extend the digits of the left foot without difficulty Compartments soft, nontender Distal sensation intact Capillary refill brisk Procedures Date of Service Date of Service: 11/03/24 Progress Note: A&P Assessment and plan (1) Effusion of hip joint, left: Status: Acute (2) Arthralgia of left hip: Status: Acute Plan 1. Acute onset pain of the left hip Given history of diagnosis of inflammatory condition and hip aspiration negative for cultures, index of suspicion for an inflammatory arthritis of the hips is high Index of suspicion for any septic arthritis process of the left hip is extremely low at this time No acute orthopedic intervention indicated at this time given absence of infection Patient should likely follow with rheumatology for treatment of inflammatory arthritis while in the hospital and when discharged Per Rheumatology, trial IV steroids if gonorrhea testing negative Continue with all other recommendations per Medicine and Rheumatology Time Spent With Patient Time: Total time managing care of this patient today ____ minutes. Quality Stroke Does the patient have a stroke diagnosis?: No VTE Prior VTE?: No VTE Risk Level:: Medical - moderate - high VTE Device Contraindication: Treatment Not Indicated VTE Drug Contraindication: N/A - Med Ordered
[2024-11-03 07:51] VITALS: BP 116/61; PULSE 71; RESP 18; TEMP 36.2; O2SAT 96
--- NOTE | 2024-11-03 08:25 | P.PNIM_ITS ---
Subjective Subjective Date of Service: 11/03/24 Interval History: hip pain/effusion Review of Systems has hip pain/difficulty ambulating swab for gonorrhae/chlamydia-pending Physical Exam 2 Vital Signs: Vital Signs: Last Vital Signs Temp 97.2 F 11/03/24 07:51 Pulse 71 11/03/24 07:51 Resp 18 11/03/24 07:51 BP 116/61 11/03/24 07:51 Pulse Ox 96 11/03/24 07:51 O2 Del Method Room Air 11/03/24 07:51 BMI result Body Mass Index 28.8 General: AOx3, no acute distress Resp: CTA bilaterally CVS: S1, S2, RRR GI: +BS, NT, no distention Skin: Warm, dry Extremities: No edema. Diffuse left hip tenderness to palpation. has left sided anterior cervical lymph node palapable. Psych: Appropriate affect Objective Data Active Medications Acetaminophen (Acetaminophen 325 Mg Tablet) 650 mg PO Q6H PRN PRN Reason: Pain, Mild 1-3,fever,headache Calcium Carbonate (Calcium Carbonate 750 Mg Tab.Chew) 750 mg PO Q4H PRN PRN Reason: Heartburn Diphenhydramine HCl (Diphenhydramine Hcl 25 Mg Capsule) 25 mg PO BEDTIME PRN PRN Reason: sleep/headache Enoxaparin Sodium (Enoxaparin Sodium 40 Mg/0.4 Ml Syringe) 40 mg SUBCUT Q24H REVA Last Admin: 11/02/24 14:09 Dose: 40 mg Documented By: CAMMIE Hydromorphone HCl (Hydromorphone Hcl 0.5 Mg/0.5 Ml Syringe) 1 mg IVPUSH Q3H PRN; Protocol PRN Reason: Pain, Severe (Pain Scale 7-10) Last Admin: 11/03/24 06:40 Dose: 1 mg Documented By: GREGORIO Ibuprofen (Ibuprofen 400 Mg Tablet) 400 mg PO Q6H PRN PRN Reason: Pain, Mild (Pain Scale 1-3) Ketorolac Tromethamine (Ketorolac Tromethamine 30 Mg/Ml Vial) 30 mg IVPUSH Q6H PRN PRN Reason: Pain, Moderate(Pain Scale 4-6) Stop: 11/04/24 11:52 Magnesium Hydroxide (Milk Of Magnesia 30 Ml Oral.Susp) 30 ml PO DAILY PRN PRN Reason: Constipation Melatonin (Melatonin 3 Mg Tablet) 6 mg PO BEDTIME PRN PRN Reason: Insomnia Ondansetron HCl (Ondansetron Hcl 4 Mg/2 Ml Vial) 4 mg IVPUSH Q8H PRN PRN Reason: Nausea and Vomiting Oxycodone HCl (Oxycodone Hcl Immed Release 5 Mg Tablet) 5 mg PO Q6H PRN PRN Reason: Pain, Moderate(Pain Scale 4-6) Sodium Chloride (0.9 % Sodium Chloride Flush 3 Ml Syringe) [address] [facility] Last Admin: 11/02/24 19:39 Dose: 3 ml Documented By: GREGORIO Labs 10/31/24 06:25 10/31/24 06:25 Labs: Laboratory Results - last 24 hr 11/01/24 11/02/24 23:34 Unknown Urine Color Yellow Urine Appearance Clear Urine pH 5.5 Ur Specific [place] >= 1.030 H Urine Protein 30 (1+) H Urine Glucose (UA) Negative Urine Ketones Negative Urine Blood Negative Urine Nitrite Negative Ur Leukocyte Esterase Trace H Urine RBC 0-2 Urine WBC 6-10 H Ur Squamous Epith Cells 0-2 Urine Bacteria None Seen Hyaline Casts 0-2 HIV 1&2 Ab/P24 Ag 4thGn Nonreactive Microbiology Microbiology Results: Microbiology 10/31/24 08:45 Gram Stain - Final Hip aspirate Anaerobic Culture - Preliminary No growth to date. Gross Specimen Examination - Final Fluid Crystals - Final Joint Fluid Culture - Final No growth after 2 days Assessment and Plan (1) Effusion of hip joint, left: Status: Acute Assessment and Plan: 34-year-old male with a PMH significant for?chronic hip pain possibly secondary to iInflammatory arthritis, iron deficiency anemia, and cocaine use disorder in remission x1 year who presents to the ED with?severe left hip and leg pain and weakness x2-3 days. Pt is admitted to the hospital for treatment and further evaluation of intractable left hip and leg pain likely secondary to inflammatory arthritis flare. Left hip pain Pt with left hip pain radiating to testicles and lower extremity, left lower leg weakness and difficulty ambulating CT showing left hip effusion Pt with two similar episodes with arthrocentesis: [facility] [place] hip and at [facility] in 09/2024 for right hip left hip aspirate -wbc 95419,88% neutrophils, no fevers lyme screen ,Rf negative ,ccp:8, NIELS -negative in [facility] hiv nonreactive hip culture prelim-negative, no crystrals chlamydia and n.gonorrhoeae tesing negative. b/l SI joint xray-has suggestive of bilateral sacroiliitis( which was also present in ct abd/pelvis ). d/w rheumatology Dr Mcdonough-ssa,ssab, [id number],TAMEKA, gonorrhae throat and rectal swab . ua-negative except mild pyuria, no bacteruria ,patient denies any urinary c/o. once gonorrhae throat and rectal swab -negative ,will give trial of steriods. plan: treat with analgesics Orthopedics follow up for above, Id eval also added ? inflamatory arthritis PT evaluation Migraines Continue sumatriptan, topiramate Full Code DVT Prophylaxis: Lovenox ongoing hospitalization oreatment of?intractable left hip and leg pain with left hip effusion likely secondary to inflammatory arthritis flare. Pt will require IV analgesics, specialist consultation with Orthopedics, and ID eval. Quality Stroke Does the patient have a stroke diagnosis?: No VTE Prior VTE?: No VTE Risk Level:: Medical - moderate - high VTE Device Contraindication: Treatment Not Indicated VTE Drug Contraindication: N/A - Med Ordered
[2024-11-03] MEDS: 0.9 % Sodium Chloride Flush 3 ML SYRINGE IVFLUSH ×3 (09:53→23:11)
[2024-11-03 10:47] LABS: Glucose Synovial Fluid < 2; Total Protein Synovial Fluid 6.4
[2024-11-03] MEDS: Enoxaparin Sodium 40 MG/0.4 ML SYRINGE SUBCUT (12:58)
[2024-11-03] MEDS: HYDROmorphone HCl 1 MG/ML SYRINGE IVPUSH ×4 (12:58→22:38)
[2024-11-03 15:23] VITALS: BP 120/71; PULSE 94; RESP 18; TEMP 37.1; O2SAT 97
[2024-11-03] MEDS: ondansetron HCL 4 MG/2 ML VIAL IVPUSH (19:25)
[2024-11-03 20:23] VITALS: BP 106/60; PULSE 82; RESP 18; TEMP 36.6; O2SAT 96
[2024-11-04 03:25] VITALS: BP 126/74; PULSE 101; RESP 16; TEMP 36.4; O2SAT 98
[2024-11-04] MEDS: HYDROmorphone HCl 1 MG/ML SYRINGE IVPUSH ×7 (03:34→22:44)
[2024-11-04 09:43] VITALS: BP 97/54; PULSE 80; RESP 16; TEMP 37; O2SAT 97
[2024-11-04] MEDS: 0.9 % Sodium Chloride Flush 3 ML SYRINGE IVFLUSH ×2 (09:46→15:45)
--- NOTE | 2024-11-04 10:37 | MHC.CM.PN ---
Per MD rounds patient not medically cleared for dc. Auth pending @ [facility]. CM will continue to follow.
[2024-11-04 12:42] VITALS: BP 116/66; PULSE 77; RESP 16; TEMP 36.8; O2SAT 98
--- NOTE | 2024-11-04 13:01 | HO.PM.IMPN ---
Subjective Subjective Date of Service: 11/04/24 Interval History: left hip pain Review of Systems has hip pain/difficulty ambulating swab for gonorrhae/chlamydia-pending Physical Exam Vital Signs: Vital Signs: Last Vital Signs Temp 98.3 F 11/04/24 12:42 Pulse 77 11/04/24 12:42 Resp 16 11/04/24 12:42 BP 116/66 11/04/24 12:42 Pulse Ox 98 11/04/24 12:42 O2 Del Method Room Air 11/04/24 12:42 BMI result Body Mass Index 28.8 General: AOx3, no acute distress Resp: CTA bilaterally CVS: S1, S2, RRR GI: +BS, NT, no distention Skin: Warm, dry Extremities: No edema. Diffuse left hip tenderness to palpation. has left sided anterior cervical lymph node palapable. Psych: Appropriate affect Objective Data Active Medications Acetaminophen (Acetaminophen 325 Mg Tablet) 650 mg PO Q6H PRN PRN Reason: Pain, Mild 1-3,fever,headache Calcium Carbonate (Calcium Carbonate 750 Mg Tab.Chew) 750 mg PO Q4H PRN PRN Reason: Heartburn Diphenhydramine HCl (Diphenhydramine Hcl 25 Mg Capsule) 25 mg PO BEDTIME PRN PRN Reason: sleep/headache Enoxaparin Sodium (Enoxaparin Sodium 40 Mg/0.4 Ml Syringe) 40 mg SUBCUT Q24H [facility] Last Admin: 11/03/24 12:58 Dose: 40 mg Documented By: CELENA Hydromorphone HCl (Hydromorphone Hcl 1 Mg/Ml Syringe) 1 mg IVPUSH Q3H PRN; Protocol PRN Reason: Pain, Severe (Pain Scale 7-10) Last Admin: 11/04/24 12:46 Dose: 1 mg Documented By: BRAEDEN Ibuprofen (Ibuprofen 400 Mg Tablet) 400 mg PO Q6H PRN PRN Reason: Pain, Mild (Pain Scale 1-3) Magnesium Hydroxide (Milk Of Magnesia 30 Ml Oral.Susp) 30 ml PO DAILY PRN PRN Reason: Constipation Melatonin (Melatonin 3 Mg Tablet) 6 mg PO BEDTIME PRN PRN Reason: Insomnia Ondansetron HCl (Ondansetron Hcl 4 Mg/2 Ml Vial) 4 mg IVPUSH Q8H PRN PRN Reason: Nausea and Vomiting Last Admin: 11/03/24 19:25 Dose: 4 mg Documented By: GREGORIO Oxycodone HCl (Oxycodone Hcl Immed Release 5 Mg Tablet) 5 mg PO Q6H PRN PRN Reason: Pain, Moderate(Pain Scale 4-6) Sodium Chloride (0.9 % Sodium Chloride Flush 3 Ml Syringe) 3 ml IVFLUSH QSHIFT [facility] Last Admin: 11/04/24 09:46 Dose: 3 ml Documented By: DOUGLASAC Labs 10/31/24 06:25 10/31/24 06:25 Microbiology Microbiology Results: Microbiology 10/30/24 08:03 Blood Culture - Final Blood - Venous No growth after 5 days. 10/30/24 08:04 Blood Culture - Final Blood - Venous No growth after 5 days. 10/31/24 08:45 Gram Stain - Final Hip aspirate Anaerobic Culture - Preliminary No growth to date. Gross Specimen Examination - Final Fluid Crystals - Final Joint Fluid Culture - Final No growth after 2 days Assessment and Plan (1) Effusion of hip joint, left: Status: Acute Assessment and Plan: 34-year-old male with a PMH significant for?chronic hip pain possibly secondary to iInflammatory arthritis, iron deficiency anemia, and cocaine use disorder in remission x1 year who presents to the ED with?severe left hip and leg pain and weakness x2-3 days. Pt is admitted to the hospital for treatment and further evaluation of intractable left hip and leg pain likely secondary to inflammatory arthritis flare. Left hip pain Pt with left hip pain radiating to testicles and lower extremity, left lower leg weakness and difficulty ambulating CT showing left hip effusion Pt with two similar episodes with arthrocentesis: [facility] [place] in 07/2024 for left hip and at [facility] in 09/2024 for right hip left hip aspirate -wbc 39584,88% neutrophils, no fevers lyme screen ,Rf negative ,ccp:8, NIELS -negative in [facility] hiv nonreactive hip culture prelim-negative, no crystrals b/l SI joint xray-has suggestive of bilateral sacroiliitis( which was also present in ct abd/pelvis ). d/w rheumatology Dr Mcdonough-ssa,ssab, [id number], gonorrhae throat and rectal swab . ua-negative except mild pyuria, no bacteruria ,patient denies any urinary c/o. once gonorrhae throat and rectal swab -pending, but chlamydia /gonorrhae urethrea probe in [facility] (chlamydia/GN amplified probe negative)and chlamydia and n.gonorrhoeae serologies tesing negative [facility] [place]. d/w Id and rheumatology-will give trial of iv steriods. plan: Orthopedics follow up for above, Id eval also added ? inflamatory arthritis treat with analgesics,trial of iv steriods. PT evaluation Migraines Continue sumatriptan, topiramate Full Code DVT Prophylaxis: Lovenox ongoing hospitalization oreatment of?intractable left hip and leg pain with left hip effusion likely secondary to inflammatory arthritis flare- IV analgesics, need further course of treatment decided depending upon once gonorrhae throat and rectal swab -negative ,will give trial of steriods. Quality Stroke Does the patient have a stroke diagnosis?: No VTE Prior VTE?: No VTE Risk Level:: Medical - moderate - high VTE Device Contraindication: Treatment Not Indicated VTE Drug Contraindication: N/A - Med Ordered
[2024-11-04] MEDS: Enoxaparin Sodium 40 MG/0.4 ML SYRINGE SUBCUT (14:17)
[2024-11-04] MEDS: ondansetron HCL 4 MG/2 ML VIAL IVPUSH ×2 (14:17→22:43)
[2024-11-04 15:23] VITALS: BP 104/63; PULSE 76; RESP 15; TEMP 36.7; O2SAT 96
[2024-11-04 15:24] LABS: Antibody to SS-A Antigen <1.0 NEG AI (<1.0 NEG); Antibody to SS-B Antigen <1.0 NEG AI (<1.0 NEG)
[2024-11-04] MEDS: methylPREDNISolone Sod Succ 40 MG/ML VIAL IVPUSH (15:45)
[2024-11-04 19:26] VITALS: BP 126/76; PULSE 90; RESP 16; TEMP 36.3; O2SAT 97
[2024-11-05] MEDS: HYDROmorphone HCl 1 MG/ML SYRINGE IVPUSH ×6 (02:33→22:12)
[2024-11-05 02:38] VITALS: BP 105/70; PULSE 77; RESP 16; TEMP 36.4; O2SAT 95
[2024-11-05] MEDS: 0.9 % Sodium Chloride Flush 3 ML SYRINGE IVFLUSH ×2 (07:46→15:34)
[2024-11-05 07:48] VITALS: BP 112/73; PULSE 78; RESP 18; TEMP 36.1; O2SAT 98
--- NOTE | 2024-11-05 12:39 | HO.PM.IMPN ---
Subjective Subjective Date of Service: 11/05/24 Interval History: hip pain Review of Systems seems hip pain similar , encouraged for ambulation and oob Physical Exam Vital Signs: Vital Signs: Last Vital Signs Temp 96.9 F 11/05/24 07:48 Pulse 78 11/05/24 07:48 Resp 18 11/05/24 07:48 BP 112/73 11/05/24 07:48 Pulse Ox 98 11/05/24 07:48 O2 Del Method Room Air 11/05/24 07:48 BMI result Body Mass Index 28.8 General: AOx3, no acute distress Resp: CTA bilaterally CVS: S1, S2, RRR GI: +BS, NT, no distention Skin: Warm, dry Extremities: No edema. left hip tenderness similar. has left sided anterior cervical lymph node palapable. Psych: Appropriate affec Objective Data Active Medications Acetaminophen (Acetaminophen 325 Mg Tablet) 650 mg PO Q6H PRN PRN Reason: Pain, Mild 1-3,fever,headache Calcium Carbonate (Calcium Carbonate 750 Mg Tab.Chew) 750 mg PO Q4H PRN PRN Reason: Heartburn Diphenhydramine HCl (Diphenhydramine Hcl 25 Mg Capsule) 25 mg PO BEDTIME PRN PRN Reason: sleep/headache Enoxaparin Sodium (Enoxaparin Sodium 40 Mg/0.4 Ml Syringe) 40 mg SUBCUT Q24H [facility] Last Admin: 11/04/24 14:17 Dose: 40 mg Documented By: BRAEDEN Hydromorphone HCl (Hydromorphone Hcl 1 Mg/Ml Syringe) 1 mg IVPUSH Q3H PRN; Protocol PRN Reason: Pain, Severe (Pain Scale 7-10) Last Admin: 11/05/24 12:08 Dose: 1 mg Documented By: AMAN Ibuprofen (Ibuprofen 400 Mg Tablet) 400 mg PO Q6H PRN PRN Reason: Pain, Mild (Pain Scale 1-3) Magnesium Hydroxide (Milk Of Magnesia 30 Ml Oral.Susp) 30 ml PO DAILY PRN PRN Reason: Constipation Melatonin (Melatonin 3 Mg Tablet) 6 mg PO BEDTIME PRN PRN Reason: Insomnia Methylprednisolone Sodium Succinate (Methylprednisolone Sod Succ 40 Mg/Ml Vial) 40 mg IVPUSH Q24H [facility] Last Admin: 11/04/24 15:45 Dose: 40 mg Documented By: CRESENCIO Ondansetron HCl (Ondansetron Hcl 4 Mg/2 Ml Vial) 4 mg IVPUSH Q8H PRN PRN Reason: Nausea and Vomiting Last Admin: 11/04/24 22:43 Dose: 4 mg Documented By: PEPE Oxycodone HCl (Oxycodone Hcl Immed Release 5 Mg Tablet) 5 mg PO Q6H PRN PRN Reason: Pain, Moderate(Pain Scale 4-6) Sodium Chloride (0.9 % Sodium Chloride Flush 3 Ml Syringe) 3 ml IVFLUSH QSHIFT [facility] Last Admin: 11/05/24 07:46 Dose: 3 ml Documented By: AMAN Labs 10/31/24 06:25 10/31/24 06:25 Labs: Laboratory Results - last 24 hr 11/02/24 10:29 SS-A/Ro Antibody <1.0 NEG SS-B/La Antibody <1.0 NEG Microbiology Microbiology Results: Microbiology 10/31/24 08:45 Gram Stain - Final Hip aspirate Anaerobic Culture - Final NO GROWTH AFTER 5 DAYS Gross Specimen Examination - Final Fluid Crystals - Final Joint Fluid Culture - Final No growth after 2 days 10/30/24 08:03 Blood Culture - Final Blood - Venous No growth after 5 days. 10/30/24 08:04 Blood Culture - Final Blood - Venous No growth after 5 days. Assessment and Plan (1) Effusion of hip joint, left: Status: Acute Assessment and Plan: 34-year-old male with a PMH significant for?chronic hip pain possibly secondary to iInflammatory arthritis, iron deficiency anemia, and cocaine use disorder in remission x1 year who presents to the ED with?severe left hip and leg pain and weakness x2-3 days. Pt is admitted to the hospital for treatment and further evaluation of intractable left hip and leg pain likely secondary to inflammatory arthritis flare. Left hip pain Pt with left hip pain radiating to testicles and lower extremity, left lower leg weakness and difficulty ambulating CT showing left hip effusion Pt with two similar episodes with arthrocentesis: [facility] [place] in 07/2024 for left hip and at [facility] in 09/2024 for right hip left hip aspirate -wbc [id number],88% neutrophils, no fevers lyme screen ,Rf negative ,ccp:8, NIELS -negative in [facility] hiv nonreactive hip culture-negative , no crystrals b/l SI joint xray-has suggestive of bilateral sacroiliitis( which was also present in ct abd/pelvis ). d/w rheumatology-ssa,ssab, [id number],[id number], gonorrhae throat and rectal swab . ua-negative except mild pyuria, no bacteruria ,patient denies any urinary c/o. once gonorrhae throat and rectal swab -pending, but chlamydia /gonorrhae urethrea probe in [facility] (chlamydia/GN amplified probe negative)and chlamydia and n.gonorrhoeae serologies tesing negative [facility] [place]. d/w Id and rheumatology-will give trial of iv steriods. plan: Orthopedics follow up for above, Id eval also added ? inflamatory arthritis treat with analgesics,trial of iv steriods. PT evaluation Migraines Continue sumatriptan, topiramate Full Code DVT Prophylaxis: Lovenox ongoing hospitalization oreatment of?intractable left hip and leg pain with left hip effusion likely secondary to inflammatory arthritis flare- IV analgesics, need further course of treatment decided depending upon once gonorrhae throat and rectal swab -negative ,will give trial of steriods. Quality Stroke Does the patient have a stroke diagnosis?: No VTE Prior VTE?: No VTE Risk Level:: Medical - moderate - high VTE Device Contraindication: Treatment Not Indicated VTE Drug Contraindication: N/A - Med Ordered
[2024-11-05] MEDS: ondansetron HCL 4 MG/2 ML VIAL IVPUSH (13:45)
[2024-11-05] MEDS: Enoxaparin Sodium 40 MG/0.4 ML SYRINGE SUBCUT (13:45)
[2024-11-05] MEDS: methylPREDNISolone Sod Succ 40 MG/ML VIAL IVPUSH (15:32)
[2024-11-05 15:53] VITALS: BP 127/71; PULSE 93; RESP 18; TEMP 36.4; O2SAT 95
[2024-11-05 19:36] VITALS: BP 129/59; PULSE 94; RESP 18; TEMP 36.6; O2SAT 96
[2024-11-05 23:29] LABS: N. gonorrhoeae RNA TMA, Throat NOT DETECTED
[2024-11-05 23:30] VITALS: BP 117/68; PULSE 78; RESP 18; TEMP 36.1; O2SAT 97
[2024-11-06] MEDS: diphenhydrAMINE HCL 25 MG CAPSULE PO (01:00)
[2024-11-06] MEDS: HYDROmorphone HCl 1 MG/ML SYRINGE IVPUSH ×8 (01:00→23:55)
[2024-11-06 01:52] LABS: C.Trachomatis RNA TMA, Rectal NOT DETECTED; N.Gonorrhoeae RNA TMA, Rectal NOT DETECTED
[2024-11-06 04:00] VITALS: BP 116/72; PULSE 75; RESP 18; TEMP 36.4; O2SAT 98
[2024-11-06 07:23] VITALS: BP 126/60; PULSE 80; RESP 18; TEMP 36.4; O2SAT 95
[2024-11-06] MEDS: 0.9 % Sodium Chloride Flush 3 ML SYRINGE IVFLUSH ×3 (07:26→20:41)
--- NOTE | 2024-11-06 10:55 | P.PNIM_ITS ---
Subjective Subjective Date of Service: 11/06/24 Interval History: hip pain Review of Systems says hip pain somewhat improving denies other c/o Physical Exam 2 Vital Signs: Vital Signs: Last Vital Signs Temp 97.5 F 11/06/24 07:23 Pulse 80 11/06/24 07:23 Resp 18 11/06/24 07:23 BP 126/60 11/06/24 07:23 Pulse Ox 95 11/06/24 07:23 O2 Del Method Room Air 11/06/24 07:23 BMI result Body Mass Index 28.8 General: AOx3, no acute distress Resp: CTA bilaterally CVS: S1, S2, RRR GI: +BS, NT, no distention Skin: Warm, dry Extremities: No edema. left hip tenderness similar. has left sided anterior cervical lymph node palapable. Psych: Appropriate affec Objective Data Active Medications Acetaminophen (Acetaminophen 325 Mg Tablet) 650 mg PO Q6H PRN PRN Reason: Pain, Mild 1-3,fever,headache Calcium Carbonate (Calcium Carbonate 750 Mg Tab.Chew) 750 mg PO Q4H PRN PRN Reason: Heartburn Diphenhydramine HCl (Diphenhydramine Hcl 25 Mg Capsule) 25 mg PO BEDTIME PRN PRN Reason: sleep/headache Last Admin: 11/06/24 01:00 Dose: 25 mg Documented By: PEPE Enoxaparin Sodium (Enoxaparin Sodium 40 Mg/0.4 Ml Syringe) 40 mg SUBCUT Q24H [facility] Last Admin: 11/05/24 13:45 Dose: 40 mg Documented By: AMAN Hydromorphone HCl (Hydromorphone Hcl 1 Mg/Ml Syringe) 1 mg IVPUSH Q3H PRN; Protocol PRN Reason: Pain, Severe (Pain Scale 7-10) Last Admin: 11/06/24 10:42 Dose: 1 mg Documented By: AMAN Ibuprofen (Ibuprofen 400 Mg Tablet) 400 mg PO Q6H PRN PRN Reason: Pain, Mild (Pain Scale 1-3) Magnesium Hydroxide (Milk Of Magnesia 30 Ml Oral.Susp) 30 ml PO DAILY PRN PRN Reason: Constipation Melatonin (Melatonin 3 Mg Tablet) 6 mg PO BEDTIME PRN PRN Reason: Insomnia Methylprednisolone Sodium Succinate (Methylprednisolone Sod Succ 40 Mg/Ml Vial) 40 mg IVPUSH Q24H [facility] Last Admin: 11/05/24 15:32 Dose: 40 mg Documented By: AMAN Ondansetron HCl (Ondansetron Hcl 4 Mg/2 Ml Vial) 4 mg IVPUSH Q8H PRN PRN Reason: Nausea and Vomiting Last Admin: 11/05/24 13:45 Dose: 4 mg Documented By: AMAN Sodium Chloride (0.9 % Sodium Chloride Flush 3 Ml Syringe) 3 ml IVFLUSH QSHIFT [facility] Last Admin: 11/06/24 07:26 Dose: 3 ml Documented By: AMAN Labs 10/31/24 06:25 10/31/24 06:25 Labs: Laboratory Results - last 24 hr 11/02/24 Unknown Throat N gonorr RNA TMA NOT DETECTED Rect C trach RNA TMA NOT DETECTED Rect N gonorrh RNA TMA NOT DETECTED Microbiology Microbiology Results: Microbiology 10/31/24 08:45 Gram Stain - Final Hip aspirate Anaerobic Culture - Final NO GROWTH AFTER 5 DAYS Gross Specimen Examination - Final Fluid Crystals - Final Joint Fluid Culture - Final No growth after 2 days Assessment and Plan (1) Effusion of hip joint, left: Status: Acute Assessment and Plan: 34-year-old male with a PMH significant for?chronic hip pain possibly secondary to iInflammatory arthritis, iron deficiency anemia, and cocaine use disorder in remission x1 year who presents to the ED with?severe left hip and leg pain and weakness x2-3 days. Pt is admitted to the hospital for treatment and further evaluation of intractable left hip and leg pain likely secondary to inflammatory arthritis flare. Left hip pain Pt with left hip pain radiating to testicles and lower extremity, left lower leg weakness and difficulty ambulating CT showing left hip effusion Pt with two similar episodes with arthrocentesis: [facility] [place] in 07/2024 for left hip and at [facility] in 09/2024 for right hip left hip aspirate -wbc 86502,88% neutrophils, no fevers lyme screen ,Rf negative ,ccp:8, NIELS -negative in [facility] hiv nonreactive hip culture-negative , no crystrals b/l SI joint xray-has suggestive of bilateral sacroiliitis( which was also present in ct abd/pelvis ). d/w rheumatology-ssa,ssab: negative [id number],[id number], gonorrhae throat and rectal swab pending . ua-negative except mild pyuria, no bacteruria ,patient denies any urinary c/o. once gonorrhae throat and rectal swab -pending, but chlamydia /gonorrhae urethrea probe in [facility] (chlamydia/GN amplified probe negative)and chlamydia and n.gonorrhoeae serologies [place]esing [place] [facility] [place] seen by ortho and Id -less likely hip infection. d/w Id and rheumatology-will give trial of iv steriods. plan: Orthopedics follow up for above, Id eval also added ? inflamatory arthritis treat with analgesics,trial of iv steriods. patient encouraged to get oob and also staff is aware for ambulation Migraines Continue sumatriptan, topiramate Full Code DVT Prophylaxis: Lovenox ongoing hospitalization oreatment of?intractable left hip and leg pain with left hip effusion likely secondary to inflammatory arthritis flare- IV analgesics, need further course of treatment decided depending upon once gonorrhae throat and rectal swab -negative ,will give trial of steriods. Quality Stroke Does the patient have a stroke diagnosis?: No VTE Prior VTE?: No VTE Risk Level:: Medical - moderate - high VTE Device Contraindication: Treatment Not Indicated VTE Drug Contraindication: N/A - Med Ordered
[2024-11-06] MEDS: ondansetron HCL 4 MG/2 ML VIAL IVPUSH ×2 (12:02→20:47)
[2024-11-06] MEDS: Enoxaparin Sodium 40 MG/0.4 ML SYRINGE SUBCUT (13:17)
[2024-11-06 13:24] VITALS: BP 114/65
[2024-11-06 14:48] LABS: DNAds, Crithidia Antibody Negative (Negative)
[2024-11-06 14:56] VITALS: BP 116/64; PULSE 75; RESP 18; TEMP 36.2; O2SAT 97
[2024-11-06] MEDS: methylPREDNISolone Sod Succ 40 MG/ML VIAL IVPUSH (15:32)
--- NOTE | 2024-11-06 18:56 | PC.NURSE ---
pt had a vape pen at bedside, sent upstairs to be locked.
--- NOTE | 2024-11-06 19:10 | PC.NURSE ---
pt ambulated approximately 100 feet in the [place] with walker and standby assist. pt did not bear weight on his left foot.
[2024-11-06 23:59] VITALS: BP 107/68; PULSE 57; RESP 16; TEMP 36.1; O2SAT 95
[2024-11-07] MEDS: HYDROmorphone HCl 1 MG/ML SYRINGE IVPUSH (03:12)
[2024-11-07 06:34] LABS: Angiotensin Converting Enzyme 11 U/L (9-67)
[2024-11-07 07:51] VITALS: BP 90/53; PULSE 53; RESP 18; TEMP 36.6; O2SAT 96
[2024-11-07 08:24] VITALS: BP 122/74
[2024-11-07] MEDS: ondansetron HCL 4 MG/2 ML VIAL IVPUSH (08:39)
[2024-11-07] MEDS: 0.9 % Sodium Chloride Flush 3 ML SYRINGE IVFLUSH (08:39)
[2024-11-07] MEDS: Omeprazole 20 MG CAPSULE.DR PO (08:39)
[2024-11-07] MEDS: HYDROmorphone HCl 1 MG/ML SYRINGE 0.5 MG IVPUSH (08:39)
[2024-11-07] MEDS: Acetaminophen 325 MG TABLET 975 MG PO ×2 (09:17→14:36)
[2024-11-07] MEDS: oxyCODONE HCl Immed Release 5 MG TABLET 10 MG PO ×2 (09:17→14:36)
--- NOTE | 2024-11-07 13:33 | MHC.CM.PN ---
Addendum entered by Melisa Hooks RN 11/07/24 15:53: Patient declining STR at this time. He is aware he cannot get home services until his 11/25 new PCP appt. He will dc home self care via private transport. Original Note: Per MD patient medically cleared for dc to STR. BLS transport scheduled for 4pm to [facility].
--- NOTE | 2024-11-07 13:58 | PM.DS ---
DS: Providers Provider Date of Service: 11/07/24 Date of admission: 10/30/24 11:53 Date of discharge: 11/07/24 Primary care physician: None Physician Consults: 10/30/24 10:22 Consult to Orthopedics Stat Consulting Provider: [facility] Reason for consultation: Left hip effusion Has provider been notified: Yes 10/30/24 12:51 Consult to Orthopedics Routine Consulting Provider: [facility] [place] Reason for consultation: Left hip effusion ?inflammatory arthritis 11/01/24 09:46 Consult to Infectious Diseases Routine Consulting Provider: [facility] [place] Reason for consultation: Reccurrent hip effusion unclear etiology Has provider been notified: No Attending physician on discharge: Lesia Trejo Discharging clinician: Lesia Trejo DS: Diagnosis Discharge Diagnosis (1) Effusion of hip joint, left: Status: Acute DS: Summary Hospital Course Hospital Course: HPI:34-year-old male with a PMH significant for?chronic hip pain possibly secondary to iInflammatory arthritis, iron deficiency anemia, and cocaine use disorder in remission x1 year who presents to the ED with?severe left hip and leg pain and weakness x2-3 days. Pt reports symptoms began as left pain that eventually radiated down his whole left leg and into his testicles. Pt has had difficulty ambulating secondary to weakness. Reports his leg feels ?floppy? and ?essentially ?. No history of fall or trauma to the area. Denies numbness or tingling in extremities. No loss of bladder or bowel function. Also complains of slight headache but no other symptoms. Pt reports this is his 3rd episode since July of similar symptoms. Review of records indicates pt was admitted to [facility] on 08/19-08/22/2024 where he had an arthrocentesis of left hip effusion that was negative for infectious arthritis. Additional workup including Gram stain culture, blood cultures, chlamydia, and gonorrhea negative. Rheumatoid factor negative, though NIELS and Lyme screen were still pending at time of discharge. Pt was initially treated with empiric antibiotics. [facility] fell patient's symptoms likely secondary to inflammatory arthritis or other autoimmune etiology, and suggested follow-up with PCP and/or Rheumatology. Pt reports has not yet established care with a PCP though is currently looking to do so. Pt had an additional episode in his right hip around [place] while visiting his daughter in [place], and was admitted to [facility] where he had a right hip arthrocentesis. Records of that admission have not yet been obtained or reviewed. Pt reports a history of previously smoking crack cocaine, sober for the past year. Denies history of IVDU. Has history of family history of arthritis on his mother's side. Denies chest pain/pressure, palpitations. No fever, chills, nausea, vomiting, abdominal pain. Denies shortness or breath or difficulty breathing. In the ED pt's vitals stable and WNL. Labs were significant for leukocytosis of 12.1, stable microcytic anemia of 10.0/30.6, elevated ESR of 77, and CRP 5.54. No significant electrolyte abnormalities. Renal function baseline. Hepatic function baseline. CT?of left hip showed left hip joint effusion.Pt was treated with IVF, Zosyn, and Dilaudid. Pt will be admitted to the hospital for treatment and further evaluation of intractable left hip and leg pain likely secondary to inflammatory arthritis flare. Hospital course: 34-year-old male with a PMH significant for?chronic hip pain possibly secondary to iInflammatory arthritis, iron deficiency anemia, and cocaine use disorder in remission x1 year who presents to the ED with?severe left hip and leg pain and weakness x2-3 days. Pt is admitted to the hospital for treatment and further evaluation of intractable left hip and leg pain likely secondary to inflammatory arthritis flare: patient hip tapped -fluids analysis seems inflamatory arthritis , d/w with ortho,id and rheumatology,lyme screen ,Rf negative ,ccp:8, NIELS -negative in [facility] ,hiv nonreactive ,hip culture-negative , no crystrals.b/l SI joint xray-has suggestive of bilateral sacroiliitis( which was also present in ct abd/pelvis ).d/w rheumatology-ssa,ssb: negative. gonorrhae throat and rectal swab negative , blood culture negative, hip aspirate cultures are also negative, no crystals seen: Patient denies any back pain, has some hip pain but able to start ambulating : Patient got IV steroids as well as intra-articular steroids. Patient will be going to the rehab , patient is to follow-up outpatient with Rheumatology. Will give p.o. pain medications-oxycodone p.r.n., also added omeprazole daily. plan: follow up HLA and ds dna outpatient with rheumatology prednisone 20 mg qd. Oxycodone 10 mg p.o. q.4 hours p.r.n. Omeprazole 20 mg q.d. Patient is to follow-up out patiently with rheumatology for further workup and management. Patient was given the option to go to rehab patient categorically refused. He is ambulating and even taking showers. Above management discussed with the patient detail length he understand and in agreement with the above plan, time spent 40 minute. Time Attestation Total time managing care of this patient today: 40 mintues. Discharge Coordination Time (in mins): 40 min Quality: Safe Use of Opioids Does Pt have an Active Cancer Diagnosis on the Problem List?: No Quality: Stroke Does the patient have a stroke diagnosis?: No Physical Exam Vital Signs: Vital Signs: Last Vital Signs Temp 97.9 F 11/07/24 07:51 Pulse 53 11/07/24 07:51 Resp 18 11/07/24 07:51 BP 122/74 11/07/24 08:24 Pulse Ox 96 11/07/24 07:51 O2 Del Method Room Air 11/07/24 07:51 BMI result Body Mass Index 28.8 General: AOx3, no acute distress Resp: CTA bilaterally CVS: S1, S2, RRR GI: +BS, NT, no distention Skin: Warm, dry Extremities: No edema. left hip tenderness similar. has left sided anterior cervical lymph no more palapable/improved. Psych: Appropriate affec DS: Data Data Completed and Pending Labs on day of discharge: Laboratory Results - last 24 hr 11/02/24 10:29 Angiotensin Convert Enz 11 Anti-ds DNA Titer (Crith) TNP Anti-ds DNA (Crithidia) Negative Imaging Chest x-ray: Radiologist's impression: ITS Impressions Joint Aspiration/Injection 10/31/24 08:00 Impression: Successful fluoroscopic left hip aspiration obtaining 10 cc of turbid yellow fluid. The procedure was performed by Mark Vargas PA-C, and directly supervised by Dr. Acuña. Electronically signed by: Higinio Acuña MD 10/31/2024 03:29 PM [facility] Lumbar Spine X-Ray 11/02/24 08:20 IMPRESSION: Mild leftward curvature. Mild degenerative disc disease at L5-S1. No evidence of spondylolysis or spondylolisthesis. Electronically signed by: Woodrow Prabhakar MD 11/02/2024 11:42 AM EST RP Sacroiliac Joint X-Ray 11/02/24 10:45 IMPRESSION: Findings suggestive of bilateral sacroiliitis as described. Electronically signed by: Woodrow Prabhakar MD 11/02/2024 11:52 AM EST RP Discharge Plan Discharge Anticipated Discharge Date/Time: 11/01/24 11:58 Patient Disposition: Home, Self-Care Discharge Diagnosis: hip swelling and pain Referrals: May Nesbitt PA-C [Physician Application Counselor] - 11/25/24 1:30 pm (New patient appointment scheduled ) [facility] [Primary Care Provider] - 1 Week Grace Fish MD [Physician] - 1 Week Discharge Medications: New omeprazole 20 mg Capsule,Delayed Release(Dr/Ec) 20 mg PO DAILY@0630 Qty: 30 0RF oxycodone 5 mg Tablet 10 mg PO Q4H PRN (Reason: Pain, Severe (Pain Scale 7-10)) Qty: 20 0RF Rx Instructions: Partial Fill upon patient request. prednisone 20 mg tablet 20 mg PO DAILY Qty: 5 0RF docusate sodium [Colace] 100 mg capsule 100 mg PO BID Qty: 20 0RF polyethylene glycol 3350 [Miralax] 17 gram/dose powder 17 g PO DAILY Qty: 119 0RF Continued diphenhydramine-acetaminophen [Tylenol PM Extra Strength] 25-500 mg Tablet 2 tab PO BEDTIME PRN (Reason: sleep/headache) Discharge Orders: Discharge Order (Routine); Ordered 11/07/24 Ordered By: Lesia Trejo Diet: Advance to usual diet Activity on Discharge: As tolerated Stand Alone Forms: Patient Portal Discharge page Print Language: Turkmen Care Plan Goals: 34-year-old male with a PMH significant for?chronic hip pain possibly secondary to iInflammatory arthritis, iron deficiency anemia, and cocaine use disorder in remission x1 year who presents to the ED with?severe left hip and leg pain and weakness x2-3 days. Pt is admitted to the hospital for treatment and further evaluation of intractable left hip and leg pain likely secondary to inflammatory arthritis flare: patient hip tapped -fluids analysis seems inflamatory arthritis , d/w with ortho,id and rheumatology,lyme screen ,Rf negative ,ccp:8, [facility]ELS [facility] ,hiv nonreactive ,hip culture-negative , no crystrals.b/l SI joint xray-has suggestive of bilateral sacroiliitis( which was also present in ct abd/pelvis ).d/w rheumatology-ssa,ssb: negative. gonorrhae throat and rectal swab negative : Patient denies any back pain, has some hip pain but able to start ambulating : Patient got IV steroids as well as intra-articular steroids. Patient will be going to the rehab , patient is to follow-up outpatient with Rheumatology. Will give p.o. pain medications-oxycodone p.r.n., also added omeprazole daily. Health Concerns: As above Plan of Treatment: prednisone 20 mg qd. Oxycodone 10 mg p.o. q.4 hours p.r.n. Omeprazole 20 mg q.d. Patient is to follow-up out patiently with rheumatology for further workup and management. Assessment: As above. Discharge Date/Time: 11/07/24 16:15
[2024-11-07 15:09] VITALS: BP 118/59; PULSE 100; RESP 18; TEMP 37.3; O2SAT 96
[2024-11-08 15:02] LABS: HLA B27 Negative (Negative)
== END 2024-11-07 16:15 | disposition home or self-care (01) | DRG 351 ==
LOC: HO.ED 10:35 → HO.EDOVER 12:03 → HO.S3 10-31 00:14
PROVIDERS: Internal Medicine; Admitting Provider Student in an Organized Health Care Education/Training Program; Emergency Provider Emergency Medicine; Visit Provider Internal Medicine
DX: M13.852 Other specified arthritis, left hip (principal); D50.9 Iron deficiency anemia, unspecified; F17.210 Nicotine dependence, cigarettes, uncomplicated; G43.909 Migraine, unspecified, not intractable, without status migrainosus; F14.91 Cocaine use, unspecified, in remission; M46.1 Sacroiliitis, not elsewhere classified; Z71.6 Tobacco abuse counseling
CPT/HCPCS: 20610; 36415; 72110; 72202; 73502; 73701; 77002; 80048; 80053; 80307; 81001; 82164; 82945; 83605; 84157; 85025; 85027; 85652; 86140; 86235; 86255; 86617; 86618; 86812; 87040; 87070; 87073; 87205; 87389; 87491; 87591; 89051; 89060; 97116; 97161; 99285; J1171; J1650; J2405; J2543; J2919; Q9967

== ENCOUNTER → 2024-10-30 07:14 | Outpatient (BNV) | payer OTHER, SELFPAY | PROVIDERS: Emergency Provider Emergency Medicine; Visit Provider Specialist | DX: M25.452 Effusion, left hip (principal); M25.552 Pain in left hip | CPT/HCPCS: 73502; 73701 ==

== ENCOUNTER 2024-10-30 11:53 | Outpatient (BNV) | payer OTHER, SELFPAY | END 2024-11-07 13:10 | PROVIDERS: Admitting Provider Student in an Organized Health Care Education/Training Program; Emergency Provider Emergency Medicine; Visit Provider Physician Assistant Surgical | DX: M25.552 Pain in left hip (principal) | CPT/HCPCS: 20610; 77002 ==

== ENCOUNTER 2024-10-30 11:53 | Outpatient (BNV) | payer OTHER, SELFPAY | END 2024-10-31 08:00 | PROVIDERS: Admitting Provider Student in an Organized Health Care Education/Training Program; Emergency Provider Emergency Medicine; Visit Provider Physician Assistant Surgical | DX: M25.452 Effusion, left hip (principal); M25.552 Pain in left hip | CPT/HCPCS: 20610; 77002 ==

== ENCOUNTER 2024-10-30 11:53 | Outpatient (BNV) | payer OTHER, SELFPAY | END 2024-11-02 08:20 | PROVIDERS: Admitting Provider Student in an Organized Health Care Education/Training Program; Emergency Provider Emergency Medicine; Visit Provider Radiology Diagnostic Radiology | DX: M25.552 Pain in left hip (principal); M46.1 Sacroiliitis, not elsewhere classified | CPT/HCPCS: 72110; 72202 ==

== ENCOUNTER → 2024-10-30 11:53 | Outpatient (BNV) | payer OTHER, SELFPAY | PROVIDERS: Admitting Provider Student in an Organized Health Care Education/Training Program; Emergency Provider Emergency Medicine; Visit Provider Internal Medicine | DX: M25.552 Pain in left hip (principal); M25.452 Effusion, left hip | CPT/HCPCS: 99222 ==

== ENCOUNTER → 2024-10-30 11:53 | Outpatient (BNV) | payer OTHER, SELFPAY | PROVIDERS: Admitting Provider Student in an Organized Health Care Education/Training Program; Emergency Provider Emergency Medicine | DX: M25.452 Effusion, left hip (principal); M25.552 Pain in left hip | CPT/HCPCS: 99222; 99232; 99499 ==

== ENCOUNTER → 2024-10-30 11:53 | Outpatient (BNV) | payer OTHER, SELFPAY | PROVIDERS: Admitting Provider Student in an Organized Health Care Education/Training Program; Emergency Provider Emergency Medicine; Visit Provider Student in an Organized Health Care Education/Training Program | DX: M25.552 Pain in left hip (principal); M25.452 Effusion, left hip | CPT/HCPCS: 99223; 99232 ==

== ENCOUNTER 2025-01-11 03:43 | Emergency (ER) | payer OTHER, SELFPAY ==
--- NOTE | ~2025-01-11 | CT_ITS ---
EXAMINATION: CT HIP WITH CONTRAST, LEFT CLINICAL INFORMATION: Severe pain, left hip. COMPARISON: CT dated October 30, 2024. TECHNIQUE: Contiguous axial images through the left hip using 5 mm collimation with bone and soft tissue algorithm. Sagittal and coronal reformatted images acquired. This CT examination was performed using dose optimization techniques as appropriate, variously including the following: *Automated exposure control *Adjustment of mA and/or kV according to patient size (this includes techniques or standardized protocols for targeted exams where dose is matched to indication/reason for exam; i.e. extremities or head) *Use of iterative reconstruction technique DLP: 205 mGy centimeter. FINDINGS: Left acetabulum is intact. The femoral head neck/trochanters/intertrochanteric region and proximal diaphysis of the left femur are intact. Normal alignment of the femoral head with the left acetabulum. There is a coxofemoral joint effusion, small to moderate volume There is a main transverse processes of L5 joint in the S1 with subchondral cyst formation and sclerosis of the articular surfaces. There is sclerosis of the left sacroiliac joint as well.. CT/CT hip LT w IV con IMPRESSION: Small to moderate volume effusion, left coxofemoral joint. 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 Electronically signed by: Flip Holt MD 01/11/2025 09:59 AM EDT
[2025-01-11 03:48] VITALS: BP 122/84; PULSE 53; O2SAT 100
[2025-01-11 03:50] VITALS: BP 114/78; PULSE 89; RESP 17; TEMP 36.9; O2SAT 98; BMI 24.7
[2025-01-11 06:42] LABS: MANUAL DIFF FLAG NO
[2025-01-11] MEDS: Morphine Sulfate 4 MG/ML CARTRIDGE IVPUSH ×2 (06:42→13:00)
[2025-01-11 06:44] VITALS: BP 97/56; PULSE 80; RESP 17; TEMP 36.6; O2SAT 96
--- NOTE | 2025-01-11 06:48 | ED_ITS ---
HPI - Extremity Injury (Lower) General Chief Complaint: Extremity Injury, Lower Stated Complaint: 08/04 hip pain chronic Time Seen by Provider: 01/11/25 06:19 Source: patient Mode of arrival: ambulatory Limitations: no limitations History of Present Illness ED Provider: Dr. Giulia Trammell HPI Narrative: Patient comes to the emergency room complaining of severe left-sided hip pain. Patient states that in October, 2 months ago he was here for the same thing. Patient states that fluid was drained from his hip, then orthopedics injected steroids and since then he has been pain free. However, over last few days, the pain returned. Patient denies any fever chills, denies any redness around the joint area. Patient denies any new injuries. Related Data Home Medications ?Medication ?Instructions ?Recorded ?Confirmed diphenhydramine 25 2 tab PO BEDTIME PRN sleep/headache 10/30/24 10/30/24 mg-acetaminophen 500 mg tablet (Tylenol PM Extra Strength) Previous Rx's ?Medication ?Instructions ?Recorded docusate sodium 100 mg capsule 100 mg PO BID #20 caps 11/07/24 (Colace) omeprazole 20 mg capsule,delayed 20 mg PO DAILY@0630 #30 caps 11/07/24 release oxycodone 5 mg tablet 10 mg (2 x 5 mg) PO Q4H PRN Pain, 11/07/24 Severe (Pain Scale 7-10) #20 tabs polyethylene glycol 3350 17 17 g PO DAILY #119 grams 11/07/24 gram/dose oral powder (Miralax) prednisone 20 mg tablet 20 mg PO DAILY #5 tabs 11/07/24 Allergies Allergy/AdvReac Type Severity Reaction Status Date / Time haloperidol [From Haldol] AdvReac Anxiety Verified 01/11/25 03:55 ketorolac [From Toradol] AdvReac Itching Verified 10/30/24 12:53 Review of Systems 2 Review of Systems: Constitutional : No Weight loss, No Fever, No Chills, No Night Sweats, No Fatigue, No Malaise ENT/Mouth : No Hearing loss, No Ear Pain, No Nasal Congestion, No Sinus Pain, No Hoarseness, No sore throat, No Rhinorrhea, No Swallowing Difficulty Eyes: No Eye Pain, No Swelling, No Redness, No Foreign Body, No Discharge, No Vision Changes Cardiovascular : No Chest Pain, No SOB, No Dyspnea on Exertion, No Orthopnea, No Edema, No Palpitations Respiratory : No Cough, No Sputum, No Wheezing, No Smoke Exposure, No Dyspnea Gastrointestinal : No Nausea, No Vomiting, No Diarrhea, No Constipation, No abdominal Pain, No Hematochezia, No Melena Genitourinary : no irregular bleeding, No Dysuria, No Urinary Frequency, No Hematuria, No Urinary Incontinence, No Urgency, No Flank Pain, No Urinary Flow Changes, No Hesitancy Musculoskeletal : complaining of severe left-sided hip pain, No Myalgias, No Joint Swelling Skin : No Skin Lesions, No rash Neuro : No Weakness, No Numbness, No Paresthesias, No Loss of Consciousness, No Dizziness, No Headache Psych : No Anxiety/Panic, No Depression, No SI/HI/AH/VH, No Social Issues, Heme/Lymph: No Bruising, No Bleeding,No Lymphadenopathy Endocrine : No Polyuria, No Polydipsia, No Temperature Intolerance PMFSH Past Medical History Medical History Discharge from penis Lesion of penis Concern about STD in male without diagnosis Social History Social History Household Members: Family Housing: Apartment Do you presently have visiting nurse or other home services: No Unable to assess alcohol history related to: Refusing to respond Alcohol intake: never Comment: pt here for dizziness; refuses high falls measures. asked to call staff for Patient Tobacco Use Status: Current everyday Tobacco user Tobacco use type: Cigarette Cigarette Packs Per Day: 1 Cigarettes Per Day: 20.0 Smoked in Last 30 Days: Yes e-Cigarette/Vaping Use: Currently Using Second Hand Smoke Exposure: No Use of substances other than those prescribed or required for medical reasons: Yes Substance Use Type: Crack/Cocaine Last Used Substance: Days (ago) Advance Directives: No Advance Directives Information Provided: Yes service: No Physical Exam 2 Vital Signs: Vital Signs: Last Vital Signs Temp 97.9 F 01/11/25 06:44 Pulse 80 01/11/25 06:44 Resp 17 01/11/25 06:44 BP 97/56 L 01/11/25 06:44 Pulse Ox 96 01/11/25 06:44 O2 Del Method Room Air 01/11/25 06:44 BMI result Body Mass Index 24.7 Course Course Course Narrative: in October of 2024, patient was seen by Orthopedics, patient was admitted for similar complaint. Per orthopedics notes, patient was diagnosed with inflammatory arthritis of the hips, index of suspicion for septic arthritis is extremely low. while patient was hospitalized, IR gave an intra-articular steroid injection under fluoroscopy at this time, all of patient's labs pending. CT scan pending Medications Administered Discontinued Medications Generic Name Dose Route Start Last Admin Trade Name Orestse PRN Reason Stop Dose Admin Morphine Sulfate 4 mg 01/11/25 06:32 01/11/25 06:42 Morphine Sulfate 4 Mg/Ml Cartridge IVPUSH 01/11/25 06:33 4 mg ONCE ONE Administration Protocol Medical Decision Making Medical Decision Making [facility] Narrative: My interpretation of labs: normal white blood cell count, no significant abnormality in patient's chemistry, CRP slightly bumped at 3.77, ESR pending. Patient received IV pain medication, 4 mg of morphine given the labs And physical exam, it is unlikely the patient has a septic joint. as mentioned before, patient has had previous similar presentation, patient was diagnosed with inflammatory arthritis. CT scan pending patient may need orthopedics consult in IR consult for fluid drainage if present and/or steroid injection? Sign-out given to my colleague Dr. Thornton Differential Diagnosis Differential Diagnoses: The differential diagnosis associated with the presentation includes ( inflammatory arthritis of the hips, septic joint, musculoskeletal pain) Lab Data [facility] Lab Attestation statement: I reviewed the patient's lab results. 01/11/25 06:39 01/11/25 06:39 Labs: Lab Results 01/11/25 Range/Units 06:39 WBC 10.1 (4.8-10.8) X10*3/uL RBC 4.86 (4.60-5.80) X10*6/uL Hgb 13.0 L (14.0-18.0) g/dl Hct 40.1 L (42.0-52.0) % MCV 82.5 (80.0-98.0) fL MCH 26.7 L (27.0-33.0) pg MCHC 32.4 (31.0-36.0) g/dl RDW 13.0 (11.0-16.0) % Plt Count 293 (160-400) X10*3/uL MPV 8.4 L (9.4-12.4) fL Immature Gran % (Auto) 0.2 (0.0-0.4) % Neut % (Auto) 75.2 H (45-73) % Lymph % (Auto) 15.4 L (20-40) % [place] % (Auto) 8.1 (2-11) % Eos % (Auto) 0.8 (0-4) % Baso % (Auto) 0.3 (0-2) % Lymph # (Auto) 1.6 (1.2-4.9) X10*3/uL [place] # (Auto) 0.8 (0.1-1.2) X10*3/uL Eos # (Auto) 0.1 (0.0-0.4) X10*3/uL Baso # (Auto) 0.0 (0.0-0.2) X10*3/uL Abs Immat Gran (auto) 0.02 (0.00-0.03) X10*3/uL Absolute Neuts (auto) 7.6 (2.0-8.3) x10*3/uL Absolute Nucleated RBC 0.000 (0.0-0.012) X10*3/uL Nucleated RBC % (auto) 0.0 (0.0-0.2) /100WBC Sodium 138 (135-145) mmol/L Potassium 4.2 (3.3-5.1) mmol/L Chloride 106 (96-108) mmol/L Carbon Dioxide 27 (22-29) mmol/L Anion Gap 9 L (12-20) BUN 13 (9-16) mg/dL Creatinine 0.79 (0.5-1.4) mg/dL Estim Creat Clear Calc 126.2 Estimated GFR > 60 Random Glucose 109 (60-115) mg/dL Calcium 9.0 (8.4-10.2) mg/dL C-Reactive Protein 3.77 H (< or = 0.50) mg/dL Critical Care Time Critical Care Time Critical Care Time: Yes Total Critical Care Time: 45 Attestation: I have personally provided critical care time. Time includes review of lab data, radiology results, discussion with consultants, and monitoring for potential decompensation. Intervention performed as documented. Discharge Plan Discharge Clinical Impression: Arthralgia of left hip Patient Disposition: Still a Patient Prescriptions: No Action diphenhydramine-acetaminophen [Tylenol PM Extra Strength] 25-500 mg Tablet 2 tab PO BEDTIME PRN (Reason: sleep/headache) omeprazole 20 mg Capsule,Delayed Release(Dr/Ec) 20 mg PO DAILY@0630 Qty: 30 0RF oxycodone 5 mg Tablet 10 mg PO Q4H PRN (Reason: Pain, Severe (Pain Scale 7-10)) Qty: 20 0RF Rx Instructions: Partial Fill upon patient request. prednisone 20 mg tablet 20 mg PO DAILY Qty: 5 0RF docusate sodium [Colace] 100 mg capsule 100 mg PO BID Qty: 20 0RF polyethylene glycol 3350 [Miralax] 17 gram/dose powder 17 g PO DAILY Qty: 119 0RF Print Language: Danish
[2025-01-11 06:58] LABS: Basophils Percent Auto 0.3 % (0-2); Eosinophils Absolute Auto 0.1 X10*3/uL (0.0-0.4); Eosinophils Percent Auto 0.8 % (0-4); Hematocrit 40.1 % (42.0-52.0); Imm Gran Abs Auto 0.02 X10*3/uL (0.00-0.03); Imm Gran Pct Auto 0.2 % (0.0-0.4); Lymphocytes Absolute Auto 1.6 X10*3/uL (1.2-4.9); Lymphocytes Percent Auto 15.4 % (20-40); Mean Corpuscular HGB Conc 32.4 g/dl (31.0-36.0); Mean Corpuscular Hemoglobin 26.7 pg (27.0-33.0); Mean Corpuscular Volume 82.5 fL (80.0-98.0); Mean Platelet Volume 8.4 fL (9.4-12.4); Monocytes Absolute Auto 0.8 X10*3/uL (0.1-1.2); Monocytes Percent Auto 8.1 % (2-11); Neutrophils Absolute Auto 7.6 x10*3/uL (2.0-8.3); Neutrophils Percent Auto 75.2 % (45-73); Platelet Count 293 X10*3/uL (160-400); Red Blood Count 4.86 X10*6/uL (4.60-5.80); White Blood Count 10.1 X10*3/uL (4.8-10.8)
[2025-01-11 06:59] LABS: Anion Gap 9 (12-20); Blood Urea Nitrogen 13 mg/dL (9-16); C Reactive Protein 3.77 mg/dL (< or = 0.50); Carbon Dioxide 27 mmol/L (22-29); Chloride 106 mmol/L (96-108); Creatinine Clr Calc Pharmacy 126.2; Estimated Glomerular Filt Rate > 60; Glucose Random 109 mg/dL (60-115); Potassium 4.2 mmol/L (3.3-5.1); Sodium 138 mmol/L (135-145)
[2025-01-11 07:42] LABS: Erythrocyte Sedimentation Rate 28 MM/HR (0-15)
[2025-01-11] MEDS: HYDROmorphone HCl 1 MG/ML SYRINGE IVPUSH (08:56)
[2025-01-11] MEDS: iohexoL 350 MG/ML 100 ML INFUS..BTL IV (09:13)
--- NOTE | 2025-01-11 12:29 | PC.NURSE ---
Pt asking for more pain meds; made aware; pain meds brought to pt and pt stated he can't drink pills because they get stuck in his throat and makes him vomit; this RN offered to crush the pill and place it in apple sauce; pt declined, requesting IV medications; made aware
[2025-01-11 12:51] VITALS: BP 116/72; PULSE 85; RESP 20; TEMP 36.6; O2SAT 97
[2025-01-11 14:06] VITALS: BP 116/72; PULSE 85; RESP 20; TEMP 36.6; O2SAT 97
== END 2025-01-11 14:07 | disposition home or self-care (01) ==
PROVIDERS: Emergency Medicine; Emergency Provider Emergency Medicine
DX: M25.552 Pain in left hip (principal); F17.210 Nicotine dependence, cigarettes, uncomplicated; Z79.899 Other long term (current) drug therapy
CPT/HCPCS: 36415; 73701; 80048; 85025; 85652; 86140; 96374; 96375; 96376; 99284; J1171; J2270; Q9967

== ENCOUNTER → 2025-01-11 06:32 | Outpatient (BNV) | payer OTHER, SELFPAY | PROVIDERS: Emergency Provider Emergency Medicine; Visit Provider Radiology Diagnostic Radiology | DX: M25.452 Effusion, left hip (principal) | CPT/HCPCS: 73701 ==

== ENCOUNTER 2025-02-09 08:17 | Emergency (ER) | payer OTHER, SELFPAY ==
--- NOTE | ~2025-02-09 | CT_ITS ---
EXAMINATION: CT HIP WITH CONTRAST, RIGHT CLINICAL INFORMATION: Effusion? Right hip pain. COMPARISON: Correlation made with sacroiliac joint x-rays 11/02/2024. TECHNIQUE: Spiral CT imaging of the right hip performed in axial plane after the administration of 85 cc Omnipaque 350 contrast. Multiplanar reformatted images were constructed from the axial data set. This CT examination was performed using dose optimization techniques as appropriate, variously including the following: *Automated exposure control *Adjustment of mA and/or kV according to patient size (this includes techniques or standardized protocols for targeted exams where dose is matched to indication/reason for exam; i.e. extremities or head) *Use of iterative reconstruction technique FINDINGS: No fracture, dislocation, or suspicious bone lesion. Normal alignment. Minimal narrowing of the superior joint space. No significant marginal osteophytic spurs. Normal appearing acetabular coverage. Normal femoral head without evidence of AVN. Imaged pelvis is intact. Arthritic changes of the right SI joint incidentally noted, partially imaged, inflammatory appearance with periarticular sclerosis and erosions. Imaged hip girdle musculature is normal in appearance. The imaged pelvic viscera and urinary bladder appear normal. No abnormal lymph nodes. CT/CT hip RT w IV con IMPRESSION: 1. There is no acute bony abnormality, fracture, or dislocation. 2. There is a moderate-sized right hip joint effusion. 3. Partially imaged, there are changes highly suspicious for inflammatory SI joint arthropathy. Electronically signed by: Farhad Gonzalez MD 02/09/2025 11:18 AM EDT
[2025-02-09 08:35] VITALS: BP 103/61; PULSE 98; RESP 16; TEMP 36.7; O2SAT 98; BMI 25.1
--- OUTSIDE RECORDS SUMMARY | 2025-02-09 09:24 | XMS_ITS | Clinical Summary ---
Author Organization [facility] Address [address] [place] [address] Care Team Providers Care Reactor Fueling Supervisor Name Role Phone Pcp, No Primary Care Provider Unavailabl e Allergies No known active allergies Medications acetaminophen (TYLENOL) 325 MG tabletIndicatio ns:Right hip joint effusion Take 3 tablets (975 mg total) by mouth every 8 (eight) hours around the clock. 10/19/2024 Active HYDROmorphone (DILAUDID) 4 MG tabletIndicatio ns:Right hip joint effusion Take 1 tablet (4 mg total) by mouth every 4 (four) hours as needed for severe pain. Max Daily Amount: 24 mg 12 tablet 10/19/2024 Active predniSONE (DELTASONE) 10 MG tabletIndicatio ns:Right hip joint effusion Take 40 mg (= 4 tablets) by mouth daily for 5 days, then 30 mg (= 3 tablets) daily for 5 days, then 20 mg (= 2 tablets) daily for 5 days, then 10 mg (= 1 tablet) daily for 5 days, than 5 mg (1/2 tablet) daily for 5 days, then stop. Take with food. 53 tablet 10/19/2024 Active Active Problems Problem Noted Date Diagnosed Date Severe pain 10/12/2024 History of acute pancreatitis 10/11/2024 History of substance use disorder 10/11/2024 Leukocytosis 10/11/2024 Hip effusion, right 10/11/2024 Right hip pain 10/10/2024 Hip pain, right 10/10/2024 Right hip joint effusion 10/10/2024 Hematemesis 02/22/2023 Nausea & vomiting 12/28/2022 Immunizations Immunization Administration Dates Next Due Tdap 01/06/2023 Social History Tobacco Use Types Packs/Day Years Used Date Smoking Tobacco: Every Day Smokeless Tobacco: Never Tobacco Cessation:Ready to Q uit: Not Asked; Counseling Given: Not Answered [facility] Utilities Answer Date Recorded In the past 12 months has th e electric, gas, oil, or water company threatened to shut off services in your home? No 10/11/2024 AUDIT-C Answer Date Recorded Q1: How often do you have a drink containing alcohol? Never 10/10/2024 Q2: How many drinks containi ng alcohol do you have on a typical day when you are drinking? Patient does not drink Q3: How often do you have si x or more drinks on one occasion? Less than monthly 10/10/2024 Overall Financial Resource Strain (CARDIA) Answe r Date Recorded How hard is it for you to pa y for the very basics like food, housing, medical care, and heating? Not very hard 10/11/2024 Hunger Vital Sign Answer Date Recorded Within the past 12 months, y ou worried that your food would run out before you got the money to buy more. Never true 10/11/20 24 Within the past 12 months, t he food you bought just didn't last and you didn't have money to get more. Never true 10/11/2024 PRAPARE - Transportation Answer Date Re corded In the past 12 months, has l ack of transportation kept you from medical appointments or from getting medications? No 09/25 In the past 12 months, has l ack of transportation kept you from meetings, work, or from getting things needed for daily living? No 10/11/2024 Housing Stability Vital Sign Answer Brian e Recorded In the last 12 months, was t here a time when you were not able to pay the mortgage or rent on time? Yes 10/11/2024 In the past 12 months, how m any times have you moved where you were living? 1 10/11/2024 At any time in the past 12 m [facility], were you homeless or living in a halfway (including now)? No 10/11/2024 Sex and Gender Information Value Date Recorded Sex Assigned at Male 12/12/2022 7:25 AM EST Legal Sex Male 6:59 PM EST Gender Identity Male 12/12/2022 7:25 AM EST Sexual Orientation Heterosexual (straight) 12/12 7:25 AM EST Last Filed Vital Signs Vital Sign Reading Time Taken Comments Blood Pressure 101/59 10/19/2024 6:51 AM EST Pulse 54 10/19/2024 6:51 AM EST Temperature 35.6 ??C (96 ??F) 10/19/2024 6:51 AM EST Respiratory Rate 18 10/19/2024 6:51 AM EST Oxygen Saturation 97% 10/19/2024 6:51 AM EST Inhaled Oxygen Concentration - - Weight 77.9 kg (171 lb 11.8 oz) 024 11:07 AM EST Height 172.7 cm (5' 8 ) 10/10/2024 11:0 7 AM EST Body Mass Index 26.11 10/10/2024 11:07 AM EST Plan of Treatment Health Maintenance Due Date Last Done Comments Hepatitis C Virus Screening 1989 HIV Screening 2002 Hepatitis B Vaccines (1 of 3 - 19+ 3-dose series) 2008 Pneumococcal Vaccine: Pediat jay (0-5 Years) and At-Risk Patients (6 to 49 Years) (1 of 2 - PCV) 2008 Influenza Vaccine 05/26/2024 COVID-19 Vaccine (1 - 2023-2 5 season) 2024 DTaP/Tdap/Td Vaccines (2 - T d or Tdap) 01/06/2033 01/06/2023 HPV Vaccines Aged Out No longer eligi ble based on patient's age to complete this topic Insurance [facility] Advance Directives * Full Code (Latest Code Status on File) Date Activated Date Inactivated Comments 10/10/2024 5:28 AM * Full Code Date Activated Date Inactivated Comments 02/22/2023 5:16 AM 02/23/2023 4:09 AM Question Answer Comments Decision Thoroughly Discussed with: Patient * Full Code Date Activated Date Inactivated Comments 12/28/2022 9:06 PM 12/29/2022 11:24 PM Care Teams Reactor Fueling Supervisor Relationship Specialty Start Date End Date Pcp, No PCP - General General Medicine 03/26/21
--- OUTSIDE RECORDS SUMMARY | 2025-02-09 09:24 | XMS_ITS | Encounter Summary ---
Author Organization [facility] Address [address] [place] [address] Care Team Providers Care Project Geologist Name Role Phone Pcp, No Primary Care Provider Unavailabl e Encounter Details Date Type Department Care Team (Late st Contact Info) Description 10/18/2024 Scanned Document [facility] Rheumatology [address] [id number] Stephy Alfaro MD [address] [facility] [address] [place] [address] Social History Tobacco Use Types Packs/Day Years Used Date Smoking Tobacco: Every Day Smokeless Tobacco: Never [facility] Utilities Answer Date Recorded In the past 12 months has [employer] electric, gas, oil, or water company threatened [...] were you homeless or living in a long-term (including now)? No 10/11/2024 Sex and Gender Information Value Date Recorded Sex Assigned at Male 12/12/2022 7:25 AM EST Legal Sex Male 6:59 PM EST Gender Identity Male 12/12/2022 7:25 AM EST Sexual Orientation Heterosexual (straight) 12/12 7:25 AM EST documented as of this encounter Plan of Treatment Not on file documented as of this encounter Visit Diagnoses Not on filedocumented in this encounter Additional Health Concerns Infection Onset Date Last Indicated Resolved Time R/O C. Difficile 10/18/2024 10/18/2024 10/19/2024 11:42 PM EST documented as of this encounter Care Teams Project Geologist Relationship Specialty Start Date End Date Pcp, No PCP - General General Medicine 03/26/21 documented as of this encounter
--- OUTSIDE RECORDS SUMMARY | 2025-02-09 09:24 | XMS_ITS | Encounter Summary ---
Author Organization [facility] Address [address] [place] [address] Phone Care Team Providers Care Home Office Claims Examiner Name Role Phone Santiago Charles MD Primary Care Provider Encounter Details Date Type Department Care Team (Late st Contact Info) Description 06/11/2017 Conversion Encounter [facility] [address] [place] [address] Social History Tobacco Use Types Packs/Day Years Used Date Smoking Tobacco: Never Assessed Sex and Gender Information Value Date Recorded Sex Assigned at Not on file Legal Sex Male 4:23 PM EDT Gender Identity Not on file Sexual Orientation Not on file documented as of this encounter Plan of Treatment Not on file documented as of this encounter Visit Diagnoses Not on filedocumented in this encounter Care Teams Home Office Claims Examiner Relationship Specialty Start Date End Date Santiago Charles MD [address] [place] [address] PCP - General 06/05/17 05/04/23 documented as of this encounter
--- OUTSIDE RECORDS SUMMARY | 2025-02-09 09:24 | XMS_ITS | Clinical Summary ---
Author Organization [facility] Address [address] [place] [id number] Phone Care Team Providers Care Twist Maker Name Role Phone Unavailable Primary Care Provider Unavailabl e Immunizations Immunization Administration Dates Next Due DTP 03/17/1994, 1,05/25/1990,1989,1989 Hep B, ped/adol 11/18/2001,07/19/2001,03/19/2000 Hib (PRP-T) 01/23/1991,09/30/1990 IPV 03/17/1994, 1,03/25/1990,1989 MMR 03/17/1995,01/23/1991 Td (adult) (MBL), 2 Lf tetan us toxoid, PF, adsorbed 07/19/2001 Social History Tobacco Use Types Packs/Day Years Used Date Smoking Tobacco: Never Assessed Sex and Gender Information Value Date Recorded Sex Assigned at Not on file Legal Sex Male 4:23 PM EDT Gender Identity Not on file Sexual Orientation Not on file Plan of Treatment Health Maintenance Due Date Last Done Comments DTaP,Tdap,and Td Vaccines (6 - Tdap) 07/20/2001 07/19/2001, 03/17/1994, 05/25/1991, Additional history exists Varicella Vaccines (1 of 2 - 13+ 2-dose series) 2002 Influenza Vaccines (#1) 2024 COVID-19 Vaccine ( - 2023- season) 2024 HIB Vaccines Completed 01/23/1991, 09/30/1990 IPV Vaccines Completed 03/17/1994, 04/27, 03/25/1990, Additional history exists MMR Vaccines Completed 03/17/1995, 01/23/1991 Hepatitis B Vaccines Completed 11/18/2001, 07/19/2001, 03/19/2000 HPV Vaccines Aged Out No longer eligi ble based on patient's age to complete this topic Hepatitis A Vaccines Aged Out No long er eligible based on patient's age to complete this topic Men B Vaccine Aged Out No longer elig ible based on patient's age to complete this topic Meningococcal Vaccine Aged Out No shira criss eligible based on patient's age to complete this topic Pneumococcal Vaccine Aged Out No long er eligible based on patient's age to complete this topic
--- NOTE | 2025-02-09 09:34 | ED_ITS ---
HPI - General Adult General Chief complaint: General Medical Stated complaint: r hip issue Time Seen by Provider: 02/09/25 09:03 Source: patient, RN notes reviewed and old records reviewed Mode of arrival: ambulatory History of Present Illness ED Provider: Tricia Tanner PA-C HPI narrative: 34-year-old male with a past medical history of chronic hip pain secondary to inflammatory arthritis, iron-deficiency anemia, cocaine use disorder, presenting to the ED complaining of acute on chronic right hip pain with suspected fluid buildup and difficulty ambulating secondary to pain x few weeks. States he was recently admitted to [facility] for similar symptoms and left AMA due to family emergency. Denies fever, chills, fall, injury/trauma, numbness, tingling, weakness. denies history of IVDA Related Data Home Medications ?Medication ?Instructions ?Recorded ?Confirmed diphenhydramine 25 2 tab PO BEDTIME PRN sleep/headache 10/30/24 10/30/24 mg-acetaminophen 500 mg tablet (Tylenol PM Extra Strength) Previous Rx's ?Medication ?Instructions ?Recorded docusate sodium 100 mg capsule 100 mg PO BID #20 caps 11/07/24 (Colace) omeprazole 20 mg capsule,delayed 20 mg PO DAILY@0630 #30 caps 11/07/24 release oxycodone 5 mg tablet 10 mg (2 x 5 mg) PO Q4H PRN Pain, 11/07/24 Severe (Pain Scale 7-10) #20 tabs polyethylene glycol 3350 17 17 g PO DAILY #119 grams 11/07/24 gram/dose oral powder (Miralax) prednisone 20 mg tablet 20 mg PO DAILY #5 tabs 11/07/24 cyclobenzaprine 10 mg tablet 10 mg PO TID PRN muscle spasm #20 01/11/25 tabs ondansetron 4 mg disintegrating 4 mg PO Q8H PRN nausea and 01/11/25 tablet vomiting #20 tabs oxycodone 10 mg tablet 10 mg PO Q6H PRN pain 3 days #12 01/11/25 tabs prednisone 20 mg tablet 40 mg (2 x 20 mg) PO DAILY 5 days 01/11/25 #10 tabs acetaminophen 500 mg tablet 500 mg PO Q6H PRN fever or pain 02/09/25 (Tylenol Extra Strength) #14 tabs lidocaine 5 % topical patch 1 patch topical DAILY PRN pain #30 02/09/25 (Lidoderm) ea morphine 15 mg immediate release 15 mg PO Q6H PRN pain (scale score 02/09/25 tablet 7-10) 3 days #5 tabs Allergies Allergy/AdvReac Type Severity Reaction Status Date / Time haloperidol [From Haldol] AdvReac Anxiety Verified 02/09/25 08:36 ketorolac [From Toradol] AdvReac Itching Verified 02/09/25 08:36 Review of Systems 2 Review of Systems: Yes all other systems are reviewed and are negative Constitutional: Constitutional: Reports as per [facility] Past Medical History Attestation statement: The following information was validated with the patient. Source: old records reviewed Medical History Discharge from penis Lesion of penis Concern about STD in male without diagnosis Social History Social History Household Members: Family Housing: Apartment Do you presently have visiting nurse or other home services: No Unable to assess alcohol history related to: Refusing to respond Alcohol intake: never Comment: pt here for dizziness; refuses high falls measures. asked to call staff for Patient Tobacco Use Status: Current everyday Tobacco user Tobacco use type: Cigarette Cigarette Packs Per Day: 1 Cigarettes Per Day: 20.0 Smoked in Last 30 Days: No e-Cigarette/Vaping Use: Currently Using Second Hand Smoke Exposure: No Use of substances other than those prescribed or required for medical reasons: No Substance Use Type: Crack/Cocaine Advance Directives: No Advance Directives Information Provided: No Do you have a plan to hurt others: No Plan service: No Physical Exam ED Vital Signs: Vital Signs - 24 hr 02/09/25 08:35 02/09/25 09:58 Temperature 98.0 F Pulse Rate 98 Respiratory Rate 16 16 Blood Pressure 103/61 Pulse Oximetry 98 Oxygen Delivery Method Room Air BMI result Body Mass Index 25.1 Const General: cooperative, healthy appearing and no acute distress Orientation/consciousness: patient oriented x3 Limitations: no limitations HENMT Head: Yes normal to inspection and Yes atraumatic Ears: hearing grossly normal bilaterally General nose exam: Normal external nose present Face and sinus: Yes normal facial exam Eyes General: appearance normal, both eyes and all related structures EOM: EOMs intact bilaterally Neck Neck: Yes normal visual inspection and Yes no meningeal signs Resp Effort & Inspection: normal respiratory effort and no respiratory distress Cardio Rate: regular rate GI Inspection: Yes normal to inspection Palpation (GI): Soft to palpation, nontender, no guarding and not rigid Skin Rashes: no rashes Wounds: no wounds Neuro General: patient oriented x3, tone normal and no meningeal signs Cranial nerves: Yes CN's II-XII intact bilaterally Gait exam (Neuro): Normal gait present Extrem Other: pelvis stable. right hip without appreciable deformity, no swelling, erythema, warmth. Diffusely tender to palpation. ROM limited secondary to pain. Neurovascularly intact distally. No rash General: Yes normal to inspection Course Course Course Narrative: -1143-- no leukocytosis. ESR /CRP minimally elevated CT hip RT w IV con IMPRESSION: 1. There is no acute bony abnormality, fracture, or dislocation. 2. There is a moderate-sized right hip joint effusion. 3. Partially imaged, there are changes highly suspicious for inflammatory SI joint arthropathy. > will consult Orthopedic surgery > case discussed with orthopedic FLORIDALMA Luna who discussed with Dr. Manzanares. No acute intervention required at this time. Recommending treating as arthritis and he can follow-up in the orthopedic clinic. There is low suspicion for acute septic joint or gout. Patient already has follow-up book with Dr. Bone. recommended rheumatology follow-up ss well which patient has missed/not followed through with. Results discussed with patient including worrisome signs and symptoms and strict return precautions, and when to return to the emergency department. They verbalized understanding and feel safe for discharge at this time. Medications Administered Discontinued Medications Generic Name Dose Route Start Last Admin Trade Name Freq PRN Reason Stop Dose Admin Sodium Chloride 1,000 mls @ 999 mls/hr 02/09/25 09:45 02/09/25 11:09 Ns IV 02/09/25 10:45 Infused .Q1H1M REVA Infusion Iohexol 100 ml 02/09/25 10:37 02/09/25 10:37 Iohexol 350 Mg/Ml 100 Ml Infus..Btl IV 02/09/25 10:38 85 ml ONCE ONE Administration Morphine Sulfate 2 mg 02/09/25 09:38 02/09/25 09:58 Morphine Sulfate 2 Mg/Ml Cartridge IVPUSH 02/09/25 09:39 2 mg ONCE ONE Administration Protocol Medical Decision Making Medical Decision Making [facility] Narrative: 34-year-old male with a past medical history of chronic hip pain secondary to inflammatory arthritis, iron-deficiency anemia, cocaine use disorder, presenting to the ED complaining of acute on chronic right hip pain with suspected fluid buildup and difficulty ambulating secondary to pain x few weeks. on exam vital signs stable, afebrile, NAD, nontoxic appearing, physical exam as noted above. Concern for inflammatory arthritis vs ?septic joint vs arthralgia/ arthritis vs sprain vs bursitis. lower suspicion for fracture. No evidence of cellulitis. Plan: Labs, blood cultures, pain medication, CT, re-evaluate Please refer to course for remaining clinical decision making, interpretation of labs/imaging results, and discussions with consultants and/or family members. Differential Diagnosis Differential Diagnoses: The differential diagnosis associated with the presentation includes As above Admission/Observation Consideration of admission/observation: Escalation of care including admission/observation considered Lab Data [facility] Lab Attestation statement: I reviewed the patient's lab results. 02/09/25 09:53 02/09/25 09:53 Labs: Lab Results 02/09/25 Range/Units 09:53 WBC 6.1 (4.8-10.8) X10*3/uL RBC 4.25 L (4.60-5.80) X10*6/uL Hgb 11.2 L (14.0-18.0) g/dl Hct 35.3 L (42.0-52.0) % MCV 83.1 (80.0-98.0) fL MCH 26.4 L (27.0-33.0) pg MCHC 31.7 (31.0-36.0) g/dl RDW 13.5 (11.0-16.0) % Plt Count 267 (160-400) X10*3/uL MPV 8.2 L (9.4-12.4) fL Immature Gran % (Auto) 0.2 (0.0-0.4) % Neut % (Auto) 64.3 (45-73) % Lymph % (Auto) 26.6 (20-40) % Pepin % (Auto) 7.4 (2-11) % Eos % (Auto) 1.0 (0-4) % Baso % (Auto) 0.5 (0-2) % Lymph # (Auto) 1.6 (1.2-4.9) X10*3/uL Pepin # (Auto) 0.5 (0.1-1.2) X10*3/uL Eos # (Auto) 0.1 (0.0-0.4) X10*3/uL Baso # (Auto) 0.0 (0.0-0.2) X10*3/uL Abs Immat Gran (auto) 0.01 (0.00-0.03) X10*3/uL Absolute Neuts (auto) 3.9 (2.0-8.3) x10*3/uL Absolute Nucleated RBC 0.000 (0.0-0.012) X10*3/uL Nucleated RBC % (auto) 0.0 (0.0-0.2) /100WBC ESR 28 H (0-15) MM/HR Sodium 141 (135-145) mmol/L Potassium 4.2 (3.3-5.1) mmol/L Chloride 105 (96-108) mmol/L Carbon Dioxide 27 (22-29) mmol/L Anion Gap 13 (12-20) BUN 15 (9-16) mg/dL Creatinine 0.68 (0.5-1.4) mg/dL Estim Creat Clear Calc 146.6 Estimated GFR > 60 Random Glucose 110 (60-115) mg/dL Calcium 9.0 (8.4-10.2) mg/dL C-Reactive Protein 1.29 H (< or = 0.50) mg/dL Independent Interpretation I performed an independent interpretation of an: CT Scan Radiology Impression Discussion of test interpretation with radiology: I have reviewed the radiologist's reading. External Record Review External record reviewed: Inpatient record, Office record, Outpatient record, Prior outpatient labs, Prior outpatient radiology, Primary care record and Outside ED record Tests considered The following testing was considered but not selected: As above Prescription Management I considered prescription management with: Pain Medication and Antibiotic Chronic Conditions Patient?s care impacted by: Other Social Determinants Patient?s care significantly limited by Social Determinants of Health including: Problems related to primary support group and Other Social Determinant of Health Discharge Plan Discharge Clinical Impression: Effusion of hip joint, right Patient Disposition: Home, Self-Care Instructions: Swollen Hip Joint (ED) Additional Instructions: your blood work is reassuring today. The CAT scan shows a moderate size right hip joint effusion. Orthopedics recommends follow up in their clinic outpatient, call to make an appointment morphine as an opiate pain medication, take only when pain is severe for the next 3 days In addition take Tylenol at home and use Lidoderm patches If area becomes increasingly swollen, red, warm, you are unable to walk return to the ED Prescriptions: New acetaminophen [Tylenol Extra Strength] 500 mg tablet 500 mg PO Q6H PRN (Reason: fever or pain) Qty: 14 0RF lidocaine [Lidoderm] 5 % adhesive patch,medicated 1 patch topical DAILY MDD remove after 12 hours PRN (Reason: pain) Qty: 30 0RF Rx Instructions: leave on most painful area for up to 12 hrs morphine 15 mg tablet 15 mg PO Q6H PRN (Reason: pain (scale score 7-10)) 3 Days Qty: 5 0RF Rx Instructions: Partial Fill upon patient request. No Action cyclobenzaprine 10 mg tablet 10 mg PO TID PRN (Reason: muscle spasm) Qty: 20 0RF prednisone 20 mg tablet 40 mg PO DAILY 5 Days Qty: 10 0RF ondansetron 4 mg tablet,disintegrating 4 mg PO Q8H PRN (Reason: nausea and vomiting) Qty: 20 0RF oxycodone 10 mg tablet 10 mg PO Q6H PRN (Reason: pain) 3 Days Qty: 12 0RF Rx Instructions: Partial Fill upon patient request. diphenhydramine-acetaminophen [Tylenol PM Extra Strength] 25-500 mg Tablet 2 tab PO BEDTIME PRN (Reason: sleep/headache) omeprazole 20 mg Capsule,Delayed Release(Dr/Ec) 20 mg PO DAILY@0630 Qty: 30 0RF oxycodone 5 mg Tablet 10 mg PO Q4H PRN (Reason: Pain, Severe (Pain Scale 7-10)) Qty: 20 0RF Rx Instructions: Partial Fill upon patient request. prednisone 20 mg tablet 20 mg PO DAILY Qty: 5 0RF docusate sodium [Colace] 100 mg capsule 100 mg PO BID Qty: 20 0RF polyethylene glycol 3350 [Miralax] 17 gram/dose powder 17 g PO DAILY Qty: 119 0RF Referrals: [facility] [Provider Group] - 5 days [facility] [Provider Group] - 1 week Center,[facility] [Primary Care Provider] - Print Language: Nigerian
[2025-02-09 09:58] VITALS: RESP 16
[2025-02-09] MEDS: Morphine Sulfate 2 MG/ML CARTRIDGE IVPUSH (09:58)
[2025-02-09] MEDS: 0.9 % Sodium Chloride 1,000 ML 999 ML IV (09:58)
[2025-02-09 10:00] LABS: MANUAL DIFF FLAG NO
[2025-02-09 10:01] LABS: Basophils Percent Auto 0.5 % (0-2); Eosinophils Absolute Auto 0.1 X10*3/uL (0.0-0.4); Hematocrit 35.3 % (42.0-52.0); Hemoglobin 11.2 g/dl (14.0-18.0); Imm Gran Abs Auto 0.01 X10*3/uL (0.00-0.03); Imm Gran Pct Auto 0.2 % (0.0-0.4); Lymphocytes Absolute Auto 1.6 X10*3/uL (1.2-4.9); Lymphocytes Percent Auto 26.6 % (20-40); Mean Corpuscular HGB Conc 31.7 g/dl (31.0-36.0); Mean Corpuscular Hemoglobin 26.4 pg (27.0-33.0); Mean Corpuscular Volume 83.1 fL (80.0-98.0); Mean Platelet Volume 8.2 fL (9.4-12.4); Monocytes Absolute Auto 0.5 X10*3/uL (0.1-1.2); Monocytes Percent Auto 7.4 % (2-11); Neutrophils Absolute Auto 3.9 x10*3/uL (2.0-8.3); Neutrophils Percent Auto 64.3 % (45-73); Platelet Count 267 X10*3/uL (160-400); Red Blood Count 4.25 X10*6/uL (4.60-5.80); Red Cell Distribution Width 13.5 % (11.0-16.0); White Blood Count 6.1 X10*3/uL (4.8-10.8)
[2025-02-09 10:12] LABS: Anion Gap 13 (12-20); Blood Urea Nitrogen 15 mg/dL (9-16); C Reactive Protein 1.29 mg/dL (< or = 0.50); Carbon Dioxide 27 mmol/L (22-29); Chloride 105 mmol/L (96-108); Creatinine Clr Calc Pharmacy 146.6; Estimated Glomerular Filt Rate > 60; Glucose Random 110 mg/dL (60-115); Potassium 4.2 mmol/L (3.3-5.1); Sodium 141 mmol/L (135-145)
[2025-02-09] MEDS: iohexoL 350 MG/ML 100 ML INFUS..BTL IV (10:37)
[2025-02-09 10:43] LABS: Erythrocyte Sedimentation Rate 28 MM/HR (0-15)
[2025-02-09 13:30] VITALS: BP 110/62; PULSE 86; RESP 20; TEMP 36.7; O2SAT 98
[2025-02-09 13:31] VITALS: BP 110/62; PULSE 86; RESP 20; TEMP 36.7; O2SAT 98
== END 2025-02-09 13:32 | disposition home or self-care (01) ==
PROVIDERS: Physician Assistant; Emergency Provider Emergency Medicine
DX: M25.451 Effusion, right hip (principal); M25.551 Pain in right hip; F17.210 Nicotine dependence, cigarettes, uncomplicated
CPT/HCPCS: 36415; 73701; 80048; 85025; 85652; 86140; 87040; 96361; 96374; 99284; J2270; Q9967

== ENCOUNTER → 2025-02-09 09:38 | Outpatient (BNV) | payer OTHER, SELFPAY | PROVIDERS: Emergency Provider Emergency Medicine; Visit Provider Radiology Diagnostic Radiology | DX: M25.541 Pain in joints of right hand (principal) | CPT/HCPCS: 73701 ==

== ENCOUNTER 2025-02-25 18:45 | Emergency (ER) | payer OTHER, SELFPAY ==
--- NOTE | ~2025-02-25 | CT_ITS ---
CLINICAL HISTORY: low back pain. WBC in urine. Kidney stones? CT abdomen and pelvis without contrast Comparison: CT/SR - CT HIP LT W IV CON - 10/30/24 09:[address]/REG/SR - CT ABDOMEN PELVIS W IV CON - 12/12/23 07:41 EST Findings: No consolidation or effusion. Liver, gallbladder, pancreas, spleen, and adrenal glands are within normal limits. No hydronephrosis. Punctate nonobstructing calculus in the upper pole of the left kidney. No bowel obstruction, pneumoperitoneum, or pneumatosis. Pelvic contents unremarkable. Normal appendix. Similar sclerosis of the sacroiliac joints. No acute osseous findings. IMPRESSION: 1. No acute intraabdominal or pelvic pathology. This document has been electronically signed by: Senait Kincaid MD on 02/26/2025 01:23:30
[2025-02-25 19:05] VITALS: BP 105/66; PULSE 81; RESP 18; TEMP 37.3; O2SAT 99; BMI 22.5
--- NOTE | 2025-02-25 19:07 | ED_ITS ---
HPI - General Adult General Chief complaint: General Medical Stated complaint: back pain, blood in stool Time Seen by Provider: 02/25/25 22:36 Source: patient Mode of arrival: ambulatory Limitations: no limitations History of Present Illness ED Provider: Moise Gabriel HPI narrative: 34-year-old male history of left hip joint effusion presents to the ED for 2 complaints consisting of low back pain and also rectal bleeding. Patient was seen at [facility] yesterday for similar complaints. Patient states they did nothing for his back pain. Patient states he had a CAT scan done but did not know the results. Patient denies any profuse rectal bleeding, black stool, abdominal pain, weakness, vomiting. Patient denies any history of IV drug use or HIV or hepatitis C. Patient denies any history of diabetes chronic steroid use. Patient denies any urinary/bowel incontinence. Patient denies any recent trauma Related Data Home Medications ?Medication ?Instructions ?Recorded ?Confirmed diphenhydramine 25 2 tab PO BEDTIME PRN sleep/headache 10/30/24 10/30/24 mg-acetaminophen 500 mg tablet (Tylenol PM Extra Strength) Previous Rx's ?Medication ?Instructions ?Recorded docusate sodium 100 mg capsule 100 mg PO BID #20 caps 11/07/24 (Colace) omeprazole 20 mg capsule,delayed 20 mg PO DAILY@0630 #30 caps 11/07/24 release oxycodone 5 mg tablet 10 mg (2 x 5 mg) PO Q4H PRN Pain, 11/07/24 Severe (Pain Scale 7-10) #20 tabs polyethylene glycol 3350 17 17 g PO DAILY #119 grams 11/07/24 gram/dose oral powder (Miralax) prednisone 20 mg tablet 20 mg PO DAILY #5 tabs 11/07/24 cyclobenzaprine 10 mg tablet 10 mg PO TID PRN muscle spasm #20 01/11/25 tabs ondansetron 4 mg disintegrating 4 mg PO Q8H PRN nausea and 01/11/25 tablet vomiting #20 tabs oxycodone 10 mg tablet 10 mg PO Q6H PRN pain 3 days #12 01/11/25 tabs prednisone 20 mg tablet 40 mg (2 x 20 mg) PO DAILY 5 days 01/11/25 #10 tabs acetaminophen 500 mg tablet 500 mg PO Q6H PRN fever or pain 02/09/25 (Tylenol Extra Strength) #14 tabs lidocaine 5 % topical patch 1 patch topical DAILY PRN pain #30 02/09/25 (Lidoderm) ea morphine 15 mg immediate release 15 mg PO Q6H PRN pain (scale score 02/09/25 tablet 7-10) 3 days #5 tabs acetaminophen 325 mg tablet 650 mg (2 x 325 mg) PO Q6H PRN 02/26/25 (Tylenol) pain #28 tabs lidocaine 4 % topical patch 1 patch topical DAILY PRN pain #10 02/26/25 ea Allergies Allergy/AdvReac Type Severity Reaction Status Date / Time haloperidol [From Haldol] AdvReac Anxiety Verified 02/25/25 19:10 ketorolac [From Toradol] AdvReac Itching Verified 02/25/25 19:10 Review of Systems 2 Review of Systems: Rectal bleeding, back pain Yes all other systems are reviewed and are negative [facility] Past Medical History Medical History Discharge from penis Lesion of penis Concern about STD in male without diagnosis Social History Social History Household Members: Family Housing: Apartment Do you presently have visiting nurse or other home services: No Unable to assess alcohol history related to: Refusing to respond Alcohol intake: never Comment: pt here for dizziness; refuses high falls measures. asked to call staff for Patient Tobacco Use Status: Current everyday Tobacco user Tobacco use type: Cigarette Cigarette Packs Per Day: 1 Cigarettes Per Day: 20.0 e-Cigarette/Vaping Use: Currently Using Second Hand Smoke Exposure: No Substance Use Type: Crack/Cocaine service: No Physical Exam ED Vital Signs: Vital Signs - 24 hr 02/26/25 02:50 Temperature 97.9 F Pulse Rate 58 Respiratory Rate 16 Blood Pressure 97/66 Pulse Oximetry 98 Oxygen Delivery Method Room Air BMI result Body Mass Index 22.5 Const General: cooperative, healthy appearing, comfortable, no acute distress, well developed, alert, awake and Physically active Orientation/consciousness: patient oriented x3 HENMT Head: Yes normal to inspection, Yes No palpable skull fracture present, Yes normocephalic and Yes atraumatic Eyes General: appearance normal, both eyes and all related structures Neck Neck: Yes normal visual inspection, Yes full ROM, Yes no lymphadenopathy, Yes no meningeal signs, Yes trachea midline, Yes supple, No anterior neck swelling and No tender Chest Chest palpation & inspection: normal inspection of the chest and normal palpation of entire chest wall Resp Effort & Inspection: normal respiratory effort and able to speak in complete sentences Cardio Jugular venous distension: no JVD Heart sounds: S1 normal heart sound present and S2 normal heart sound present GI Other: Patient refused rectal exam Inspection: Yes normal to inspection Palpation (GI): Soft to palpation, not firm, nontender, no guarding and not rigid General: Yes no CVA tenderness Back/Spine/Pelvis Back: no CVA tenderness and back tenderness (Lumbar spine tenderness on palpation) Skin General skin exam: no rashes or lesions noted, elasticity normal and turgor normal Neuro General: patient oriented x3, gait normal, tone normal, moves all extremities, Normal light touch and pain sensation, no meningeal signs, no focal motor deficits, CN's II-XI intact bilaterally and normal sensation to monofilament Extrem General: Yes normal to inspection, Yes full ROM and Yes capillary refill normal Psych Appearance: grossly normal, well kempt and not disheveled Course Course Course Narrative: This is an RME performed by Rama Gomez CNP: Additional HPI, ROS, PE not included below will be deferred to primary provider. Patient is a 34-year-old male who presents to the emergency department for evaluation of diffuse lower back pain without injury and bleeding out of my butt described as bright red blood noted in the toilet. few days previous he was coughing/ vomiting blood. he reports he was seen at [facility] hours prior to arrival here, states he was given medication for his back pain, rectal examination was performed and he had blood work done. States he was discharged with general pain of the hip . Plan: Serum labs, urinalysis, will attempt to obtain records from [facility] Medications Administered Discontinued Medications Generic Name Dose Route Start Last Admin Trade Name Vladimirq PRN Reason Stop Dose Admin Cyclobenzaprine HCl 5 mg 02/25/25 23:30 02/25/25 23:46 Cyclobenzaprine Hcl 5 Mg Tablet PO 02/25/25 23:31 5 mg ONCE ONE Administration Oxycodone HCl 5 mg 02/25/25 23:30 02/25/25 23:45 Oxycodone Hcl Immed Release 5 Mg Tablet PO 02/25/25 23:31 5 mg ONCE ONE Administration Medical Decision Making Medical Decision Making [facility] Narrative: 34-year-old male presents to the ED for to come placed which as back pain and rectal bleeding. Patient was seen on [facility] yesterday 02/24/25. Patient had a GI bleed abdominal pelvis CT scan as per note which I am reviewing that came back negative for signs of GI bleed. In comparison to patient's H&H in [facility] and H&H at [facility] they are the same. Patient's labs are reassuring. Patient's complaint is back pain and not rectal bleeding. Urine shows leuko esterase white blood cell count and hyaline cast was sent for dry CT scan to make sure that is no kidney stone. We will give oral oxy and Flexeril due to patient states pain is worse on movement. 1:42am: Dry abdominal CT scan came back normal and just shows sclerosis of sacroiliac joints. Negative for kidney stones. No need for repeat CT scan to rule out GI bleeding. H&H is stable. Patient is not having any abdominal pain. Vital signs stable. Once again patient refused rectal exam. Patient explained worrisome signs and informed to return to the ED immediately. Not suspecting epidural abscess, osteomyelitis, caudina equina syndrome, colitis, GI Bleeding, or any life threatening etiology Differential Diagnosis Differential Diagnoses: The differential diagnosis associated with the presentation includes (rectal bleeding. sclerosis of sacroiiliac joint) Admission/Observation Consideration of admission/observation: Escalation of care including admission/observation considered Lab Data MDM Lab Attestation statement: I reviewed the patient's lab results. 02/25/25 19:46 02/25/25 19:46 Labs: Lab Results 02/25/25 02/25/25 Range/Units 19:46 20:29 WBC 8.7 (4.8-10.8) X10*3/uL RBC 4.20 L (4.60-5.80) X10*6/uL Hgb 11.2 L (14.0-18.0) g/dl Hct 35.8 L (42.0-52.0) % MCV 85.2 (80.0-98.0) fL MCH 26.7 L (27.0-33.0) pg MCHC 31.3 (31.0-36.0) g/dl RDW 13.7 (11.0-16.0) % Plt Count 235 (160-400) X10*3/uL MPV 8.0 L (9.4-12.4) fL Immature Gran % (Auto) 0.2 (0.0-0.4) % Neut % (Auto) 68.0 (45-73) % Lymph % (Auto) 23.1 (20-40) % Sheridan % (Auto) 6.6 (2-11) % Eos % (Auto) 1.8 (0-4) % Baso % (Auto) 0.3 (0-2) % Lymph # (Auto) 2.0 (1.2-4.9) X10*3/uL Sheridan # (Auto) 0.6 (0.1-1.2) X10*3/uL Eos # (Auto) 0.2 (0.0-0.4) X10*3/uL Baso # (Auto) 0.0 (0.0-0.2) X10*3/uL Abs Immat Gran (auto) 0.02 (0.00-0.03) X10*3/uL Absolute Neuts (auto) 5.9 (2.0-8.3) x10*3/uL Absolute Nucleated RBC 0.000 (0.0-0.012) X10*3/uL Nucleated RBC % (auto) 0.0 (0.0-0.2) /100WBC Sodium 140 (135-145) mmol/L Potassium 3.8 (3.3-5.1) mmol/L Chloride 106 (96-108) mmol/L Carbon Dioxide 26 (22-29) mmol/L Anion Gap 12 (12-20) BUN 10 (9-16) mg/dL Creatinine 0.78 (0.5-1.4) mg/dL Estim Creat Clear Calc 125.4 Estimated GFR > 60 Random Glucose 101 (60-115) mg/dL Calcium 8.2 L D (8.4-10.2) mg/dL Magnesium 1.9 (1.6-2.6) mg/dL Total Bilirubin 0.2 (0.0-1.0) mg/dL AST 15 (5-37) U/L ALT 10 (0-40) U/L Alkaline Phosphatase 77 (39-117) U/L Total Protein 6.2 L (6.5-8.0) g/dL Albumin 3.5 (3.5-5.0) g/dL Lipase 29 (8-78) U/L Urine Color Yellow Urine Appearance Clear Urine pH 6.5 (5.0-9.0) Ur Specific Dunbar 1.015 (1.005-1.025) Urine Protein Negative (Neg-Trace) mg/dL Urine Glucose (UA) Negative (Negative) mg/dL Urine Ketones Trace (Negative) mg/dL Urine Blood Negative (Negative) Urine Nitrite Negative (Negative) Ur Leukocyte Esterase Moderate (2+) H (Negative) Urine RBC 0-2 (0-2) /HPF Urine WBC 11-20 H (0-5) /HPF Ur Squamous Epith Cells 0-2 (0-2) /HPF Urine Bacteria None Seen (None Seen) Hyaline Casts 3-5 (0-2) /LPF Independent Interpretation I performed an independent interpretation of an: Plain X-Ray Radiology Impression Discussion of test interpretation with radiology: I have reviewed the radiologist's reading. Independent Historian Clinical information obtained from an independent historian. History obtained from or confirmed by: Other (patient) Discharge Plan Discharge Clinical Impression: Sclerosis of sacroiliac joint, RB (rectal bleeding) Patient Disposition: Home, Self-Care Instructions: Rectal Bleeding (ED), Sacroiliitis (ED) Additional Instructions: Recommend follow-up with primary care provider. Also recommend follow-up with [facility] where you have scheduled colonoscopy. If she can not follow up with [facility] you can call our [facility] clinic. Return to the ED immediately for any abdominal pain, nausea, vomiting, fever, chills, profuse rectal bleeding, worsening back pain, urinary/bowel incontinence, paralysis of extremities, chest pain, shortness of breath, weakness, vomiting blood, bloody urine, pale skin, or any other concerning symptoms. Prescriptions: New lidocaine 4 % adhesive patch,medicated 1 patch topical DAILY PRN (Reason: pain) Qty: 10 0RF acetaminophen [Tylenol] 325 mg tablet 650 mg PO Q6H PRN (Reason: pain) Qty: 28 0RF No Action cyclobenzaprine 10 mg tablet 10 mg PO TID PRN (Reason: muscle spasm) Qty: 20 0RF prednisone 20 mg tablet 40 mg PO DAILY 5 Days Qty: 10 0RF ondansetron 4 mg tablet,disintegrating 4 mg PO Q8H PRN (Reason: nausea and vomiting) Qty: 20 0RF oxycodone 10 mg tablet 10 mg PO Q6H PRN (Reason: pain) 3 Days Qty: 12 0RF Rx Instructions: Partial Fill upon patient request. diphenhydramine-acetaminophen [Tylenol PM Extra Strength] 25-500 mg Tablet 2 tab PO BEDTIME PRN (Reason: sleep/headache) omeprazole 20 mg Capsule,Delayed Release(Dr/Ec) 20 mg PO DAILY@0630 Qty: 30 0RF oxycodone 5 mg Tablet 10 mg PO Q4H PRN (Reason: Pain, Severe (Pain Scale 7-10)) Qty: 20 0RF Rx Instructions: Partial Fill upon patient request. prednisone 20 mg tablet 20 mg PO DAILY Qty: 5 0RF docusate sodium [Colace] 100 mg capsule 100 mg PO BID Qty: 20 0RF polyethylene glycol 3350 [Miralax] 17 gram/dose powder 17 g PO DAILY Qty: 119 0RF acetaminophen [Tylenol Extra Strength] 500 mg tablet 500 mg PO Q6H PRN (Reason: fever or pain) Qty: 14 0RF lidocaine [Lidoderm] 5 % adhesive patch,medicated 1 patch topical DAILY MDD remove after 12 hours PRN (Reason: pain) Qty: 30 0RF Rx Instructions: leave on most painful area for up to 12 hrs morphine 15 mg tablet 15 mg PO Q6H PRN (Reason: pain (scale score 7-10)) 3 Days Qty: 5 0RF Rx Instructions: Partial Fill upon patient request. Referrals: [facility] [Provider Group] (Rectal bleeding) [facility] [place] Pain Management [Provider Group] (Chronic sclerosis of sacroiliac joints) Stand Alone Forms: Work/School Release Interventions: ED Discharge Assessment Last Done: 02/26/25 02:50 Discharge Date/Time: 02/26/25 02:52 Print Language: Irish
[2025-02-25 19:51] LABS: MANUAL DIFF FLAG NO
[2025-02-25 19:53] LABS: Basophils Percent Auto 0.3 % (0-2); Eosinophils Absolute Auto 0.2 X10*3/uL (0.0-0.4); Eosinophils Percent Auto 1.8 % (0-4); Hematocrit 35.8 % (42.0-52.0); Hemoglobin 11.2 g/dl (14.0-18.0); Imm Gran Abs Auto 0.02 X10*3/uL (0.00-0.03); Imm Gran Pct Auto 0.2 % (0.0-0.4); Lymphocytes Percent Auto 23.1 % (20-40); Mean Corpuscular HGB Conc 31.3 g/dl (31.0-36.0); Mean Corpuscular Hemoglobin 26.7 pg (27.0-33.0); Mean Corpuscular Volume 85.2 fL (80.0-98.0); Monocytes Absolute Auto 0.6 X10*3/uL (0.1-1.2); Monocytes Percent Auto 6.6 % (2-11); Neutrophils Absolute Auto 5.9 x10*3/uL (2.0-8.3); Platelet Count 235 X10*3/uL (160-400); Red Cell Distribution Width 13.7 % (11.0-16.0); White Blood Count 8.7 X10*3/uL (4.8-10.8)
--- OUTSIDE RECORDS SUMMARY | 2025-02-25 19:58 | XMS_ITS | Clinical Summary ---
Author Organization [facility] Address [address] [place] [address] Phone Care Team Providers Care Senior Php Web Developer Name Role Phone Unavailable Primary Care Provider [...]
--- OUTSIDE RECORDS SUMMARY | 2025-02-25 19:58 | XMS_ITS | Encounter Summary ---
Author Organization [facility] Address [address] [place] [address] Care Team Providers Care Diaper Machine Tender Name Role Phone Pcp, No Primary Care Provider Unavailabl e Encounter Details Date Type Department Care Team (Late st Contact Info) Description 10/18/2024 Scanned Document [facility] Rheumatology [address] [id number] Stephy Alfaro MD [address] [facility] [address] [place] [address] Social History Tobacco Use Types Packs/Day Years Used Date Smoking Tobacco: Every Day Smokeless Tobacco: Never [facility] Utilities Answer Date Recorded In the past 12 months has [employer] electric, gas, oil, or water company threatened [...] any time in the past 12 m [facility], were you homeless or living in a fpc (including now)? No 10/11/2024 Sex and Gender [...] documented as of this encounter Care Teams Diaper Machine Tender Relationship Specialty Start Date End Date Pcp, No PCP - General General Medicine 03/26/21 documented as of this encounter
--- OUTSIDE RECORDS SUMMARY | 2025-02-25 19:58 | XMS_ITS | Clinical Summary ---
Author Organization [facility] Address [address] [place] [address] Care Team Providers Care Quality Improvement Consultant Name Role Phone Unavailable Primary Care Provider Unavailabl e Medical History Medical History Date Comments Cocaine use DX:Cocaine use Dental disease DX:Dental diseas e Headache disorder DX:Headache di sorder Social History Tobacco Use Types Packs/Day Years Used Date Smoking Tobacco: Every Day Sex and Gender Information Value Date Recorded Sex Assigned at Not on file Legal Sex Male 9:01 PM EST Gender Identity Not on file Sexual Orientation Not on file Obstetrics History Plan of Treatment Health Maintenance Due Date Last Done Comments DTaP,Tdap,and Td Vaccines (1 - Tdap) 2008 Hepatitis B Vaccines (1 of 3 - 19+ 3-dose series) 2008 Pneumococcal Vaccine: Pediat rics (0 to 5 Years) and At-Risk Patients (6 to 64 Years) (1 of 2 - PCV) 2008 Cholesterol Screening (Lipid Panel) 11/20/2023 Depression Screening 11/20/2023 HIV Screening 11/20/2023 Hepatitis C Screening 11/20/2023 Social Influencers of Health Screening 11/20/2023 COVID-19 Vaccine ( - 2023-2 5 season) 2024 Influenza Vaccine (Season Ended) 2025 HIB Vaccines Aged Out No longer eligi ble based on patient's age to complete this topic HPV Vaccines Aged Out No longer eligi ble based on patient's age to complete this topic Hepatitis A Vaccines Aged Out No long er eligible based on patient's age to complete this topic IPV Vaccines Aged Out No longer eligi ble based on patient's age to complete this topic MMR Vaccines Aged Out No longer eligi ble based on patient's age to complete this topic Meningococcal ACWY Vaccine Aged Out N o longer eligible based on patient's age to complete this topic Meningococcal B Vaccine Aged Out No l onger eligible based on patient's age to complete this topic RSV Immunization Patients Un mari 20 months Aged Out No longer eligible b ased on patient's age to complete this topic Varicella Vaccines Aged Out No longer eligible based on patient's age to complete this topic
--- OUTSIDE RECORDS SUMMARY | 2025-02-25 19:58 | XMS_ITS | Encounter Summary ---
Author Organization [facility] Address [address] [place] [id number] Phone Care Team Providers Care Funeral Director/Embalmer/Owner Name Role Phone Santiago Charles MD Primary Care Provider Alcon curtis Encounter Details Date Type Department Care Team (Late st Contact Info) Description 06/11/2017 Conversion Encounter [facility] - [address] [address] Social History Tobacco Use Types Packs/Day Years [...] on filedocumented in this encounter Care Teams Funeral Director/Embalmer/Owner Relationship Specialty Start Date End Date Santiago Charles MD PCP - General 06/05/17 05/04/23 documented as of this encounter
[2025-02-25 20:07] LABS: Alanine Aminotransferase 10 U/L (0-40); Albumin Level 3.5 g/dL (3.5-5.0); Alkaline Phosphatase 77 U/L (39-117); Anion Gap 12 (12-20); Aspartate Amino Transferase 15 U/L (5-37); Bilirubin Total 0.2 mg/dL (0.0-1.0); Blood Urea Nitrogen 10 mg/dL (9-16); Calcium 8.2 mg/dL (8.4-10.2); Carbon Dioxide 26 mmol/L (22-29); Chloride 106 mmol/L (96-108); Creatinine Clr Calc Pharmacy 125.4; Estimated Glomerular Filt Rate > 60; Glucose Random 101 mg/dL (60-115); Lipase 29 U/L (8-78); Magnesium 1.9 mg/dL (1.6-2.6); Potassium 3.8 mmol/L (3.3-5.1); Sodium 140 mmol/L (135-145); Total Protein 6.2 g/dL (6.5-8.0)
[2025-02-25 20:37] LABS: Appearance Urine Clear; Color Urine Yellow; Glucose Urine UA Negative (Negative); Leukocyte Esterase Urine Moderate (2+) (Negative); Nitrite Urine Negative (Negative); PH 6.5 (5.0-9.0); Specific Gravity - Urine 1.015 (1.005-1.025); UMIC TRIGGER UACC YES; Urine Blood Negative (Negative); Urine Ketones Trace mg/dL (Negative); Urine Protein Negative (Neg-Trace)
[2025-02-25 20:42] LABS: Bacteria Urine None Seen (None Seen); RBC Urine 0-2 /HPF (0-2); Squamous Epithelial Cell Urine 0-2 /HPF (0-2); UACC Culture Trigger YES
[2025-02-25 21:52] VITALS: BP 105/69; PULSE 74; RESP 16; TEMP 36.6; O2SAT 99
[2025-02-25] MEDS: oxyCODONE HCl Immed Release 5 MG TABLET PO (23:45)
[2025-02-25] MEDS: Cyclobenzaprine HCl 5 MG TABLET PO (23:46)
--- NOTE | 2025-02-25 23:50 | PC.NURSE ---
pt medicated according to mar per jd pt needs to wait to eat until after ct has been read. pt made aware
[2025-02-26 00:40] VITALS: BP 97/66; PULSE 58; RESP 16; TEMP 36.6; O2SAT 98
--- NOTE | 2025-02-26 02:48 | PC.NURSE ---
pt ambulatory at discharge pt states they don't do nothing for me here pt provided with juice and sandwich x2 and sandwich for ride home. pt verbalized understanding of discharge plan
[2025-02-26 02:50] VITALS: BP 97/66; PULSE 58; RESP 16; TEMP 36.6; O2SAT 98
== END 2025-02-26 02:52 | disposition home or self-care (01) ==
PROVIDERS: Nurse Practitioner Family; Emergency Provider Emergency Medicine
DX: G95.89 Other specified diseases of spinal cord (principal); K62.5 Hemorrhage of anus and rectum; M54.50 Low back pain, unspecified; F17.210 Nicotine dependence, cigarettes, uncomplicated; Z79.899 Other long term (current) drug therapy
CPT/HCPCS: 36415; 74176; 80053; 81001; 83690; 83735; 85025; 87086; 99284

== ENCOUNTER → 2025-02-25 23:32 | Outpatient (BNV) | payer OTHER, SELFPAY | PROVIDERS: Emergency Provider Emergency Medicine; Visit Provider Radiology Diagnostic Radiology | DX: M54.50 Low back pain, unspecified (principal); R82.81 Pyuria | CPT/HCPCS: 74176 ==

== ENCOUNTER 2025-05-28 00:49 | Emergency (ER) | payer OTHER, SELFPAY ==
[2025-05-28 01:00] VITALS: BP 101/50; PULSE 70; RESP 15; TEMP 36.6; O2SAT 97; BMI 24.9
--- NOTE | 2025-05-28 01:45 | PC.NURSE ---
pt refused ibuprofen as it makes his tongue feel weird. aware.
--- NOTE | 2025-05-28 02:09 | ED_ITS ---
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 Based on my review of the patient's late April 2025 discharge summary from [facility] after extensive workup including multiple hip aspiration imaging including MRI that it was felt he probably has a rheumatologic condition and he has a follow up in July with them. Patient feels that the fluid has reaccumulated in both hips mostly left hip is hurting him he is having trouble walking. He no longer has oxycodone that was given to him he said he was on steroids previously. No fevers or constitutional symptoms no leg swelling Related Data Home Medications ?Medication ?Instructions ?Recorded ?Confirmed diphenhydramine 25 2 tab PO BEDTIME PRN sleep/h eadache 10/30/24 10/30/24 mg-acetaminophen 500 mg tablet (Tylenol PM Extra Strength) Previous Rx's ?Medication ?Instructions ?Recorded docusate sodium 100 mg capsule 100 mg PO BID #20 caps 11/07/24 (Colace) omeprazole 20 mg capsule,delayed 20 mg PO DAILY@0630 # 30 caps 11/07/24 release oxycodone 5 mg tablet 10 mg (2 x 5 mg) PO Q4H PRN Pain, 11/07/24 Severe (Pain Scale 7-10) #20 tabs polyethylene glycol 3350 17 17 g PO DAILY #119 grams 0 11/07/24 gram/dose oral powder (Miralax) prednisone 20 mg tablet 20 mg PO DAILY #5 tabs 11/07 cyclobenzaprine 10 mg tablet 10 mg PO TID PRN muscle s pasm #20 01/11/25 tabs ondansetron 4 mg disintegrating 4 mg PO Q8H PRN nausea and 01/11/25 tablet vomiting #20 tabs oxycodone 10 mg tablet 10 mg PO Q6H PRN pain 3 days #12 01/11/25 tabs prednisone 20 mg tablet 40 mg (2 x 20 mg) PO DAILY 5 days 01/11/25 #10 tabs acetaminophen 500 mg tablet 500 mg PO Q6H PRN fever or pain 02/09/25 (Tylenol Extra Strength) #14 tabs lidocaine 5 % topical patch 1 patch topical DAILY PRN pain #30 02/09/25 (Lidoderm) ea morphine 15 mg immediate release 15 mg PO Q6H PRN pain (scale score 02/09/25 tablet 7-10) 3 days #5 tabs acetaminophen 325 mg tablet 650 mg (2 x 325 mg) PO Q6H PRN 02/26/25 (Tylenol) pain #28 tabs lidocaine 4 % topical patch 1 patch topical DAILY PRN pain #10 02/26/25 ea Allergies Allergy/AdvReac Type Severity Reaction Status Date / Time haloperidol (From Haldol) AdvReac Anxiety Verified 05/28/25 01:01 ketorolac (From Toradol) AdvReac Itching Verified 05/28/25 01:01 [facility] Past Medical History Medical History Discharge from penis Lesion of penis Concern about STD in male without diagnosis Social History Social History Household Members: Family Housing: Apartment Do you presently have visiting nurse or other home services: No Unable to assess alcohol history related to: Refusing to respond Alcohol intake: never Comment: pt here for dizziness; refuses high falls measures. asked to call staff for Patient Tobacco Use Status: Current everyday Tobacco user Tobacco use type: Cigarette Cigarette Packs Per Day: 1 Cigarettes Per Day: 20.0 e-Cigarette/Vaping Use: Currently Using Second Hand Smoke Exposure: No Substance Use Type: Crack/Cocaine Advance Directives: Yes Advance Directives on File: Yes Advance Directives Date on File: 11/18/24 Do you have a plan to hurt others: No Plan service: No Physical Exam Exam: Exam: EXAM: Gen: Alert, awake, well appearing, well hydrated. Head: Atraumatic Eyes: Anicteric, Normal conjunctiva. ENT: Moist mucosa, no pallor. ? Neck: Supple. Skin: ?No observable rash or bruising on exposed or examined skin Respiratory: Breathing comfortably, No distress.Clear to auscultation bilaterally, symmetric chest expansion, No wheeze, rales, ronchi. Cardiovascular: Regular rate and rhythm. No murmurs or rub. Well perfused periphery, warm extremities. No edema. ? Abdominal: No focal tenderness. Soft, no objective distension. No palpable masses or obvious organomegaly. ?No guarding, no rebound tenderness or other peritoneal findings. : No flank tenderness. Neuro: Alert. Gross movement of all extremities intact. ? Psych: Calm. Cooperative. MSK: No grossly visible deformity. Vital signs: See flowsheet Vital Signs: Vital Signs: Last Vital Signs Temp 97.9 F 05/28/25 01:00 Pulse 70 05/28/25 01:00 Resp 15 05/28/25 01:00 BP 101/50 L 05/28/25 01:00 Pulse Ox 97 05/28/25 01:00 O2 Del Method Room Air 05/28/25 01:00 BMI result Body Mass Index 24.9 Medications Administered Discontinued Medications Generic Name Dose Route Start Last Admin Trade Name Freq PRN Reason Stop Dose Admin Ibuprofen 600 mg 05/28/25 01:30 05/28/25 01:45 Ibuprofen 600 Mg Tablet PO 05/28/25 01:31 Not Given ONCE ONE Medical Decision Making Medical Decision Making MDM Narrative: Medical Decision Making: This is a 34-year-old male who after my personal review of his [facility] medical records has a history of bilateral and recurrent hip effusions felt most likely to be rheumatologic in nature. He had previously been treated for septic arthritis though my review of all of his obtained effusion culture were negative. He has no fever or chills but feels subjective increase in the fluid in the joints of the hips particularly the left side. He is afebrile here no tachycardia there was no overlying joint erythema in the skin is intact. Came requesting fluid aspiration Preliminary Favored Differential Diagnosis: recurrent arthritis inflammatory vs gout unlikely septic given prior workups, recurrence and afebrile. among additional considered etiologies Testing Interpreted Independently: POCUS , see report Radiology or Lab testing Results Reviewed: Not Applicable Consults: Not Applicable Independent Historians/External Chart Reviews: I personally reviewed imaging studies and discharge summary from [facility] in April 2025 although the summary was lengthy it appears the patient had presumed rheumatologic condition causing sacroiliitis and bilateral hip effusions with negative hip joint aspiration culture growth. He did continue linezolid as an outpatient Social Determinants of Health Impacting MDM/Planning: Not Applicable Procedures Procedure Narrative Procedure Narrative: EMERGENCY ULTRASOUND INTERPRETATION- Limited Musculoskeletal [This study was ordered, performed, and interpreted by myself. The study reveals: Impression: bilateral hip effusions] [Indication: recurrence of arthritis, pain claudio hip Joint Localization for fluid (anechoic): claudio hips with effusions Performed by: Claude Feliz MD Images were stored ] Discharge Plan Discharge Clinical Impression: Effusion of hip joint, left Patient Disposition: Home, Self-Care Instructions: Swollen Hip Joint (ED) Additional Instructions: DISCHARGE DIAGNOSES: Bilateral hip effusions or fluid in the joint. Recurrent suspected to be rheumatologic. HISTORY OF PRESENTATION: ?Recurrent bilateral hip pain [id number] EMERGENCY DEPARTMENT COURSE,TESTS, TREATMENTS: While in the ED today we did not ultrasound of your hip showing fluid in the joints and discussed options including medications for pain relief or fluid aspiration from the joints. Although we set up to perform this procedure you declined this to be performed. DISCHARGE MEDICATIONS: ?[We have made no changes to your regular medication regimen] FOLLOW-UP: ?Call your primary or general physician soon as possible to discuss your symptoms, your ED visit and to discuss follow up plans Call your rheumatology practice to try to expedite follow up take ibuprofen or Tylenol for pain INSTRUCTIONS ?& RETURN PRECAUTIONS: If any symptoms change first call your primary physician, if it is after-hours your primary doctors office should have a provider adaptive physical education teacher you can speak with. If the symptoms are severe or very concerning to you then call 911 or return to the ED. We had a lengthy discussion of possible plans of treatment. Given your extensive workup including imaging joint aspirations consultations with specialists such as infectious disease and orthopedics at [facility] we recommended given you have declined a bedside joint aspiration and preferred to return to [facility] you should proceed to [facility] Emergency Department if you desire further workup. There is however no indication for emergent transfer Claude Feliz MD Emergency Physician [facility] Prescriptions: No Action cyclobenzaprine 10 mg tablet 10 mg PO TID PRN (Reason: muscle spasm) Qty: 20 0RF prednisone 20 mg tablet 40 mg PO DAILY 5 Days Qty: 10 0RF ondansetron 4 mg tablet,disintegrating 4 mg PO Q8H PRN (Reason: nausea and vomiting) Qty: 20 0RF oxycodone 10 mg tablet 10 mg PO Q6H PRN (Reason: pain) 3 Days Qty: 12 0RF Rx Instructions: Partial Fill upon patient request. lidocaine 4 % adhesive patch,medicated 1 patch topical DAILY PRN (Reason: pain) Qty: 10 0RF acetaminophen [Tylenol] 325 mg tablet 650 mg PO Q6H PRN (Reason: pain) Qty: 28 0RF diphenhydramine-acetaminophen [Tylenol PM Extra Strength] 25-500 mg Tablet 2 tab PO BEDTIME PRN (Reason: sleep/headache) omeprazole 20 mg Capsule,Delayed Release(Dr/Ec) 20 mg PO DAILY@0630 Qty: 30 0RF oxycodone 5 mg Tablet 10 mg PO Q4H PRN (Reason: Pain, Severe (Pain Scale 7-10)) Qty: 20 0RF Rx Instructions: Partial Fill upon patient request. prednisone 20 mg tablet 20 mg PO DAILY Qty: 5 0RF docusate sodium [Colace] 100 mg capsule 100 mg PO BID Qty: 20 0RF polyethylene glycol 3350 [Miralax] 17 gram/dose powder 17 g PO DAILY Qty: 119 0RF acetaminophen [Tylenol Extra Strength] 500 mg tablet 500 mg PO Q6H PRN (Reason: fever or pain) Qty: 14 0RF lidocaine [Lidoderm] 5 % adhesive patch,medicated 1 patch topical DAILY MDD remove after 12 hours PRN (Reason: pain) Qty: 30 0RF Rx Instructions: leave on most painful area for up to 12 hrs morphine 15 mg tablet 15 mg PO Q6H PRN (Reason: pain (scale score 7-10)) 3 Days Qty: 5 0RF Rx Instructions: Partial Fill upon patient request. Discharge Date/Time: 05/28/25 02:28 Print Language: [place]an
--- NOTE | 2025-05-28 02:26 | PC.NURSE ---
Pt refused vitals during d/c states connie didnt even do anything for me here. Ambulatory out of department. Advised of where phone in [place] is to call for ride, states I dont need a phone this is bullshit
== END 2025-05-28 02:28 | disposition home or self-care (01) ==
PROVIDERS: Emergency Provider Emergency Medicine
DX: M25.552 Pain in left hip (principal); M25.452 Effusion, left hip; M25.451 Effusion, right hip; F17.210 Nicotine dependence, cigarettes, uncomplicated
CPT/HCPCS: 76881; 99281; 99284